=== PATIENT | male | born 1945 | race Caucasian/White ===

== ENCOUNTER 2019-06-14 14:08 | Inpatient (IN) | payer OTHER, MEDICARE, SELFPAY ==
[2019-06-14] VITALS (11 sets, daily range): BP systolic 135–161; BP diastolic 78–118; PULSE 106–122; RESP 16–24; TEMP 36.6–38.1; O2SAT 91–97; BMI 31.4
--- NOTE | 2019-06-14 14:14 | ED_ITS ---
Entered by Leonard Ferreira, acting as scribe for Nino Spring DO HPI - General Adult General: Chief complaint: Chest Pain Stated complaint: cp Time Seen by Provider: 06/14/19 14:14 History of Present Illness: HPI narrative: 74 yo male presents with chest pain. Pts family member states that pt has had chest pain since 12 last night. Pt states that his pain radiates down his left arm. Pt states that he can't sit back because of the pain. Pt states that he is mildly short of breath. Pt states that he has a cough. MD complaint: chest pain. Associated symptoms: Reports chest pain, dyspnea and malaise; Deny nausea, rash or vomiting Review of Systems Const: Reports: malaise; Denies: fever, chills, body aches, change in appetite or fatigue ENMT: Denies: throat pain, ear pain, nasal discharge or nasal congestion Card: Reports: chest pain, edema, shortness of breath on exertion and shortness of breath when lying down Resp: Reports: shortness of breath and non-productive cough; Denies: productive cough GI: Denies: abdominal pain, nausea, vomiting, vomiting blood, coffee grounds in vomit, diarrhea, constipation, bloating, blood in stool or black tarry stool : Denies: flank pain, painful urination, urinary frequency or urinary urgency Musc: Reports: back pain Skin/Breast: Denies: rash or itching PFSH ED PFSH: Medical History Abdominal aortic aneurysm BPH (benign prostatic hyperplasia) CAD (coronary artery disease) Chronic edema 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 Deep vein blood clot of right lower extremity HLD (hyperlipidemia) Hypertension Surgical History History of hernia repair S/P coronary artery stent placement Family History Mother Diabetes Social History Smoking and tobacco status: former smoker Quit status (tobacco): has quit using tobacco Year quit tobacco: 2009 Alcohol intake: current Alcohol type: hard liquor Alcohol use comment: 1 drink per week, sometimes more Substance/Drug Use: never Lives independently: Yes Household members: none Marital status: Current occupational status: retired Physical Exam Const: GENERAL APPEARANCE: cooperative ORIENTATION/CONSCIOUSNESS: Yes awake, Yes oriented to person, Yes oriented to place and Yes oriented to time HENMT: COMMON NORMALS: normocephalic, head/scalp atraumatic, hearing grossly normal bilaterally, external ears normal, EAC's normal, TM's normal bilaterally, nasal mucous membranes and turbinates normal, moist oral mucous membranes and oropharynx normal HEAD & SCALP: normocephalic and atraumatic NOSE: nasal mucous membranes and turbinates normal EXTERNAL EAR: Yes external ears normal EXTERNAL AUDITORY CANAL: EAC's normal TYMPANIC MEMBRANE: TM's normal bilaterally Eye: COMMON NORMALS: PERRL, EOMs intact bilaterally, conjunctivae normal and no scleral icterus CONJUNCTIVA: Yes conjunctivae normal PUPIL: Yes PERRL Neck/C-Spine: COMMON NORMALS: full ROM, no lymphadenopathy, supple and no JVD Lymph: LYMPHATIC: no lymphadenopathy noted and no lymphedema noted Resp: COMMON NORMALS: normal respiratory effort, no retractions, no use of accessory muscles and clear to auscultation bilaterally AUSCULTATION: clear to auscultation bilaterally Cardio: COMMON NORMALS: no JVD, regular rate, regular rhythm and no murmurs RATE: regular rate RHYTHM: regular rhythm GI: COMMON NORMALS: soft to palpation and no hepatosplenomegaly AUSCULTATION: Yes normoactive bowel sounds PALPATION: Yes soft, No tender, No guarding and Yes no hepatosplenomegaly Extremity: GENERAL: Yes edema (bilateral lower extremities +3) Neuro: SENSORIUM/ORIENTATION: Yes oriented to person, Yes oriented to place and Yes oriented to time Skin: COMMON NORMALS: no rashes or lesions noted GENERAL SKIN EXAM: no rashes or lesions noted Course ED course: Patient has low back pain which is chronic. He is little chest discomfort as well increasing shortness of breath and lower extremity edema which appears to be mostly chronic. He has had an abdominal aortic aneurysm in the past his chest discomfort is very vague does not sound clinically like a thoracic aneurysm. During the ER stay is mostly focused on his back pain. He has had some tachycardia could have little underlying a flutter on the EKGs is a little difficult to interpret because of motion artifact we did start him on a beta-amanda. His mild leukocytosis as well though there is no finding of definitive infection he is little redness of his left lower extremity which could be an early cellulitis but he does not seem to be complaining of much discomfort w the leg. Vital Signs: Vital signs: Vital Signs Temperature 99.1 F 06/15/19 11:55 Pulse Rate 115 H 06/15/19 11:55 Respiratory Rate 18 06/15/19 11:55 Blood Pressure 91/60 06/15/19 11:55 Pulse Oximetry 94 06/15/19 09:12 [facility] - General Adult Lab Data: Labs: Lab Results 06/14/19 06/14/19 06/14/19 Range/Units 14:30 14:30 14:30 WBC 11.6 H (4.0-10.0) 10^3/ uL RBC 5.81 H (4.1-5.3) 10^6/u L Hgb 16.5 (11.7-16.6) g/dL Hct 50.8 (42.0-52.0) % MCV 87.4 (80-94) fL MCH 28.4 (28.0-34.0) pg MCHC 32.5 (30.0-36.0) g/dL RDW 13.9 (12.1-15.1) % Plt Count 188 (130-400) 10^3/c mm MPV 10.7 H (7.4-10.4) fL Neut % (Auto) 82.6 % Lymph % (Auto) 10.3 % Ray % (Auto) 6.3 % Eos % (Auto) 0.3 % Baso % (Auto) 0.2 % Neut # (Auto) 9.5 H (1.8-7.7) 10^3/u L Lymph # (Auto) 1.2 (0.8-4.8) 10^3/u L Ray # (Auto) 0.7 (0.2-0.9) 10^3/u L Eos # (Auto) 0.0 (0.0-0.8) 10^3/u L Baso # (Auto) 0.0 (0.0-0.1) 10^3/u L Nucleated RBC % (a uto) 0 % Nucleated RBCs # 0.0 /100WBC Specimen Type Sample Site ABG pH (7.35-7.45) ABG pCO2 (35-45) mmHg ABG pO2 (80.0-100.0) mmH g ABG HCO3 (22-26) mmol/L ABG O2 Saturation ABG Base Excess (-2.0-2.0) mmol/ L Chevy Test A-a O2 Gradient (5-10) mmHg Hematocrit (42-52) % Hgb O2 Saturation (95-100) % Carboxyhemoglobin (0.4-20.1) %THgb Methemoglobin (0.4-1.5) % Total Hemoglobin (14-18) g/dL Ionized Calcium (1.1-1.4) mmol/L O2 Delivery Device O2 Liters/Min % FiO2 % Emergency Medical Tech ID Sodium 140 (136-145) mmol/L Potassium 4.3 (3.5-5.1) mmol/L Chloride 96 L (98-107) mmol/L Carbon Dioxide 27 (22-29) mmol/L Anion Gap 21.3 H (5-19) BUN 18 (8-23) mg/dL Creatinine 1.2 (0.7-1.2) mg/dL Glucose 130 H (65-115) mg/dL Calcium 10.3 (8.5-10.5) mg/dL Total Bilirubin 1.1 (0.15-1.2) mg/dL GGT (8-61) U/L AST 20 (0-40) U/L ALT 22 (0-41) U/L Alkaline Phosphata se 140 H (40-130) IU/L Creatine Kinase (39-308) U/L CK-MB (CK-2) (0-10.4) ng/mL CK-MB (CK-2) Rel I ndex (0.0-5.3) % Troponin T Baselin e 23 H (0-15) ng/mL Troponin T 120 Min napaimute (0-15) ng/mL Delta Troponin T (0-10) ABS# Total Protein 8.9 H (6.6-8.7) g/dL Albumin 4.9 (3.5-5.2) g/dL Globulin 4.0 (1.3-4.6) g/dL Urine Color (Yellow) Urine Appearance (CLEAR) Urine pH (5-7) Ur Specific Gravit y (1.005-1.030) Urine Protein (Negative) Urine Glucose (UA) (Normal) Urine Ketones (Negative) Urine Blood (Negative) Urine Nitrate (Negative) Urine Bilirubin (NEGATIVE) Urine Urobilinogen (Negative) mg/dL Ur Leukocyte Kelle ase (Negative) Urine RBC (0-2) /hpf Urine WBC (0-5) /hpf Ur Squamous Epith Cells (0-5) Urine Bacteria (NONE) Urine Mucus 06/14/19 06/14/19 06/14/19 Range/Units 14:30 14:30 16:11 WBC (4.0-10.0) 10^3/ uL RBC (4.1-5.3) 10^6/u L Hgb (11.7-16.6) g/dL Hct (42.0-52.0) % MCV (80-94) fL MCH (28.0-34.0) pg MCHC (30.0-36.0) g/dL RDW (12.1-15.1) % Plt Count (130-400) 10^3/c mm MPV (7.4-10.4) fL Neut % (Auto) % Lymph % (Auto) % Ray % (Auto) % Eos % (Auto) % Baso % (Auto) % Neut # (Auto) (1.8-7.7) 10^3/u L Lymph # (Auto) (0.8-4.8) 10^3/u L Ray # (Auto) (0.2-0.9) 10^3/u L Eos # (Auto) (0.0-0.8) 10^3/u L Baso # (Auto) (0.0-0.1) 10^3/u L Nucleated RBC % (a uto) % Nucleated RBCs # /100WBC Specimen Type Arterial Sample Site Radial, right ABG pH 7.45 (7.35-7.45) ABG pCO2 37.3 (35-45) mmHg ABG pO2 83.1 (80.0-100.0) mmH g ABG HCO3 25.9 (22-26) mmol/L ABG O2 Saturation 97.4 ABG Base Excess 2.0 (-2.0-2.0) mmol/ L Chevy Test Pos A-a O2 Gradient 98.4 H (5-10) mmHg Hematocrit 54.2 H (42-52) % Hgb O2 Saturation 96.2 (95-100) % Carboxyhemoglobin 0.5 (0.4-20.1) %THgb Methemoglobin 0.7 (0.4-1.5) % Total Hemoglobin 17.7 (14-18) g/dL Ionized Calcium 1.2 (1.1-1.4) mmol/L O2 Delivery Device Nc O2 Liters/Min 3.0 % FiO2 32.0 % Emergency Medical Tech ID ed Sodium 141.0 (136-145) mmol/L Potassium 4.0 (3.5-5.1) mmol/L Chloride (98-107) mmol/L Carbon Dioxide (22-29) mmol/L Anion Gap (5-19) BUN (8-23) mg/dL Creatinine (0.7-1.2) mg/dL Glucose 130.0 H (65-115) mg/dL Calcium (8.5-10.5) mg/dL Total Bilirubin (0.15-1.2) mg/dL GGT 33 (8-61) U/L AST (0-40) U/L ALT (0-41) U/L Alkaline Phosphata se (40-130) IU/L Creatine Kinase 81 (39-308) U/L CK-MB (CK-2) 2.4 (0-10.4) ng/mL CK-MB (CK-2) Rel I ndex (0.0-5.3) % Troponin T Baselin e (0-15) ng/mL Troponin T 120 Min [place] (0-15) ng/mL Delta Troponin T (0-10) ABS# Total Protein (6.6-8.7) g/dL Albumin (3.5-5.2) g/dL Globulin (1.3-4.6) g/dL Urine Color (Yellow) Urine Appearance (CLEAR) Urine pH (5-7) Ur Specific Gravit y (1.005-1.030) Urine Protein (Negative) Urine Glucose (UA) (Normal) Urine Ketones (Negative) Urine Blood (Negative) Urine Nitrate (Negative) Urine Bilirubin (NEGATIVE) Urine Urobilinogen (Negative) mg/dL Ur Leukocyte Kelle ase (Negative) Urine RBC (0-2) /hpf Urine WBC (0-5) /hpf Ur Squamous Epith Cells (0-5) Urine Bacteria (NONE) Urine Mucus 06/14/19 06/14/19 Range/Units 16:36 17:00 WBC (4.0-10.0) 10^3/ uL RBC (4.1-5.3) 10^6/u L Hgb (11.7-16.6) g/dL Hct (42.0-52.0) % MCV (80-94) fL MCH (28.0-34.0) pg MCHC (30.0-36.0) g/dL RDW (12.1-15.1) % Plt Count (130-400) 10^3/c mm MPV (7.4-10.4) fL Neut % (Auto) % Lymph % (Auto) % Ray % (Auto) % Eos % (Auto) % Baso % (Auto) % Neut # (Auto) (1.8-7.7) 10^3/u L Lymph # (Auto) (0.8-4.8) 10^3/u L Ray # (Auto) (0.2-0.9) 10^3/u L Eos # (Auto) (0.0-0.8) 10^3/u L Baso # (Auto) (0.0-0.1) 10^3/u L Nucleated RBC % (a uto) % Nucleated RBCs # /100WBC Specimen Type Sample Site ABG pH (7.35-7.45) ABG pCO2 (35-45) mmHg ABG pO2 (80.0-100.0) mmH g ABG HCO3 (22-26) mmol/L ABG O2 Saturation ABG Base Excess (-2.0-2.0) mmol/ L Chevy Test A-a O2 Gradient (5-10) mmHg Hematocrit (42-52) % Hgb O2 Saturation (95-100) % Carboxyhemoglobin (0.4-20.1) %THgb Methemoglobin (0.4-1.5) % Total Hemoglobin (14-18) g/dL Ionized Calcium (1.1-1.4) mmol/L O2 Delivery Device O2 Liters/Min % FiO2 % Emergency Medical Tech ID Sodium (136-145) mmol/L Potassium (3.5-5.1) mmol/L Chloride (98-107) mmol/L Carbon Dioxide (22-29) mmol/L Anion Gap (5-19) BUN (8-23) mg/dL Creatinine (0.7-1.2) mg/dL Glucose (65-115) mg/dL Calcium (8.5-10.5) mg/dL Total Bilirubin (0.15-1.2) mg/dL GGT (8-61) U/L AST (0-40) U/L ALT (0-41) U/L Alkaline Phosphata se (40-130) IU/L Creatine Kinase (39-308) U/L CK-MB (CK-2) (0-10.4) ng/mL CK-MB (CK-2) Rel I ndex (0.0-5.3) % Troponin T Baselin e (0-15) ng/mL Troponin T 120 Min [place] 20.94 H (0-15) ng/mL Delta Troponin T -2.06 L (0-10) ABS# Total Protein (6.6-8.7) g/dL Albumin (3.5-5.2) g/dL Globulin (1.3-4.6) g/dL Urine Color Yellow (Yellow) Urine Appearance Clear (CLEAR) Urine pH 5.0 (5-7) Ur Specific Gravit y 1.020 (1.005-1.030) Urine Protein Trace (Negative) Urine Glucose (UA) Norm (Normal) Urine Ketones Negative (Negative) Urine Blood Neg (Negative) Urine Nitrate Negative (Negative) Urine Bilirubin Neg (NEGATIVE) Urine Urobilinogen Norm (Negative) mg/dL Ur Leukocyte Kelle ase Negative (Negative) Urine RBC None (0-2) /hpf Urine WBC None (0-5) /hpf Ur Squamous Epith Cells 5-10 H (0-5) Urine Bacteria Trace (NONE) Urine Mucus 3+ Discharge Plan Discharge Patient Disposition: Placed in Observation Admit Provider: Jason Ponce Clinical Impression: Chest pain, Severe back pain, Tachycardia, Leukocytosis, Alkaline phosphatase elevation Interventions: ED Discharge Assessment Last Done: 06/14/19 18:08 Discharge Date/Time: 06/14/19 18:13 Coding Level of Care Code ED Behavioral Health Director for g Fwd Exam Comprehensive The documentation recorded by the Jhon hirsch Kialy, accurately reflects the service I personally performed and the decisions made by me, Nino Spring DO Jun 14, 2019 14:08
--- NOTE | 2019-06-14 14:17 | XR_ITS ---
WS: [id number] XR chest 1V portable [id number] REASON FOR EXAM: dyspnea/cough FINDINGS: Cardiomegaly is noted. Tortuosity of the descending thoracic aorta. Arteriosclerotic change s in the arch of the aorta. The lung slade are well aerated. No pneumonia, pleural effusion, pulmonary edema, mass effect, are p neumothorax. The hilum and apices are normal. No osseous abnormalities. XR/XR chest 1V portable [id number] IMPRESSION: Cardiomegaly with arteriosclerotic changes.
[2019-06-14 14:38] LABS: Basophils % 0.2 %; Eosinophils % 0.3 %; Hematocrit 50.8 % (42.0-52.0); Hemoglobin 16.5 g/dL (11.7-16.6); Lymphocytes # 1.2 10^3/uL (0.8-4.8); Lymphocytes % 10.3 %; Mean Corpuscular HGB Conc 32.5 g/dL (30.0-36.0); Mean Corpuscular Hemoglobin 28.4 pg (28.0-34.0); Mean Corpuscular Volume 87.4 fL (80-94); Mean Platelet Volume 10.7 fL (7.4-10.4); Monocytes # 0.7 10^3/uL (0.2-0.9); Monocytes % 6.3 %; Neutrophils # 9.5 10^3/uL (1.8-7.7); Neutrophils % 82.6 %; Nucleated Red Blood Cells % 0 %; Platelet Count 188 10^3/cmm (130-400); Red Blood Count 5.81 10^6/uL (4.1-5.3); Red Cell Distribution Width 13.9 % (12.1-15.1); White Blood Count 11.6 10^3/uL (4.0-10.0)
[2019-06-14] MEDS: metoprolol tartrate 1 mg/1 mL SDV 5 mL 5 MG IV (14:56)
[2019-06-14] MEDS: nitroglycerin 1 gm/inch oint Pkt 1 INCH TOPICAL (14:56)
[2019-06-14] MEDS: metoprolol succinate ER (24 HR) 50 mg Tablet PO (14:56)
[2019-06-14 15:02] LABS: Alanine Aminotransferase 22 U/L (0-41); Albumin Level 4.9 g/dL (3.5-5.2); Alkaline Phosphatase 140 IU/L (40-130); Anion Gap 21.3 (5-19); Aspartate Amino Transferase 20 U/L (0-40); Blood Urea Nitrogen 18 mg/dL (8-23); Calcium 10.3 mg/dL (8.5-10.5); Carbon Dioxide 27 mmol/L (22-29); Chloride 96 mmol/L (98-107); Glucose 130 mg/dL (65-115); Potassium 4.3 mmol/L (3.5-5.1); Sodium 140 mmol/L (136-145); Total Bilirubin 1.1 mg/dL (0.15-1.2); Total Protein 8.9 g/dL (6.6-8.7)
[2019-06-14 15:06] LABS: Troponin(5th) Baseline 23 ng/mL (0-15)
[2019-06-14] MEDS: morphine 4 mg/mL SDV 1 mL 2 MG IVP (15:15)
--- NOTE | 2019-06-14 16:02 | PC.NURSE ---
pt placed on oxygen 3 lpm, pt c/o chest pain, sao2 92% on RA
[2019-06-14 16:20] LABS: ABG PCO2 37.3 mmHg (35-45); ABG PH Result 7.45 (7.35-7.45); Alveolar-Arterial Oxygen Gradi 98.4 mmHg (5-10); Arterial Blood Gas Hematocrit 54.2 % (42-52); Blood Gas Allen Test Pos; Blood Gas Sample Site Radial, right; Blood Gas Sample Type Arterial; Carboxyhemoglobin 0.5 %THgb (0.4-20.1); HCO3 ABG 25.9 mmol/L (22-26); HGB O2 Sat 96.2 % (95-100); Ionized Calcium Level - ABG 1.2 mmol/L (1.1-1.4); Methemoglobin 0.7 % (0.4-1.5); Oxygen Device NC; Oxygen Saturation ABG 97.4; PO2 ABG 83.1 mmHg (80.0-100.0); Total Hemoglobin 17.7 g/dL (14-18)
[2019-06-14] MEDS: morphine 4 mg/mL SDV 1 mL IVP (16:30)
[2019-06-14 17:01] LABS: Troponin 5 2HR 20.94 ng/mL (0-15)
[2019-06-14 17:03] LABS: Troponin 5 2HR Delta -2.06 ABS# (0-10)
[2019-06-14 17:16] LABS: Add Urine Microscopic? YES; Bilirubin Urine Neg (NEGATIVE); Blood Urine Neg (Negative); Glucose Urine UA Norm (Normal); Ketones Urine Negative (Negative); Leukocyte Esterase Urine Negative (Negative); Nitrate Urine Negative (Negative); Protein Urine Trace (Negative); Urine Appearance Clear (CLEAR); Urine Color Yellow (Yellow); Urobilinogen Urine Norm (Negative)
[2019-06-14 17:34] LABS: Add Urine Culture? No; Bacteria Urine TRACE; Mucus Urine 3+
[2019-06-14 18:57] LABS: Gamma Glutamyl Transferase 33 U/L (8-61)
--- NOTE | 2019-06-14 19:09 | CTR_ITS ---
PROCEDURE INFORMATION: Exam: CT Angiography Chest Without And With Contrast Exam date and time: 06/14/2019 7:40 PM Age: 74 years old Clinical indication: Chest pain; Type not specified; Patient HX: C/O sudden onset severe chest/back pain; Additional info: Chest, back pain, tachycardia R/O dissection TECHNIQUE: Imaging protocol: Computed tomographic angiography of the chest without and with intravenous contrast. 3D rendering: MIP and/or 3D reconstructed images were created by the technologist. Total DLP: 1720.14 mGy-cm Radiation optimization: All CT scans at this facility use at least one of these dose optimization techniques: automated exposure control; mA and/or kV adjustment per patient size (includes targeted exams where dose is matched to clinical indication); or iterative reconstruction. Contrast material: OMNI 350; Contrast volume: 95 ml; Contrast route: 20G; COMPARISON: CR XR chest 1V portable [id number] 06/14/2019 2:33 PM FINDINGS: Pulmonary arteries: No visible pulmonary embolism. Aorta: The thoracic aorta appears nonaneurysmal. Bovine aortic arch trunk vessels. The Maximum AP diameter of the ascending thoracic aorta 42 mm which is within normal limits although upper limits of normal. No visible intimal flap or dissection. Mild arterial sclerotic disease. Lungs: No visible active interstitial or alveolar airspace disease. Pleural space: No visible active pleural based disease or pleural effusion. Heart: Advanced 3 vessel coronary artery disease. Upper abdomen: Visualized portions of the liver, pancreas, spleen, adrenal glands, and kidneys unremarkable for age. Small simple cortical cyst and parapelvic cyst equator left kidney. This is a benign finding. No follow-up recommended. Small hiatal hernia. Gallbladder and bile ducts: Incidental note of mild porcelain gallbladder. No visible cholelithiasis. No visible intra or extrahepatic biliary ectasia. Lymph nodes: Unremarkable. No enlarged lymph nodes. Bones/joints: Age-appropriate degenerative disease of the spine. Soft tissues: Unremarkable. CT/CT angio chest [id number] IMPRESSION: 1. No visible thoracic aortic aneurysm, intimal flap, or evidence of dissection. 2. No visible pulmonary embolism. 3. Advanced 3 vessel coronary artery disease. 4. Mild arterial sclerosis. 5. Porcelain gallbladder. 6. No current visible evidence of acute cardiopulmonary/cardiothoracic pathologic process. Radiation Dose CTDIVOL = (mGy): DLP = 1720.14 (mGy-cm)
--- NOTE | 2019-06-14 19:12 | CTR_ITS ---
PROCEDURE INFORMATION: Exam: CT Lumbar Spine Without Contrast Exam date and time: 06/14/2019 7:40 PM Age: 74 years old Clinical indication: Low back pain; Patient HX: C/O sudden onset severe back pain; Additional info: Sudden onset severe back pain, tachycardia, leukocytosis TECHNIQUE: Imaging protocol: Computed tomography images of the lumbar spine without contrast. Total DLP: 2155.56 mGy-cm Radiation optimization: All CT scans at this facility use at least one of these dose optimization techniques: automated exposure control; mA and/or kV adjustment per patient size (includes targeted exams where dose is matched to clinical indication); or iterative reconstruction. COMPARISON: No relevant prior studies available. FINDINGS: Tubes, catheters and devices: IVC filter. Vertebrae: No visible fracture, subluxation, or dislocation or other evidence of acute osseous pathologic process. Discs/Spinal canal/Neural foramina: Moderate degenerative disc disease with disc space height loss L4/L5 and to a less significant degree L1/L2 and L2/L3 posteriorly. Moderate central canal narrowing L4/L5 primarily due to of facet arthrosis and ligamentum flavum hypertrophy aggravated by very mild posterior disc bulge. Other bones/joints: Osteopenia. Vasculature: Incidental note of a infrarenal distal fusiform abdominal aortic aneurysm dimensions 5.6 cm in length by 4.1 cm in AP diameter by 4.2 cm in transverse diameter. Moderate arterial sclerotic disease. No aneurysmal dilatation of the common iliacs. Soft tissues: Unremarkable for age. CT/CT lumbar spine wo con* [id number] IMPRESSION: 1. Infrarenal fusiform abdominal aortic aneurysm measuring 5.6 cm in length by 4.1 cm x 4.2 cm with moderate arterial sclerotic disease. 2. No visible fracture, subluxation, or dislocation. 3. Moderate central canal narrowing L4/L5 secondary to facet arthrosis and ligamentum flavum hypertrophy. Radiation Dose CTDIVOL = (mGy): DLP = 2155.56 (mGy-cm)
--- NOTE | 2019-06-14 19:12 | CTR_ITS ---
PROCEDURE INFORMATION: Exam: CT Thoracic Spine Without Contrast Exam date and time: 06/14/2019 7:40 PM Age: 74 years old Clinical indication: Pain in thoracic spine; Without myelpathy or radiculopathy; Patient HX: C/O sudden onset severe back pain; Additional info: Sudden onset severe back pain, tachycardia, leukocytosis TECHNIQUE: Imaging protocol: Computed tomography images of the thoracic spine without contrast. Total DLP: 2385.29 mGy-cm Radiation optimization: All CT scans at this facility use at least one of these dose optimization techniques: automated exposure control; mA and/or kV adjustment per patient size (includes targeted exams where dose is matched to clinical indication); or iterative reconstruction. COMPARISON: No relevant prior studies available. FINDINGS: Vertebrae: No visible fracture, subluxation, or dislocation. Spondylosis deformans with anterior claw syndesmophyte formation T9 and T10. Discs/Spinal canal/Neural foramina: Degenerative disc disease with vacuum disc phenomenon T7/T8. No visible herniated nucleus pulposis or significant posterior annular disc bulge that would result in central canal stenosis. No visible neural foraminal stenosis. Other bones/joints: Osteopenia. Soft tissues: Unremarkable. Vasculature: The thoracic aorta appears nonaneurysmal within the field of view. Arterial sclerosis. Lungs: No active pulmonary disease within the field of view. Heart: Advanced coronary artery disease. Mediastinum: Small hiatal hernia. CT/CT thoracic spin wo con* [id number] IMPRESSION: 1. No visible acute osseous pathology. 2. Age-appropriate degenerative disease and degenerative disc disease. 3. No visible spinal stenosis or neural foraminal stenosis. Radiation Dose CTDIVOL = (mGy): DLP = 2385.29 (mGy-cm)
--- NOTE | 2019-06-14 19:17 | PM.HP ---
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 He reports that staying stable is the only thing that makes the pain better. He has been coughing as well, although denies that pain is worse with respiration. Cough does make his pain worse. Denies fever at home, although he is currently having chills. Denies any recent fall or trauma. Denies any loss of sensation has not been no report of weakness, incontinence or other symptoms that may suggest acute cord compression. He reports near syncope with episodes of cough. In ER he is noted with tachycardia of 111. He is saturating in the 90s on room air. He is afebrile. Chest x-ray with cardiomegaly and atherosclerosis. He denies any travel outside the country or contact with anybody who may have been ill. He lives alone. He reports he has been having chronic lower extremity edema. He does say he is compliant with his medications every day. His initial troponin in ER was mildly elevated at 23, without significant rise on subsequent test. EKG with ectopic atrial tachycardia with first-degree AV block, although possible flutter. He prefers to stay still and covers himself with converse during our interview. Eyes closed, laying on his side. Reports he cannot sleep on his back due to issues with back pain. Reports current pain is much more severe than usual. Review of Systems Const: Reports: chills; Denies: fever, body aches or malaise Eyes: Denies: change in vision or eye redness ENMT: Denies: throat pain, oral sores/lesions or ear pain Card: Reports: chest pain, edema and pre-syncope; Denies: shortness of breath on exertion Resp: Reports: shortness of breath and productive cough; Denies: change in phlegm color or coughing up blood GI: Denies: abdominal pain, nausea, vomiting, diarrhea, constipation, blood in stool or black tarry stool : Denies: flank pain, difficulty urinating, urinary frequency or blood in urine Musc: Reports: back pain; Denies: joint swelling or redness Skin/Breast: Denies: rash, sores or new lesion Neuro: Denies: headache, numbness in extremities, weakness in extremities, dizziness, confusion or seizure-like activity Endo: Denies: excessive urination or excessive thirst Sregio/Lymph: Denies: easy bleeding or purpura All/Imm: Denies: hives, throat swelling or tongue swelling Medications/Allergies Home Medications Medication Instructions Recorded Confirmed Last Taken Type Vitamin D3 25 mcg PO DAILY 06/14/19 06/14/19 06/13/19 History aspirin 81 mg PO DAILY 06/14/19 06/14/19 06/13/19 History atorvastatin See Rx Instructions .ROUTE .COMPLEX 06/14/19 06/14/19 06/13/19 History furosemide 40 mg PO DAILY 06/14/19 06/14/19 06/13/19 History losartan 50 mg PO DAILY 06/14/19 06/14/19 06/13/19 History metoprolol succinate See Rx Instructions .ROUTE .COMPLEX 06/14/19 06/14/19 06/13/19 History potassium chloride 20 meq PO DAILY 06/14/19 06/14/19 06/13/19 History rivaroxaban 20 mg PO DAILY 06/14/19 06/14/19 06/13/19 History tamsulosin 0.4 mg PO DAILY 06/14/19 06/14/19 06/13/19 History Allergies Allergy/AdvReac Type Severity Reaction Status Date / Time No Known Allergies Allergy Verified 06/14/19 14:18 PFSH Acute PFSH: Medical History BPH (benign prostatic hyperplasia) CAD (coronary artery disease) Chronic edema 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 Deep vein blood clot of right lower extremity HLD (hyperlipidemia) Hypertension Surgical History History of hernia repair S/P coronary artery stent placement Family History Mother Diabetes Social History Smoking and tobacco status: former smoker Quit status (tobacco): has quit using tobacco Year quit tobacco: 2009 Alcohol intake: current Alcohol type: hard liquor Alcohol use comment: 1 drink per week, sometimes more Substance/Drug Use: never Lives independently: Yes Household members: none Marital status: Current occupational status: retired Vitals/I&O/Wt Last Vital Signs Temp 98.1 F 06/14/19 18:36 Pulse 111 H 06/14/19 18:36 Resp 24 H 06/14/19 18:36 BP 139/78 06/14/19 18:36 Pulse Ox 91 06/14/19 18:36 Weight last 48 hrs Weight 102.058 kg Physical Exam Const: COMMON NORMALS: no apparent distress and oriented x3 NUTRITIONAL APPEARANCE: obese ORIENTATION/CONSCIOUSNESS: Yes other (Appears in discomfort, laying on his side, covering himself up to the neck) HENMT: COMMON NORMALS: oropharynx normal Neck/C-Spine: COMMON NORMALS: no JVD Resp: COMMON NORMALS: normal respiratory effort and clear to auscultation bilaterally AUSCULTATION: clear to auscultation bilaterally Cardio: COMMON NORMALS: no JVD, regular rhythm, S1 normal heart sound, S2 normal heart sound and no murmurs RATE: tachycardic RHYTHM: regular rhythm HEART SOUNDS: S1 normal and S2 normal GI: COMMON NORMALS: normal to inspection, nondistended, normoactive bowel sounds, soft to palpation and non-tender PALPATION: Yes soft Extremity: COMMON NORMALS: no joint enlargement GENERAL: Yes edema Neuro: COMMON NORMALS: oriented x3 and moves all extremities Skin: COMMON NORMALS: no rashes or lesions noted OTHER: Severe chronic venous stasis dermatitis bilateral lower extremities. Dry scaly skin. Data : 06/14/19 14:30 06/14/19 14:30 A&P Assessment and plan (1) Severe back pain: He does have chronic underlying back pain, however, he states that it is usually much milder. Currently new onset severe back pain upper and lower back which woke him up from sleep around midnight last night. Etiology is not clear. He denies any recent trauma. With underlying chronic back pain and suspected degenerative disease, there may have been progression, however, at this time with severity of pain, as well as with chest pain concern is to rule out aortic dissection. Due to this will assess with CTA thoracic aorta. At the same time with chills, leukocytosis, tachycardia, sudden onset severe pain will assess CT thoracic and lumbar spine to rule out other etiology including possible abscess. This will have to be done without contrast due to suboptimal renal function and requirement for contrast with CTA. With hyperproteinemia, back pain, mild kidney insufficiency, will request for serum light chains, SPEP, UPEP to assess for multiple myeloma. He reports that in case of cardiopulmonary arrest he does not want resuscitation, but does want to be kept comfortable. He denies having any family, but does have a friend (Alessandra Alan) who he states could make decisions on his behalf if he could not. He reserves the ability to change his mind regarding decision for intubation for a condition like severe pneumonia etc. until such need arises. Status: Acute Code(s): M54.9 - Dorsalgia, unspecified (2) Chest pain: Reports severe chest pain in middle chest, radiating upwards towards his neck. Started around the same time as his back pain waking him from sleep last night. As above with assessed by CTA. Rule out acute MO given history of coronary disease, stenting, with mild elevation of initial troponin, although with follow-up does not appear to have acute MO. Complete series. Assess TTE. Stress test in April 2018 without acute ischemia. Continue aspirin. Due to his severe aches for now we will hold statin. Check CK. Status: Acute Code(s): R07.9 - Chest pain, unspecified (3) Tachycardia: Rhythm not entirely clear, ectopic atrial tachycardia, possibly MAT, versus flutter with first-degree AV block. First EKG difficult to interpret. Obtain repeat. At this time resume his home metoprolol, although we will switch dose to 100 mg twice daily metoprolol tartrate. Status: Acute Code(s): R00.0 - Tachycardia, unspecified (4) Leukocytosis: With chills, tachycardia, leukocytosis 11.6. At this time I am not suspecting sepsis. Work-up towards infectious etiology not revealing with unremarkable chest x-ray, unremarkable urine. With chills, musculoskeletal pain, suspect he may be having a acute viral syndrome. Will request for rapid flu. He denies travel out of country or contact with sick persons. For now will not initiate antibiotic as I am not suspecting bacterial infection. We will check procalcitonin. Even though suspicion is lower will assess CT thoracic and lumbar spine as above. Status: Acute Code(s): D72.829 - Elevated white blood cell count, unspecified (5) Alkaline phosphatase elevation: Isolated mild alkaline phosphatase elevation. Prior values normal. No right upper quadrant pain. GGT is normal. With severe back pain, chest pain. Concern for possible bony lesion, assess for possible myeloma. Imaging with CT spine as above. Status: Acute Code(s): R74.8 - Abnormal levels of other serum enzymes (6) Hyperproteinemia: With back pain, mild kidney insufficiency, hyperproteinemia. Assess for possible MM. Alternatively may be secondary to some mild dehydration. Status: Acute Code(s): E88.09 - Other disorders of plasma-protein metabolism, not elsewhere classified (7) Acute bronchitis: With cough, reports that sometimes bouts of cough caused him to be almost presyncopal. Has history of DVT in the past, although says has been compliant with Xarelto. Suspicion for acute VTE at this time is low. No pneumonia noted on chest x-ray. We will add breathing treatments at this time. He denies being carrying the diagnosis of COPD. Supportive care as needed. Status: Acute Code(s): J20.9 - Acute bronchitis, unspecified Additional A&P Information CAD, status post stenting History of VTE Chronic anticoagulation Chronic lower extremity edema HTN HLD BPH Attestations Medical Necessity Statement*: Place in observation. 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
[2019-06-14 20:09] LABS: Creatine Phosphokinase 81 U/L (39-308)
--- NOTE | 2019-06-14 20:17 | ECG_ITS ---
Measurements Intervals [place] Rate: 112 P: 255 LA: 250 QRS: -23 QRSD: 100 T: 38 QT: 344 QTc: 470 ECTOPIC ATRIAL TACHYCARDIA WITH FIRST DEGREE AV BLOCK INFERIOR MYOCARDIAL INFARCTION , OF INDETERMINATE AGE [40+ ms Q WAVE AND/OR ST/T ABNORMALITY IN II/aVF] ANTEROSEPTAL MYOCARDIAL INFARCTION , OF INDETERMINATE AGE [40+ ms Q WAVE IN V1-V4] Compared to ECG 09/11/2016 12:30:31 First degree AV block now present Myocardial infarct finding now present Sinus rhythm no longer present Electronically Signed On 06-14-2019 19:08:14 SCIENCE ANALYST by Kylie Hayes M.D. [id number]
[2019-06-14] MEDS: iohexol 350 mg/mL 100 mL Btl IV (21:14)
[2019-06-14 21:33] LABS: INR 1.79 (0.8-1.2); Partial Thromboplastin Time 34.9 SECONDS (23.9-36.7)
[2019-06-14 21:34] LABS: Troponin 5 6HR 16.88 ng/mL (0-15)
[2019-06-14 21:39] LABS: Troponin 5 6HR Delta -6.12 ng/L (0-12)
[2019-06-14 21:54] LABS: Influenza A by IFA Negative (Negative); Influenza B by IFA Negative (Negative)
[2019-06-14] MEDS: tamsulosin 0.4 mg Capsule PO (21:55)
--- NOTE | 2019-06-14 22:13 | PC.NURSE ---
Patient arrived to floor from ER, alert and orientated but severely short of breath. Patient able to answer most questions but is short of breath in doing so and fell asleep before finished. patient says he has been getting like this more and more frequently, has to stop often in walking due to SOB. says does not use oxygen at home and refused it the first time offered saying he was ok when laying down. This nurse noticed that he continued to be SOB when laying, couldnt move much even others moving him makes him SOB so explained why I thought he could benefit from some and he agreed. paitient currently on 2 l nc. patient did say hes been having pain in his epigastric area of late. patients legs bilaterally are edematous 2+ and skin hard and flakey, dark in coloration.
[2019-06-14 22:44] LABS: CKMB 2.4 ng/mL (0-10.4)
[2019-06-14 22:51] LABS: Procalcitonin 0.12 ng/mL (0-0.5)
[2019-06-15] VITALS (11 sets, daily range): BP systolic 82–126; BP diastolic 44–74; PULSE 77–132; RESP 16–35; TEMP 36.3–37.7; O2SAT 92–97
--- NOTE | 2019-06-15 01:22 | PC.NURSE ---
Patient had an episode tonight when nurses noticed his heart rate run to 140. when we went to his room found patient had gotten up on his own to use the bathroom but had taken off his oxygen as well. patient found on the bathroom commode, had urinated on the floor, his sweat bottoms were wet. he was out of breath while sitting on the commode and Nurse Sosa had gotten him a longer oxygen hose to up his o2. patient had urinal at bedside and had used it earlier but didnt think to get it again. when we got him back to the bed we noticed that his pupils were pinpoint, a second nurse verified as well. patient when asked about what he had needed said 32, 32 but knew that what he was saying wasnt making any sense. we got him back to bed, patient is asleep now but his heart rate is currently 122 and respirations about 26, 28 when he was sitting up on the bed. his o2 sats after sitting on the bed for a bit were back up to 96 on 2 liters of oxygen.
--- NOTE | 2019-06-15 05:50 | PC.NURSE ---
went to check on the patient and he had peed on the floor said he missed the urinal. cleaned him up and gave him his call light with instructions to call us when he has to go next time.patient wa struggling to breathe all the while we were changing him and the bed and just laying there while we wee getting him settled. patient on 2l nc still and while resting he seems to keep sats up.
[2019-06-15 05:51] LABS: Basophils % 0.2 %; Hematocrit 47.9 % (42.0-52.0); Hemoglobin 15.6 g/dL (11.7-16.6); Lymphocytes % 8.3 %; Mean Corpuscular HGB Conc 32.6 g/dL (30.0-36.0); Mean Corpuscular Hemoglobin 28.6 pg (28.0-34.0); Mean Corpuscular Volume 87.9 fL (80-94); Mean Platelet Volume 11.5 fL (7.4-10.4); Monocytes # 1.3 10^3/uL (0.2-0.9); Monocytes % 9.9 %; Neutrophils # 10.2 10^3/uL (1.8-7.7); Neutrophils % 81.1 %; Nucleated Red Blood Cells % 0 %; Platelet Count 180 10^3/cmm (130-400); Red Blood Count 5.45 10^6/uL (4.1-5.3); Red Cell Distribution Width 14.4 % (12.1-15.1); White Blood Count 12.6 10^3/uL (4.0-10.0)
[2019-06-15 06:16] LABS: Alanine Aminotransferase 21 U/L (0-41); Albumin Level 4.1 g/dL (3.5-5.2); Alkaline Phosphatase 99 IU/L (40-130); Anion Gap 20.6 (5-19); Aspartate Amino Transferase 20 U/L (0-40); Blood Urea Nitrogen 20 mg/dL (8-23); Calcium 9.5 mg/dL (8.5-10.5); Carbon Dioxide 25 mmol/L (22-29); Chloride 97 mmol/L (98-107); Globulin 3.3 g/dL (1.3-4.6); Glucose 132 mg/dL (65-115); Potassium 3.6 mmol/L (3.5-5.1); Sodium 139 mmol/L (136-145); Total Bilirubin 1.9 mg/dL (0.15-1.2); Total Protein 7.4 g/dL (6.6-8.7)
--- NOTE | 2019-06-15 07:57 | ECG_ITS ---
Measurements Intervals [place] Rate: 120 P: 229 ND: 178 QRS: -13 QRSD: 105 T: 42 QT: 333 QTc: 471 SINUS TACHYCARDIA WITH OCCASIONAL VENTRICULAR PREMATURE COMPLEXES INFERIOR MYOCARDIAL INFARCTION [40+ ms Q WAVE AND/OR ST/T ABNORMALITY IN II/aVF], PROBABLY OLD Compared to ECG 06/14/2019 16:15:09 Ventricular premature complex(es) now present First degree AV block no longer present Myocardial infarct finding still present Electronically Signed On 06-15-2019 19:51:50 CDT by Kylie Hayes M.D. [id number]
[2019-06-15] MEDS: rivaroxaban 10 mg Tablet 20 MG PO (08:40)
[2019-06-15] MEDS: aspirin 81 mg EC Tablet PO (08:40)
[2019-06-15] MEDS: pantoprazole DR 40 mg Tablet PO (08:40)
[2019-06-15] MEDS: cholecalciferol (vitamin D3) 1,000 unit Tablet 1000 UNIT PO (08:40)
[2019-06-15] MEDS: lactated ringers 500 ML 999 ML IV ×3 (08:41→18:59)
[2019-06-15] MEDS: piperacillin-tazobactam 3.375 GM in sodium chloride 0.9% (plus) 50 ML IV ×2 (08:42→18:58)
[2019-06-15 09:32] LABS: Lactic Sepsis W/Reflex 2.7 mmol/L (0.5-2.2)
[2019-06-15 10:56] LABS: Reflex Lactate Order REFLEX LACTIC ORDERD
--- NOTE | 2019-06-15 11:17 | USR_ITS ---
PROCEDURE INFORMATION: Exam: US Abdomen Limited Exam date and time: 06/15/2019 4:34 PM Age: 74 years old Clinical indication: Abnormal findings; Abnormal radiologic finding of the abdomen; Radiologic exam and body structure: CT lumbar spine; Additional info: Abdominal aorta aneurysm TECHNIQUE: Imaging protocol: Real-time ultrasound of the abdomen with image documentation. Examination is focused on the region of clinical interest. COMPARISON: CT angio abd aorta runof [id number] 06/15/2019 2:48 PM FINDINGS: Aorta: Proximal abdominal aorta is obscured by overlying bowel gas. Mid abdominal aorta measures 1.4 x 1.7 cm in the AP/transverse dimensions. There is a distal aortic aneurysm measuring 5.4 x 3.9 x 3.7 cm in the longitudinal/AP/transverse dimensions. No ultrasound evidence for rupture. Common iliac arteries: Common iliac arteries are obscured by overlying bowel gas. Other findings: Technically difficult study secondary to overlying bowel gas. US/US abdomen limited [id number] IMPRESSION: There is a distal aortic aneurysm measuring 5.4 x 3.9 x 3.7 cm in the longitudinal/AP/transverse dimensions. No ultrasound evidence for rupture.
--- NOTE | 2019-06-15 11:21 | P.PN_ITS ---
Subjective Subjective: Interval history: Today his back pain is better. Still having chest pain, on the right side, upper chest radiating outward and down from the midline. Today also is having abdominal pain, upper and lower. Reports still having some cough. Vitals/I&O/Wt Last Vital Signs Temp 98.1 F 06/15/19 07:46 Pulse 119 H 06/15/19 09:19 Resp 16 06/15/19 09:12 BP 82/56 06/15/19 07:46 Pulse Ox 94 06/15/19 09:12 06/14/19 06/15/19 06/15/19 21:59 06:59 14:59 Output Total 50 / 50 Balance -50 / -50 Weight last 48 hrs Weight 102.058 kg Physical Exam Const: COMMON NORMALS: no apparent distress and oriented x3 NUTRITIONAL APPEARANCE: obese ORIENTATION/CONSCIOUSNESS: Yes other (Appears in less discomfort) HENMT: COMMON NORMALS: oropharynx normal Neck/C-Spine: COMMON NORMALS: no JVD Resp: COMMON NORMALS: normal respiratory effort and clear to auscultation bi laterally AUSCULTATION: clear to auscultation bilaterally Cardio: COMMON NORMALS: no JVD, regular rhythm, S1 normal heart sound, S2 normal heart sound and no murmurs RATE: tachycardic RHYTHM: regular rhythm HEART SOUNDS: S1 normal and S2 normal GI: COMMON NORMALS: normal to inspection, nondistended, normoactive bowel sounds, soft to palpation and non-tender PALPATION: Yes soft Extremity: COMMON NORMALS: no joint enlargement GENERAL: Yes edema Neuro: COMMON NORMALS: oriented x3 and moves all extremities Skin: COMMON NORMALS: no rashes or lesions noted GENERAL SKIN EXAM: no rashes or lesions noted OTHER: Severe chronic venous stasis dermatitis bila teral lower extremities. Dry scaly skin. Data : 06/15/19 05:18 06/15/19 05:18 Micro: Microbiology 06/15/19 09:05 Blood Culture - Preliminary Blood SPECIMEN COLLECTED 06/15/19 09:00 Blood Culture - Preliminary Blood SPECIMEN COLLECTED A&P Assessment and plan (1) Abdominal pain: Today complaining more of abdominal pain, although still some persistent pain in the chest. Back pain appears to be better. Abdominal pain with tenderness in right upper quadrant palpation, not so much on the left. Otherwise also reports pain across suprapubic area. 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 Requested blood cultures. Lactic acid is 2.7. Blood pressure soft today, although did have Nitropaste still on his chest, this was wiped off. Hold his metoprolol, Lasix. IV fluid bolus, monitor blood pressure. Started on Zosyn. Surgery is asked to evaluate. With some expansion of his abdominal aortic aneurysm noted, although unclear timeline, but with not clear ill-defined abdominal pain, with lactic acid 2.7 a fter discussion with surgery, per discussion with on-call cardiology, discussed with patient that ruling out dissecting aneurysm, as well as possible occlusion of mesenteric arteries would be important, and he is in agreement with proceeding with CTA in spite as explained to him not ideal situation with regards to his renal function. Status: Acute Code(s): R10.9 - Unspecified abdominal pain (2) Porcelain gallbladder: As above. Status: Acute Code(s): K82.8 - Other specified diseases of gallbladder (3) Severe back pain: This has improved today. Etiology is not clear. He does have age- appropriate degenerative changes in thoracic spine, lumbar spine with moderate central canal narrowing L4-L5. No thoracic aorta dissection He does have chronic underlying back pain, however, he states that it is usually much milder. Currently new onset severe back pain upper and lower back which woke him up from sleep around midnight last night. Etiology is not clear. He denies any recent trauma. No dissection noted in thoracic aorta. At the same time with chills, leukocytosis, tachycardia, treated for possible cholecystitis. With hyperproteinemia, back pain, mild kidney insufficiency, requested for serum light chains, SPEP, UPEP to assess for multiple myeloma. He reports that in case of cardiopulmonary arrest he does not want resuscit ation, but does want to be kept comfortable. He denies having any family, but does have a friend (Alessandra Alan) who he states could make decisions on his behalf if he could not. He reserves the ability to change his mind regarding decision for intubation for a condition like severe pneumonia etc. until such need arises. Status: Acute Code(s): M54.9 - Dorsalgia, unspecified (4) Chest pain: This is better, but still persistent right of midline, radiating down and out. Minimal troponin elevation, without significant delta. Pain is not typical, an acute RI is not suspected at this time. Assess TTE. Stress test in April 2018 without acute ischemia. Continue aspirin. Due to his severe aches for now we will hold statin. CK is normal, although with complaints of pain in multiple areas, today also with cramping in the right leg, holding his statin at this time to exclude contribution of statin induced myopathy. Status: Acute Code(s): R07.9 - Chest pain, unspecified (5) Abdominal aortic aneurysm: As above. February 2018 3.75 x 4.22 x [address] lumbar spine this admission 4.1 x 4.2 x 5.9 length. Status: Acute Code(s): I71.4 - Abdominal aortic aneurysm, without rupture (6) Tachycardia: Repeat EKG today with sinus tachycardia. Yesterday rhythm not entirely clear, ectopic atrial tachycardia, possibly MAT, versus flutter with first-degree AV block. First EKG difficult to interpret. Metoprolol held for now due to soft blood pressure. Status: Acute Code(s): R00.0 - Tachycardia, unspecified (7) Leukocytosis: As above. Status: Acute Code(s): D72.829 - Elevated white blood cell count, unspecified (8) Alkaline phosphatase elevation: This is resolved, although today T bili is elevated 1.9. Isolated mild alkaline phosphatase elevation. Prior values normal. No right upper quadrant pain. GGT is normal. With severe back pain, chest pain. Concern for possible bony lesion, assess for possible myeloma. Laboratory evaluation was ordered. Status: Acute Code(s): R74.8 - Abnormal levels of other serum enzymes (9) Hyperproteinemia: With back pain, mild kidney insufficiency, hyperproteinemia. Assess for possible MM. Alternatively may be secondary to some mild dehydration. Status: Acute Code(s): E88.09 - Other disorders of plasma-protein metabolism, not elsewhere classified (10) Acute bronchitis: With cough, reports that sometimes bouts of cough caused him to be almost presyncopal. Has history of DVT in the past, although says has been compliant with Xarelto. Suspicion for acute VTE at this time is low. No pneumonia noted on chest x-ray. We will add breathing treatments at this time. He denies being carrying the diagnosis of COPD. Supportive care as needed. Status: Acute Code(s): J20.9 - Acute bronchitis, unspecified Additional A&P Information CAD, status post stenting History of VTE Chronic anticoagulation Chronic lower extremity edema HTN HLD BPH Attestations Medical Necessity Statement*: Continue admission for assessment management of suspected cholecystitis, assessment of abdominal aortic aneurysm enlarged from last study. 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
--- NOTE | 2019-06-15 11:46 | CTR_ITS ---
PROCEDURE INFORMATION: Exam: CTA Angiogram of the Abdominal Aorta and Bilateral Lower Extremities (Run-off) With IV Contrast Exam date and time: 06/15/2019 2:11 PM Age: 74 years old Clinical indication: Abdominal pain; Acute; Prior surgery; Surgery date: 6+ months; Surgery type: Hernia, stent; Patient HX: C/O abd and ble pain; Additional info: Abdominal pain, aaa TECHNIQUE: Imaging protocol: CT angiogram of the abdominal aorta, pelvis and bilateral lower extremities with IV iodinated contrast. 3D rendering: MIP and/or 3D reconstructed images were created by the technologist. Total DLP: 2180.75 mGy-cm Radiation optimization: All CT scans at this facility use at least one of these dose optimization techniques: automated exposure control; mA and/or kV adjustment per patient size (includes targeted exams where dose is matched to clinical indication); or iterative reconstruction. Contrast material: VISI 320; Contrast volume: 95 ml; Contrast route: 20G; COMPARISON: CT angio chest [id number] 06/14/2019 9:20 PM FINDINGS: Aorta: There is atherosclerotic plaque in the abdominal aorta. Infrarenal abdominal aorta is aneurysmal measuring 4.1 x 4.3 cm in the AP/transverse dimensions. Eccentric plaque is present in these region. No evidence for rupture. Celiac trunk and mesenteric arteries: No occlusion or significant stenosis. Renal arteries: There is atherosclerotic plaque at the left renal artery origin with 14 % narrowing. There is a short segment of calcified plaque in the distal right renal artery measuring 7 mm in the transverse dimension with 10% narrowing. Right iliac arteries: Scattered atherosclerotic plaque. No occlusion or significant stenosis. Right femoral/popliteal arteries: There is an endovascular stent extending from the proximal femoral artery through the distal femoral artery. Graft appears patent. Popliteal artery is unremarkable. Right infrapopliteal arteries: There is thready flow in the proximal peroneal artery with no appreciable flow in the mid to distal peroneal artery. There is luminal irregularity of the anterior and posterior tibialis artery with scattered calcified plaque. No appreciable flow is seen within the distal anterior tibialis artery approximately 7 cm superior to the ankle joint. Left iliac arteries: Scattered atherosclerotic plaque with luminal irregularity. Left femoral/popliteal arteries: There is scattered atherosclerotic plaque in the common femoral, femoral, and popliteal arteries with luminal irregularity. No occlusion or significant focal stenosis. Left infrapopliteal arteries: There is atherosclerotic plaque and thready flow in the anterior tibialis artery with no appreciable flow in the mid to distal aspects of the anterior tibialis artery. No appreciable flow seen within the distal aspect of the peroneal artery 2.9 cm superior to the tibiotalar joint. Heart: There is calcified plaque in the visualized coronary arteries. Mediastinum: Small hiatal hernia. Liver: Liver is somewhat inhomogeneous without a discrete mass lesion seen. Gallbladder and bile ducts: Gallbladder wall is thickened and ill-defined. There is pericholecystic fluid and stranding. There are small stones and/or sludge in the gallbladder. Findings are consistent with acute cholecystitis. Pancreas: There is a cystic lesion in the uncinate process of the pancreas measuring 15 mm in the transverse dimension. Spleen: Normal. No splenomegaly. Adrenals: Normal. No mass. Kidneys and ureters: There are cysts with benign features in the left kidney the larger of which measures 3.7 cm. Follow-up is not necessary. Stomach and bowel: There is mucosal thickening of the descending duodenum with associated mesenteric inflammatory stranding which is likely reactive in nature. There is mucosal thickening of the hepatic flexure colon with adjacent inflammatory stranding. This is adjacent to the gallbladder fossa and is likely reactive in nature. There is a mildly dilated small bowel loops in the midline lower abdomen. There is small bowel mucosal thickening in this region. The small bowel proximal and distal to this short segment of dilatation is normal in caliber. There is diverticulosis of the colon without evidence of diverticulitis. Appendix: A normal appendix is identified. Bladder: The bladder wall is thickened and irregular in contour. There is a anterior bladder diverticulum. Reproductive: Prostate gland indents the base of the bladder consistent with median lobe enlargement. Intraperitoneal space: There is a small amount of free intraperitoneal fluid in the abdomen. Lymph nodes: Multiple subcentimeter mesenteric and retroperitoneal lymph nodes. Bones/joints: Status post ORIF proximal right femur. There are degenerative changes in the visualized spine. Soft tissues: There is edema in the subcutaneous soft tissues of the lower legs. Inferior vena cava: There is an IVC filter in place. CT/CT angio abd aorta runof [id number] IMPRESSION: 1. Findings as stated above are consistent with acute cholecystitis. 2. The bladder wall is thickened. This is nonspecific and may represent bladder outlet obstruction, inflammation or infection. Neoplastic process is included in the differential. 3. Prostate gland indents the base of the bladder consistent with median lobe enlargement. 4. Mucosal thickening of the large bowel hepatic flexure and descending duodenum with adjacent mesenteric inflammatory stranding is likely reactive in nature as these regions are adjacent to the gallbladder fossa. 5. There is a mildly dilated small bowel loops in the midline lower abdomen. There is small bowel mucosal thickening in this region. Mucosal thickening may represent nonspecific enteritis. Follow-up to exclude neoplasm as clinically warranted. 6. Multi-vessel atherosclerotic disease as described in detail above. 7. Infrarenal abdominal aorta is aneurysmal. No evidence for rupture. Radiation Dose CTDIVOL = (mGy): DLP = 2180.75 (mGy-cm)
[2019-06-15 11:56] LABS: Lipase 13 U/L (13-60)
--- NOTE | 2019-06-15 12:12 | PC.CHAP ---
Pastoral Care Encounter/Spiritual Assessment Type of Contact [] Declined photo mask processor visit [] Patient/Family/Request visit [] Outpatient visit [] Follow-up visit [] Physician referral [] Code/Alert [] Routine visit [] Staff referral [] Actively dying [x] Patient sleeping [] Family support [] [] Out of room [] Palliative care [] [] Receiving care in room [] Pre-surgical visit [] Trauma [] Long length of stay [] ICU visit [] Other: Relational/Emotional Strength [] Patient feels connected with others/family/visitors/staff [] Distress [] Loneliness/isolation [] Abandonment Spirituality of Patient [] Person of Jocelyn [] Attends Baptist of their Jocelyn [] Believes in Prayer [] Reads Bible or Voodoo materials [] There are Spiritual issues to be addressed Census Enumerator Interventions [] Prayer [] Active listening [] Non-anxious presence [] Spiritual/emotional support [] Crisis/trauma care [] Spiritual counseling [] Bereavement support [] Provided bereavement packet [] Provided Bible/devotional materials [] Provided toy/stuffed animal, coloring book to patient or family member [] Provided Communion [] Anointing/[place] [] Salvation [] Completed spiritual assessment [] Other: Impact on Illness or Injury [] Angry [] Fearful [] Anxious [] Often cries [] Exhaustion [] Unable to work [] Unable to attend denominational [] Unable to walk/stand [] Unable to read [] Unable to drive [] Unable to eat/drink [] Unable to sleep [] Unable to be with family [] Patient intubated [] Other: Summary Patient needs follow up visit with Census Enumerator. Time spent with patient
[2019-06-15 12:34] LABS: Lactic Acid level (Lactate) 2.1 mmol/L (0.5-2.2)
--- NOTE | 2019-06-15 12:50 | P.CONIM_ITS ---
Providers/Reason For Consult Consulting Physican/Specialty*: Jason Ponce Reason for Consult*: Abdominal pain Attending Physician: Jason Ponce Primary Care Provider: Elke Duran MD History of Present Illness History of Present Illness Hao Esteban is a 74 year old male who does not have a PCP who presented to the ER last night with 24-hour history of chest pain associated shortness of breath. Patient states that the pain radiated to the back. Patient also had some epigastric pain but denies any nausea or vomiting. He states that he is usually able to eat spicy and fatty foods without any difficulty. Denies any significant constipation or diarrhea. No prior colonoscopy. Today he mainly complains of right upper quadrant and left lower quadrant pain, no nausea or vomiting. 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 Had a lumbar spine CT scan which showed 4.1 x 4.2 cm AAA, 5.6 cm long.Patient has a history of bilateral DVT and is currently on Xarelto which he took this morning. Review of Systems General: Reports: 10 or more systems reviewed and unremarkable except in HPI and below Meds/Allergies Home Medications and Allergies Home Medications Medication Instructions Recorded Confirmed Type Vitamin D3 25 mcg PO DAILY 06/14/19 06/14/19 History aspirin 81 mg PO DAILY 06/14/19 06/14/19 History atorvastatin See Rx Instructions .ROUTE .COMPLEX 06/14/19 06/14/19 History furosemide 40 mg PO DAILY 06/14/19 06/14/19 History losartan 50 mg PO DAILY 06/14/19 06/14/19 History metoprolol succinate See Rx Instructions .ROUTE .COMPLEX 06/14/19 06/14/19 History potassium chloride 20 meq PO DAILY 06/14/19 06/14/19 History rivaroxaban 20 mg PO DAILY 06/14/19 06/14/19 History tamsulosin 0.4 mg PO DAILY 06/14/19 06/14/19 History Allergies Allergy/AdvReac Type Severity Reaction Status Date / Time No Known Allergies Allergy Verified 06/14/19 14:18 Current Medications Current Medications Generic Name Dose Route Start Last Admin Trade Name Freq PRN Reason Stop Dose Admin Albuterol/Ipratropium 3 ml 06/14/19 21:00 06/15/19 09:18 Duoneb INHALATION Not Given Q6H.RESPIRATORY SIMÓN Aspirin 81 mg 06/15/19 09:00 06/15/19 08:40 Aspirin Ec PO 81 mg DAILY SIMÓN Administration Piperacillin Sod/Tazobactam 50 mls @ 12.5 mls/hr 06/15/19 08:30 06/15/19 08:42 Sod 3.375 gm/ Sodium Chloride IV 12.5 mls/hr Q8H SIMÓN Administration Protocol Pantoprazole Sodium 40 mg 06/15/19 08:00 06/15/19 08:40 Protonix PO 40 mg DAILY SIMÓN Administration Tamsulosin HCl 0.4 mg 06/14/19 21:00 06/14/19 21:55 Flomax PO 0.4 mg BEDTIME SIMÓN Administration Vitamin D 1,000 unit 06/15/19 09:00 06/15/19 08:40 Vitamin D3 PO 1,000 unit DAILY SIMÓN Administration PFSH Acute PFSH: Medical History Abdominal aortic aneurysm BPH (benign prostatic hyperplasia) CAD (coronary artery disease) Chronic edema 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 Deep vein blood clot of right lower extremity HLD (hyperlipidemia) Hypertension Surgical History History of hernia repair S/P coronary artery stent placement Family History Mother Diabetes Social History Smoking and tobacco status: former smoker Quit status (tobacco): has quit using tobacco Year quit tobacco: 2009 Alcohol intake: current Alcohol type: hard liquor Alcohol use comment: 1 drink per week, sometimes more Substance/Drug Use: never Lives independently: Yes Household members: none Marital status: Current occupational status: retired Vitals/I&O/Wt Last Vital Signs Temp 99.1 F 06/15/19 11:55 Pulse 115 H 06/15/19 11:55 Resp 18 06/15/19 11:55 BP 91/60 06/15/19 11:55 Pulse Ox 94 06/15/19 09:12 03/07/20 03/08/20 03/08/20 21:59 06:59 14:59 Output Total 50 / 50 Balance -50 / -50 Weight last 48 hrs Weight 225 lb Physical Exam Narrative: EXAM NARRATIVE: HEENT: Normocephalic, on oxygen Eye: Sclera /conjunctiva normal Respiratory and chest: Bilateral clear breath sounds on auscultation Cardiovascular: Normal S1 and S2 heart sounds Abdomen: Soft to palpation, well-healed infraumbilical scar, tender right upper quadrant and left lower quadrant, positive Garber sign Neurological: Oriented to place person and time Skin: Intact, no lesions appreciated on gross exam Data Micro: Micro: Microbiology 06/15/19 09:05 Blood Culture - Pr eliminary Blood SPECIMEN [facility] 06/15/19 09:00 Blood Culture - Pr eliminary Blood SPECIMEN [facility] A&P Assessment and plan (1) Porcelain gallbladder: 74-year-old gentleman who presented to the ER yesterday with chest and epigastric pain radiating to the back associated with shortness of breath. His cardiac work-up was negative. He has a AAA noted on a lumbar CT. Today he complains of right upper quadrant and left lower quadrant pain. Will obtain a CTA to rule out any dissection, it will also rule out any ischemic bowel. His last lactate was 2.7. If all that is negative then he probably needs a HIDA scan to rule out acute cholecystitis and even if needs surgery will have to wait until Sunday to schedule surgery since he received Xarelto today. Patient can be started on therapeutic Lovenox. Status: Acute Code(s): K82.8 - Other specified diseases of gallbladder Coding Level of Care Code Acute Consumer Marketing Analyst for [facility] Diagnoses Porcelain gallbladder K82.8
[2019-06-15] MEDS: iodixanol 320 mg/mL 100mL Btl IV (14:36)
[2019-06-15] MEDS: ondansetron 2 mg/ML SDV 2 mL 4 MG IVP (20:25)
[2019-06-15] MEDS: morphine 4 mg/mL SDV 1 mL 2 MG IVP (20:26)
[2019-06-15] MEDS: tamsulosin 0.4 mg Capsule PO (20:29)
[2019-06-15] MEDS: ipratropium-albuterol 3 mL Neb INHALATION (21:29)
[2019-06-16] VITALS (22 sets, daily range): BP systolic 92–132; BP diastolic 59–85; PULSE 98–137; RESP 18–33; TEMP 37–38.5; O2SAT 90–96
--- NOTE | 2019-06-16 00:21 | ECG_ITS ---
Measurements Intervals [place] Rate: 131 P: 125 NE: 156 QRS: -26 QRSD: 108 T: 42 QT: 306 QTc: 452 SINUS TACHYCARDIA INFERIOR MYOCARDIAL INFARCTION [40+ ms Q WAVE AND/OR ST/T ABNORMALITY IN II/aVF], PROBABLY OLD Compared to ECG 06/15/2019 09:06:29 Ventricular premature complex(es) no longer present Myocardial infarct finding still present Electronically Signed On 06-16-2019 20:48:13 CDT by Kylie Hayes M.D. [email or web address]
[2019-06-16] MEDS: piperacillin-tazobactam 3.375 GM in sodium chloride 0.9% (plus) 50 ML IV ×3 (01:13→17:40)
[2019-06-16] MEDS: sodium chloride 0.9% 1,000 ML 999 ML IV (01:13)
[2019-06-16] MEDS: morphine 4 mg/mL SDV 1 mL 2 MG IVP ×4 (01:14→21:11)
[2019-06-16] MEDS: ipratropium-albuterol 3 mL Neb INHALATION ×4 (03:06→20:26)
--- NOTE | 2019-06-16 06:00 | USCV_ITS ---
Hao Esteban Age: 74 Gender: M : 1945 Exam Date: 06/16/2019 17:30 Ordering Phys: Jason Ponce MD Technologist: Megan Abarca Exam Location: [facility] [place] Indication: CP, CHF BP: 121 / 72 HR: 101 Rhythm: Sinus Technical Quality: Technically difficult study MEASUREMENTS (Male / Female) Normal Values 2D ECHO LV Diastolic Diameter PLAX 3.2 cm 4.2 - 5.9 / 3.9 - 5.3 cm LV Systolic Diameter PLAX 2.2 cm IVS Diastolic Thickness 0.9 cm 0.6 - 1.0 / 0.6 - 0.9 cm IVS Systolic Thickness 2.0 cm LVPW Diastolic Thickness 1.8 cm 0.6 - 1.0 / 0.6 - 0.9 cm LVPW Systolic Thickness 2.2 cm LVOT Diameter 2.1 cm LV Ejection Fraction 2D Teich 60.5 % LA Diameter 4.5 cm LA Width 2.6 cm LA Height 4.0 cm RA Width 2.9 cm RA Height 4.0 cm M-MODE LV Diastolic Diameter MM 5.8 cm 4.2 - 5.9 / 3.9 - 5.3 cm LV Systolic Diameter MM 3.6 cm LV Ejection Fraction MM Teich 67.1 % IVS Diastolic Thickness MM 1.0 cm 0.6 - 1.0 / 0.6 - 0.9 cm IVS Systolic Thickness MM 1.2 cm LVPW Diastolic Thickness MM 1.2 cm 0.6 - 1.0 / 0.6 - 0.9 cm LVPW Systolic Thickness MM 1.5 cm Aortic Annulus Diameter 4.3 cm LA Ao Ratio MM 1.0 MV E Point Septal Separation 1.6 cm DOPPLER AV Peak Velocity 184.0 cm/s LVOT Peak Velocity 108.0 cm/s AV Area Cont Eq vti 1.9 cm squared AV Area Cont Eq pk 2.0 cm squared MV Area PHT 10.0 cm squared Mitral E to A Ratio 0.5 MV E' Velocity 16.0 cm/s Mitral E to MV E' Ratio 2.4 Mitral E to LV E' Lateral Ratio 2.3 Mitral E to LV E' Septal Ratio 2.5 TR Peak Velocity 191.0 cm/s TR Peak Gradient 14.5 mmHg TV Peak E Velocity 33.0 cm/s Right Atrial Pressure 3.0 mmHg Pulmonary Artery Systolic Pressu 17.6 mmHg FINDINGS Left Ventricle Normal left ventricular size and systolic function, EF55%. No regional wall motion abnormalities. Right Ventricle Normal right ventricular size and systolic function. Multiple echodensities in the ventricle Right Atrium Right atrium not well visualized. Left Atrium Left atrium not well visualized. Mitral Valve Thickened mitral valve. Mild mitral annular calcification. Aortic Valve Thickened aortic valve. Tricuspid Valve Tricuspid valve not well visualized. Pulmonic Valve Pulmonic valve not well visualized. Pericardium No pericardial effusion. Aorta Aorta not well visualized. CONCLUSIONS Normal left ventricular size and systolic function, EF55%. No gross wall motion abnormalities. Possibly normal right ventricular size and systolic function. Multiple echodensities in the right ventricle, possibly represent degenerated endocardial structures Thickened mitral valve. Mild mitral annular calcification Thickened aortic valve. There is no pericardial effusion. There are no intracardiac masses. Comparison with the previous study is difficult because of the difference in the technical quality. Consider ANA MARIA, to better evaluate the intracardiac structures, if clinically indicated Dr Simon Flores MD FACC (Electronically Signed) Final Date: 17 June 2019 00:17 S
[2019-06-16 06:42] LABS: Basophils % 0.1 %; Eosinophils % 0.1 %; Hematocrit 42.5 % (42.0-52.0); Hemoglobin 13.7 g/dL (11.7-16.6); Lymphocytes # 1.2 10^3/uL (0.8-4.8); Lymphocytes % 9.2 %; Mean Corpuscular HGB Conc 32.2 g/dL (30.0-36.0); Mean Corpuscular Hemoglobin 29.8 pg (28.0-34.0); Mean Corpuscular Volume 92.6 fL (80-94); Mean Platelet Volume 11.3 fL (7.4-10.4); Monocytes % 7.7 %; Neutrophils % 82.2 %; Nucleated Red Blood Cells % 0 %; Platelet Count 120 10^3/cmm (130-400); Red Blood Count 4.59 10^6/uL (4.1-5.3); Red Cell Distribution Width 14.6 % (12.1-15.1); White Blood Count 13.4 10^3/uL (4.0-10.0)
[2019-06-16 06:56] LABS: Alanine Aminotransferase 13 U/L (0-41); Albumin Level 3.4 g/dL (3.5-5.2); Alkaline Phosphatase 73 IU/L (40-130); Aspartate Amino Transferase 15 U/L (0-40); Blood Urea Nitrogen 17 mg/dL (8-23); Calcium 9.1 mg/dL (8.5-10.5); Carbon Dioxide 29 mmol/L (22-29); Chloride 99 mmol/L (98-107); Globulin 3.1 g/dL (1.3-4.6); Glucose 111 mg/dL (65-115); Osmolality Calculated 283 mOsm/kg (285-295); Sodium 138 mmol/L (136-145); Total Bilirubin 2.6 mg/dL (0.15-1.2); Total Protein 6.5 g/dL (6.6-8.7)
--- NOTE | 2019-06-16 08:37 | P.PN_ITS ---
Subjective Subjective: Interval history: Patient states that the pain is better, no nausea or vomiting, tolerating a diet. He was hypotensive last night and therefore had to be transferred to the ICU, though his blood pressure is better this morning Medications: Reviewed: Yes Vitals/I&O/Wt Last Vital Signs Temp 98.6 F 06/16/19 02:00 Pulse 126 H 06/16/19 06:00 Resp 29 H 06/16/19 06:25 BP 123/82 06/16/19 06:00 Pulse Ox 94 06/16/19 06:25 06/15/19 06/16/19 06/16/19 22:59 06:59 14:59 Intake Total 210 / 260 Output Total 410 / 785 325 / 785 Balance -200 / -525 -325 / -525 Weight last 48 hrs Weight 225 lb Physical Exam Narrative: EXAM NARRATIVE: Abdomen: Soft, nondistended, tender right upper quadrant though it is better than yesterday, no guarding or rigidity Data : 06/16/19 06:20 06/16/19 06:20 Micro: Microbiology 06/15/19 09:05 Blood Culture - Preliminary Blood SPECIMEN COLLECTED 06/15/19 09:00 Blood Culture - Preliminary Blood SPECIMEN COLLECTED A&P Assessment and plan (1) Acute cholecystitis without calculus: Discussed the CTA findings with the patient yesterday. At this point he is not keen to undergo surgery and would like to have it managed medically especially since he did did not have any problems with food intake prior to this episode. His white count is up from 12 to 13 and his bilirubin has gone to 2.6 from 1.9. Patient received Xarelto yesterday and therefore he would not be ready for surgery until 06/18/2019. In the meantime continue therapeutic Lovenox given his history of DVT. If he does not improve clinically over the next 48 hours, then he will at least need a drain placement even if he does not want surgery right away. Status: Acute Code(s): K81.0 - Acute cholecystitis Attestations Medical Necessity Statement*: Acute calculus cholecystitis Coding Level of Care Code Acute Geospatial Extractor Analysis for [facility] Diagnoses Acute cholecystitis without calculus K81.0
--- NOTE | 2019-06-16 09:25 | PC.CHAP ---
Pastoral Care Encounter/Spiritual Assessment Type of Contact [] Declined reconditioning associate visit [] Patient/Family/Request visit [] Outpatient visit [] Follow-up visit [] Physician referral [] Code/Alert [x] Routine visit [] Staff referral [] Actively dying [] Patient sleeping [] Family support [] [] Out of room [] Palliative care [] [] Receiving care in room [] Pre-surgical visit [] Trauma [] Long length of stay [x] ICU visit [] Other: Relational/Emotional Strength [] Patient feels connected with others/family/visitors/staff [] Distress [] Loneliness/isolation [] Abandonment Spirituality of Patient [] Person of Jocelyn [] Attends Christian of their Jocelyn [] Believes in Prayer [] Reads Bible or Catholic materials [x] There are Spiritual issues to be addressed Research Asst Interventions [] Prayer [] Active listening [] Non-anxious presence [] Spiritual/emotional support [] Crisis/trauma care [] Spiritual counseling [] Bereavement support [] Provided bereavement packet [] Provided Bible/devotional materials [] Provided toy/stuffed animal, coloring book to patient or family member [] Provided Communion [] Anointing/[place] [] Salvation [x Completed spiritual assessment [] Other: Impact on Illness or Injury [] Angry [] Fearful [] Anxious [] Often cries [] Exhaustion [] Unable to work [] Unable to attend jehovah's witness [] Unable to walk/stand [] Unable to read [] Unable to drive [] Unable to eat/drink [] Unable to sleep [] Unable to be with family [] Patient intubated [] Other: Summary Patient declined prayer and stated that he didn?t need anything from the chaplains. Research Asst told him that if he needed anything from the chaplains while he was in the hospital to let the nurse know and they could contact us for him. Patient was visited by Research Asst Yonis Jordan. Time spent with patient 5 minutes
[2019-06-16] MEDS: aspirin 81 mg EC Tablet PO (10:40)
[2019-06-16] MEDS: pantoprazole DR 40 mg Tablet PO (10:40)
[2019-06-16] MEDS: cholecalciferol (vitamin D3) 1,000 unit Tablet 1000 UNIT PO (10:41)
[2019-06-16] MEDS: enoxaparin 100 mg/mL Syringe SUBCUT ×2 (10:41→21:10)
[2019-06-16] MEDS: metoprolol tartrate 1 mg/1 mL SDV 5 mL 5 MG IV (10:41)
--- NOTE | 2019-06-16 10:50 | PM.PN ---
Subjective Subjective: Interval history: Continues with pain in abdomen, otherwise no chest pain. Chronic back pain. Vitals/I&O/Wt Last Vital Signs Temp 98.6 F 06/16/19 02:00 Pulse 130 H 06/16/19 08:57 Resp 24 H 06/16/19 08:54 BP 123/82 06/16/19 06:00 Pulse Ox 95 06/16/19 08:54 06/15/19 06/16/19 06/16/19 22:59 06:59 14:59 Intake Total 210 / 260 50 / 310 Output Total 410 / 460 325 / 785 Balance -200 / -200 -275 / -475 Weight last 48 hrs Weight 102.058 kg Physical Exam Const: COMMON NORMALS: no apparent distress and oriented x3 NUTRITIONAL APPEARANCE: obese ORIENTATION/CONSCIOUSNESS: Yes other (Appears in less discomfort) HENMT: COMMON NORMALS: oropharynx normal Neck/C-Spine: COMMON NORMALS: no JVD Resp: COMMON NORMALS: normal respiratory effort and clear to auscultation bilaterally AUSCULTATION: clear to auscultation bilaterally Cardio: COMMON NORMALS: no JVD, regular rhythm, S1 normal heart sound, S2 normal heart sound and no murmurs RATE: tachycardic RHYTHM: regular rhythm HEART SOUNDS: S1 normal and S2 normal GI: COMMON NORMALS: normal to inspection, nondistended, normoactive bowel sounds and soft to palpation PALPATION: Yes soft and Yes tender Details: RUQ Extremity: COMMON NORMALS: no joint enlargement GENERAL: Yes edema Neuro: COMMON NORMALS: oriented x3 and moves all extremities Skin: COMMON NORMALS: no rashes or lesions noted GENERAL SKIN EXAM: no rashes or lesions noted OTHER: Severe chronic venous stasis dermatitis bilateral lower extremities. Dry scaly skin. Data : 06/16/19 06:20 06/16/19 06:20 Micro: Microbiology 06/15/19 09:05 Blood Culture - Preliminary Blood NEGATIVE TO DATE 06/15/19 09:00 Blood Culture - Preliminary Blood NEGATIVE TO DATE A&P Assessment and plan (1) Abdominal pain: Cholecystitis, porcelain GB. Overnight was hypotensive, with persistent tachycardia, moved to ICU. BP better. HR w persistent tachycardia. Unclear rhythm. Possibly sinus tachycardia due to sepsis, but otherwise difficult to see whether there may be in fact small extra P waves due to flutter. His rate did go up into 140s for a short time. Cont Zosyn. Appreciate surgery follow up regarding definitive treatment. Received Xarelto last dose yesterday, switch to Lovenox today. 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 Requested blood cultures. Lactic acid is 2.7. Blood pressure soft today, although did have Nitropaste still on his chest, this was wiped off. Hold his metoprolol, Lasix. IV fluid bolus, monitor blood pressure. Started on Zosyn. Surgery is asked to evaluate. No AAA rupture. No sign of bowel ischemia. Status: Acute Code(s): R10.9 - Unspecified abdominal pain (2) Porcelain gallbladder: As above. Status: Acute Code(s): K82.8 - Other specified diseases of gallbladder (3) Severe back pain: This has improved. Etiology is not clear. He does have age-appropriate degenerative changes in thoracic spine, lumbar spine with moderate central canal narrowing L4-L5. No thoracic aorta dissection Suspect 2/2 cholecystitis. He does have chronic underlying back pain, however, he states that it is usually much milder. Currently new onset severe back pain upper and lower back which woke him up from sleep. Etiology is not clear. He denies any recent trauma. No dissection noted in thoracic aorta. At the same time with chills, leukocytosis, tachycardia, treated for possible cholecystitis. With hyperproteinemia, back pain, mild kidney insufficiency, requested for serum light chains, SPEP, UPEP to assess for multiple myeloma. Status: Acute Code(s): M54.9 - Dorsalgia, unspecified (4) Chest pain: This is better, but still persistent right of midline, radiating down and out. Minimal troponin elevation, without significant delta. Pain is not typical, an acute CT is not suspected at this time. Assess TTE. Stress test in April 2018 without acute ischemia. Continue aspirin. Due to his severe aches for now we will hold statin. CK is normal, although with complaints of pain in multiple areas, today also with cramping in the right leg, holding his statin at this time to exclude contribution of statin induced myopathy. Status: Acute Code(s): R07.9 - Chest pain, unspecified (5) Abdominal aortic aneurysm: As above. February 2018 3.75 x 4.22 x [address] lumbar spine this admission 4.1 x 4.2 x 5.9 length. Status: Acute Code(s): I71.4 - Abdominal aortic aneurysm, without rupture (6) Tachycardia: Repeat EKG today with sinus tachycardia. Yesterday rhythm not entirely clear, ectopic atrial tachycardia, possibly MAT, versus flutter with first-degree AV block. First EKG difficult to interpret. Possibly sinus tachycardia due to sepsis, but otherwise difficult to see whether there may be in fact small extra P waves due to flutter. His rate did go up into 140s for a short time. BP soft after IV metoprolol dose. Requested Oncall cardiology look at EKGs. Hold off additional metoprolol. Status: Acute Code(s): R00.0 - Tachycardia, unspecified (7) Leukocytosis: As above. Status: Acute Code(s): D72.829 - Elevated white blood cell count, unspecified (8) Alkaline phosphatase elevation: This is resolved, although today T bili is elevated 1.9. Isolated mild alkaline phosphatase elevation. Prior values normal. No right upper quadrant pain. GGT is normal. With severe back pain, chest pain. Concern for possible bony lesion, assess for possible myeloma. Laboratory evaluation was ordered. Status: Acute Code(s): R74.8 - Abnormal levels of other serum enzymes (9) Hyperproteinemia: With back pain, mild kidney insufficiency, hyperproteinemia. Assess for possible MM. Alternatively may be secondary to some mild dehydration. Status: Acute Code(s): E88.09 - Other disorders of plasma-protein metabolism, not elsewhere classified (10) Acute bronchitis: With cough, reports that sometimes bouts of cough caused him to be almost presyncopal. Has history of DVT in the past, although says has been compliant with Xarelto. Suspicion for acute VTE at this time is low. No pneumonia noted on chest x-ray. We will add breathing treatments at this time. He denies being carrying the diagnosis of COPD. Supportive care as needed. Status: Acute Code(s): J20.9 - Acute bronchitis, unspecified Additional A&P Information CAD, status post stenting History of VTE Chronic anticoagulation Chronic lower extremity edema HTN HLD BPH Attestations Medical Necessity Statement*: Continue admission for assessment and management of acute cholecystitis in the setting of chronic anticoagulation. 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
[2019-06-16 10:53] LABS: Magnesium 1.9 mg/dL (1.7-2.3)
[2019-06-16] MEDS: acetaminophen 325 mg Tablet 650 MG PO (10:57)
[2019-06-16] MEDS: metoprolol tartrate 25 mg Tablet PO (18:11)
[2019-06-16] MEDS: tamsulosin 0.4 mg Capsule PO (21:10)
[2019-06-17] VITALS (31 sets, daily range): BP systolic 92–130; BP diastolic 58–80; PULSE 91–134; RESP 18–35; TEMP 36.8–38.2; O2SAT 85–95
[2019-06-17] MEDS: piperacillin-tazobactam 3.375 GM in sodium chloride 0.9% (plus) 50 ML IV ×3 (00:33→15:54)
[2019-06-17] MEDS: ipratropium-albuterol 3 mL Neb INHALATION ×4 (02:24→20:53)
[2019-06-17] MEDS: acetaminophen 325 mg Tablet 650 MG PO (04:10)
[2019-06-17 04:40] LABS: Basophils % 0.1 %; Eosinophils % 0.2 %; Hematocrit 39.7 % (42.0-52.0); Hemoglobin 12.7 g/dL (11.7-16.6); Lymphocytes # 0.8 10^3/uL (0.8-4.8); Lymphocytes % 7.5 %; Mean Corpuscular Hemoglobin 28.5 pg (28.0-34.0); Monocytes # 0.7 10^3/uL (0.2-0.9); Monocytes % 7.2 %; Neutrophils # 8.6 10^3/uL (1.8-7.7); Neutrophils % 84.5 %; Nucleated Red Blood Cells % 0 %; Platelet Count 115 10^3/cmm (130-400); Red Blood Count 4.46 10^6/uL (4.1-5.3); Red Cell Distribution Width 14.4 % (12.1-15.1); White Blood Count 10.2 10^3/uL (4.0-10.0)
[2019-06-17 04:41] LABS: Alanine Aminotransferase 20 U/L (0-41); Alkaline Phosphatase 111 IU/L (40-130); Anion Gap 14.2 (5-19); Aspartate Amino Transferase 27 U/L (0-40); Blood Urea Nitrogen 15 mg/dL (8-23); Calcium 8.6 mg/dL (8.5-10.5); Carbon Dioxide 25 mmol/L (22-29); Chloride 99 mmol/L (98-107); Globulin 3.9 g/dL (1.3-4.6); Glucose 137 mg/dL (65-115); Osmolality Calculated 278 mOsm/kg (285-295); Potassium 3.2 mmol/L (3.5-5.1); Sodium 135 mmol/L (136-145); Total Protein 6.9 g/dL (6.6-8.7)
[2019-06-17 08:16] LABS: PROTEIN, TOTAL 7.8 g/dL (6.1-8.1)
[2019-06-17] MEDS: metoprolol tartrate 25 mg Tablet PO ×2 (08:34→18:19)
[2019-06-17] MEDS: pantoprazole DR 40 mg Tablet PO (08:35)
[2019-06-17] MEDS: cholecalciferol (vitamin D3) 1,000 unit Tablet 1000 UNIT PO (08:35)
[2019-06-17] MEDS: aspirin 81 mg EC Tablet PO (08:35)
[2019-06-17] MEDS: enoxaparin 100 mg/mL Syringe SUBCUT ×2 (08:35→21:16)
[2019-06-17 12:47] LABS: Creatinine, Random Urine 158 mg/dL (20-320); Protein, Total, Random 93 mg/dL (5-25); Protein/Creatinine Ratio 0.589 (0.022-0.128); Protein/Creatinine Ratio 589 mg/g creat (22-128)
[2019-06-17 14:12] LABS: KAPPA LIGHT CHAIN, FREE, SERUM 21.2 mg/L (3.3-19.4); KAPPA/LAMBDA LIGHT CHAINS FREE 1.48 (0.26-1.65); LAMBDA LIGHT CHAIN, FREE, SERU 14.3 mg/L (5.7-26.3)
[2019-06-17 14:38] LABS: ALBUMIN 4.2 g/dL (3.8-4.8); ALPHA 1 GLOBULIN 0.4 g/dL (0.2-0.3); BETA 1 GLOBULIN 0.5 g/dL (0.4-0.6); BETA 2 GLOBULIN 0.5 g/dL (0.2-0.5); GAMMA GLOBULIN 1.3 g/dL (0.8-1.7)
--- NOTE | 2019-06-17 15:28 | PC.CHAP ---
Pastoral Care Encounter/Spiritual Assessment Type of Contact [] Declined film flat inspector visit [] Patient/Family/Request visit [] Outpatient visit [] Follow-up visit [] Physician referral [] Code/Alert [x] Routine visit [] Staff referral [] Actively dying [] Patient sleeping [] Family support [] [] Out of room [] Palliative care [] [] Receiving care in room [] Pre-surgical visit [] Trauma [] Long length of stay [x] ICU visit [] Other: Relational/Emotional Strength [x] Patient feels connected with others/family/visitors/staff [] Distress [] Loneliness/isolation [] Abandonment Spirituality of Patient [x] Person of Jocelyn [] Attends Faith of their Jocelyn [xx] Believes in Prayer [] Reads Bible or Synagogue materials [] There are Spiritual issues to be addressed Physician Practice Manager Interventions [x] Prayer [x] Active listening [x] Non-anxious presence [x] Spiritual/emotional support [] Crisis/trauma care x [] Spiritual counseling [] Bereavement support [] Provided bereavement packet [] Provided Bible/devotional materials [] Provided toy/stuffed animal, coloring book to patient or family member [] Provided Communion [x] Anointing/[place] [] Salvation [] Completed spiritual assessment [] Other: Impact on Illness or Injury [] Angry [] Fearful [x] Anxious [] Often cries [] Exhaustion [] Unable to work [] Unable to attend pentecostal [] Unable to walk/stand [] Unable to read [] Unable to drive [] Unable to eat/drink [] Unable to sleep [] Unable to be with family [] Patient intubated [] Other: Summary Patient having surgery tomorrow. Had prayer with he and his . Time spent with patient 6
[2019-06-17 15:56] LABS: Albumin,Urine Random 20 %; Alpha-1-Globulins Urine Random 5 %; Alpha-2-Globulins Urine Random 30 %; Beta-Globulin,Urine Random 12 %; Gamma Globulin,Urine Random 33 %
--- NOTE | 2019-06-17 16:59 | PM.PN ---
Subjective Subjective: Interval history: He is still bothered by abdominal pain. Otherwise is doing all right. Vitals/I&O/Wt Last Vital Signs Temp 100 F H 06/17/19 08:00 Pulse 96 06/17/19 13:39 Resp 18 06/17/19 13:39 BP 92/58 06/17/19 12:00 Pulse Ox 95 06/17/19 13:39 06/17/19 06/17/19 06/17/19 06:59 14:59 22:59 Intake Total 700 / 700 Output Total 200 / 400 Balance -200 / 910 700 / 700 Physical Exam Const: COMMON NORMALS: no apparent distress and oriented x3 NUTRITIONAL APPEARANCE: obese ORIENTATION/CONSCIOUSNESS: Yes other (Appears in less discomfort) HENMT: COMMON NORMALS: oropharynx normal Neck/C-Spine: COMMON NORMALS: no JVD Resp: COMMON NORMALS: normal respiratory effort and clear to auscultation bilaterally AUSCULTATION: clear to auscultation bilaterally Cardio: COMMON NORMALS: no JVD, regular rhythm, S1 normal heart sound, S2 normal heart sound and no murmurs RATE: tachycardic RHYTHM: regular rhythm HEART SOUNDS: S1 normal and S2 normal GI: COMMON NORMALS: normal to inspection, nondistended, normoactive bowel sounds and soft to palpation PALPATION: Yes soft and Yes tender Extremity: COMMON NORMALS: no joint enlargement GENERAL: Yes edema Neuro: COMMON NORMALS: oriented x3 and moves all extremities Skin: COMMON NORMALS: no rashes or lesions noted GENERAL SKIN EXAM: no rashes or lesions noted OTHER: Severe chronic venous stasis dermatitis bilateral lower extremities. Dry scaly skin. Data : 06/17/19 03:55 06/17/19 03:55 A&P Assessment and plan (1) Abdominal pain: He is more receptive to having surgery. Wants to hear about it more from the surgeon regarding details of the procedure. With suspected sepsis, possibly since presentation. Not appears to be improving with decreasing leukocytosis, improvement in heart rate. Cholecystitis, porcelain GB. Cont Zosyn. Can transfer out of ICU. Appreciate surgery follow up regarding definitive treatment. Switched to Lovenox today. 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 Requested blood cultures. Lactic acid is 2.7. Blood pressure soft today, although did have Nitropaste still on his chest, this was wiped off. Hold his metoprolol, Lasix. IV fluid bolus, monitor blood pressure. Started on Zosyn. Surgery is asked to evaluate. No AAA rupture. No sign of bowel ischemia. Status: Acute Code(s): R10.9 - Unspecified abdominal pain (2) Porcelain gallbladder: As above. Status: Acute Code(s): K82.8 - Other specified diseases of gallbladder (3) Severe back pain: This has improved. Etiology is not clear. He does have age-appropriate degenerative changes in thoracic spine, lumbar spine with moderate central canal narrowing L4-L5. No thoracic aorta dissection Suspect 2/2 cholecystitis. With hyperproteinemia, back pain, mild kidney insufficiency, requested for serum light chains, SPEP, UPEP to assess for multiple myeloma. Status: Acute Code(s): M54.9 - Dorsalgia, unspecified (4) Chest pain: This is better. Minimal troponin elevation, without significant delta. Pain is not typical, an acute [place] is not suspected at this time. TTE not optimal quality, but no gross wall motion abnormalities. Stress test in April 2018 without acute ischemia. Continue aspirin. Due to his severe aches for now we will hold statin. CK is normal, although with complaints of pain in multiple areas, also had cramping in the right leg, holding his statin at this time to exclude contribution of statin induced myopathy. Status: Acute Code(s): R07.9 - Chest pain, unspecified (5) Abdominal aortic aneurysm: As above. February 2018 3.75 x 4.22 x [address] lumbar spine this admission 4.1 x 4.2 x 5.9 length. Follow-up screening at 12-month intervals. Status: Acute Code(s): I71.4 - Abdominal aortic aneurysm, without rupture (6) Tachycardia: Improving. Suspected sinus tachycardia secondary to sepsis. Status: Acute Code(s): R00.0 - Tachycardia, unspecified (7) Leukocytosis: As above. Status: Acute Code(s): D72.829 - Elevated white blood cell count, unspecified (8) Alkaline phosphatase elevation: Improved. T bili elevated at 2. No visualized bony lesion, pending lab work to assess for possible myeloma, although suspicion at this time low. Status: Acute Code(s): R74.8 - Abnormal levels of other serum enzymes (9) Hyperproteinemia: Has resolved. Possibly secondary to dehydration presentation. Or acute phase change. With back pain, mild kidney insufficiency, hyperproteinemia. Assess for possible MM. Status: Acute Code(s): E88.09 - Other disorders of plasma-protein metabolism, not elsewhere classified (10) Acute bronchitis: With cough, reports that sometimes bouts of cough caused him to be almost presyncopal. Has history of DVT in the past, although says has been compliant with Xarelto. Suspicion for acute VTE low. No pneumonia noted on chest x-ray. Breathing treatments. He denies carrying the diagnosis of COPD. Supportive care as needed. Status: Acute Code(s): J20.9 - Acute bronchitis, unspecified Additional A&P Information CAD, status post stenting History of VTE Chronic anticoagulation Chronic lower extremity edema HTN HLD BPH Attestations Medical Necessity Statement*: Continue admission for assessment management of acute cholecystitis, sepsis which is improving. Coding Level of Care Code Acute Mail Officer for Chg Fwd Diagnoses Abdominal pain R10.9 Porcelain gallbladder K82.8 Severe back pain M54.9 Chest pain R07.9 Abdominal aortic aneurysm I71.4 Tachycardia R00.0 Leukocytosis D72.829 Alkaline phosphatase elevation R74.8 Hyperproteinemia E88.09 Acute bronchitis J20.9
[2019-06-17] MEDS: morphine 4 mg/mL SDV 1 mL 2 MG IVP (18:26)
--- NOTE | 2019-06-17 18:29 | P.PN_ITS ---
Subjective Subjective: Interval history: Patient is tolerating full liquid diet but continues to have right upper quadrant pain, no nausea or vomiting Vitals/I&O/Wt Last Vital Signs Temp 100 F H 06/17/19 08:00 Pulse 115 H 06/17/19 18:00 Resp 18 06/17/19 18:26 BP 120/73 06/17/19 18:00 Pulse Ox 93 06/17/19 18:26 06/17/19 06/17/19 06/17/19 06:59 14:59 22:59 Intake Total 700 / 700 Output Total 200 / 400 150 / 150 Balance -200 / 910 700 / 550 -150 / 550 Physical Exam Narrative: EXAM NARRATIVE: Abdomen: Soft, nondistended, tender right upper quadrant, Garber sign positive Data : 06/17/19 03:55 06/17/19 03:55 A&P Assessment and plan (1) Acute cholecystitis without calculus: Patient is now agreed for surgery Plan for laparoscopic possible open cholecystectomy tomorrow N.p.o. after midnight Hold tonight's Lovenox dose Discussed with the patient the possibility of converting to open surgery, placing a drain for a delayed cholecystectomy and other higher risk of complications since it is been 4 days from the onset of symptoms which could make the surgery difficult. 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
--- NOTE | 2019-06-17 20:22 | PC.NURSE ---
1953 Patient taken to 111-1 via wheelchair
--- NOTE | 2019-06-17 20:26 | PC.NURSE ---
Admitted to room 111-1 via wheelchair from ICU. Denies pain at this time. Oriented to room. Voices understanding. Will monitor.
[2019-06-17] MEDS: tamsulosin 0.4 mg Capsule PO (21:16)
--- NOTE | 2019-06-17 22:07 | PC.NURSE ---
Patient's HR sustaining at 130's. Dr. Marinelli notified. Awaiting orders.
[2019-06-17] MEDS: sodium chloride 0.9% 1,000 ML 75 ML IV (22:52)
--- NOTE | 2019-06-17 23:01 | PC.NURSE ---
Order received for NS at 75ml/hr. IVF started to PIID to right AC after flushing without difficulty. Will monitor.
[2019-06-18] VITALS (36 sets, daily range): BP systolic 101–129; BP diastolic 66–81; PULSE 78–141; RESP 16–34; TEMP 36.7–38.7; O2SAT 87–97
--- NOTE | 2019-06-18 00:27 | PC.NURSE ---
Dr. Marinelli notified of HR maintaining at 130's. No new orders at this time. Patient refused Tylenol. Yelling out at intervals. Will monitor.
[2019-06-18] MEDS: morphine 4 mg/mL SDV 1 mL 2 MG IVP ×3 (00:39→23:27)
--- NOTE | 2019-06-18 00:41 | PC.NURSE ---
Morphine 2mg given SIVP secondary to patient yelling out at times with abdominal pain. Will monitor.
[2019-06-18] MEDS: piperacillin-tazobactam 3.375 GM in sodium chloride 0.9% (plus) 50 ML IV ×4 (01:08→23:33)
--- NOTE | 2019-06-18 01:20 | PC.NURSE ---
Patient resting with eyes closed. Respirations even and unlabored with no s/s of distress noted at this time. Will monitor.
--- NOTE | 2019-06-18 01:45 | PC.NURSE ---
Sitting on side of bed. Denies complaints at this time. Loose, non productive cough noted. Visiting with room mate. Will monitor.
--- NOTE | 2019-06-18 02:16 | PC.NURSE ---
Lying back in bed after sitting on side of bed for approximately 30-45 minutes. HR still continues in the 130's with monitor showing ST. Has only rested approximately 45 minutes thus far this shift. Will monitor.
--- NOTE | 2019-06-18 03:12 | PC.NURSE ---
Lying supine in bed with eyes closed. Respirations even and unlabored with no s/s of distress noted at this time. Will monitor.
[2019-06-18 04:06] LABS: Basophils % 0.1 %; Eosinophils % 0.3 %; Hematocrit 35.4 % (42.0-52.0); Hemoglobin 11.8 g/dL (11.7-16.6); Lymphocytes # 0.8 10^3/uL (0.8-4.8); Lymphocytes % 8.4 %; Mean Corpuscular HGB Conc 33.3 g/dL (30.0-36.0); Mean Corpuscular Hemoglobin 29.1 pg (28.0-34.0); Mean Corpuscular Volume 87.4 fL (80-94); Mean Platelet Volume 12.1 fL (7.4-10.4); Monocytes # 0.8 10^3/uL (0.2-0.9); Monocytes % 8.1 %; Neutrophils # 8.1 10^3/uL (1.8-7.7); Nucleated Red Blood Cells % 0 %; Platelet Count 122 10^3/cmm (130-400); Red Blood Count 4.05 10^6/uL (4.1-5.3); Red Cell Distribution Width 14.2 % (12.1-15.1); White Blood Count 9.9 10^3/uL (4.0-10.0)
[2019-06-18 04:23] LABS: Alanine Aminotransferase 20 U/L (0-41); Alkaline Phosphatase 95 IU/L (40-130); Anion Gap 13.2 (5-19); Aspartate Amino Transferase 24 U/L (0-40); Blood Urea Nitrogen 13 mg/dL (8-23); Calcium 8.5 mg/dL (8.5-10.5); Carbon Dioxide 27 mmol/L (22-29); Chloride 99 mmol/L (98-107); Globulin 3.3 g/dL (1.3-4.6); Glucose 107 mg/dL (65-115); Osmolality Calculated 279 mOsm/kg (285-295); Potassium 3.2 mmol/L (3.5-5.1); Sodium 136 mmol/L (136-145); Total Bilirubin 1.4 mg/dL (0.15-1.2); Total Protein 6.3 g/dL (6.6-8.7)
--- NOTE | 2019-06-18 05:17 | PC.NURSE ---
Heart rate upper 130's while up on side of bed. Dr. Marinelli notified.
--- NOTE | 2019-06-18 06:47 | PC.NURSE ---
Patient's HR now climbing in mid 140's. Dr. Marinelli notified. Patient denies complaints at this time. Will monitor.
--- NOTE | 2019-06-18 06:49 | PC.NURSE ---
No new orders received on previous notifications at this time. Will monitor.
[2019-06-18] MEDS: acetaminophen 325 mg Tablet 650 MG PO (07:52)
--- NOTE | 2019-06-18 08:38 | PM.PN ---
Subjective Subjective: Interval history: Patient has been tachycardic but no other issues overnight Medications: Reviewed: Yes Vitals/I&O/Wt Last Vital Signs Temp 101.6 F H 06/18/19 07:30 Pulse 108 H 06/18/19 07:30 Resp 33 H 06/18/19 07:30 BP 114/66 06/18/19 07:30 Pulse Ox 91 06/18/19 07:30 06/17/19 06/18/19 06/18/19 22:59 06:59 14:59 Intake Total 290 / 1110 120 / 1110 Output Total 150 / 300 150 / 300 275 / 275 Balance 140 / 810 -30 / 810 -275 / -275 Physical Exam Narrative: EXAM NARRATIVE: Abdomen: Soft, tender right upper quadrant Data : 06/18/19 03:25 06/18/19 03:25 A&P Assessment and plan (1) Acute cholecystitis without calculus: Laparoscopic possible open cholecystectomy today Patient is on IV Zosyn Procedure, risks, benefits and alternatives have been discussed with the patient who wishes to proceed with surgery. 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
--- NOTE | 2019-06-18 08:41 | P.ANESASSM_ITS ---
Pre-Anesthetic Assessment Pre-Anesthetic Assessment: Height/Weight: Height 1.8 m Weight 102.058 kg Temp Pulse Resp BP Pulse Ox 98.8 F 115 H 20 H 102/66 94 06/18/19 08:39 06/18/19 08:39 06/18/19 08:39 06/18/19 08:39 06/18/19 08:39 Preop Diagnosis: Acute calculus cholecystitis Proposed Procedure: Operation Date: 06/18/19 08:55 Proposed Procedures p Laparoscopic Cholecystectomy(Not Applicable) - Nando Mahajan MD Was Beta Haleigh taken within 24 hours: Yes Last intake: Intake Last Liquid Date 06/18/19 Last Liquid Time 07:30 Last Solid Date 06/17/19 Last Solid Time 18:00 Social: Social History: No alcohol (H/o etoh use) and No tobacco (h/o smoking) Exam: Pre-Anes Outpt Exam: alert, oriented x 3, clear to auscultation bilaterally and regular rate & rhythm Airway: Submandibular: WNL MP: 2 Dentition: False Additional comments: upper edentulous, poor dentition on lower arch Pulmonary: Pulmonary: COPD CV/HEM: CV/HEM: HTN Comments: PVDz, AAA : : Chronic renal failure Hepatic: Hepatic: None reported GI: Comments: acute tatum Metabolic: Metabolic: Morbid obesity Musc/skel: Musc/skel: Weakness Neuropsych: Neuropsych: None reported Anesthetic Plan: ASA status: 3 Anesthesia: General Risk of > 500 ml blood loss (7ml/kg in children): No Meds/Allergies Current Medications: Current Medications Generic Name Dose Route Start Last Admin Trade Name Freq PRN Reason Stop Dose Admin Acetaminophen 650 mg 06/14/19 18:34 06/18/19 07:52 Tylenol PO 650 mg Q6H PRN Administration Mild/Mod Pain Or Temp >/= 101 Albuterol/Ipratrop ium 3 ml 06/14/19 21:00 06/18/19 02:50 Duoneb INHALATION Not Given Q6H.RESPIRATORY S CH Aspirin 81 mg 06/15/19 09:00 06/17/19 08:35 Aspirin Ec PO 81 mg DAILY SIMÓN Administration Piperacillin Sod/T azobactam 50 mls @ 12.5 mls /hr 06/15/19 08:30 06/18/19 01:08 Sod 3.375 gm/ So dium Chloride IV 12.5 mls/hr Q8H SIMÓN Administration Protocol Sodium Chloride 1,000 mls @ 75 ml s/hr 06/17/19 22:45 06/17/19 22:52 Sodium Chloride 0.9% IV 75 mls/hr .[id number] SIMÓN Administration Metoprolol Tartrat e 25 mg 06/16/19 18:00 06/17/19 18:19 Lopressor PO 25 mg BID SIMÓN Administration Morphine Sulfate 2 mg 06/15/19 07:52 06/18/19 00:39 Morphine IVP 2 mg Q4H PRN Administration SEVERE PAIN Ondansetron HCl 4 mg 06/14/19 18:34 06/15/19 20:25 Zofran IVP 4 mg Q6H PRN Administration NAUSEA AND VOMITI NG Pantoprazole Sodiu m 40 mg 06/15/19 08:00 06/17/19 08:35 Protonix PO 40 mg DAILY SIMÓN Administration Tamsulosin HCl 0.4 mg 06/14/19 21:00 06/17/19 21:16 Flomax PO 0.4 mg BEDTIME SIMÓN Administration Vitamin D 1,000 unit 06/15/19 09:00 06/17/19 08:35 Vitamin D3 PO 1,000 unit DAILY SIMÓN Administration PFSH Anesthesia PFSH: Medical History (Updated 06/16/19 @ 08:38 by Nando Mahajan MD) Abdominal aortic aneurysm Acute cholecystitis without calculus BPH (benign prostatic hyperplasia) CAD (coronary artery disease) Chronic edema DVT of lower extremity, bilateral HLD (hyperlipidemia) Hypertension Undescended testes Surgical History History of hernia repair S/P coronary artery stent placement Family History Mother Diabetes Social History Smoking and tobacco status: former smoker Quit status (tobacco): has quit using tobacco Year quit tobacco: 2009 Alcohol intake: current Alcohol type: hard liquor Lives independently: Yes Household members: none Marital status: Current occupational status: retired Data Anesthesia CBC & Chem 7: 06/18/19 03:25 03/11/20 03:25 Other Labs: Laboratory Results - last 48 hr 06/14/19 06/14/19 06/16/19 20:43 20:43 00:15 WBC RBC Hgb Hct MCV MCH MCHC RDW Plt Count MPV Neut % (Auto) Lymph % (Auto) [place] % (Auto) Eos % (Auto) Baso % (Auto) Neut # (Auto) Lymph # (Auto) [place] # (Auto) Eos # (Auto) Baso # (Auto) Nucleated RBC % (auto) Nucleated RBCs # Sodium Potassium Chloride Carbon Dioxide Anion Gap BUN Creatinine Glucose Calculated Osmolality Calcium Magnesium Total Bilirubin AST ALT Alkaline Phosphatase Total Protein 7.8 Albumin 4.2 Globulin Xmngd-7-Pymalumhj 0.4 H Aoinr-0-Tvfjcvjcp 1.0 H Mifc-1-Qumhscqw 0.5 Agke-4-Oyilnwqj 0.5 Gamma Globulins 1.3 Ur Random Creatinine 158 Ur Random Albumin 20 U Random Total Protein 93 H Protein/Creatinin Ratio 589 H Protein/Creat Ratio 24h 0.589 H U Random q-2-Ienorghq % 5 U Random p-2-Mininjjm % 30 U Random Beta Globulin 12 U Random Gamma Glob 33 Urine PEP Interpret See note Pro Electrophoresis Int See note Free Rafael Gonzalez Light Chains 21.2 H Free Lambda Light Chain 14.3 Free Rafael Gonzalez/Lambda Ratio 1.48 06/16/19 06/17/19 06/17/19 06:20 03:55 03:55 WBC 10.2 H RBC 4.46 Hgb 12.7 Hct 39.7 L MCV 89.0 MCH 28.5 MCHC 32.0 RDW 14.4 Plt Count 115 L MPV 12.0 H Neut % (Auto) 84.5 Lymph % (Auto) 7.5 [place] % (Auto) 7.2 Eos % (Auto) 0.2 Baso % (Auto) 0.1 Neut # (Auto) 8.6 H Lymph # (Auto) 0.8 [place] # (Auto) 0.7 Eos # (Auto) 0.0 Baso # (Auto) 0.0 Nucleated RBC % (auto) 0 Nucleated RBCs # 0.0 Sodium 135 L Potassium 3.2 L Chloride 99 Carbon Dioxide 25 Anion Gap 14.2 BUN 15 Creatinine 1.2 Glucose 137 H Calculated Osmolality 278 L Calcium 8.6 Magnesium 1.9 Total Bilirubin 2.0 H AST 27 ALT 20 Alkaline Phosphatase 111 Total Protein 6.9 Albumin 3.0 L Globulin 3.9 Qnhih-0-Awinbnbdm Fmtjo-2-Syjookyhp Hjpo-8-Uqxkviva Wpso-0-Uifsbupl Gamma Globulins Ur Random Creatinine Ur Random Albumin U Random Total Protein Protein/Creatinin Ratio Protein/Creat Ratio 24h U Random j-1-Hyilwgso % U Random y-9-Qtomnbmb % U Random Beta Globulin U Random Gamma Glob Urine PEP Interpret Pro Electrophoresis Int Free Rafael Gonzalez Light Chains Free Lambda Light Chain Free Rafael Gonzalez/Lambda Ratio 06/18/19 06/18/19 03:25 03:25 WBC 9.9 RBC 4.05 L Hgb 11.8 Hct 35.4 L MCV 87.4 MCH 29.1 MCHC 33.3 RDW 14.2 Plt Count 122 L MPV 12.1 H Neut % (Auto) 82.0 Lymph % (Auto) 8.4 [place] % (Auto) 8.1 Eos % (Auto) 0.3 Baso % (Auto) 0.1 Neut # (Auto) 8.1 H Lymph # (Auto) 0.8 [place] # (Auto) 0.8 Eos # (Auto) 0.0 Baso # (Auto) 0.0 Nucleated RBC % (auto) 0 Nucleated RBCs # 0.0 Sodium 136 Potassium 3.2 L Chloride 99 Carbon Dioxide 27 Anion Gap 13.2 BUN 13 Creatinine 1.1 Glucose 107 Calculated Osmolality 279 L Calcium 8.5 Magnesium Total Bilirubin 1.4 H AST 24 ALT 20 Alkaline Phosphatase 95 Total Protein 6.3 L Albumin 3.0 L Globulin 3.3 Tbtsr-5-Yfrqeyftx Gjmtq-4-Rxvcmeqqd Knql-8-Skrkvjpn Ltxx-2-Gdvizggi Gamma Globulins Ur Random Creatinine Ur Random Albumin U Random Total Protein Protein/Creatinin Ratio Protein/Creat Ratio 24h U Random e-1-Xgykpale % U Random x-9-Vfxdylzr % U Random Beta Globulin U Random Gamma Glob Urine PEP Interpret Pro Electrophoresis Int Free Rafael Gonzalez Light Chains Free Lambda Light Chain Free Rafael Gonzalez/Lambda Ratio Cardiac Studies: No Data to Display
--- NOTE | 2019-06-18 10:58 | P.OP_ITS ---
Operative Report Date of procedure: June 18, 2019 Pre-op Diagnosis: Acute calculus cholecystitis Post-op diagnosis: same Procedure Done: Laparoscopic cholecystectomy. Specimens removed/disposition: Gallbladder Surgeon: Nando Mahajan Anesthesia: General Estimated blood loss (mL): 25 Condition: stable Disposition: PACU Procedure: The patient was taken to the operating room and was intubated under general anesthesia. After the antibiotic had been administered, the abdomen was prepped and draped in a sterile manner. Using a #15 blade, a 1 centimeter infraumbilical curvilinear incision was made and using an open Josué technique the peritoneal cavity was entered. A 10 millimeter port was placed and 15 millimeters of pneumoperitoneum was created. A 10 millimeter, 30 degrees scope was then introduced. Three 5 millimeter ports were placed in the epigastric, midclavicular and the anterior axillary line two fingerbreadths below the costal margin on the right side under the direct visualization. The omentum was adh erent to the fundus and the body of the gallbladder which was peeled away using suction textiles and clothing teacher. The gallbladder was acutely inflamed. Ratcheted forceps were introduced into the lateral most port and was used to retract the fundus of the gallbladder cephalad, resulting in tear in the fundus of the gallbladder with spillage of bile which was irrigated and suctioned out and using forceps the infundibulum of the gallbladder was retracted laterally. Using L-hook cautery the peritoneum overlying the Calot's triangle was opened medially and laterally until the cystic duct and the cystic artery were skeletonized. Dissection was carried along the body of the gallbladder and after ensuring critical view of safety, 3 clips were applied on the cystic duct and cut leaving 2 clips on the cystic duct remnant. The anterior and posterior branch of the cystic artery was cut using electrocautery. The rest of the gallbladder was dissected off the liver using L-hook cautery. There was no bleeding or bile leaking noted from the gallbladder fossa and the clips appeared to be in place. The gallbladder was acutely inflamed making dissection difficult due to difficulty not defined the plane between the gallbladder and the liver. There are couple of openings made in the body of the gallbladder with spillage of a few stones which were retrieved. An EndoCatch bag was introduced to remove the gallbladder. All the ports were removed under direct visualization and there was no bleeding noted from the port sites. The fascia of the umbilicus was closed using [id number] 0 Vicryl sutures and the subcutaneous tissue was approximated using 3-0 Vicryl sutures. The skin at all four ports were closed using 4-0 Monocryl and Dermabond. A total of 10 millimeters of 0.5% Marcaine was infiltrated around the port sites. The patient was stable throughout the procedure.
--- NOTE | 2019-06-18 13:12 | PM.PACU ---
PACU note Post-Anesthesia Exam: awake and vital signs stable Disposition: back to floor
[2019-06-18] MEDS: ipratropium-albuterol 3 mL Neb INHALATION ×2 (14:50→21:38)
[2019-06-18] MEDS: HYDROcodone-acetaminophen 5-325 mg Tablet 1 TAB PO ×2 (15:25→21:20)
[2019-06-18] MEDS: sodium chloride 0.9% 1,000 ML 75 ML IV (15:26)
--- NOTE | 2019-06-18 16:27 | PC.NURSE ---
OUTPUT PT VOIDED DIRECTLY INTO TOILET PRIOR TO EDUCATION ABOUT STRICT OUTPUTS COULD BE PERFORMED. PATIENT HAS NOW BEEN EDUCATED ABOUT VOIDING PER URINAL.
--- NOTE | 2019-06-18 17:07 | PC.NURSE ---
SCD APPLIED TO RIGHT ARM PER DR. HOPKINS
[2019-06-18] MEDS: metoprolol tartrate 25 mg Tablet PO (17:08)
--- NOTE | 2019-06-18 19:32 | PC.NURSE ---
Encouraged patient to use incentive spirometer, patient used five times in a row, Will continue to monitor patient, patient's respirations even and non-labored. Call light within reach. Care continued.
--- NOTE | 2019-06-18 20:14 | PC.NURSE ---
Patient used Incentive Spirometer X7 times in a row, Tidal volume at 600
--- NOTE | 2019-06-18 20:52 | P.PN_ITS ---
Subjective Subjective: Interval history: He is feeling better after his surgery. Walked with nursing staff afterward. States that he has not been able to walk 50 feet for a while. At home gets around in a wheelchair. States that he gets his food delivered, does not cook but receives meals at home. 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 Discussed with him that he may benefit given his overall limited functional capacity, currently with acute illness and surgery, and he states that he will think about it. Vitals/I&O/Wt Last Vital Signs Temp 98.1 F 06/18/19 19:00 Pulse 97 06/18/19 19:00 Resp 27 H 06/18/19 19:00 BP 120/73 06/18/19 19:00 Pulse Ox 94 06/18/19 16:18 06/18/19 06/18/19 06/18/19 06:59 14:59 22:59 Intake Total 170 / 1160 1050 / 1050 560 / 1610 Output Total 150 / 300 295 / 295 Balance 20 / 860 755 / 755 560 / 1315 Physical Exam Const: COMMON NORMALS: no apparent distress and oriented x3 NUTRITIONAL APPEARANCE: obese ORIENTATION/CONSCIOUSNESS: Yes other (Appears in less discomfort) HENMT: COMMON NORMALS: oropharynx normal Neck/C-Spine: COMMON NORMALS: no JVD Resp: COMMON NORMALS: normal respiratory effort and clear to auscultation bilaterally AUSCULTATION: clear to auscultation bilaterally Cardio: COMMON NORMALS: no JVD, regular rhythm, S1 normal heart sound, S2 normal heart sound and no murmurs RATE: tachycardic RHYTHM: regular rhythm HEART SOUNDS: S1 normal and S2 normal GI: COMMON NORMALS: normal to inspection, nondistended, normoactive bowel sounds and soft to palpation PALPATION: Yes soft and Yes tender Extremity: COMMON NORMALS: no joint enlargement GENERAL: Yes edema Neuro: COMMON NORMALS: oriented x3 and moves all extremities Skin: COMMON NORMALS: no rashes or lesions noted GENERAL SKIN EXAM: no rashes or lesions noted OTHER: Severe chronic venous stasis dermatitis bilateral lower extremities. Dry scaly skin. Data : 06/18/19 03:25 06/18/19 03:25 A&P Assessment and plan (1) Abdominal pain: Status post cholecystectomy. States that he is feeling better. Tachycardia resolved. Cholecystitis, porcelain GB. Cont Zosyn. Request of surgery start Lovenox tomorrow. He agreed to wear SCD on the right arm. Status: Acute Code(s): R10.9 - Unspecified abdominal pain (2) Porcelain gallbladder: As above. Status: Acute Code(s): K82.8 - Other specified diseases of gallbladder (3) Severe back pain: This has improved. Etiology is not clear. He does have age-appropriate degenerative changes in thoracic spine, lumbar spine with moderate central canal narrowing L4-L5. No thoracic aorta dissection Suspect 2/2 cholecystitis. With hyperproteinemia, back pain, mild kidney insufficiency, requested for serum light chains, SPEP, UPEP to assess for multiple myeloma. Status: Acute Code(s): M54.9 - Dorsalgia, unspecified (4) Chest pain: This is better. Minimal troponin elevation, without significant delta. Pain is not typical, an acute CO is not suspected at this time. TTE not optimal quality, but no gross wall motion abnormalities. Stress test in April 2018 without acute ischemia. Continue aspirin. Due to his severe aches for now we will hold statin. CK is normal, although with complaints of pain in multiple areas, also had cramping in the right leg, holding his statin at this time to exclude contribution of statin induced myopathy. Status: Acute Code(s): R07.9 - Chest pain, unspecified (5) Abdominal aortic aneurysm: As above. February 2018 3.75 x 4.22 x [address] lumbar spine this admission 4.1 x 4.2 x 5.9 length. Follow-up screening at 12-month intervals. Status: Acute Code(s): I71.4 - Abdominal aortic aneurysm, without rupture (6) Tachycardia: Improving. Suspected sinus tachycardia secondary to sepsis. Status: Acute Code(s): R00.0 - Tachycardia, unspecified (7) Leukocytosis: As above. Status: Acute Code(s): D72.829 - Elevated white blood cell count, unspecified (8) Alkaline phosphatase elevation: Secondary to acute cholecystitis. No visualized bony lesion, pending lab work to assess for possible myeloma, although suspicion at this time low. Status: Acute Code(s): R74.8 - Abnormal levels of other serum enzymes (9) Hyperproteinemia: Has resolved. Possibly secondary to dehydration presentation. Or acute phase change. With back pain, mild kidney insufficiency, hyperproteinemia. Assess for possible MM. Status: Acute Code(s): E88.09 - Other disorders of plasma-protein metabolism, not elsewhere classified (10) Acute bronchitis: With cough, reports that sometimes bouts of cough caused him to be almost presyncopal. Has history of DVT in the past, although says has been compliant with Xarelto. Suspicion for acute VTE low. No pneumonia noted on chest x-ray. Breathing treatments. He denies carrying the diagnosis of COPD. Supportive care as needed. Status: Acute Code(s): J20.9 - Acute bronchitis, unspecified Additional A&P Information Deconditioning: States that he has not been able to walk 50 feet for a while. At home gets around in a wheelchair. States that he gets his food delivered, does not cook but receives meals at home. 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 Discussed with him that he may benefit given his overall limited functional capacity, currently with acute illness and surgery, and he states that he will think about it. Will get PT/OT assessment. CAD, status post stenting History of VTE Chronic anticoagulation Chronic lower extremity edema HTN HLD BPH Attestations Medical Necessity Statement*: Continue admission for assessment management of acute cholecystitis. Coding Level of Care Code Acute Heel Coverer for [facility] Fwd Diagnoses Abdominal pain R10.9 Porcelain gallbladder K82.8 Severe back pain M54.9 Chest pain R07.9 Abdominal aortic aneurysm I71.4 Tachycardia R00.0 Leukocytosis D72.829 Alkaline phosphatase elevation R74.8 Hyperproteinemia E88.09 Acute bronchitis J20.9
[2019-06-18] MEDS: tamsulosin 0.4 mg Capsule PO (21:20)
--- NOTE | 2019-06-18 21:32 | PC.NURSE ---
Assisted patient from supine position to sitting position. Patient voided 100cc in urinal. Assisted patient to standing position with use of assistive device, patient was able to walk 20 ft in total to and from room. Encouraged patient to rest. Pain medication administered post ambulation. Patient is alert and oriented to person, place, time, situation. Call light within reach. Care continued.
--- NOTE | 2019-06-18 23:13 | PC.NURSE ---
Patient up to the side of the bed using urinal to void at this time. Care Continued.
[2019-06-19] VITALS (15 sets, daily range): BP systolic 102–123; BP diastolic 67–82; PULSE 90–127; RESP 18–27; TEMP 36.7–36.8; O2SAT 92–98
[2019-06-19] MEDS: sodium chloride 0.9% 1,000 ML 75 ML IV ×2 (02:15→16:51)
[2019-06-19] MEDS: ipratropium-albuterol 3 mL Neb INHALATION ×4 (03:14→21:57)
[2019-06-19 04:07] LABS: Basophils % 0.1 %; Eosinophils # 0.1 10^3/uL (0.0-0.8); Eosinophils % 1.4 %; Hematocrit 35.1 % (42.0-52.0); Lymphocytes # 0.7 10^3/uL (0.8-4.8); Lymphocytes % 9.5 %; Mean Corpuscular HGB Conc 31.3 g/dL (30.0-36.0); Mean Corpuscular Hemoglobin 28.6 pg (28.0-34.0); Mean Corpuscular Volume 91.2 fL (80-94); Mean Platelet Volume 12.2 fL (7.4-10.4); Monocytes # 0.6 10^3/uL (0.2-0.9); Monocytes % 8.5 %; Neutrophils # 5.8 10^3/uL (1.8-7.7); Neutrophils % 79.9 %; Nucleated Red Blood Cells % 0 %; Platelet Count 124 10^3/cmm (130-400); Red Blood Count 3.85 10^6/uL (4.1-5.3); Red Cell Distribution Width 14.8 % (12.1-15.1); White Blood Count 7.2 10^3/uL (4.0-10.0)
[2019-06-19 04:25] LABS: Alanine Aminotransferase 24 U/L (0-41); Albumin Level 2.5 g/dL (3.5-5.2); Alkaline Phosphatase 72 IU/L (40-130); Anion Gap 12.4 (5-19); Aspartate Amino Transferase 32 U/L (0-40); Blood Urea Nitrogen 11 mg/dL (8-23); Carbon Dioxide 27 mmol/L (22-29); Chloride 100 mmol/L (98-107); Creatinine Clr Calc Pharmacy 80.0308; Globulin 3.5 g/dL (1.3-4.6); Glucose 143 mg/dL (65-115); Osmolality Calculated 281 mOsm/kg (285-295); Potassium 3.4 mmol/L (3.5-5.1); Sodium 136 mmol/L (136-145); Total Bilirubin 0.8 mg/dL (0.15-1.2)
--- NOTE | 2019-06-19 04:36 | PC.NURSE ---
Patient sitting on the side of the bed post voiding in urinal. Encouraged patient to use incentive spirometer. Patient denied stating i just want to sit here and not have anything shoved in my face Teaching provided regarding the importance of incentive spirometer. Understanding verbalized. Care Continued.
[2019-06-19] MEDS: HYDROcodone-acetaminophen 5-325 mg Tablet 1 TAB PO ×2 (05:56→13:50)
--- NOTE | 2019-06-19 05:59 | PC.NURSE ---
patient sitting up on the side of the bed. Asked patient if he wanted to lay down after using urinal sitting up to void and patient states, no, I want to sit up longer on side of bed Call light within reach. Care Continued.
--- NOTE | 2019-06-19 08:36 | PC.OT ---
OT NOTE: OT EVALUATION ORDERS RECEIVED. EVALUATION ATTEMPTED. UPON MY EXPLANATION OF WHAT SERVICES SKILLED OT COULD PROVIDE AND IN QUESTIONING PATIENT ABOUT HIS PLOF AND DISCHARGE PLANS (SNF-VS- HOME WITH OR WITHOUT HH) HE BECAME VERY ANGRY AND YELLED, GE THE F--- OUT OF MY ROOM! NOW! I DID LEAVE THE ROOM AT HIS REQUEST. NURSING IMMEDIATELY ENTERED THE ROOM TO QUESTION HIM ABOUT THE OUTBURST. HE STATED, THAT GIRL MADE ME MAD WITH THOSE QUESTIONS. I DID NEED TO ENTER HIS ROOM AGAIN TO TREAT HIS ROOM -MATE. I ASKED PERMISSION BEFORE ENTERING AGAIN, INFORMING HIM OF MY PURPOSE. I APOLOGIZED FOR UPSETTING HIM AND STATED THAT THE PURPOSE OF MY QUESTIONS WAS TO DETERMINE HIS PLOF. HE VOICED UNDERSTANDING. PER PATIENT REQUEST, HE WILL NOT BE PARTICIPATING IN SKILLED OT EVALUATION OR TREATMENT.
[2019-06-19] MEDS: metoprolol tartrate 25 mg Tablet PO ×2 (08:49→16:53)
[2019-06-19] MEDS: pantoprazole DR 40 mg Tablet PO (08:49)
[2019-06-19] MEDS: aspirin 81 mg EC Tablet PO (08:50)
[2019-06-19] MEDS: cholecalciferol (vitamin D3) 1,000 unit Tablet 1000 UNIT PO (08:50)
[2019-06-19] MEDS: piperacillin-tazobactam 3.375 GM in sodium chloride 0.9% (plus) 50 ML IV (09:16)
--- NOTE | 2019-06-19 09:18 | PC.NURSE ---
WHILE DISCUSSING PARTICIPATION IN PHYSICAL THERAPY WITH THIS PATIENT, THE PATIENT STATED THAT IF ANYONE MADE HIM MAD ENOUGH HE'D HAVE NO PROBLEM HITTING SOMEONE. THE NURSE DISCUSSED THIS WITH THE PATIENT AND THAT EVERYONE HERE IS TRYING TO HELP HIM. WE ALSO DISCUSSED MUTUAL RESPECT. THE PATIENT STATED HE DID RESPECT NURSING, BUT NOT OT. NURSE REASSURED HIM PHYSICAL THERAPY WOULD WORK WELL WITH HIM.
[2019-06-19] MEDS: enoxaparin 120 mg/0.8 mL Syringe SUBCUT (12:54)
--- NOTE | 2019-06-19 14:45 | PM.PN ---
Subjective Subjective: Interval history: Patient has abdominal pain but denies any nausea or vomiting, feels distended. No BM Vitals/I&O/Wt Last Vital Signs Temp 98.0 F 06/19/19 04:00 Pulse 95 06/19/19 14:29 Resp 18 06/19/19 14:24 BP 118/76 06/19/19 11:31 Pulse Ox 95 06/19/19 14:24 06/18/19 06/19/19 06/19/19 22:59 06:59 14:59 Intake Total 610 / 2521.25 861.25 / 2521.25 360 / 360 Output Total 600 / 895 Balance 610 / 1626.25 261.25 / 1626.25 360 / 360 Weight last 48 hrs Weight 258 lb 4.8 oz Physical Exam Narrative: EXAM NARRATIVE: Abdomen: Soft, distended, tender, incision clean dry and intact Data : 06/19/19 03:15 06/19/19 03:15 A&P Assessment and plan (1) Status post laparoscopic cholecystectomy: Postop day 1 with postop ileus Continue clear liquid diet Continue IV Zosyn restart therapeutic Lovenox Ambulate with physical therapy question Patient wants to go home and does not want to go to care home Status: Acute Code(s): Z90.49 - Acquired absence of other specified parts of digestive tract Attestations Medical Necessity Statement*: Acute calculus cholecystitis requiring continued inpatient stay due to postop ileus Coding Level of Care Code Acute Disc Ruler Operator for Chg Fwd Diagnoses Status post laparoscopic cholecystectomy Z90.49
--- NOTE | 2019-06-19 14:52 | ANE.PACU2 ---
 Inpatient post-anesthesia follow up: Airway intact: Yes Vital signs: Temperature 98.0 F Pulse Rate 95 Respiratory Rate 18 Blood Pressure 118/76 Pulse Oximetry 95 Oxygen Delivery Me thod Nasal Cannula Oxygen Flow Rate 2 Fraction of Inspir ed Oxygen Hydration adequate: Yes Nausea and vomiting: No Pain level: 1 Mental status: Baseline
[2019-06-19] MEDS: piperacillin-tazobactam 3.375 GM in sodium chloride 0.9% (plus) 100 ML IV (16:52)
--- NOTE | 2019-06-19 19:17 | PM.PN ---
Subjective Subjective: Interval history: He states that overall he is feeling better, however, belly is tender. He has not passed much gas today, and has been having some eructation. Vitals/I&O/Wt Last Vital Signs Temp 98.0 F 06/19/19 04:00 Pulse 102 H 06/19/19 15:47 Resp 26 H 06/19/19 15:47 BP 123/79 06/19/19 15:47 Pulse Ox 94 06/19/19 15:47 06/19/19 06/19/19 06/19/19 06:59 14:59 22:59 Intake Total 861.25 / 2521.25 360 / 360 1000 / 1360 Output Total 600 / 895 700 / 700 Balance 261.25 / 1626.25 360 / 360 300 / 660 Weight last 48 hrs Weight 117.163 kg Physical Exam Const: COMMON NORMALS: no apparent distress and oriented x3 NUTRITIONAL APPEARANCE: obese ORIENTATION/CONSCIOUSNESS: Yes other (Appears in less discomfort) HENMT: COMMON NORMALS: oropharynx normal Neck/C-Spine: COMMON NORMALS: no JVD Resp: COMMON NORMALS: normal respiratory effort and clear to auscultation bilaterally AUSCULTATION: clear to auscultation bilaterally Cardio: COMMON NORMALS: no JVD, regular rhythm, S1 normal heart sound, S2 normal heart sound and no murmurs RATE: tachycardic RHYTHM: regular rhythm HEART SOUNDS: S1 normal and S2 normal GI: COMMON NORMALS: soft to palpation INSPECTION: Yes abdominal distension PALPATION: Yes soft Extremity: COMMON NORMALS: no joint enlargement GENERAL: Yes edema Neuro: COMMON NORMALS: oriented x3 and moves all extremities Skin: COMMON NORMALS: no rashes or lesions noted GENERAL SKIN EXAM: no rashes or lesions noted OTHER: Severe chronic venous stasis dermatitis bilateral lower extremities. Dry scaly skin. Data : 06/19/19 03:15 06/19/19 03:15 A&P Assessment and plan (1) Abdominal pain: Sepsis resolved. Appears to have a mild degree of postoperative ileus, with some abdominal distention, eructation. Continue to monitor for now. Cholecystitis, status post cholecystectomy. Porcelain GB. Cont Zosyn. Restarted Lovenox today. Status: Acute Code(s): R10.9 - Unspecified abdominal pain (2) Porcelain gallbladder: As above. Status: Acute Code(s): K82.8 - Other specified diseases of gallbladder (3) Severe back pain: This has improved. Etiology is not clear. He does have age-appropriate degenerative changes in thoracic spine, lumbar spine with moderate central canal narrowing L4-L5. No thoracic aorta dissection Suspect 2/2 cholecystitis. With hyperproteinemia, back pain, mild kidney insufficiency, requested for serum light chains, SPEP, UPEP to assess for multiple myeloma. Status: Acute Code(s): M54.9 - Dorsalgia, unspecified (4) Chest pain: This is better. Minimal troponin elevation, without significant delta. Pain is not typical, an acute IN is not suspected at this time. TTE not optimal quality, but no gross wall motion abnormalities. Stress test in April 2018 without acute ischemia. Continue aspirin. Due to his severe aches for now we will hold statin. CK is normal, although with complaints of pain in multiple areas, also had cramping in the right leg, holding his statin at this time to exclude contribution of statin induced myopathy. Status: Acute Code(s): R07.9 - Chest pain, unspecified (5) Abdominal aortic aneurysm: As above. February 2018 3.75 x 4.22 x [address] lumbar spine this admission 4.1 x 4.2 x 5.9 length. Follow-up screening at 12-month intervals. Status: Acute Code(s): I71.4 - Abdominal aortic aneurysm, without rupture (6) Tachycardia: Improving. Suspected sinus tachycardia secondary to sepsis. Status: Acute Code(s): R00.0 - Tachycardia, unspecified (7) Leukocytosis: As above. Status: Acute Code(s): D72.829 - Elevated white blood cell count, unspecified (8) Alkaline phosphatase elevation: Secondary to acute cholecystitis. No visualized bony lesion, pending lab work to assess for possible myeloma, although suspicion at this time low. Status: Acute Code(s): R74.8 - Abnormal levels of other serum enzymes (9) Hyperproteinemia: Has resolved. Possibly secondary to dehydration presentation. Or acute phase change. With back pain, mild kidney insufficiency, hyperproteinemia. Assess for possible MM. Status: Acute Code(s): E88.09 - Other disorders of plasma-protein metabolism, not elsewhere classified (10) Acute bronchitis: With cough, reports that sometimes bouts of cough caused him to be almost presyncopal. Has history of DVT in the past, although says has been compliant with Xarelto. Suspicion for acute VTE low. No pneumonia noted on chest x-ray. Breathing treatments. He denies carrying the diagnosis of COPD. Supportive care as needed. Status: Acute Code(s): J20.9 - Acute bronchitis, unspecified Additional A&P Information Deconditioning: States that he has not been able to walk 50 feet for a while. At home gets around in a wheelchair. With acute cholecystitis, sepsis, ICU admission, and postoperatively would benefit from rehabilitation prior to return home. Admission to SNF was again offered to him today by discharge planning, however, he declined. CAD, status post stenting History of VTE Chronic anticoagulation Chronic lower extremity edema HTN HLD BPH Attestations Medical Necessity Statement*: Continue admission for assessment and management after cholecystectomy, ileus, discharge arrangements. Coding Level of Care Code Acute Jointer Submarine Cable for Chg Fwd Diagnoses Abdominal pain R10.9 Porcelain gallbladder K82.8 Severe back pain M54.9 Chest pain R07.9 Abdominal aortic aneurysm I71.4 Tachycardia R00.0 Leukocytosis D72.829 Alkaline phosphatase elevation R74.8 Hyperproteinemia E88.09 Acute bronchitis J20.9
[2019-06-19] MEDS: tamsulosin 0.4 mg Capsule PO (20:42)
[2019-06-19] MEDS: morphine 4 mg/mL SDV 1 mL 2 MG IVP (20:45)
--- NOTE | 2019-06-19 22:34 | PC.NURSE ---
Patient leaving against medical advice at this time. Patient getting dressed to leave stated, I already called my ride and they should be here anytime. Reinforced need for further antibiotic therapy s/p lap tatum. Patient continued to insist on leaving. Dr Marinelli was notified and came to discuss need to stay with patient. Patient angrily stated, I am going home and nobody is going to stop me. I am tired of this place. Educated patient on AMA and also need for follow up with PCP. Patient stated, my PCP is the [place] so good luck with that. He did say he would contact them to attempt an appointment. Stressed again the need for further therapy. Patient stated, I don't care. I am going home if I have to call a cab. Patient provided with cj bermeo. Patient taken by jud to ED waiting area to meet his ride.
== END 2019-06-19 22:33 | disposition left against medical advice (07) | DRG 419 ==
LOC: ER 16:09 → MEDSURG 18:03 → ICU 06-16 01:04 → CSU 06-17 20:13
PROVIDERS: Surgery; Admitting Provider Internal Medicine; Emergency Provider Family Medicine; Family Provider Family Medicine; PCP Family Medicine; Visit Provider Internal Medicine
PROC: 0FT44ZZ Resection of Gallbladder, Percutaneous Endoscopic Approach (ICD-10-PCS; CPT 47562; principal; 2019-06-18 08:55)
DX: K80.42 Calculus of bile duct with acute cholecystitis without obstruction (principal); K82.8 Other specified diseases of gallbladder; M54.9 Dorsalgia, unspecified; I71.4 Abdominal aortic aneurysm, without rupture; I12.9 Hypertensive chronic kidney disease with stage 1 through stage 4 chronic kidney disease, or unspecified chronic kidney disease; D72.829 Elevated white blood cell count, unspecified; R74.8 Abnormal levels of other serum enzymes; J20.9 Acute bronchitis, unspecified; E78.5 Hyperlipidemia, unspecified; N40.0 Benign prostatic hyperplasia without lower urinary tract symptoms; G89.29 Other chronic pain; F45.42 Pain disorder with related psychological factors; J44.9 Chronic obstructive pulmonary disease, unspecified; N18.9 Chronic kidney disease, unspecified; E66.01 Morbid (severe) obesity due to excess calories; Z87.891 Personal history of nicotine dependence; Z68.36 Body mass index [BMI] 36.0-36.9, adult
CPT/HCPCS: 12345; 36415; 36600; 71045; 71275; 72128; 72131; 75635; 76705; 80051; 80053; 81001; 82550; 82553; 82810; 82977; 83605; 83690; 83735; 83883; 83986; 84145; 84155; 84156; 84165; 84484; 85025; 85610; 85730; 86335; 87040; 87804; 88304; 90471; 90686; 93005; 93306; 94640; 96365; 96372; 96374; 96375; 97116; 97161; 99283; A9270; G0378; J1650; J2001; J2270; J2405; J2543; J2704; J2710; J3010; J3490; J7030; J7050; Q9967

== ENCOUNTER 2019-06-30 14:19 | Emergency (ER) | payer MEDICARE, SELFPAY | END 2019-06-30 14:32 | disposition home or self-care (01) | PROVIDERS: Family Provider Family Medicine; PCP Family Medicine | DX: Z53.21 Procedure and treatment not carried out due to patient leaving prior to being seen by health care provider (principal) | CPT/HCPCS: 99281 ==

== ENCOUNTER 2019-06-30 16:39 | Emergency (ER) | payer MEDICARE, SELFPAY ==
[2019-06-30 16:47] VITALS: BMI 31.4
--- NOTE | 2019-06-30 17:04 | ED_ITS ---
Entered by Lena Waters, acting as scribe for Kathy Coronel MD Jun 30, 2019 16:39 HPI - Wound/Laceration General: Chief Complaint: Wound/Laceration Stated Complaint: sent by doc Time Seen by Provider: 06/30/19 16:46 Source: patient Mode of arrival: wheelchair Limitations: no limitations History of Present Illness: HPI narrative: 74 yo Male presents to ED with co mplaint of ulcer to the top of his foot. Pt was sent to the ER by Dr. Leon who stated that she thought it might be infected and may need IV antibiotics. Pt states that the wound on his foot burst yesterday and he has had yellow drainage. Pt is not diabetic and has a history of bilateral leg swelling, right greater than left. Pt's caregiver states that the patient's left leg swelling is more recent. Patient quit smoking 12 years ago. Onset (ago): day(s) Extremity Location: Left: foot Place: home Associated symptoms: Denies chills, fever(s), nausea or vomiting Review of Systems General: Reports: 10 or more systems reviewed and unremarkable except in HPI and below Const: Denies: fever or chills Eyes: Denies: change in vision ENMT: Denies: throat pain Card: Denies: chest pain Resp: Denies: shortness of breath GI: Denies: abdominal pain, nausea, vomiting or change in bowel habits Musc: Reports: extremity pain and extremity swelling; Denies: muscle weakness Skin/Breast: Reports: sores (to top of left foot) Neuro: Denies: headache Psych: Denies: hopelessness or suicidal ideation Endo: Denies: excessive urination Sergio/Lymph: Denies: easy bruising or easy bleeding All/Imm: Denies: hives [facility] ED PFSH: Medical History Abdominal aortic aneurysm Acute cholecystitis without calculus BPH (benign prostatic hyperplasia) CAD (coronary artery disease) Chronic edema DVT of lower extremity, bilateral HLD (hyperlipidemia) Hypertension Undescended testes Surgical History History of hernia repair S/P coronary artery stent placement Status post laparoscopic cholecystectomy Family History Mother Diabetes Social History Smoking and tobacco status: former smoker Quit status (tobacco): has quit using tobacco Year quit tobacco: 2009 Alcohol intake: current Alcohol type: hard liquor Lives independently: Yes Household members: none Marital status: Current occupational status: retired Physical Exam Const: COMMON NORMALS: no apparent distress, oriented x3, alert and well nourished HENMT: COMMON NORMALS: normocephalic and external nose normal HEAD & SCALP: normocephalic NOSE: external nose normal MOUTH: no trismus Eye: COMMON NORMALS: EOMs intact bilaterally and conjunctivae normal CONJUNCTIVA: Yes conjunctivae normal Neck/C-Spine: COMMON NORMALS: full ROM, no lymphadenopathy and supple CERVICAL SPINE: Yes cervical ROM normal Lymph: LYMPHATIC: no lymphadenopathy noted Resp: COMMON NORMALS: normal respiratory effort, no retractions and no use of accessory muscles EFFORT & INSPECTION: Yes able to speak in complete sentences AUSCULTATION: clear to auscultation bilaterally OTHER: Good air movement but wheezes in bases bilaterally. When I mention this to the patient he says he is wheezed for as long as he can remember but has never been on in halers or nebulizer except for when he was in the hospital. No crackles Cardio: COMMON NORMALS: regular rate and regular rhythm RATE: regular rate RHYTHM: regular rhythm GI: COMMON NORMALS: normal to inspection, nondistended, normoactive bowel sounds, soft to palpation, non-tender and no masses INSPECTION: Yes normal to inspection AUSCULTATION: Yes normoactive bowel sounds PALPATION: Yes soft, No guarding and No rigid Back/Pelvis: OTHER: Normal range of motion Extremity: GENERAL: Yes normal exam except as noted and Yes edema LEFT LOWER EXTREMITY: Yes foot & digits (wound to top of left foot with yellow drainage) Left foot and digits: Yes inspection Neuro: COMMON NORMALS: oriented x3 and CN's II-XII intact bilaterally SENSORIUM/ORIENTATION: Yes alert SPEECH: speech normal Psych: COMMON NORMALS: mental status grossly normal Skin: COMMON NORMALS: no rashes or lesions noted NARRATIVE SKIN EXAM: Bilateral lower extremity edema with erythema and skin changes consistent with chronic venous insufficiency. There is a very shallow wound on the top of his left foot approximately 4 x 3 cm that is open with some crusting and yellow drainage. No increased warmth on the left foot compared to the right. Palpable pulses posterior tib and dorsalis pedis bilaterally. GENERAL SKIN EXAM: no rashes or lesions noted Course Vital Signs: Vital signs: Vital Signs Temperature 98 F 06/30/19 17:37 Pulse Rate 79 06/30/19 17:37 Respiratory Rate 16 06/30/19 17:37 Blood Pressure 159/95 06/30/19 17:37 Pulse Oximetry 92 06/30/19 17:37 MDM - Wound/Laceration MDM Narrative: Medical decision making narrative: Discussed with Dr. Orozco, she agrees patient can go home on antibiotics with close follow-up. Went over plan with the patient. Will give dose of IV Clinda here and prescription for oral clindamycin. He is aware he needs to call his doctor tomorrow for follow- up the end of this week or early next week at the latest and to return to the ER if worse in any way including systemic symptoms which we discussed. He is afebrile with a normal white count x-ray does not show osteomyelitis. There was a wound culture obtained. Will treat to cover staph. His ESR is extremely high while his CRP is only mildly elevated. Lab Data: Attestation: I reviewed the patient's lab results. Labs: Lab Results 06/30/19 06/30/19 06/30/19 Range/Units 17:25 17:25 17:25 WBC 5.5 (4.0-10.0) 10^3/ uL RBC 4.58 (4.1-5.3) 10^6/u L Hgb 13.5 (11.7-16.6) g/dL Hct 42.3 (42.0-52.0) % MCV 92.4 (80-94) fL MCH 29.5 (28.0-34.0) pg MCHC 31.9 (30.0-36.0) g/dL RDW 15.5 H (12.1-15.1) % Plt Count 330 (130-400) 10^3/c mm MPV 10.6 H (7.4-10.4) fL Neut % (Auto) 60.7 % Lymph % (Auto) 25.7 % [place] % (Auto) 9.2 % Eos % (Auto) 3.1 % Baso % (Auto) 0.9 % Neut # (Auto) 3.3 (1.8-7.7) 10^3/u L Lymph # (Auto) 1.4 (0.8-4.8) 10^3/u L [place] # (Auto) 0.5 (0.2-0.9) 10^3/u L Eos # (Auto) 0.2 (0.0-0.8) 10^3/u L Baso # (Auto) 0.1 (0.0-0.1) 10^3/u L Nucleated RBC % (a uto) 0 % Nucleated RBCs # 0.0 /100WBC ESR 100 H (0-10) mm/hr Sodium 138 (136-145) mmol/L Potassium 3.7 (3.5-5.1) mmol/L Chloride 98 (98-107) mmol/L Carbon Dioxide 28 (22-29) mmol/L Anion Gap 15.7 (5-19) BUN 10 (8-23) mg/dL Creatinine 0.9 (0.7-1.2) mg/dL Glucose 102 (65-115) mg/dL Calculated Osmolal ity 282 L (285-295) mOsm/k g Lactic Acid (Sepsi s) (0.5-2.2) mmol/L Calcium 9.3 (8.5-10.5) mg/dL Total Bilirubin 0.7 (0.15-1.2) mg/dL AST 31 (0-40) U/L ALT 25 (0-41) U/L Alkaline Phosphata se 111 (40-130) IU/L C-Reactive Protein 8.5 H (0.0-4.9) mg/L NT-Pro-B Natriuret Pep 291 H (0-125) pg/mL Total Protein 8.6 (6.6-8.7) g/dL Albumin 3.9 (3.5-5.2) g/dL Globulin 4.7 H (1.3-4.6) g/dL 06/29/ Range/Units 17:25 WBC (4.0-10.0) 10^3/ uL RBC (4.1-5.3) 10^6/u L Hgb (11.7-16.6) g/dL Hct (42.0-52.0) % MCV (80-94) fL MCH (28.0-34.0) pg MCHC (30.0-36.0) g/dL RDW (12.1-15.1) % Plt Count (130-400) 10^3/c mm MPV (7.4-10.4) fL Neut % (Auto) % Lymph % (Auto) % [place] % (Auto) % Eos % (Auto) % Baso % (Auto) % Neut # (Auto) (1.8-7.7) 10^3/u L Lymph # (Auto) (0.8-4.8) 10^3/u L [place] # (Auto) (0.2-0.9) 10^3/u L Eos # (Auto) (0.0-0.8) 10^3/u L Baso # (Auto) (0.0-0.1) 10^3/u L Nucleated RBC % (a uto) % Nucleated RBCs # /100WBC ESR (0-10) mm/hr Sodium (136-145) mmol/L Potassium (3.5-5.1) mmol/L Chloride (98-107) mmol/L Carbon Dioxide (22-29) mmol/L Anion Gap (5-19) BUN (8-23) mg/dL Creatinine (0.7-1.2) mg/dL Glucose (65-115) mg/dL Calculated Osmolal ity (285-295) mOsm/k g Lactic Acid (Sepsi s) 1.5 (0.5-2.2) mmol/L Calcium (8.5-10.5) mg/dL Total Bilirubin (0.15-1.2) mg/dL AST (0-40) U/L ALT (0-41) U/L Alkaline Phosphata se (40-130) IU/L C-Reactive Protein (0.0-4.9) mg/L NT-Pro-B Natriuret Pep (0-125) pg/mL Total Protein (6.6-8.7) g/dL Albumin (3.5-5.2) g/dL Globulin (1.3-4.6) g/dL Imaging Data^: XR Foot: Radiologist's impression: [address] [address] XRay Report Signed Patient: Hao Estebanit #: [id number] : 1945cct#:[id number] Age/Sex: 74 / MADM Date: 06/30/19 Loc: ERRoom/Bed: Attending Dr: Ordering Provider/Ordering MD: Kathy Coronel MD Date of Service: 06/30/19 Procedure(s): XR foot LT min 3V* [id number] Accession Number(s): [id number] Report Number: [id number] PROCEDURE INFORMATION: Exam: XR Left Foot Complete Exam date and time: 06/30/2019 6:25 PM Age: 74 years old Clinical indication: Swelling, leg or foot; Patient HX: Cellulitis left foot, open wound x3-4 days; Additional info: Left foot infection TECHNIQUE: Imaging protocol: XR Left foot. Views: 3 or more views. COMPARISON: CT angio abd aorta runof [id number] 06/15/2019 2:48 PM FINDINGS: Bones/joints: There is no evidence for acute fracture or malalignment. No radiographic evidence for osteomyelitis. There is osteopenia. Soft tissues: There is soft tissue swelling along the dorsum of the left foot. No associated soft tissue gas or radiopaque foreign body. XR/XR foot LT min 3V* [id number] IMPRESSION: There is soft tissue cellulitis especially along the dorsum of the left foot. No radiographic evidence for osteomyelitis. Dictated By:Vincent Hodgson MD Signed By:Vincent Hodgson MDSigned Date/Time:06/30/191856 DD/ 54 CXR: Radiologist's impression: [address] [address] XRay Report Signed Patient: Hao Estebanit #: [id number] : 1945cct#:[id number] Age/Sex: 74 / MADM Date: 06/30/19 Loc: ERRoom/Bed: Attending Dr: Ordering Provider/Ordering MD: Kathy Coronel MD Date of Service: 06/30/19 Procedure(s): XR chest 1V portable [id number] Accession Number(s): [id number] Report Number: [id number] PROCEDURE INFORMATION: Exam: XR Chest, 1 View Exam date and time: 06/30/2019 5:32 PM Age: 74 years old Clinical indication: Patient HX: PT states cellulitis left foot x3-4 days, wheezing xseveral yrs. TECHNIQUE: Imaging protocol: XR of the chest Views: 1 view. COMPARISON: CR XR chest 1V portable [id number] 06/14/2019 2:33 PM FINDINGS: Lungs: The lung volumes are low. No acute pneumonia or edema. Pleural space: Unremarkable. No pleural effusion. No pneumothorax. Heart/Mediastinum: Unremarkable. No cardiomegaly. Bones/joints: Unremarkable. XR/XR chest 1V portable [id number] IMPRESSION: There are no acute concerning abnormalities. Dictated By:Vincent Hodgson MD Signed By:Vincent Hodgsonigned Date/Time:06/30/191853 DD/ 52 Discharge Plan Discharge Patient Disposition: Home, Self-Care Clinical Impression: Cellulitis Qualifiers: Site of cellulitis: extremity Site of cellulitis of extremity: lower extremity Laterality: left Qualified Code(s): L03.116 - Cellulitis of left lower limb Condition: Stable Prescriptions: New clindamycin HCl 300 mg capsule 300 mg PO Q6H 10 Days Qty: 40 RF: 0 No Action losartan 50 mg Tablet 50 mg PO DAILY RF: 0 furosemide 40 mg Tablet 40 mg PO DAILY RF: 0 atorvastatin 40 mg Tablet See Rx Instructions .ROUTE .COMPLEX RF: 0 metoprolol succinate 100 mg Tablet Extended Release 24 Hr See Rx Instructions .ROUTE .COMPLEX RF: 0 aspirin 81 mg Tablet,Delayed Release (Dr/Ec) 81 mg PO DAILY RF: 0 potassium chloride 20 mEq tablet,ER particles/crystals 20 meq PO DAILY RF: 0 tamsulosin 0.4 mg Capsule 0.4 mg PO DAILY RF: 0 cholecalciferol (vitamin D3) [Vitamin D3] 25 mcg (1,000 unit) Tablet 25 mcg PO DAILY RF: 0 rivaroxaban 20 mg Tablet 20 mg PO DAILY RF: 0 Referrals: Elke Duran MD [Family Provider] - Activity Restrictions/Additional Instructions: Call your primary care provider's office tomorrow to schedule a follow up appointment by the end of the week. Return to the ER if you have a fever, vomiting or worsening of your symptoms. Take all antibiotics as prescribed Coding Level of Care Code ED Access Registrar for Chg Fwd Exam Comprehensive The documentation recorded by the Evelin hirsch Carmen, accurately reflects the service I personally performed and the decisions made by me, Kathy Coronel MD Jun 30, 2019 16:39
--- NOTE | 2019-06-30 17:19 | XRR_ITS ---
PROCEDURE INFORMATION: Exam: XR Chest, 1 View Exam date and time: 06/30/2019 5:32 PM Age: 74 years old Clinical indication: Patient HX: PT states cellulitis left foot x3-4 days, wheezing xseveral yrs. TECHNIQUE: Imaging protocol: XR of the chest Views: 1 view. COMPARISON: CR XR chest 1V portable [id number] 06/14/2019 2:33 PM FINDINGS: Lungs: The lung volumes are low. No acute pneumonia or edema. Pleural space: Unremarkable. No pleural effusion. No pneumothorax. Heart/Mediastinum: Unremarkable. No cardiomegaly. Bones/joints: Unremarkable. XR/XR chest 1V portable [id number] IMPRESSION: There are no acute concerning abnormalities.
[2019-06-30 17:37] VITALS: BP 159/95; PULSE 79; RESP 16; TEMP 36.6; O2SAT 92
[2019-06-30 17:37] LABS: Basophils # 0.1 10^3/uL (0.0-0.1); Basophils % 0.9 %; Eosinophils # 0.2 10^3/uL (0.0-0.8); Eosinophils % 3.1 %; Hematocrit 42.3 % (42.0-52.0); Hemoglobin 13.5 g/dL (11.7-16.6); Lymphocytes # 1.4 10^3/uL (0.8-4.8); Lymphocytes % 25.7 %; Mean Corpuscular HGB Conc 31.9 g/dL (30.0-36.0); Mean Corpuscular Hemoglobin 29.5 pg (28.0-34.0); Mean Corpuscular Volume 92.4 fL (80-94); Mean Platelet Volume 10.6 fL (7.4-10.4); Monocytes # 0.5 10^3/uL (0.2-0.9); Monocytes % 9.2 %; Neutrophils # 3.3 10^3/uL (1.8-7.7); Neutrophils % 60.7 %; Nucleated Red Blood Cells % 0 %; Platelet Count 330 10^3/cmm (130-400); Red Blood Count 4.58 10^6/uL (4.1-5.3); Red Cell Distribution Width 15.5 % (12.1-15.1); White Blood Count 5.5 10^3/uL (4.0-10.0)
[2019-06-30 17:53] LABS: Lactic Acid level (Lactate) 1.5 mmol/L (0.5-2.2)
[2019-06-30 18:06] LABS: Alanine Aminotransferase 25 U/L (0-41); Albumin Level 3.9 g/dL (3.5-5.2); Alkaline Phosphatase 111 IU/L (40-130); Anion Gap 15.7 (5-19); Aspartate Amino Transferase 31 U/L (0-40); Blood Urea Nitrogen 10 mg/dL (8-23); C Reactive Protein 8.5 mg/L (0.0-4.9); Calcium 9.3 mg/dL (8.5-10.5); Carbon Dioxide 28 mmol/L (22-29); Chloride 98 mmol/L (98-107); Creatinine Clr Calc Pharmacy 88.9231; Globulin 4.7 g/dL (1.3-4.6); Glucose 102 mg/dL (65-115); NT Pro B Type Natriuretic Pept 291 pg/mL (0-125); Osmolality Calculated 282 mOsm/kg (285-295); Potassium 3.7 mmol/L (3.5-5.1); Sodium 138 mmol/L (136-145); Total Bilirubin 0.7 mg/dL (0.15-1.2); Total Protein 8.6 g/dL (6.6-8.7)
[2019-06-30 18:22] LABS: Erythrocyte Sedimentation Rate 100 mm/hr (0-10)
--- NOTE | 2019-06-30 18:24 | XRR_ITS ---
PROCEDURE INFORMATION: Exam: XR Left Foot Complete Exam date and time: 06/30/2019 6:25 PM Age: 74 years old Clinical indication: Swelling, leg or foot; Patient HX: Cellulitis left foot, open wound x3-4 days; Additional info: Left foot infection TECHNIQUE: Imaging protocol: XR Left foot. Views: 3 or more views. COMPARISON: CT angio abd aorta runof [id number] 06/15/2019 2:48 PM FINDINGS: Bones/joints: There is no evidence for acute fracture or malalignment. No radiographic evidence for osteomyelitis. There is osteopenia. Soft tissues: There is soft tissue swelling along the dorsum of the left foot. No associated soft tissue gas or radiopaque foreign body. XR/XR foot LT min 3V* [id number] IMPRESSION: There is soft tissue cellulitis especially along the dorsum of the left foot. No radiographic evidence for osteomyelitis.
[2019-06-30] MEDS: clindamycin 600 MG/50 ML PREMIX 100 MG IV (20:04)
[2019-06-30 20:58] VITALS: BP 148/78; PULSE 75; RESP 16; TEMP 36.5; O2SAT 98
== END 2019-06-30 20:43 | disposition home or self-care (01) ==
PROVIDERS: Emergency Provider Emergency Medicine; Family Provider Family Medicine
DX: L03.116 Cellulitis of left lower limb (principal); I25.10 Atherosclerotic heart disease of native coronary artery without angina pectoris; E78.5 Hyperlipidemia, unspecified; I10 Essential (primary) hypertension; Z87.891 Personal history of nicotine dependence
CPT/HCPCS: 12345; 36415; 71045; 73630; 80053; 83605; 83880; 85025; 85651; 86140; 87040; 87070; 87077; 87184; 87186; 87205; 96365; 99282; 99283; J3490

== ENCOUNTER 2019-10-19 18:55 | Observation (INO) | payer MEDICARE, SELFPAY ==
[2019-10-19] VITALS (7 sets, daily range): BP systolic 114–134; BP diastolic 77–95; PULSE 117–124; RESP 20–24; TEMP 36.7; O2SAT 84–96; BMI 32.3
--- NOTE | 2019-10-19 18:56 | XRR_ITS ---
PROCEDURE INFORMATION: Exam: XR Right Hip with Pelvis when Performed Exam date and time: 10/19/2019 7:42 PM Age: 74 years old Clinical indication: Injury or trauma; Fall; Initial encounter; Blunt trauma (contusions or hematomas); Right; Prior surgery; Surgery type: RT hip TECHNIQUE: Imaging protocol: XR Right hip with pelvis when performed. Views: 1 view. COMPARISON: No relevant prior studies available. FINDINGS: Bones/joints: Metallic fixation of healed right hip fracture with intramedullary brittney. Soft tissues: Unremarkable. Vasculature: Endovascular stents over the right thigh down to the level of the distal femoral shaft. XR/XR hip RT 2-3V wo/w pel* [id number] IMPRESSION: No acute findings.
--- NOTE | 2019-10-19 19:00 | ED_ITS ---
HPI - Fall General: Chief Complaint: Fall Stated Complaint: RIGHT HIP PAIN POST FALL Time Seen by Provider: 10/19/19 18:56 Source: patient and EMS Mode of arrival: EMS Limitations: no limitations History of Present Illness: HPI Narrative: 74-year-old male who states he had a fall roughly 30 minutes ago. Patient landed on his right hip and has had hip pain since then. Patient states he has right hip pain he rates a 9 out of 10 and is unable to stand. He denies any other injuries. He denies hitting his head. Onset (ago): minute(s) Fall from: standing Place fall occurred: home Associated symptoms-after fall: Denies abdominal pain, chest pain or headache(s) Review of Systems Const: Denies: fever(s), chills, body aches or change in appetite Eyes: Denies: blurry vision or eye discomfort ENMT: Denies: throat pain or dental pain Card: Denies: chest pain Resp: Denies: dyspnea GI: Denies: abdominal pain, nausea, vomiting or diarrhea : Denies: dysuria Musc: Reports: joint pain Skin/Breast: Denies: rash Neuro: Denies: headache(s) Psych: Denies: depression Sergio/Lymph: Denies: easy bruising All/Imm: Denies: urticaria PFSH ED PFSH: Medical History Abdominal aortic aneurysm Acute cholecystitis without calculus BPH (benign prostatic hyperplasia) CAD (coronary artery disease) Chronic edema DVT of lower extremity, bilateral HLD (hyperlipidemia) Hypertension Undescended testes Surgical History History of hernia repair S/P coronary artery stent placement Status post laparoscopic cholecystectomy Family History Mother Diabetes Social History Smoking and tobacco status: former smoker Quit status (tobacco): has quit using tobacco Year quit tobacco: 2009 Alcohol intake: current Alcohol type: hard liquor Lives independently: Yes Household members: none Marital status: Current occupational status: retired Physical Exam Const: COMMON NORMALS: no acute distress, patient oriented x3 and healthy appearing HENMT: COMMON NORMALS: normocephalic and atraumatic HEAD & SCALP: normocephalic and atraumatic Eye: COMMON NORMALS: Equal, round and reactive pupils present and EOMs intact bilaterally PUPIL: Yes Equal, round and reactive pupils present Neck/C-Spine: COMMON NORMALS: full ROM and supple Chest: COMMONS NORMALS: normal inspection of the chest and normal palpation of entire chest wall Resp: COMMON NORMALS: normal respiratory effort, No retractions, No use of accessory muscles and clear to auscultation bilaterally AUSCULTATION: clear to auscultation bilaterally Cardio: COMMON NORMALS: regular rate, regular rhythm and No murmurs present (Cardio) RATE: regular rate RHYTHM: regular rhythm GI: COMMON NORMALS: Normal to inspection, nondistended, normoactive bowel sounds present, Soft to palpation, non-tender and no masses PALPATION: Yes Soft to palpation Extremity: NARRATIVE EXTREMITY EXAM: Tenderness to right hip along with pain with range of motion. Neuro: COMMON NORMALS: patient oriented x3, moves all extremities and no focal motor deficits Psych: COMMON NORMALS: mental status grossly normal, Normal thought process present and cooperative THOUGHT PROCESS: Normal thought process present Skin: COMMON NORMALS: no rashes or lesions noted and no wounds GENERAL SKIN EXAM: no rashes or lesions noted Course Vital Signs: Vital signs: Vital Signs Temperature 98.0 F 10/19/19 18:57 Pulse Rate 120 H 10/19/19 18:57 Respiratory Rate 20 H 10/19/19 21:54 Blood Pressure 127/85 10/19/19 18:57 Pulse Oximetry 84 L 10/19/19 19:20 MDM - Fall MDM Narrative: Medical decision making narrative: Patient presents here with acetabular fracture and hip pain from a fall. I spoke to Dr. Carballo who reviewed films and will admit here. Patient is also had some shortness of breath and is requiring oxygen here. CT shows no signs of pulmonary embolism. Patient's admitted to medical floor and Dr. Singer is admitting. Lab Data: Labs: Lab Results 10/19/19 10/19/19 10/19/19 Range/Units 19:45 19:45 19:45 WBC 9.2 (4.0-10.0) 10^3/ uL RBC 4.94 (4.1-5.3) 10^6/u L Hgb 14.2 (11.7-16.6) g/dL Hct 44.6 (42.0-52.0) % MCV 90.3 (80-94) fL MCH 28.7 (28.0-34.0) pg MCHC 31.8 (30.0-36.0) g/dL RDW 14.9 (12.1-15.1) % Plt Count 153 (130-400) 10^3/c mm MPV 10.7 H (7.4-10.4) fL Neut % (Auto) 76.8 % Lymph % (Auto) 14.6 % [place] % (Auto) 7.3 % Eos % (Auto) 0.9 % Baso % (Auto) 0.1 % Neut # (Auto) 7.05 (1.8-7.7) 10^3/u L Lymph # (Auto) 1.3 (0.8-4.8) 10^3/u L [place] # (Auto) 0.7 (0.2-0.9) 10^3/u L Eos # (Auto) 0.1 (0.0-0.8) 10^3/u L Baso # (Auto) 0.0 (0.0-0.1) 10^3/u L Nucleated RBC % (a uto) 0 % Nucleated RBCs # 0.0 /100WBC PT 22.10 H (10.5-13.3) SECO NDS INR 1.86 H (0.8-1.2) Sodium 142 (136-145) mmol/L Potassium 4.4 (3.5-5.1) mmol/L Chloride 104 (98-107) mmol/L Carbon Dioxide 29 (22-29) mmol/L Anion Gap 13.4 (5-19) BUN 16 (8-23) mg/dL Creatinine 0.9 (0.7-1.2) mg/dL Glucose 109 (65-115) mg/dL Calculated Osmolal ity 291 (285-295) mOsm/k g Calcium 9.2 (8.5-10.5) mg/dL Total Bilirubin 0.5 (0.15-1.2) mg/dL AST 20 (0-40) U/L ALT 22 (0-41) U/L Alkaline Phosphata se 103 (40-130) IU/L Troponin T Baselin e (0-15) ng/L Troponin T 120 Min [place] (0-15) ng/L Delta Troponin T (0-10) ABS# NT-Pro-B Natriuret Pep (0-125) pg/mL Total Protein 7.7 (6.6-8.7) g/dL Albumin 4.3 (3.5-5.2) g/dL Globulin 3.4 (1.3-4.6) g/dL 10/19/19 10/19/19 10/19/19 Range/Units 19:45 19:45 21:58 WBC (4.0-10.0) 10^3/ uL RBC (4.1-5.3) 10^6/u L Hgb (11.7-16.6) g/dL Hct (42.0-52.0) % MCV (80-94) fL MCH (28.0-34.0) pg MCHC (30.0-36.0) g/dL RDW (12.1-15.1) % Plt Count (130-400) 10^3/c mm MPV (7.4-10.4) fL Neut % (Auto) % Lymph % (Auto) % [place] % (Auto) % Eos % (Auto) % Baso % (Auto) % Neut # (Auto) (1.8-7.7) 10^3/u L Lymph # (Auto) (0.8-4.8) 10^3/u L [place] # (Auto) (0.2-0.9) 10^3/u L Eos # (Auto) (0.0-0.8) 10^3/u L Baso # (Auto) (0.0-0.1) 10^3/u L Nucleated RBC % (a uto) % Nucleated RBCs # /100WBC PT (10.5-13.3) SECO NDS INR (0.8-1.2) Sodium (136-145) mmol/L Potassium (3.5-5.1) mmol/L Chloride (98-107) mmol/L Carbon Dioxide (22-29) mmol/L Anion Gap (5-19) BUN (8-23) mg/dL Creatinine (0.7-1.2) mg/dL Glucose (65-115) mg/dL Calculated Osmolal ity (285-295) mOsm/k g Calcium (8.5-10.5) mg/dL Total Bilirubin (0.15-1.2) mg/dL AST (0-40) U/L ALT (0-41) U/L Alkaline Phosphata se (40-130) IU/L Troponin T Baselin e 10 (0-15) ng/L Troponin T 120 Min [place] 10.63 (0-15) ng/L Delta Troponin T 0.63 (0-10) ABS# NT-Pro-B Natriuret Pep 253 H (0-125) pg/mL Total Protein (6.6-8.7) g/dL Albumin (3.5-5.2) g/dL Globulin (1.3-4.6) g/dL Imaging Data^: CT Chest: Radiologist's impression: [place] [address] CT Scan Report Signed Patient: Hao Esteban Unit #: [id number] : 1945 Age/Sex: 74 / M ADM Date: 10/19/19 Loc: ER Room/Bed: Attending Dr: Ordering Provider/Ordering MD: Micah Kirk MD Date of Service: 10/19/19 Procedure(s): CT angio chest PE protcl [id number] Accession Number(s): [id number] Report Number: [id number] PROCEDURE INFORMATION: Exam: CT Angiography Chest With Contrast Exam date and time: 10/19/2019 8:27 PM Age: 74 years old Clinical indication: Dyspnea; Additional info: SOB TECHNIQUE: Imaging protocol: Computed tomographic angiography of the chest with intravenous contrast. 3D rendering: MIP and/or 3D reconstructed images were created by the technologist. Radiation optimization: All CT scans at this facility use at least one of these dose optimization techniques: automated exposure control; mA and/or kV adjustment per patient size (includes targeted exams where dose is matched to clinical indication); or iterative reconstruction. Contrast material: OMNI 300; Contrast volume: 95 ml; Contrast route: INTRAVENOUS (IV); COMPARISON: CT angio chest [id number] 06/14/2019 9:20 PM RADIATION DOSE METRICS: Total DLP (mGy-cm): 605.21 FINDINGS: Pulmonary arteries: No pulmonary embolus or aortic dissection. Aorta: Unremarkable. No aortic aneurysm. No aortic dissection. Lungs: Unremarkable. No consolidation. No masses. Pleural space: 7 mm pleural based scar or nodule in the posterior segment right upper lobe. Followup as discussed below. Heart: Severe calcified coronary artery disease. Lymph nodes: Unremarkable. No enlarged lymph nodes. Gallbladder and bile ducts: Interval cholecystectomy since the previous exam. Bones/joints: Unremarkable. No acute fracture. Soft tissues: Unremarkable. CT/CT angio chest PE protcl [id number] IMPRESSION: 1. 7 mm pleural based scar or nodule in the posterior segment right upper lobe. Followup as discussed below. 2. No pulmonary embolus or aortic dissection. ct pelvis: Radiologist's impression: [address] [address] [address] Scan Report Signed Patient: Hao Esteban Unit #: [id number] : 1945 Age/Sex: 74 / M ADM Date: 10/19/19 Loc: ER Room/Bed: Attending Dr: Ordering Provider/Ordering MD: Micah Kirk MD Date of Service: 10/19/19 Procedure(s): CT pelvis con [id number] Accession Number(s): [id number] Report Number: [id number] PROCEDURE INFORMATION: Exam: CT Pelvis Without Contrast; Skeletal Exam date and time: 10/19/2019 8:27 PM Age: 74 years old Clinical indication: Injury or trauma; Fall; Initial encounter; Blunt trauma (contusions or hematomas); Right; Prior surgery; Surgery date: 6+ months; Surgery type: RT hip; Additional info: Hip pain TECHNIQUE: Imaging protocol: Computed tomography images of the pelvis without contrast. Exam focused on the skeletal structures. Radiation optimization: All CT scans at this facility use at least one of these dose optimization techniques: automated exposure control; mA and/or kV adjustment per patient size (includes targeted exams where dose is matched to clinical indication); or iterative reconstruction. COMPARISON: CR (PELVIS, ) 10/19/2019 7:24 PM RADIATION DOSE METRICS: Total DLP (mGy-cm): 1161.35 FINDINGS: Stomach and bowel: Severe colonic diverticulosis. Vasculature: 4.2 cm infrarenal abdominal aortic aneurysm. Right superficial femoral endovascular stent. Bones/joints: Metallic fixation of right hip fracture. Comminuted fracture through the right acetabular roof and acetabular medial wall, anterior column of the right hip and extension into the medial cortex of the right iliac wing. Soft tissues: Unremarkable. CT/CT pelvis wo con [id number] IMPRESSION: 1. Metallic fixation of right hip fracture. 2. Comminuted fracture through the right acetabular roof and acetabular medial wall, anterior column of the right hip and extension into the medial cortex of the right iliac wing. Impression. EKG Data^: EKG 1: Attestation: I personally reviewed and interpreted this EKG as follows: EKG interpretation date: 10/19/19 EKG interpretation time: 19:48 Interpretation: sinus tach hr [address] or t wave abnormalities qrs 93 qtc 418 Discharge Plan Discharge Patient Disposition: Admitted As Inpatient Clinical Impression: Acetabulum fracture, right Qualifiers: Encounter type: initial encounter Sublocation of acetabulum: unspecified portion of acetabulum Fracture type: closed Fracture alignment: nondisplaced Qualified Code(s): S32.401A - Unspecified fracture of right acetabulum, initial encounter for closed fracture Fall Qualifiers: Encounter type: initial encounter Qualified Code(s): W19.XXXA - Unspecified fall, initial encounter Acute exacerbation of CHF (congestive heart failure) Qualifiers: Heart failure type: unspecified Qualified Code(s): I50.9 - Heart failure, unspecified Condition: Stable Coding Level of Care Code ED [employer] for [facility] Fwd Exam Comprehensive
[2019-10-19] MEDS: morphine 4 mg/mL SDV 1 mL IVP (19:20)
--- NOTE | 2019-10-19 19:20 | ECG_ITS ---
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 Measurements Intervals [place] Rate: 117 P: -58 NH: 185 QRS: 4 QRSD: 93 T: 57 QT: 349 QTc: 488 Interpretive Statements SINUS TACHYCARDIA ANTEROSEPTAL MYOCARDIAL INFARCTION , OF INDETERMINATE AGE [40+ ms Q WAVE IN V1-V4] Compared to ECG 06/16/2019 00:37:01 No significant changes Electronically Signed On 10-20-2019 16:37:21 CDT by Herminio Fabian M.D. [id number]
--- NOTE | 2019-10-19 19:20 | XR_ITS ---
WS: [id number] CHEST XRAY TECHNIQUE: Portable chest. CLINICAL INFORMATION: sob COMPARISON: June 30, 2019 FINDINGS: Heart: Cardiomegaly. Aortic calcification. Lungs: Lungs are clear. No consolidation or pleural effusion. Bones: Normal visualized bony structures. XR/XR chest 1V portable [id number] IMPRESSION: No acute chest findings. No interval changes.
--- NOTE | 2019-10-19 19:34 | PC.NURSE ---
Dr notified of pt low pulse ox prior to morphine adm. vo increae o2 to 6lpm via nasal cannula and to adm morphine for pain prior to xray
[2019-10-19 19:55] LABS: Basophils % 0.1 %; Eosinophils # 0.1 10^3/uL (0.0-0.8); Eosinophils % 0.9 %; Hematocrit 44.6 % (42.0-52.0); Hemoglobin 14.2 g/dL (11.7-16.6); Lymphocytes # 1.3 10^3/uL (0.8-4.8); Lymphocytes % 14.6 %; Mean Corpuscular HGB Conc 31.8 g/dL (30.0-36.0); Mean Corpuscular Hemoglobin 28.7 pg (28.0-34.0); Mean Corpuscular Volume 90.3 fL (80-94); Mean Platelet Volume 10.7 fL (7.4-10.4); Monocytes # 0.7 10^3/uL (0.2-0.9); Monocytes % 7.3 %; Neutrophils # 7.05 10^3/uL (1.8-7.7); Neutrophils % 76.8 %; Nucleated Red Blood Cells % 0 %; Platelet Count 153 10^3/cmm (130-400); Red Blood Count 4.94 10^6/uL (4.1-5.3); Red Cell Distribution Width 14.9 % (12.1-15.1); White Blood Count 9.2 10^3/uL (4.0-10.0)
[2019-10-19 20:06] LABS: INR 1.86 (0.8-1.2)
[2019-10-19 20:14] LABS: Alanine Aminotransferase 22 U/L (0-41); Albumin Level 4.3 g/dL (3.5-5.2); Alkaline Phosphatase 103 IU/L (40-130); Anion Gap 13.4 (5-19); Aspartate Amino Transferase 20 U/L (0-40); Blood Urea Nitrogen 16 mg/dL (8-23); Calcium 9.2 mg/dL (8.5-10.5); Carbon Dioxide 29 mmol/L (22-29); Chloride 104 mmol/L (98-107); Globulin 3.4 g/dL (1.3-4.6); Glucose 109 mg/dL (65-115); Osmolality Calculated 291 mOsm/kg (285-295); Potassium 4.4 mmol/L (3.5-5.1); Sodium 142 mmol/L (136-145); Total Bilirubin 0.5 mg/dL (0.15-1.2); Total Protein 7.7 g/dL (6.6-8.7)
[2019-10-19 20:15] LABS: Troponin(5th) Baseline 10 ng/L (0-15)
--- NOTE | 2019-10-19 20:16 | CTR_ITS ---
PROCEDURE INFORMATION: Exam: CT Pelvis Without Contrast; Skeletal Exam date and time: 10/19/2019 8:27 PM Age: 74 years old Clinical indication: Injury or trauma; Fall; Initial encounter; Blunt trauma (contusions or hematomas); Right; Prior surgery; Surgery date: 6+ months; Surgery type: RT hip; Additional info: Hip pain TECHNIQUE: Imaging protocol: Computed tomography images of the pelvis without contrast. Exam focused on the skeletal structures. Radiation optimization: All CT scans at this facility use at least one of these dose optimization techniques: automated exposure control; mA and/or kV adjustment per patient size (includes targeted exams where dose is matched to clinical indication); or iterative reconstruction. COMPARISON: CR (PELVIS, ) 10/19/2019 7:24 PM RADIATION DOSE METRICS: Total DLP (mGy-cm): 1161.35 FINDINGS: Stomach and bowel: Severe colonic diverticulosis. Vasculature: 4.2 cm infrarenal abdominal aortic aneurysm. Right superficial femoral endovascular stent. Bones/joints: Metallic fixation of right hip fracture. Comminuted fracture through the right acetabular roof and acetabular medial wall, anterior column of the right hip and extension into the medial cortex of the right iliac wing. Soft tissues: Unremarkable. CT/CT pelvis wo con [id number] IMPRESSION: 1. Metallic fixation of right hip fracture. 2. Comminuted fracture through the right acetabular roof and acetabular medial wall, anterior column of the right hip and extension into the medial cortex of the right iliac wing. Impression. Radiation Dose CTDIVOL = (mGy): DLP = 1161.35 (mGy-cm)
--- NOTE | 2019-10-19 20:16 | CTR_ITS ---
PROCEDURE INFORMATION: Exam: CT Angiography Chest With Contrast Exam date and time: 10/19/2019 8:27 PM Age: 74 years old Clinical indication: Dyspnea; Additional info: SOB TECHNIQUE: Imaging protocol: Computed tomographic angiography of the chest with intravenous contrast. 3D rendering: MIP and/or 3D reconstructed images were created by the technologist. Radiation optimization: All CT scans at this facility use at least one of these dose optimization techniques: automated exposure control; mA and/or kV adjustment per patient size (includes targeted exams where dose is matched to clinical indication); or iterative reconstruction. Contrast material: OMNI 300; Contrast volume: 95 ml; Contrast route: INTRAVENOUS (IV); COMPARISON: CT angio chest [id number] 06/14/2019 9:20 PM RADIATION DOSE METRICS: Total DLP (mGy-cm): 605.21 FINDINGS: Pulmonary arteries: No pulmonary embolus or aortic dissection. Aorta: Unremarkable. No aortic aneurysm. No aortic dissection. Lungs: Unremarkable. No consolidation. No masses. Pleural space: 7 mm pleural based scar or nodule in the posterior segment right upper lobe. Followup as discussed below. Heart: Severe calcified coronary artery disease. Lymph nodes: Unremarkable. No enlarged lymph nodes. Gallbladder and bile ducts: Interval cholecystectomy since the previous exam. Bones/joints: Unremarkable. No acute fracture. Soft tissues: Unremarkable. CT/CT angio chest PE protcl [id number] IMPRESSION: 1. 7 mm pleural based scar or nodule in the posterior segment right upper lobe. Followup as discussed below. 2. No pulmonary embolus or aortic dissection. For patients at low risk (minimal or absent history of smoking and of other known risk factors), recommend CT at 6-12 months, then consider CT at 18-24 months. For patients at high risk (history of smoking or of other known risk factors), recommend CT at 6-12 months, then CT at 18-24 months. (Andres et al., Fleischner Society, 2017) Radiation Dose CTDIVOL = (mGy): DLP = 605.21 (mGy-cm)
[2019-10-19 20:21] LABS: NT Pro B Type Natriuretic Pept 253 pg/mL (0-125)
[2019-10-19] MEDS: iohexol 350 mg/mL 100 mL Btl IV (20:54)
[2019-10-19] MEDS: HYDROmorphone 1 mg/mL INJ 1 mL IVP ×2 (21:28→21:54)
--- NOTE | 2019-10-19 21:50 | ECG_ITS ---
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 Measurements Intervals [place] Rate: 113 P: NC: -1 QRS: 1 QRSD: 100 T: 51 QT: 305 QTc: 420 Interpretive Statements SUPRAVENTRICULAR TACHYCARDIA SEPTAL MYOCARDIAL INFARCTION , PROBABLY OLD [40+ ms Q WAVE IN V1/V2] Compared to ECG 10/19/2019 19:48:38 Sinus tachycardia no longer present Myocardial infarct finding still present Electronically Signed On 10-20-2019 16:42:14 CDT by Herminio Fabian M.D. [id number]
--- NOTE | 2019-10-19 22:05 | PC.NURSE ---
during pt rounds, pt stating he is still having pain. orders obtained for dilaudid
[2019-10-19] MEDS: FUROsemide 10 mg/mL SDV 10mL 60 MG IVP (22:14)
[2019-10-19 22:24] LABS: Troponin 5 2HR 10.63 ng/L (0-15); Troponin 5 2HR Delta 0.63 ABS# (0-10)
[2019-10-20] VITALS (10 sets, daily range): BP systolic 99–123; BP diastolic 68–87; PULSE 102–120; RESP 13–21; TEMP 36.6–37.6; O2SAT 90–97
--- NOTE | 2019-10-20 01:07 | PC.NURSE ---
i agree with this assessment
--- NOTE | 2019-10-20 01:21 | PC.NURSE ---
i agree with this assessment
--- NOTE | 2019-10-20 01:50 | ECG_ITS ---
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 Measurements Intervals [place] Rate: 115 P: 124 RI: 194 QRS: -6 QRSD: 102 T: 53 QT: 328 QTc: 454 Interpretive Statements SINUS TACHYCARDIA ANTEROSEPTAL MYOCARDIAL INFARCTION [40+ ms Q WAVE IN V1-V4], OF INDETERMINATE AGE INTERPRETATION BASED ON A DEFAULT AGE OF 40 YEARS Compared to ECG 10/19/2019 21:39:26 Supraventricular tachycardia no longer present Myocardial infarct finding still present Electronically Signed On 10-20-2019 16:43:06 CDT by Herminio Fabian M.D. [id number]
--- NOTE | 2019-10-20 01:51 | P.HP_ITS ---
Providers/Chief Complaint Admitting Physician: Iman Orozco MD Primary Care Provider: Elke Duran MD Chief Complaint: RIGHT HIP PAIN POST FALL History of Present Illness Hao Esteban is a 74 year old male who presented to the emergency room after a fall. He said he was just trying to get around and went down. No particular preceding symptoms. He landed on his right hip and has had severe pain since then. He lives alone but was able to get in touch with EMS. He presented only about 30 minutes after the fall. He was found to have an acetabular fracture. Case was discussed with Dr. Carballo with orthopedics according to ED physician. Dr. Pereyra said that patient would not be a surgical candidate and it was acceptable to admit him here. Dr. Carballo will be seeing the patient in consultation. Patient denies any chest pain. He did complain of some shortness of breath. He had not taken his Lasix for couple of days. He was requiring some oxygen. He received some IV Lasix in the emergency room. Review of Systems Const: Denies: fever(s), chills or change in appetite Eyes: Denies: change in vision ENMT: Reports: nasal congestion; Denies: throat pain or dry mouth Card: Reports: edema and dyspnea on exertion; Denies: chest pain, palpitations or orthopnea Resp: Reports: dyspnea, productive cough and wheezing; Denies: non-productive cough, pain on inspiration or hemoptysis GI: Denies: abdominal pain, nausea, vomiting, diarrhea or constipation : Reports: urinary frequency; Denies: difficulty urinating Musc: Reports: back pain, extremity pain and joint pain Skin/Breast: Reports: lesions (Both lower extremities) and dry skin (With lots of flaking); Denies: pruritus or new lesions Neuro: Denies: headache(s), numbness in extremities, weakness in extremities or dizziness Psych: Denies: anxiety or depression Sergio/Lymph: Denies: easy bruising or easy bleeding Medications/Allergies Home Medications Medication Instructions Recorded Confirmed Last Taken Type aspirin 81 mg PO DAILY 06/14/19 10/19/19 06/30/19 History atorvastatin See Rx Instructions .ROUTE .COMPLEX 06/14/19 10/19/19 06/30/19 History cholecalciferol (vitamin D3) 25 mcg PO DAILY 06/14/19 10/19/19 06/30/19 History [Vitamin D3] furosemide 40 mg PO DAILY 06/14/19 10/19/19 06/30/19 History losartan 50 mg PO DAILY 06/14/19 10/19/19 06/30/19 History metoprolol succinate See Rx Instructions .ROUTE .COMPLEX 06/14/19 10/19/19 06/30/19 History potassium chloride 20 meq PO DAILY 06/14/19 10/19/19 06/30/19 History rivaroxaban 20 mg PO DAILY 06/14/19 10/19/19 06/30/19 History tamsulosin 0.4 mg PO DAILY 06/14/19 10/19/19 06/30/19 History Allergies Allergy/AdvReac Type Severity Reaction Status Date / Time No Known Allergies Allergy Verified 06/14/19 14:18 PFSH Acute PFSH: Medical History (Updated 10/20/19 @ 09:41 by Iman Orozco MD) Abdominal aortic aneurysm Infrarenal, 4.1 x 4.3 cm in 06/2019 BPH (benign prostatic hyperplasia) CAD (coronary artery disease) history of [place] but details unknown Chronic edema DVT of lower extremity, bilateral With history of IVC filter and on Xarelto History of frostbite BLE HLD (hyperlipidemia) Hypertension Peripheral vascular disease With RLE stent and several angioplasty Undescended testes Surgical History (Updated 10/20/19 @ 09:34 by Iman Orozco MD) History of exploratory laparotomy History of hernia repair History of orthopedic surgery Right leg after femur fracture S/P insertion of IVC (inferior vena caval) filter S/P peripheral artery angioplasty with stent placement Right superficial femoral artery Status post laparoscopic cholecystectomy For porcelain gallbladder and acute cholecystitis Family History (Updated 10/20/19 @ 09:35 by Iman Orozco MD) Mother Diabetes Father Cancer prostate Social History Smoking and tobacco status: current every day smoker smokeless tobacco Smokeless tobacco user: snus Smokeless tobacco details: box per day Alcohol intake: current Alcohol type: hard liquor Lives independently: Yes Household members: none Marital status: Current occupational status: retired Vitals/I&O/Wt Last Vital Signs Temp 99 F 10/20/19 01:29 Pulse 113 H 10/20/19 01:29 Resp 21 H 10/20/19 01:29 BP 121/78 10/20/19 01:29 Pulse Ox 93 10/20/19 01:29 Weight last 48 hrs Weight 102.058 kg Physical Exam Const: OTHER: Alert, oriented x3, cooperative but in significant pain with any amount of movement HENMT: OTHER: Normocephalic atraumatic, moist mucus membranes, nasal cannula is noted Eye: OTHER: Pupils equally round and reactive to light, extraocular movements intact Neck/C-Spine: OTHER: Supple but large Resp: OTHER: Clear to auscultation bilaterally without any rales or wheezes, no accessory muscle use, does intermittently have some pursed lip breathing Cardio: OTHER: Regular rhythm, no murmurs, no significant jugular venous distention GI: OTHER: Abdomen soft, rotund, nontender, positive bowel sounds : OTHER: Normal external genitalia, Treviño noted Extremity: NARRATIVE EXTREMITY EXAM: Right lower extremity externally rotated, pain with any movement. Neuro: OTHER: Face symmetric, speech clear, moves all extremities Psych: OTHER: Normal affect Skin: NARRATIVE SKIN EXAM: Eschar (versus adherent dirt) between 4th and 5th toes right foot. Has healing ulcer from cutting nails on great toe right foot. Both legs with extensive scaling dry skin on top of thick brawny areas. No warmth. Some purplish reddish discoloration. The extensive dryness extends to both feet. Data : 10/20/19 04:50 10/19/19 19:[address]: Radiologist's impression: pelvis IMPRESSION: 1. Metallic fixation of right hip fracture. 2. Comminuted fracture through the right acetabular roof and acetabular medial wall, anterior column of the right hip and extension into the medial cortex of the right iliac wing. CTA Chest: Radiologist's impression: IMPRESSION: 1. 7 mm pleural based scar or nodule in the posterior segment right upper lobe. Followup as discussed below. 2. No pulmonary embolus or aortic dissection. A&P Assessment and plan (1) Fall: Status: Acute Qualifiers: Encounter type: initial encounter Qualified Code(s): W19.XXXA - Unspecified fall, initial encounter (2) Acetabulum fracture, right: Status: Acute Qualifiers: Encounter type: initial encounter Fracture alignment: nondisplaced Fracture type: closed Sublocation of acetabulum: unspecified portion of acetabulum Qualified Code(s): S32.401A - Unspecified fracture of right acetabulum, initial encounter for closed fracture (3) Chronic anticoagulation: Xarelto Status: Chronic (4) Hypoxemia: Not on chronic oxygen, CTA of the chest showed no evidence of PE or other acute pulmonary process Status: Acute (5) COPD (chronic obstructive pulmonary disease): Suspected undiagnosed condition based on history of smoking, cough, shortness of breath and oxygen requirement. I read through some notes earlier this year and he is had shortness of breath and dyspnea on exertion previously. These are not new findings. What I was not able to discern as if his oxygen levels were low when he was in the hospital before. He denies ever requiring oxygen. He left AMA so I do not have full discharge records to review. Status: Acute Qualifiers: COPD type: chronic bronchitis Chronic bronchitis type: mucopurulent Qualified Code(s): J41.1 - Mucopurulent chronic bronchitis (6) Peripheral vascular disease: With chronic stasis changes Status: Acute (7) Wound of right foot: Between fourth and fifth toes, appears to be eschar. Areas dry as are both distal extremities. Status: Acute (8) CAD (coronary artery disease): Chronically on aspirin and beta-blockade Status: Inactive Qualifiers: Coronary Disease-Associated Artery/Lesion type: unspecified vessel or lesion type [place] vs. transplanted heart: [place] heart Associated angina: without angina Qualified Code(s): I25.10 - Atherosclerotic heart disease of [place] coronary artery without angina pectoris (9) DVT of lower extremity, bilateral: Chronically on Xarelto Status: Chronic Qualifiers: Affected thrombotic vein of extremity: unspecified vein of extremity Chronicity: unspecified Qualified Code(s): I82.403 - Acute embolism and thrombosis of unspecified deep veins of lower extremity, bilateral (10) HLD (hyperlipidemia): Chronically on a statin Status: Chronic Qualifiers: Hyperlipidemia type: unspecified Qualified Code(s): E78.5 - Hyperlipidemia, unspecified Additional A&P Information Inpatient admission Pain control including muscle relaxers Dr. Carballo will see the patient in consultation Discussed with the patient that he very well may need skilled placement given that initial review shows he is not a candidate for surgical repair. He is not thrilled with this but I do not know how he could care for himself the way he is presently Breathing treatments including inhaled steroids Resume usual oral Lasix tomorrow, hold further IV diuresis Oxygen therapy currently, weaning as able COVID testing is being sent in anticipation of need for skilled placement along with oxygen requirement, respiratory symptoms Given not a surgical candidate and his history of significant thromboembolic events of the past, will continue Xarelto Monitor for signs of bleeding Lotrimin cream to feet and Lotrisone to the legs, would benefit from outpatient follow-up to wound care clinic but I am not sure that he would keep appointments Have continued home aspirin, statin, Flomax, vitamin D We will hold losartan, resume if blood pressures are doing okay with pain medication regimen Continue home metoprolol Supportive care otherwise Plans discussed with patient and he was given an opportunity to ask questions Patient has preferred limited resuscitation in the past but today indicated full code Attestations Medical Necessity Statement*: Anticipated stay greater than 2 midnights in a gentleman who had a fall and sustained an acetabular fracture. It appears he is not a surgical candidate from orthopedic report to ED provider but he has severe pain necessitating frequent pain medication. He lives alone and will not be able to adequately care for himself and does not describe anybody being available who could help him. Plans are as indicated. Coding Level of Care Code Acute Accounting Reconciliation Clerk for Chg Fwd Diagnoses Fall W19.XXXA Encounter type: initial encounter Acetabulum fracture, right S32.401A Encounter type: initial encounter Fracture alignment: nondisplaced Fracture type: closed Sublocation of acetabulum: unspecified portion of acetabulum Chronic anticoagulation Z79.01 Hypoxemia R09.02 COPD (chronic obstructive pulmonary disease) J41.1 COPD type: chronic bronchitis Chronic bronchitis type: mucopurulent Peripheral vascular disease I73.9 Wound of right foot S91.301A CAD (coronary artery disease) I25.10 Coronary Disease-Associated Artery/Lesion type: unspecified vessel or lesion type [place] vs. transplanted heart: [place] heart Associated angina: without angina DVT of lower extremity, bilateral I82.403 Affected thrombotic vein of extremity: unspecified vein of extremity Chronicity: unspecified HLD (hyperlipidemia) E78.5 Hyperlipidemia type: unspecified
--- NOTE | 2019-10-20 02:03 | PC.NURSE ---
pt with no complaints unless moved in bed.
--- NOTE | 2019-10-20 02:16 | PC.NURSE ---
Treviño placed pt tolerated well.
[2019-10-20] MEDS: HYDROcodone-acetaminophen 5-325 mg Tablet 1 TAB PO ×2 (02:18→09:12)
[2019-10-20 02:20] LABS: Troponin 5 6HR 14.21 ng/L (0-15); Troponin 5 6HR Delta 4.21 ng/L (0-12)
--- NOTE | 2019-10-20 02:32 | PC.NURSE ---
Pt with skin tear to left elbow and right knee. right foot between 4-5 toe eschar noted no drainage.
[2019-10-20 05:17] LABS: Basophils % 0.3 %; Eosinophils # 0.3 10^3/uL (0.0-0.8); Eosinophils % 5.2 %; Hematocrit 42.6 % (42.0-52.0); Hemoglobin 13.2 g/dL (11.7-16.6); Lymphocytes # 1.3 10^3/uL (0.8-4.8); Lymphocytes % 20.2 %; Mean Corpuscular Hemoglobin 28.8 pg (28.0-34.0); Mean Corpuscular Volume 92.8 fL (80-94); Mean Platelet Volume 10.7 fL (7.4-10.4); Monocytes # 0.6 10^3/uL (0.2-0.9); Neutrophils # 4.23 10^3/uL (1.8-7.7); Nucleated Red Blood Cells % 0 %; Platelet Count 131 10^3/cmm (130-400); Red Blood Count 4.59 10^6/uL (4.1-5.3); Red Cell Distribution Width 15.1 % (12.1-15.1); White Blood Count 6.5 10^3/uL (4.0-10.0)
--- NOTE | 2019-10-20 05:43 | PC.NURSE ---
Dr Orozco here to see pt. Ok to hold scd due to dry and flakiness of legs. Made aware of toe.
--- NOTE | 2019-10-20 07:51 | PC.NURSE ---
Nasopharyngeal covid swab obtained and transferred to the lab.
[2019-10-20] MEDS: docusate sodium 100 mg Capsule PO ×2 (09:12→18:11)
[2019-10-20] MEDS: metoprolol succinate ER (24 HR) 100 mg Tablet 50 MG PO (10:20)
[2019-10-20] MEDS: potassium chloride ER 10 mEq Tablet 20 MEQ PO (10:20)
[2019-10-20] MEDS: rivaroxaban 10 mg Tablet 20 MG PO (10:20)
[2019-10-20] MEDS: tamsulosin 0.4 mg Capsule PO (10:20)
[2019-10-20] MEDS: HYDROmorphone 1 mg/mL INJ 1 mL IVP (11:06)
--- NOTE | 2019-10-20 11:38 | PC.RESP ---
Smoking Cessation information and a schedule of classes sent to patient.
--- NOTE | 2019-10-20 13:26 | PC.NURSE ---
notified Dr Willis that L[place] was discontinued.
[2019-10-20] MEDS: FUROsemide 10 mg/mL SDV 4mL 40 MG IVP (13:37)
[2019-10-20 14:37] LABS: Thyroid Stimulating Hormone 4.29 uIU/mL (0.27-4.20)
[2019-10-20] MEDS: clotrimazole-betamethasone cream 15gm 1 APPLIC TOPICAL ×2 (14:47→20:37)
[2019-10-20 15:08] LABS: Iron 36 ug/dL (59-158); Percent Saturation 12.7 % (20-50); Total Iron Binding Capacity 283 mcg/dl; Unsaturated Iron Binding 247 ug/dL (112-347)
[2019-10-20] MEDS: cyclobenzaprine 10 mg Tablet 5 MG PO (16:15)
--- NOTE | 2019-10-20 16:20 | PC.NURSE ---
offered patient Tramadol for pain. Patient refused and stated that is like a sugar pill, you can throw it in the trash.
--- NOTE | 2019-10-20 17:32 | P.PN_ITS ---
Subjective Subjective: Interval history: Admitted overnight. H&P and labs noted. Vitals/I&O/Wt Last Vital Signs Temp 99.6 F 10/20/19 16:00 Pulse 102 H 10/20/19 16:00 Resp 16 10/20/19 16:00 BP 116/70 10/20/19 16:00 Pulse Ox 95 10/20/19 16:00 10/20/19 10/20/19 10/20/19 06:59 14:59 22:59 Intake Total 90 / 90 Output Total 850 / 850 2150 / 2150 Balance -760 / -760 -2150 / -2150 Weight last 48 hrs Weight 109.769 kg Weight 102.058 kg Physical Exam Const: OTHER: Alert, oriented x3, not cooperative but in significant pain with any amount of movement HENMT: OTHER: Normocephalic atraumatic, moist mucus membranes, nasal cannula is noted Eye: OTHER: Pupils equally round and reactive to light, extraocular movements intact Neck/C-Spine: OTHER: Supple but large Resp: OTHER: Clear to auscultation bilaterally without any rales or wheezes, no accessory muscle use, does intermittently have some pursed lip breathing Cardio: OTHER: Regular rhythm, no murmurs, no significant jugular venous distention GI: OTHER: Abdomen soft, rotund, nontender, positive bowel sounds : OTHER: Normal external genitalia, Treviño noted Extremity: NARRATIVE EXTREMITY EXAM: Right lower extremity externally rotated, pain with any movement. Neuro: OTHER: Face symmetric, speech clear, moves all extremities Psych: OTHER: Normal affect Skin: NARRATIVE SKIN EXAM: Eschar (versus adherent dirt) between 4th and 5th toes right foot. Has healing ulcer from cutting nails on great toe right foot. Both legs with extensive scaling dry skin on top of thick brawny areas. No warmth. Some purplish reddish discoloration. The extensive dryness extends to both feet. Urinary Catheter Management^: Treviño: Cath Placed During This Visit: yes Reason for Continuing Indwelling Catheter: Required Immobilization for Trauma or Surgery or Anesthesia Urinary Catheter Date of Insertion: 10/20/19 Urinary Catheter Time of Insertion: 02:12 Data : 10/20/19 04:50 10/19/19 19:45 A&P Assessment and plan (1) Acetabulum fracture, right: Status: Acute Qualifiers: Encounter type: initial encounter Fracture alignment: nondisplaced Fracture type: closed Sublocation of acetabulum: unspecified portion of acetabulum Qualified Code(s): S32.401A - Unspecified fracture of right acetabulum, initial encounter for closed fracture (2) Fall: Status: Acute Qualifiers: Encounter type: initial encounter Qualified Code(s): W19.XXXA - Unspecified fall, initial encounter (3) Hypoxemia: Status: Acute (4) COPD (chronic obstructive pulmonary disease): Status: Acute Qualifiers: COPD type: chronic bronchitis Chronic bronchitis type: mucopurulent Qualified Code(s): J41.1 - Mucopurulent chronic bronchitis (5) DVT of lower extremity, bilateral: Status: Chronic Qualifiers: Affected thrombotic vein of extremity: unspecified vein of extremity Chronicity: unspecified Qualified Code(s): I82.403 - Acute embolism and thrombosis of unspecified deep veins of lower extremity, bilateral (6) Chronic anticoagulation: Status: Chronic (7) Peripheral vascular disease: Status: Acute Additional A&P Information Acetabulum fracture on the right post fall: Dr. hernandez has been consulted. It seems patient does not surgical candidate. Will require conservative treatment. Continue pain management with Dilaudid and tramadol as needed along with IV Dilaudid for breakthrough pain. Physical therapy evaluation and treat. Continue with vitamin D and calcium supplementation. Patient would most likely require SNF placement for further rehabilitation. Had a long discussion with patient regarding the same. He states there is no way he will go to a intermediate and is open to home health if required. Did speak with the patient that given his multiple comorbidities it is best that patient goes for rehabitation at SNF but he continues to deny and actually becomes a little angry and aggressive on further discussion. Hypoxia/COPD: Most likely undiagnosed COPD. CTAP done on admission negative for any pulmonary embolism. COVID-19 was sent yesterday from the ER because of possible placement to SNF. Continue isolation precaution. Tessalon Perles because cough is causing him to have more pain. Spiriva and Advair. Oxygen supplementation keeping saturation over 90%. Most likely patient requires home oxygen but he is not on any. We will try to arrange for oxygen supplementation at home. CAD/history of peripheral vascular disease: Stress test done in 2018 without any sign of acute ischemia. Continue with aspirin, statin. Echocardiogram from June 2019 shows a normal EF of 55%, poor echo window. Patient takes Lasix 40 mg at home. Because of borderline hypoxia we will give him an extra dose of IV Lasix today. Oral Lasix at home dose from tomorrow. History of DVT on chronic anticoagulation: Continue home dose of Xarelto. Hypertension: Continue home dose of metoprolol, losartan. Goal blood pressure less than 140/90 mmHg. Check iron panel, HbA1c, lipid panel, TSH. Full code. Cardiac diet. Xarelto will help with DVT prophylaxis as well Attestations Medical Necessity Statement*: Acetabular fracture, pain control, hypoxia Time Spent in Patient Care: Greater than 35 minutes (>than 50% of time spent in counselling and/or direct pt care on unit) . Coding Level of Care Code Acute In Home Baby Sitter for Enzo Shi Diagnoses Acetabulum fracture, right S32.401A Encounter type: initial encounter Fracture alignment: nondisplaced Fracture type: closed Sublocation of acetabulum: unspecified portion of acetabulum Fall W19.XXXA Encounter type: initial encounter Hypoxemia R09.02 COPD (chronic obstructive pulmonary disease) J41.1 COPD type: chronic bronchitis Chronic bronchitis type: mucopurulent DVT of lower extremity, bilateral I82.403 Affected thrombotic vein of extremity: unspecified vein of extremity Chronicity: unspecified Chronic anticoagulation Z79.01 Peripheral vascular disease I73.9
[2019-10-20] MEDS: ferrous gluconate 324 mg Tablet PO (18:11)
--- NOTE | 2019-10-20 18:39 | P.CONIM_ITS ---
Providers/Reason For Consult Consulting Physican/Specialty*: Ronnie Carballo MD/orthopedic surgery Reason for Consult*: Right acetabular fracture Attending Physician: Wes Willis MD Primary Care Provider: Elke Duran MD History of Present Illness History of Present Illness Hao Esteban is a 74 year old male who fell while trying to get into his scooter. The patient states he previously was nonambulatory with transfer only from bed to scooter. He attributes this to problems in his knees. He describes severe pain in his right hip. He ultimately was transferred by EMS here where radiographs revealed a nondisplaced acetabular fracture. The patient has a history of congestive heart failure and progressive shortness of breath and is admitted to the medical service for medical management and likely penitentiary transfer Meds/Allergies Home Medications and Allergies Home Medications Medication Instructions Recorded Confirmed Last Taken Type aspirin 81 mg PO DAILY 06/14/19 10/19/19 06/30/19 History atorvastatin See Rx Instructions .ROUTE .COMPLEX 06/14/19 10/19/19 06/30/19 History cholecalciferol (vitamin D3) 25 mcg PO DAILY 06/14/19 10/19/19 06/30/19 History [Vitamin D3] furosemide 40 mg PO DAILY 06/14/19 10/19/19 06/30/19 History losartan 50 mg PO DAILY 06/14/19 10/19/19 06/30/19 History metoprolol succinate See Rx Instructions .ROUTE .COMPLEX 06/14/19 10/19/19 06/30/19 History potassium chloride 20 meq PO DAILY 06/14/19 10/19/19 06/30/19 History rivaroxaban 20 mg PO DAILY 06/14/19 10/19/19 06/30/19 History tamsulosin 0.4 mg PO DAILY 06/14/19 10/19/19 06/30/19 History Allergies Allergy/AdvReac Type Severity Reaction Status Date / Time No Known Allergies Allergy Verified 06/14/19 14:18 Current Medications Current Medications Generic Name Dose Route Start Last Admin Trade Name Freq PRN Reason Stop Dose Admin Betamethasone/Clotrimazole 1 applic 10/20/19 15:00 10/20/19 14:47 Lotrisone TOPICAL 1 applic TID SIMÓN Administration Cyclobenzaprine HCl 5 mg 10/20/19 09:49 10/20/19 16:15 Flexeril PO 5 mg TID PRN Administration MUSCLE SPASMS Docusate Sodium 100 mg 10/20/19 09:00 10/20/19 18:11 Colace PO 100 mg BID SIMÓN Administration Ferrous Gluconate 324 mg 10/20/19 18:00 10/20/19 18:11 Ferrous Gluconate PO 324 mg BIDWM SIMÓN Administration Hydromorphone HCl 1 mg 10/20/19 01:44 10/20/19 11:06 Dilaudid Inj IVP 1 mg Q6H PRN Administration SEVERE PAIN Metoprolol Succinate 50 mg 10/20/19 09:45 10/20/19 10:20 Toprol Xl PO 50 mg DAILY SIMÓN Administration Potassium Chloride 20 meq 10/20/19 09:45 10/20/19 10:20 Klor-Con 10 PO 20 meq DAILY SIMÓN Administration Rivaroxaban 20 mg 10/20/19 09:45 10/20/19 10:20 Xarelto PO 20 mg DAILY SIMÓN Administration Fluticasone/Salmeterol 1 puff 10/20/19 13:05 10/20/19 17:26 Advair Diskus 500-50 INHALATION Not Given BID.RESPIRATORY SIMÓN Tamsulosin HCl 0.4 mg 10/20/19 09:45 10/20/19 10:20 Flomax PO 0.4 mg DAILY SIMÓN Administration Tiotropium [place] 18 mcg 10/20/19 13:05 10/20/19 17:26 Spiriva INHALATION Not Given DAILY.RESPIRATORY SIMÓN Tramadol HCl 50 mg 10/20/19 17:45 10/20/19 18:12 Ultram PO Not Given Q8H SIMÓN PFSH Acute PFSH: Medical History (Updated 10/20/19 @ 09:41 by Iman Orozco MD) Abdominal aortic aneurysm Infrarenal, 4.1 x 4.3 cm in 06/2019 BPH (benign prostatic hyperplasia) CAD (coronary artery disease) history of OH but details unknown Chronic edema DVT of lower extremity, bilateral With history of IVC filter and on Xarelto History of frostbite BLE HLD (hyperlipidemia) Hypertension Peripheral vascular disease With RLE stent and several angioplasty Undescended testes Surgical History (Updated 10/20/19 @ 09:34 by Iman Orozco MD) History of exploratory laparotomy History of hernia repair History of orthopedic surgery Right leg after femur fracture S/P insertion of IVC (inferior vena caval) filter S/P peripheral artery angioplasty with stent placement Right superficial femoral artery Status post laparoscopic cholecystectomy For porcelain gallbladder and acute cholecystitis Family History (Updated 10/20/19 @ 09:35 by Iman Orozco MD) Mother Diabetes Father Cancer prostate Social History Smoking and tobacco status: current every day smoker smokeless tobacco Smokeless tobacco user: snus Smokeless tobacco details: box per day Alcohol intake: current Alcohol type: hard liquor Lives independently: Yes Household members: none Marital status: Current occupational status: retired Vitals/I&O/Wt Last Vital Signs Temp 99.6 F 10/20/19 16:00 Pulse 102 H 10/20/19 16:00 Resp 16 10/20/19 16:00 BP 116/70 10/20/19 16:00 Pulse Ox 95 10/20/19 16:00 10/20/19 10/20/19 10/20/19 06:59 14:59 22:59 Intake Total 90 / 90 Output Total 850 / 850 2150 / 2150 Balance -760 / -760 -2150 / -2150 Weight last 48 hrs Weight 242 lb Weight 225 lb Physical Exam Narrative: EXAM NARRATIVE: The patient is a elderly male supine in bed. He answers questions appropriately. He is in no obvious distress. He has exquisite pain with any efforts at motion of the right hip. He has veinous stasis changes and edema in both lower extremities. He will flex extend both toes and ankles without any motor deficits. His sensation is intact to light touch. I cannot palpate strong dorsalis pedis pulses. Urinary Catheter Management^: Treviño: Cath Placed During This Visit: yes Reason for Continuing Indwelling Catheter: Required Immobilization for Trauma or Surgery or Anesthesia Urinary Catheter Date of Insertion: 10/20/19 Urinary Catheter Time of Insertion: 02:12 Data Imaging^: Other CT: My impression: I reviewed his CT scan of the pelvis. The patient appears to have a nondisplaced anterior column acetabular fracture A&P Assessment and plan (1) Acetabulum fracture, right: The patient's fracture is nondisplaced. He has multiple medical comorbidities and certainly treatment for this would be nonoperatively. He can be mobilized with therapy as pain tolerates. Will be touchdown weightbearing on the right lower extremity. Anticipate he will need penitentiary placement. He will need follow-up radiographs in 2weeks at the [facility] care. Status: Acute Qualifiers: Encounter type: initial encounter Fracture alignment: nondisplaced Fracture type: closed Sublocation of acetabulum: unspecified portion of acetabulum Qualified Code(s): S32.401A - Unspecified fracture of right acetabulum, initial encounter for closed fracture Coding Level of Care Code Acute Guide Visitor for [facility] Diagnoses Acetabulum fracture, right S32.401A Encounter type: initial encounter Fracture alignment: nondisplaced Fracture type: closed Sublocation of acetabulum: unspecified portion of acetabulum
[2019-10-20 18:55] LABS: Free T4 Free Thyroxine 1.07 ng/dL (0.82-1.77); T3 Free 2.9 PG/ML (2.0-4.4); Thyroid Stimulating Hormone 1.47 uIU/mL (0.27-4.20)
[2019-10-20] MEDS: atorvastatin 40 mg Tablet 20 MG PO (20:35)
[2019-10-20] MEDS: benzonatate 100 mg Capsule PO (20:35)
[2019-10-20] MEDS: sennosides 8.6 mg Tablet 17.2 MG PO (20:35)
[2019-10-21] VITALS (7 sets, daily range): BP systolic 108–140; BP diastolic 71–98; PULSE 110–118; RESP 18–21; TEMP 36.8–37.2; O2SAT 90–94
[2019-10-21] MEDS: TRAMadol 50 mg Tablet PO ×3 (02:41→17:30)
[2019-10-21 03:57] LABS: Basophils % 0.4 %; Eosinophils # 0.6 10^3/uL (0.0-0.8); Eosinophils % 6.8 %; Hematocrit 43.5 % (42.0-52.0); Hemoglobin 13.7 g/dL (11.7-16.6); Lymphocytes # 1.6 10^3/uL (0.8-4.8); Lymphocytes % 18.8 %; Mean Corpuscular HGB Conc 31.5 g/dL (30.0-36.0); Mean Corpuscular Hemoglobin 28.7 pg (28.0-34.0); Mean Corpuscular Volume 91.2 fL (80-94); Mean Platelet Volume 10.5 fL (7.4-10.4); Monocytes # 0.8 10^3/uL (0.2-0.9); Monocytes % 9.7 %; Neutrophils # 5.29 10^3/uL (1.8-7.7); Neutrophils % 63.9 %; Nucleated Red Blood Cells % 0 %; Platelet Count 140 10^3/cmm (130-400); Red Blood Count 4.77 10^6/uL (4.1-5.3); White Blood Count 8.3 10^3/uL (4.0-10.0)
[2019-10-21 04:10] LABS: Chol HDL Ratio 3.14 mg/dL (1.0-5.00); Cholesterol 138 mg/dL (0-200); HDL Cholesterol 44 mg/dL (60-100); LDL Cholesterol Calculated 78 mg/dL (50-129); Triglycerides 81 mg/dL (0-150); VLDL Cholestrol Calculation 16 mg/dL (0-30)
[2019-10-21 04:17] LABS: Alanine Aminotransferase 40 U/L (0-41); Albumin Level 4.4 g/dL (3.5-5.2); Alkaline Phosphatase 109 IU/L (40-130); Anion Gap 15.9 (5-19); Aspartate Amino Transferase 34 U/L (0-40); Blood Urea Nitrogen 22 mg/dL (8-23); Calcium 8.9 mg/dL (8.5-10.5); Carbon Dioxide 29 mmol/L (22-29); Chloride 100 mmol/L (98-107); Globulin 2.8 g/dL (1.3-4.6); Glucose 93 mg/dL (65-115); Osmolality Calculated 288 mOsm/kg (285-295); Potassium 3.9 mmol/L (3.5-5.1); Sodium 141 mmol/L (136-145); Total Bilirubin 1.5 mg/dL (0.15-1.2); Total Protein 7.2 g/dL (6.6-8.7)
[2019-10-21 04:21] LABS: Estmated Average Glucose 120; Hemoglobin A1C 5.8 % (4.0-6.0)
[2019-10-21 07:27] LABS: Coronavirus Lab Test PTC NOT DETECTED
[2019-10-21] MEDS: cholecalciferol (vitamin D3) 1,000 unit Tablet 1000 UNIT PO (08:37)
[2019-10-21] MEDS: benzonatate 100 mg Capsule PO ×3 (08:38→20:36)
[2019-10-21] MEDS: ferrous gluconate 324 mg Tablet PO ×2 (08:38→17:30)
[2019-10-21] MEDS: docusate sodium 100 mg Capsule PO ×2 (08:38→17:30)
[2019-10-21] MEDS: losartan 50 mg Tablet PO (08:38)
[2019-10-21] MEDS: aspirin 81 mg EC Tablet PO (08:38)
[2019-10-21] MEDS: HYDROcodone-acetaminophen 5-325 mg Tablet 1 TAB PO (08:39)
[2019-10-21] MEDS: metoprolol succinate ER (24 HR) 100 mg Tablet 50 MG PO (08:40)
[2019-10-21] MEDS: FUROsemide 40 mg Tablet PO (08:41)
[2019-10-21] MEDS: clotrimazole-betamethasone cream 15gm 1 APPLIC TOPICAL ×3 (08:41→20:38)
[2019-10-21] MEDS: potassium chloride ER 10 mEq Tablet 20 MEQ PO (08:41)
[2019-10-21] MEDS: rivaroxaban 10 mg Tablet 20 MG PO (08:41)
[2019-10-21] MEDS: tamsulosin 0.4 mg Capsule PO (08:41)
--- NOTE | 2019-10-21 12:18 | PM.PN ---
Subjective Subjective: Interval history: Admitted overnight. H&P and labs noted. Vitals/I&O/Wt Last Vital Signs Temp 98.6 F 10/21/19 11:43 Pulse 118 H 10/21/19 11:43 Resp 18 10/21/19 11:43 BP 111/78 10/21/19 11:43 Pulse Ox 94 10/21/19 11:43 10/20/19 10/21/19 10/21/19 22:59 06:59 14:59 Intake Total 600 / 600 Output Total 2150 / 2150 450 / 2600 150 / 150 Balance -2150 / -2150 -450 / -2600 450 / 450 Weight last 48 hrs Weight 111.385 kg Weight 109.769 kg Weight 102.058 kg Physical Exam Const: OTHER: Alert, oriented x3, not cooperative but in significant pain with any amount of movement HENMT: OTHER: Normocephalic atraumatic, moist mucus membranes, nasal cannula is noted Eye: OTHER: Pupils equally round and reactive to light, extraocular movements intact Neck/C-Spine: OTHER: Supple but large Resp: OTHER: Clear to auscultation bilaterally without any rales or wheezes, no accessory muscle use, does intermittently have some pursed lip breathing Cardio: OTHER: Regular rhythm, no murmurs, no significant jugular venous distention GI: OTHER: Abdomen soft, rotund, nontender, positive bowel sounds : OTHER: Normal external genitalia, Treviño noted Extremity: NARRATIVE EXTREMITY EXAM: Right lower extremity externally rotated, pain with any movement. Neuro: OTHER: Face symmetric, speech clear, moves all extremities Psych: OTHER: Normal affect Skin: NARRATIVE SKIN EXAM: Eschar (versus adherent dirt) between 4th and 5th toes right foot. Has healing ulcer from cutting nails on great toe right foot. Both legs with extensive scaling dry skin on top of thick brawny areas. No warmth. Some purplish reddish discoloration. The extensive dryness extends to both feet. Urinary Catheter Management^: Treviño: Cath Placed During This Visit: yes Reason for Continuing Indwelling Catheter: Required Immobilization for Trauma or Surgery or Anesthesia Urinary Catheter Date of Insertion: 10/20/19 Urinary Catheter Time of Insertion: 02:12 Data : 10/21/19 03:20 10/21/19 03:20 A&P Assessment and plan (1) Acetabulum fracture, right: Status: Acute Qualifiers: Encounter type: initial encounter Fracture alignment: nondisplaced Fracture type: closed Sublocation of acetabulum: unspecified portion of acetabulum Qualified Code(s): S32.401A - Unspecified fracture of right acetabulum, initial encounter for closed fracture (2) Fall: Mechanical fall Status: Acute Qualifiers: Encounter type: initial encounter Qualified Code(s): W19.XXXA - Unspecified fall, initial encounter (3) Hypoxemia: Status: Acute (4) COPD (chronic obstructive pulmonary disease): Status: Acute Qualifiers: COPD type: chronic bronchitis Chronic bronchitis type: mucopurulent Qualified Code(s): J41.1 - Mucopurulent chronic bronchitis (5) DVT of lower extremity, bilateral: Status: Chronic Qualifiers: Affected thrombotic vein of extremity: unspecified vein of extremity Chronicity: unspecified Qualified Code(s): I82.403 - Acute embolism and thrombosis of unspecified deep veins of lower extremity, bilateral (6) Chronic anticoagulation: Status: Chronic (7) Peripheral vascular disease: Status: Acute Additional A&P Information Acetabulum fracture on the right post fall: Dr. Carballo has been consulted. It seems patient does not surgical candidate. Will require conservative treatment. Continue pain management with Dilaudid and tramadol as needed along with IV Dilaudid for breakthrough pain. Physical therapy evaluation and treat. Patient not working well with physical therapy. Continue with vitamin D and calcium supplementation. Patient would most likely require SNF placement for further rehabilitation. Had a long discussion with patient regarding the same. He states there is no way he will go to a fdc and is open to home health if required. Did speak with the patient that given his multiple comorbidities it is best that patient goes for rehabitation at SNF but he continues to deny and actually becomes a little angry and aggressive on further discussion. Hypoxia/COPD: Most likely undiagnosed COPD. CTAP done on admission negative for any pulmonary embolism. COVID-19 ruled out. Remove isolation precautions. Tessalon Perles because cough is causing him to have more pain. Spiriva and Advair. Oxygen supplementation keeping saturation over 90%. Most likely patient requires home oxygen but he is not on any. We will try to arrange for oxygen supplementation at home. CAD/history of peripheral vascular disease: Stress test done in 2019 without any sign of acute ischemia. Continue with aspirin, statin. Echocardiogram from June 2019 shows a normal EF of 55%, poor echo window. Patient is overall net -3 L. Given decreased mobility at present we will decrease the dose of Lasix to 20 mg oral daily. History of DVT on chronic anticoagulation: Continue home dose of Xarelto. Hypertension: Continue home dose of metoprolol, losartan. Goal blood pressure less than 140/90 mmHg. Safe discharge planning was discussed again with both the patient and also his daughter Ms. Ni. Patient continues to deny going to SNF but is okay with home health. Patient's daughter states she would like to come in and speak with the patient before making any confirmatory decisions. Care coordination is following as well. Full code. Cardiac diet. Xarelto will help with DVT prophylaxis as well Attestations Medical Necessity Statement*: Acetabulum fracture, hypoxia/COPD Time Spent in Patient Care: Greater than 35 minutes (>than 50% of time spent in counselling and/or direct pt care on unit). Coding Level of Care Code Acute Framing And Hanging for [facility] Diagnoses Acetabulum fracture, right S32.401A Encounter type: initial encounter Fracture alignment: nondisplaced Fracture type: closed Sublocation of acetabulum: unspecified portion of acetabulum Fall W19.XXXA Encounter type: initial encounter Hypoxemia R09.02 COPD (chronic obstructive pulmonary disease) J41.1 COPD type: chronic bronchitis Chronic bronchitis type: mucopurulent DVT of lower extremity, bilateral I82.403 Affected thrombotic vein of extremity: unspecified vein of extremity Chronicity: unspecified Chronic anticoagulation Z79.01 Peripheral vascular disease I73.9
--- NOTE | 2019-10-21 15:35 | PC.NURSE ---
Alessandra marguerite is patient's designated visitor
--- NOTE | 2019-10-21 19:48 | PC.NURSE ---
REPORTED BP TO NURSE!
[2019-10-21] MEDS: sennosides 8.6 mg Tablet 17.2 MG PO (20:37)
[2019-10-21] MEDS: atorvastatin 40 mg Tablet 20 MG PO (20:41)
[2019-10-22] VITALS (11 sets, daily range): BP systolic 109–138; BP diastolic 70–87; PULSE 99–115; RESP 14–20; TEMP 36.4–37.9; O2SAT 92–95
[2019-10-22] MEDS: TRAMadol 50 mg Tablet PO ×3 (01:44→17:44)
[2019-10-22] MEDS: cyclobenzaprine 10 mg Tablet 5 MG PO (01:46)
[2019-10-22 05:15] LABS: Alanine Aminotransferase 31 U/L (0-41); Albumin Level 3.7 g/dL (3.5-5.2); Alkaline Phosphatase 99 IU/L (40-130); Anion Gap 12.8 (5-19); Aspartate Amino Transferase 21 U/L (0-40); Blood Urea Nitrogen 26 mg/dL (8-23); Calcium 8.4 mg/dL (8.5-10.5); Carbon Dioxide 30 mmol/L (22-29); Chloride 97 mmol/L (98-107); Globulin 3.7 g/dL (1.3-4.6); Glucose 102 mg/dL (65-115); Osmolality Calculated 279 mOsm/kg (285-295); Potassium 3.8 mmol/L (3.5-5.1); Sodium 136 mmol/L (136-145); Total Bilirubin 1.2 mg/dL (0.15-1.2); Total Protein 7.4 g/dL (6.6-8.7)
[2019-10-22] MEDS: bisacodyl 5 mg Tablet 10 MG PO (08:41)
[2019-10-22] MEDS: ferrous gluconate 324 mg Tablet PO ×2 (08:42→17:44)
[2019-10-22] MEDS: aspirin 81 mg EC Tablet PO (08:42)
[2019-10-22] MEDS: benzonatate 100 mg Capsule PO ×3 (08:42→21:20)
[2019-10-22] MEDS: rivaroxaban 10 mg Tablet 20 MG PO (08:42)
[2019-10-22] MEDS: tamsulosin 0.4 mg Capsule PO (08:42)
[2019-10-22] MEDS: FUROsemide 20 mg Tablet PO (08:42)
[2019-10-22] MEDS: docusate sodium 100 mg Capsule PO ×2 (08:43→17:44)
[2019-10-22] MEDS: HYDROcodone-acetaminophen 5-325 mg Tablet 1 TAB PO (08:43)
[2019-10-22] MEDS: metoprolol succinate ER (24 HR) 100 mg Tablet 50 MG PO (08:43)
[2019-10-22] MEDS: losartan 50 mg Tablet PO (08:43)
[2019-10-22] MEDS: potassium chloride ER 10 mEq Tablet 20 MEQ PO (08:43)
[2019-10-22] MEDS: cholecalciferol (vitamin D3) 1,000 unit Tablet 1000 UNIT PO (08:43)
[2019-10-22] MEDS: clotrimazole-betamethasone cream 15gm 1 APPLIC TOPICAL ×3 (08:51→21:19)
--- NOTE | 2019-10-22 09:32 | PM.PN ---
Subjective Subjective: Interval history: No. Patient has remained comfortable. Today morning he states he would like to go to penitentiary after talking to his daughter. Vitals/I&O/Wt Last Vital Signs Temp 98.0 F 10/23/19 11:10 Pulse 110 H 10/23/19 11:10 Resp 18 10/23/19 11:10 BP 101/68 10/23/19 11:10 Pulse Ox 94 10/23/19 11:10 10/22/19 10/23/19 10/23/19 22:59 06:59 14:59 Intake Total 60 / 60 Output Total 350 / 550 550 / 1100 Balance -350 / -310 -550 / -860 60 / 60 Weight last 48 hrs Weight 104.508 kg Weight 105.052 kg Physical Exam Const: OTHER: Alert, oriented x3, not cooperative but in significant pain with any amount of movement HENMT: OTHER: Normocephalic atraumatic, moist mucus membranes, nasal cannula is noted Eye: OTHER: Pupils equally round and reactive to light, extraocular movements intact Neck/C-Spine: OTHER: Supple but large Resp: OTHER: Clear to auscultation bilaterally without any rales or wheezes, no accessory muscle use, does intermittently have some pursed lip breathing Cardio: OTHER: Regular rhythm, no murmurs, no significant jugular venous distention GI: OTHER: Abdomen soft, rotund, nontender, positive bowel sounds : OTHER: Normal external genitalia, Treviño noted Extremity: NARRATIVE EXTREMITY EXAM: Right lower extremity externally rotated, pain with any movement. Neuro: OTHER: Face symmetric, speech clear, moves all extremities Psych: OTHER: Normal affect Skin: NARRATIVE SKIN EXAM: Eschar (versus adherent dirt) between 4th and 5th toes right foot. Has healing ulcer from cutting nails on great toe right foot. Both legs with extensive scaling dry skin on top of thick brawny areas. No warmth. Some purplish reddish discoloration. The extensive dryness extends to both feet. Urinary Catheter Management^: Treviño: Cath Placed During This Visit: yes Reason for Continuing Indwelling Catheter: Acute Urinary Retention or Obstruction Urinary Catheter Date of Insertion: 10/20/19 Urinary Catheter Time of Insertion: 02:12 Data : 10/23/19 04:41 10/23/19 04:41 A&P Assessment and plan (1) Acetabulum fracture, right: Status: Acute Qualifiers: Encounter type: initial encounter Fracture alignment: nondisplaced Fracture type: closed Sublocation of acetabulum: unspecified portion of acetabulum Qualified Code(s): S32.401A - Unspecified fracture of right acetabulum, initial encounter for closed fracture (2) Fall: Mechanical fall Status: Acute Qualifiers: Encounter type: initial encounter Qualified Code(s): W19.XXXA - Unspecified fall, initial encounter (3) Hypoxemia: Status: Acute (4) COPD (chronic obstructive pulmonary disease): Status: Acute Qualifiers: COPD type: chronic bronchitis Chronic bronchitis type: mucopurulent Qualified Code(s): J41.1 - Mucopurulent chronic bronchitis (5) DVT of lower extremity, bilateral: Status: Chronic Qualifiers: Affected thrombotic vein of extremity: unspecified vein of extremity Chronicity: unspecified Qualified Code(s): I82.403 - Acute embolism and thrombosis of unspecified deep veins of lower extremity, bilateral (6) Chronic anticoagulation: Status: Chronic (7) Peripheral vascular disease: Status: Acute Additional A&P Information Acetabulum fracture on the right post fall: Not a surgical candidate as per orthopedics. Have to continue conservative treatment with pain control and physical therapy. Continue pain management with Dilaudid and tramadol as needed along with IV Dilaudid for breakthrough pain. Physical therapy evaluation and treat. Patient not working well with physical therapy. Continue with vitamin D and calcium supplementation. Hypoxia/COPD: Most likely undiagnosed COPD. CTAP done on admission negative for any pulmonary embolism. COVID-19 ruled out. Tessalon Perles because cough is causing him to have more pain. Spiriva and Advair. Oxygen supplementation keeping saturation over 90%. Most likely patient requires home oxygen but he is not on any. We will try to arrange for oxygen supplementation at home. CAD/history of peripheral vascular disease: Stress test done in 2018 without any sign of acute ischemia. Continue with aspirin, statin. Echocardiogram from June 2019 shows a normal EF of 55%, poor echo window. Patient is overall net -3 L. Given decreased mobility at present we will decrease the dose of Lasix to 20 mg oral daily. History of DVT on chronic anticoagulation: Continue home dose of Xarelto. Hypertension: Continue home dose of metoprolol, losartan. Goal blood pressure less than 140/90 mmHg. Safe discharge planning was discussed again with both the patient and also his daughter Ms. Ni. Patient is agreed to go to SNF today. Paperwork has been sent to [facility]. Awaiting authorization. Full code. Cardiac diet. Turner will help with DVT prophylaxis as well Attestations Medical Necessity Statement*: Acetabulum fracture, hypoxia, awaiting safe dc plan Time Spent in Patient Care: Greater than 35 minutes Coding Level of Care Code Acute Tobacco [place]cre[place] Measurer for [facility] Fwd Diagnoses Acetabulum fracture, right S32.401A Encounter type: initial encounter Fracture alignment: nondisplaced Fracture type: closed Sublocation of acetabulum: unspecified portion of acetabulum Fall W19.XXXA Encounter type: initial encounter Hypoxemia R09.02 COPD (chronic obstructive pulmonary disease) J41.1 COPD type: chronic bronchitis Chronic bronchitis type: mucopurulent DVT of lower extremity, bilateral I82.403 Affected thrombotic vein of extremity: unspecified vein of extremity Chronicity: unspecified Chronic anticoagulation Z79.01 Peripheral vascular disease I73.9
--- NOTE | 2019-10-22 10:16 | PC.SOCIAL ---
Pg 2 IMM Explained to pt Pg 2 IMM. Pt verbally understands. No questions voiced. Provided pt a copy & left on pt's bedside table. Signed, dated, & timed a copy & placed in pt's chart.
[2019-10-22] MEDS: atorvastatin 40 mg Tablet 20 MG PO (21:20)
[2019-10-22] MEDS: sennosides 8.6 mg Tablet 17.2 MG PO (21:23)
[2019-10-23] VITALS (9 sets, daily range): BP systolic 101–119; BP diastolic 68–79; PULSE 110–114; RESP 17–20; TEMP 36.7–37.3; O2SAT 93–96
[2019-10-23] MEDS: TRAMadol 50 mg Tablet PO ×3 (02:36→17:11)
[2019-10-23 05:00] LABS: Basophils % 0.3 %; Eosinophils # 0.4 10^3/uL (0.0-0.8); Eosinophils % 5.1 %; Hemoglobin 12.8 g/dL (11.7-16.6); Lymphocytes # 0.9 10^3/uL (0.8-4.8); Lymphocytes % 11.9 %; Mean Corpuscular HGB Conc 31.2 g/dL (30.0-36.0); Mean Corpuscular Hemoglobin 28.3 pg (28.0-34.0); Mean Corpuscular Volume 90.7 fL (80-94); Monocytes # 0.7 10^3/uL (0.2-0.9); Monocytes % 8.8 %; Neutrophils # 5.78 10^3/uL (1.8-7.7); Neutrophils % 73.6 %; Nucleated Red Blood Cells % 0 %; Platelet Count 147 10^3/cmm (130-400); Red Blood Count 4.52 10^6/uL (4.1-5.3); Red Cell Distribution Width 14.8 % (12.1-15.1); White Blood Count 7.8 10^3/uL (4.0-10.0)
[2019-10-23 05:23] LABS: Alanine Aminotransferase 24 U/L (0-41); Albumin Level 3.8 g/dL (3.5-5.2); Alkaline Phosphatase 92 IU/L (40-130); Anion Gap 13.8 (5-19); Aspartate Amino Transferase 20 U/L (0-40); Blood Urea Nitrogen 30 mg/dL (8-23); Calcium 8.7 mg/dL (8.5-10.5); Carbon Dioxide 26 mmol/L (22-29); Chloride 99 mmol/L (98-107); Globulin 3.2 g/dL (1.3-4.6); Glucose 106 mg/dL (65-115); Osmolality Calculated 278 mOsm/kg (285-295); Potassium 3.8 mmol/L (3.5-5.1); Sodium 135 mmol/L (136-145); Total Bilirubin 0.9 mg/dL (0.15-1.2)
[2019-10-23] MEDS: benzonatate 100 mg Capsule PO ×3 (08:04→20:57)
[2019-10-23] MEDS: cholecalciferol (vitamin D3) 1,000 unit Tablet 1000 UNIT PO (08:04)
[2019-10-23] MEDS: losartan 50 mg Tablet PO (08:04)
[2019-10-23] MEDS: aspirin 81 mg EC Tablet PO (08:04)
[2019-10-23] MEDS: docusate sodium 100 mg Capsule PO ×2 (08:04→17:12)
[2019-10-23] MEDS: FUROsemide 20 mg Tablet PO (08:04)
[2019-10-23] MEDS: ferrous gluconate 324 mg Tablet PO ×2 (08:05→17:12)
[2019-10-23] MEDS: potassium chloride ER 10 mEq Tablet 20 MEQ PO (08:05)
[2019-10-23] MEDS: rivaroxaban 10 mg Tablet 20 MG PO (08:05)
[2019-10-23] MEDS: tamsulosin 0.4 mg Capsule PO (08:05)
[2019-10-23] MEDS: metoprolol succinate ER (24 HR) 100 mg Tablet 50 MG PO (08:05)
[2019-10-23] MEDS: clotrimazole-betamethasone cream 15gm 1 APPLIC TOPICAL ×3 (08:08→21:41)
--- NOTE | 2019-10-23 11:32 | PC.CHAP ---
Pastoral Care Encounter/Spiritual Assessment Type of Contact [] Declined disc pad grinding machine feeder visit [] Patient/Family/Request visit [] Outpatient visit [] Follow-up visit [] Physician referral [] Code/Alert [x] Routine visit [] Staff referral [] Actively dying [] Patient sleeping [] Family support [] [] Out of room [] Palliative care [] [] Receiving care in room [] Pre-surgical visit [] Trauma [] Long length of stay [] ICU visit [] Other: Relational/Emotional Strength [x] Patient feels connected with others/family/visitors/staff [] Distress [] Loneliness/isolation [] Abandonment Spirituality of Patient [] Person of Jocelyn [] Attends Mandaen of their Jocelyn [] Believes in Prayer [] Reads Bible or Taoist materials [x] There are Spiritual issues to be addressed Search Engine Optimizer Interventions [x] Prayer [x] Active listening [x] Non-anxious presence [x] Spiritual/emotional support [] Crisis/trauma care [] Spiritual counseling [] Bereavement support [] Provided bereavement packet [] Provided Bible/devotional materials [] Provided toy/stuffed animal, coloring book to patient or family member [] Provided Communion [] Anointing/[place] [] Salvation [x] Completed spiritual assessment [] Other: Impact on Illness or Injury [] Angry [] Fearful [] Anxious [] Often cries [] Exhaustion [] Unable to work [] Unable to attend methodist [] Unable to walk/stand [] Unable to read [] Unable to drive [] Unable to eat/drink [] Unable to sleep [] Unable to be with family [] Patient intubated [x] Other: Summary Patient stated he fell away from jocelyn in [place] at 13 years of age, because of false teachers. The gospel of [place] was provided in part to patient. Time spent with patient 15 minutes
--- NOTE | 2019-10-23 11:36 | P.PN_ITS ---
Subjective Subjective: Interval history: No acute events overnight. Patient continues to have pain during cough. Denies of any nausea, vomiting, headache. Saturations are maintained on 3 L nasal cannula. Patient is hemodynamically stable. Patient is working appropriately with physical therapy but limited. Vitals/I&O/Wt Last Vital Signs Temp 98.0 F 10/23/19 11:10 Pulse 110 H 10/23/19 11:10 Resp 18 10/23/19 11:10 BP 101/68 10/23/19 11:10 Pulse Ox 94 10/23/19 11:10 10/22/19 10/23/19 10/23/19 22:59 06:59 14:59 Intake Total 60 / 60 Output Total 350 / 550 550 / 1100 Balance -350 / -310 -550 / -860 60 / 60 Weight last 48 hrs Weight 104.508 kg Weight 105.052 kg Physical Exam Const: OTHER: Alert, oriented x3, not cooperative but in significant pain with any amount of movement HENMT: OTHER: Normocephalic atraumatic, moist mucus membranes, nasal cannula is noted Eye: OTHER: Pupils equally round and reactive to light, extraocular movements intact Neck/C-Spine: OTHER: Supple but large Resp: OTHER: Clear to auscultation bilaterally without any rales or wheezes, no accessory muscle use, does intermittently have some pursed lip breathing Cardio: OTHER: Regular rhythm, no murmurs, no significant jugular venous dist ention GI: OTHER: Abdomen soft, rotund, nontender, positive bowel sounds : OTHER: Normal external genitalia, Treviño noted Extremity: NARRATIVE EXTREMITY EXAM: Right lower extremity externally rotated, pain with any movement. Neuro: OTHER: Face symmetric, speech clear, moves all extremities Psych: OTHER: Normal affect Skin: NARRATIVE SKIN EXAM: Eschar (versus adherent dirt) between 4th and 5th toes right foot. Has healing ulcer from cutting nails on great toe right foot. Both legs with extensive scaling dry skin on top of thick brawny areas. No warmth. Some purplish reddish discoloration. The extensive dryness extends to both feet. Urinary Catheter Management^: Treviño: Cath Placed During This Visit: yes Reason for Continuing Indwelling Catheter: Acute Urinary Retention or Obstruction Urinary Catheter Date of Insertion: 10/20/19 Urinary Catheter Time of Insertion: 02:12 Data : 10/23/19 04:41 10/23/19 04:41 A&P Assessment and plan (1) Acetabulum fracture, right: Status: Acute Qualifiers: Encounter type: initial encounter Fracture alignment: nondisplaced Fracture type: closed Sublocation of acetabulum: unspecified portion of acetabulum Qualified Code(s): S32.401A - Unspecified fracture of right acetabulum, initial encounter for closed fracture (2) Fall: Mechanical fall Status: Acute Qualifiers: Encounter type: initial encounter Qualified Code(s): W19.XXXA - Unspecified fall, initial encounter (3) Hypoxemia: Status: Acute (4) COPD (chronic obstructive pulmonary disease): Status: Acute Qualifiers: COPD type: chronic bronchitis Chronic bronchitis type: mucopurulent Qualified Code(s): J41.1 - Mucopurulent chronic bronchitis (5) DVT of lower extremity, bilateral: Status: Chronic Qualifiers: Affected thrombotic vein of extremity: unspecified vein of extremity Chronicity: unspecified Qualified Code(s): I82.403 - Acute embolism and thrombosis of unspecified deep veins of lower extremity, bilateral (6) Chronic anticoagulation: Status: Chronic (7) Peripheral vascular disease: Status: Acute Additional A&P Information Acetabulum fracture on the right post fall: Not a surgical candidate as per orthopedics. Have to continue conservative treatment with pain control and physical therapy. Continue pain management with Dilaudid and tramadol as needed along with IV Dilaudid for breakthrough pain. Physical therapy evaluation and treat. Patient working better with physical therapy now. Continue with vitamin D and calcium supplementation. Hypoxia/COPD: Most likely undiagnosed COPD. CTAP done on admission negative for any pulmonary embolism. COVID-19 ruled out. Tessalon Perles because cough is causing him to have more pain. Spiriva and Advair. Oxygen supplementation keeping saturation over 90%. Most likely patient requires home oxygen but he is not on any. Home O2 evaluation prior to discharge. CAD/history of peripheral vascular disease: Stress test done in 2018 without any sign of acute ischemia. Continue with aspirin, statin. Echocardiogram from June 2019 shows a normal EF of 55%, poor echo window. Patient is overall net -3.7 L. Continue Lasix 20 mg daily. Patient is euvolemic. History of DVT on chronic anticoagulation: Continue home dose of Xarelto. Hypertension: Continue home dose of metoprolol, losartan. Goal blood pressure less than 140/90 mmHg. Safe discharge planning was discussed again with both the patient and also his daughter Ms. Ni. Patient is agreed to go to SNF today. Paperwork has been sent to [place]. Awaiting authorization. Full code. Cardiac diet. Turner will help with DVT prophylaxis as well Attestations Medical Necessity Statement*: Awaiting safe discharge planning. Acetabulum fracture. 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
[2019-10-23] MEDS: polyethylene glycol 3350 Pkt 17 gm PO (18:25)
[2019-10-23] MEDS: sennosides 8.6 mg Tablet 17.2 MG PO (20:57)
[2019-10-23] MEDS: atorvastatin 40 mg Tablet 20 MG PO (20:57)
[2019-10-24] VITALS (11 sets, daily range): BP systolic 99–116; BP diastolic 65–77; PULSE 84–113; RESP 18–20; TEMP 36.4–36.9; O2SAT 18–98
--- NOTE | 2019-10-24 00:30 | PC.NURSE ---
AT MIDNIGHT ROUNDING THE PATIENT WAS FOUND TO HAVE PULLED HIS RHODES CATHETER OUT. UPON FURTHER INSPECTION, IT WAS SEEN THAT HE SOMEHOW TORE THE BALLOON TUBING AND IT CAUSED THE BALLOON TO DEFLATE AND THE RHODES TO COME OUT OF THE MEATUS. THE PATIENT HAD ALSO PULLED HIS TELEMETRY OFF AND STATED HE DID NOT WANT THE RHODES REPLACED. THE O/C PHYSICIAN WAS CALLED AND NOTIFIED. HE STATED TO LET THE PATIENT TRY TO VOID ON HIS OWN AND IF HE HAS NOT BY 0600, PERFORM A BLADDER SCAN AND NOTIFY THE PHYSICIAN. THE PATIENT WAS COOPERATIVE IN PLACING THE TELEMETRY BACK ON.
[2019-10-24] MEDS: TRAMadol 50 mg Tablet PO ×2 (02:07→10:07)
[2019-10-24 04:11] LABS: Basophils % 0.3 %; Eosinophils # 0.3 10^3/uL (0.0-0.8); Eosinophils % 5.1 %; Hematocrit 38.9 % (42.0-52.0); Hemoglobin 12.3 g/dL (11.7-16.6); Lymphocytes # 0.9 10^3/uL (0.8-4.8); Lymphocytes % 16.1 %; Mean Corpuscular HGB Conc 31.6 g/dL (30.0-36.0); Mean Corpuscular Volume 91.7 fL (80-94); Mean Platelet Volume 11.4 fL (7.4-10.4); Monocytes # 0.6 10^3/uL (0.2-0.9); Monocytes % 10.7 %; Neutrophils # 3.87 10^3/uL (1.8-7.7); Neutrophils % 67.6 %; Nucleated Red Blood Cells % 0 %; Platelet Count 133 10^3/cmm (130-400); Red Blood Count 4.24 10^6/uL (4.1-5.3); Red Cell Distribution Width 14.9 % (12.1-15.1); White Blood Count 5.7 10^3/uL (4.0-10.0)
[2019-10-24 04:33] LABS: Alanine Aminotransferase 25 U/L (0-41); Albumin Level 3.8 g/dL (3.5-5.2); Alkaline Phosphatase 83 IU/L (40-130); Aspartate Amino Transferase 22 U/L (0-40); Blood Urea Nitrogen 28 mg/dL (8-23); Calcium 8.4 mg/dL (8.5-10.5); Carbon Dioxide 28 mmol/L (22-29); Chloride 97 mmol/L (98-107); Globulin 3.6 g/dL (1.3-4.6); Glucose 126 mg/dL (65-115); Osmolality Calculated 279 mOsm/kg (285-295); Sodium 135 mmol/L (136-145); Total Bilirubin 0.8 mg/dL (0.15-1.2); Total Protein 7.4 g/dL (6.6-8.7)
[2019-10-24 04:46] LABS: Anion Gap 14.1 (5-19); Potassium 4.1 mmol/L (3.5-5.1)
[2019-10-24] MEDS: cholecalciferol (vitamin D3) 1,000 unit Tablet 1000 UNIT PO (08:10)
[2019-10-24] MEDS: losartan 50 mg Tablet PO (08:10)
[2019-10-24] MEDS: FUROsemide 20 mg Tablet PO (08:10)
[2019-10-24] MEDS: potassium chloride ER 10 mEq Tablet 20 MEQ PO (08:11)
[2019-10-24] MEDS: tamsulosin 0.4 mg Capsule PO (08:11)
[2019-10-24] MEDS: rivaroxaban 10 mg Tablet 20 MG PO (08:11)
[2019-10-24] MEDS: metoprolol succinate ER (24 HR) 100 mg Tablet 50 MG PO (08:11)
[2019-10-24] MEDS: aspirin 81 mg EC Tablet PO (08:11)
[2019-10-24] MEDS: ferrous gluconate 324 mg Tablet PO (08:11)
[2019-10-24] MEDS: HYDROcodone-acetaminophen 5-325 mg Tablet 1 TAB PO ×2 (08:11→14:03)
[2019-10-24] MEDS: docusate sodium 100 mg Capsule PO (08:11)
[2019-10-24] MEDS: benzonatate 100 mg Capsule PO ×2 (08:11→14:03)
[2019-10-24] MEDS: clotrimazole-betamethasone cream 15gm 1 APPLIC TOPICAL ×2 (08:19→14:49)
--- NOTE | 2019-10-24 08:30 | PC.SOCIAL ---
IMM Updated Page 2 of IMM updated and given to patient. Initialed, dated, and timed and placed back in chart.
--- NOTE | 2019-10-24 13:31 | PM.DCS ---
Discharge Providers Date of Admission: 10/19/19 22:52 Date of Discharge: October 24, 2019 Attending Provider at Admission: Iman Orozco MD Attending Provider at Discharge: Wes Willis MD Primary Care Provider: Elke Duran MD Diagnoses at Discharge Discharge Diagnosis (1) Acetabulum fracture, right: Status: Acute Qualifiers: Encounter type: initial encounter Fracture alignment: nondisplaced Fracture type: closed Sublocation of acetabulum: unspecified portion of acetabulum Qualified Code(s): S32.401A - Unspecified fracture of right acetabulum, initial encounter for closed fracture (2) Fall: Status: Acute Qualifiers: Encounter type: initial encounter Qualified Code(s): W19.XXXA - Unspecified fall, initial encounter (3) Hypoxemia: Status: Acute (4) COPD (chronic obstructive pulmonary disease): Status: Acute Qualifiers: COPD type: chronic bronchitis Chronic bronchitis type: mucopurulent Qualified Code(s): J41.1 - Mucopurulent chronic bronchitis (5) DVT of lower extremity, bilateral: Status: Chronic Problem details: With history of IVC filter and on Xarelto Qualifiers: Affected thrombotic vein of extremity: unspecified vein of extremity Chronicity: unspecified Qualified Code(s): I82.403 - Acute embolism and thrombosis of unspecified deep veins of lower extremity, bilateral (6) Chronic anticoagulation: Status: Chronic Problem details: Xarelto (7) Peripheral vascular disease: Status: Acute Problem details: With RLE stent and several angioplasty Reason for Visit Reason for Visit: RIGHT HIP PAIN POST FALL Hospital Course Discharge Summary: Hao Esteban is a 74 year old male who presented to the emergency room after a fall. He said he was just trying to get around and went down. No particular preceding symptoms. He landed on his right hip and has had severe pain since then. He lives alone but was able to get in touch with EMS. He presented only about 30 minutes after the fall. He was found to have an acetabular fracture. Case was discussed with Dr. Carballo with orthopedics according to ED physician. Dr. Carballo said that patient would not be a surgical candidate and it was acceptable to admit him here. Dr. Carballo will be seeing the patient in consultation. Patient denies any chest pain. He did complain of some shortness of breath. He had not taken his Lasix for couple of days. He was requiring some oxygen. He received some IV Lasix in the emergency room. Patient was admitted to the hospital and orthopedics was consulted. Unfortunately patient is not a surgical candidate and was treated conservatively with pain management. Because of severe pain and fracture it was advised patient to have physical therapy and was advised for SNF placement. Patient was recommended first but later agreed. Patient continues to work well with physical therapy. Home O2 evaluation has been done. Patient is been discharged in medically stable condition for further rehabilitation. He supposed to follow-up with Dr. guillen as an outpatient 7 to 10 days. Physical Exam Const: OTHER: Alert, oriented x3, not cooperative but in significant pain with any amount of movement HENMT: OTHER: Normocephalic atraumatic, moist mucus membranes, nasal cannula is noted Eye: OTHER: Pupils equally round and reactive to light, extraocular movements intact Neck/C-Spine: OTHER: Supple but large Resp: OTHER: Clear to auscultation bilaterally without any rales or wheezes, no accessory muscle use, does intermittently have some pursed lip breathing Cardio: OTHER: Regular rhythm, no murmurs, no significant jugular venous distention GI: OTHER: Abdomen soft, rotund, nontender, positive bowel sounds : OTHER: Normal external genitalia, Treviño noted Extremity: NARRATIVE EXTREMITY EXAM: Right lower extremity externally rotated, pain with any movement. Neuro: OTHER: Face symmetric, speech clear, moves all extremities Psych: OTHER: Normal affect Skin: NARRATIVE SKIN EXAM: Eschar (versus adherent dirt) between 4th and 5th toes right foot. Has healing ulcer from cutting nails on great toe right foot. Both legs with extensive scaling dry skin on top of thick brawny areas. No warmth. Some purplish reddish discoloration. The extensive dryness extends to both feet. Urinary Catheter Management^: Treviño: Cath Placed During This Visit: yes, but has since been removed by the nurse Reason for Continuing Indwelling Catheter: Decision to DC Catheter Urinary Catheter Date of Insertion: 10/20/19 Urinary Catheter Time of Insertion: 02:12 Date Urinary Catheter Removed: 10/24/19 Time Urinary Catheter Discontinued: 12:30 Discharge Data Data Completed and Pending: Completed Studies During Hospitalization Category Date Time Status CT angio chest PE protcl [id number] Urge nt Cat Scan 10/19/19 20:[address] pelvis wo con [id number] Urgent Cat Scan 10/19/19 20:16 Completed XR chest 1V shahana ble [id number] Urgent Exams 10/19/19 19:20 Completed XR hip RT 2-3V wo /w pel* [id number] Stat Exams 10/19/19 18:56 Completed Labs from last 24 hours 10/24/19 10/24/19 03:25 03:25 WBC 5.7 RBC 4.24 Hgb 12.3 Hct 38.9 L MCV 91.7 MCH 29.0 MCHC 31.6 RDW 14.9 Plt Count 133 MPV 11.4 H Neut % (Auto) 67.6 Lymph % (Auto) 16.1 [place] % (Auto) 10.7 Eos % (Auto) 5.1 Baso % (Auto) 0.3 Neut # (Auto) 3.87 Lymph # (Auto) 0.9 [place] # (Auto) 0.6 Eos # (Auto) 0.3 Baso # (Auto) 0.0 Nucleated RBC % (a uto) 0 Nucleated RBCs # 0.0 Sodium 135 L Potassium 4.1 Chloride 97 L Carbon Dioxide 28 Anion Gap 14.1 BUN 28 H Creatinine 1.0 Glucose 126 H Calculated Osmolal ity 279 L Calcium 8.4 L Total Bilirubin 0.8 AST 22 ALT 25 Alkaline Phosphata se 83 Total Protein 7.4 Albumin 3.8 Globulin 3.6 Vitals: Last Vital Signs Temp 97.6 F 10/24/19 11:25 Pulse 86 10/24/19 11:25 Resp 18 10/24/19 11:25 BP 99/65 10/24/19 11:25 Pulse Ox 95 10/24/19 11:25 Discharge Plan Discharge Patient Disposition: Xfer SNF Condition: Stable Prescriptions: New hydrocodone-acetaminophen 5-325 mg Tablet 1 tab PO Q4H PRN (Reason: Moderate Pain) Qty: 10 RF: 0 tramadol 50 mg Tablet 50 mg PO Q8H Qty: 10 RF: 0 benzonatate 100 mg Capsule 100 mg PO TID Qty: 90 RF: 0 ferrous gluconate 324 mg (37.5 mg iron) Tablet 324 mg PO BIDWM Qty: 60 RF: 0 Spiriva with HandiHaler 18 mcg capsule, w/inhalation device 1 cap INHALATION DAILY Qty: 30 RF: 0 fluticasone propion-salmeterol [Advair Diskus] 500-50 mcg/dose blister with device 1 inh INHALATION BID Qty: 60 RF: 0 Continued losartan 50 mg Tablet 50 mg PO DAILY RF: 0 atorvastatin 40 mg Tablet See Rx Instructions .ROUTE .COMPLEX RF: 0 metoprolol succinate 100 mg Tablet Extended Release 24 Hr See Rx Instructions .ROUTE .COMPLEX RF: 0 aspirin 81 mg Tablet,Delayed Release (Dr/Ec) 81 mg PO DAILY RF: 0 potassium chloride 20 mEq tablet,ER particles/crystals 20 meq PO DAILY RF: 0 tamsulosin 0.4 mg Capsule 0.4 mg PO DAILY RF: 0 cholecalciferol (vitamin D3) [Vitamin D3] 25 mcg (1,000 unit) Tablet 25 mcg PO DAILY RF: 0 rivaroxaban 20 mg Tablet 20 mg PO DAILY RF: 0 Changed furosemide 40 mg Tablet 20 mg PO DAILY Qty: 30 RF: 0 Discharge Orders: Discharge Order (Routine); Ordered 10/24/19 Ordered By: Wes Willis Referrals: Elke Duran MD [Primary Care Provider] - 7-10 days Ronnie Carballo MD [Physician] - 7-10 days (Telehealth visit in 1 week with AP, internal oblique, and external oblique right hip) Discharge Diet: Cardiac Discharge Activity: Resume usual activity Activity Restrictions/Additional Instructions: Mobilize bed to chair. Touchdown weightbearing right lower extremity. Discharge Attestations Time Spent in Discharge Care*: greater than 30 min Specific Discharge Activities: Specific discharge activities: educating patient, educating and/or supporting family/caregiver, discussing with pcp/other providers, discussing with bilingual patient support caseworker/social workers/dc planners, documenting/other paperwork and evaluating patient/reviewing data Status at Discharge: Cognitive status at discharge: cognitively intact, Behavioral status at discharge: cooperative and can be uncooperative, Functional status at discharge: other assisted ambulation Overall status at discharge: patient is not back to baseline Quality Metrics Clinical Quality Measures During this hospital stay, did patient experience: None Coding Level of Care Code 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
--- NOTE | 2019-10-29 09:33 | PC.SOCIAL ---
PA denied for Spiriva. Clarified with Insurance and the preferred drug is Incruse Ellipta 62.5mcg one inhalation daily. Notified Dr Willis and he was agreeable to switch to formulary preferred. Called [facility] spoke with Phill to provide the new script. Called patient number listed but unable to reach phone greeting did indicate patients name so left message for him that the medication has been changed with my number to call with any questions.
== END 2019-10-24 17:28 | disposition skilled nursing facility (03) ==
LOC: ER 22:53 → MEDSURG 10-20 07:41
PROVIDERS: Emergency Medicine; Admitting Provider Hospitalist; PCP Family Medicine; Visit Provider Student in an Organized Health Care Education/Training Program
DX: S32.401A Unspecified fracture of right acetabulum, initial encounter for closed fracture (principal); W19.XXXA Unspecified fall, initial encounter; Z79.01 Long term (current) use of anticoagulants; R09.02 Hypoxemia; J41.1 Mucopurulent chronic bronchitis; I73.9 Peripheral vascular disease, unspecified; S91.301A Unspecified open wound, right foot, initial encounter; I25.10 Atherosclerotic heart disease of native coronary artery without angina pectoris; Z86.718 Personal history of other venous thrombosis and embolism; E78.5 Hyperlipidemia, unspecified; Z79.82 Long term (current) use of aspirin; N40.0 Benign prostatic hyperplasia without lower urinary tract symptoms; Z83.3 Family history of diabetes mellitus; Z80.42 Family history of malignant neoplasm of prostate; F17.290 Nicotine dependence, other tobacco product, uncomplicated
CPT/HCPCS: 12345; 36415; 51702; 71045; 71275; 72192; 73502; 80053; 80061; 83036; 83540; 83550; 83880; 84145; 84439; 84443; 84481; 84484; 85025; 85610; 87635; 93005; 94640; 94664; 96375; 97110; 97161; 97530; 99283; G0378; J1170; J1940; J2270; J3490; Q9967

== ENCOUNTER → 2019-12-01 11:19 | Outpatient (BNVA) | payer MEDICARE, SELFPAY | PROVIDERS: PCP Family Medicine; Visit Provider Orthopaedic Surgery | DX: S32.401A Unspecified fracture of right acetabulum, initial encounter for closed fracture (principal); W19.XXXA Unspecified fall, initial encounter; M17.11 Unilateral primary osteoarthritis, right knee | CPT/HCPCS: 73502 ==

== ENCOUNTER → 2020-01-07 15:02 | Outpatient (BNVA) | payer MEDICARE, SELFPAY | PROVIDERS: PCP Family Medicine; Visit Provider Orthopaedic Surgery | DX: Z47.89 Encounter for other orthopedic aftercare (principal); S32.401D Unspecified fracture of right acetabulum, subsequent encounter for fracture with routine healing; W19.XXXD Unspecified fall, subsequent encounter; M17.11 Unilateral primary osteoarthritis, right knee | CPT/HCPCS: 73502 ==

== ENCOUNTER 2020-03-31 18:51 | Inpatient (IN) | payer MEDICARE, SELFPAY ==
[2020-03-31 18:57] VITALS: BP 109/66; PULSE 116; RESP 16; TEMP 36.7; O2SAT 95; BMI 33.0
--- NOTE | 2020-03-31 19:01 | XRR_ITS ---
PROCEDURE INFORMATION: Exam: XR Left Hip with Pelvis when Performed Exam date and time: 03/31/2020 7:07 PM Age: 75 years old Clinical indication: Injury or trauma; Fall; Blunt trauma (contusions or hematomas); Left; Injury date: 03/30/20; Prior surgery; Surgery type: RT hip TECHNIQUE: Imaging protocol: XR Left hip with pelvis when performed. Views: 2 or 3 views. COMPARISON: CT pelvis wo con [id number] 10/19/2019 8:41 PM FINDINGS: Bones/joints: There is an acute impacted left femoral neck fracture. The bony pelvis and acetabulum are otherwise intact. Orthopedic hardware bridges an old right femur fracture. A vascular stent projects on the right femoral artery. Soft tissues: Unremarkable. XR/XR hip LT 2-3V wo/w pel* [id number] IMPRESSION: There is an acute impacted left femoral neck fracture.
--- NOTE | 2020-03-31 19:01 | XRR_ITS ---
PROCEDURE INFORMATION: Exam: XR Left Knee Exam date and time: 03/31/2020 7:07 PM Age: 75 years old Clinical indication: Injury or trauma; Fall; Blunt trauma; Knee; Right; Injury date: 03/30/20 TECHNIQUE: Imaging protocol: XR Left knee. Views: 3 views. COMPARISON: No relevant prior studies available. FINDINGS: Bones/joints: No fracture or other acute abnormalities are seen. There is mild degenerative narrowing of the joint space. Soft tissues: Atherosclerotic calcifications are present.. XR/XR knee LT 3V* [id number] IMPRESSION: No acute abnormality.
--- NOTE | 2020-03-31 19:01 | ECG_ITS ---
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 Measurements Intervals [place] Rate: 114 P: [place]: QRS: 17 QRSD: 106 T: 60 QT: 327 QTc: 452 Interpretive Statements SUPRAVENTRICULAR TACHYCARDIA LOW QRS VOLTAGE IN EXTREMITY LEADS [QRS DEFLECTION < 0.5 mV IN LIMB LEADS] ABNORMAL RHYTHM ECG Compared to ECG 10/20/2019 02:58:38 Low QRS voltage now present Sinus tachycardia no longer present Myocardial infarct finding no longer present Electronically Signed On 03-31-2020 21:30:36 NETWORK FIELD ENGINEER by Simon Flores M.D. [id number]
--- NOTE | 2020-03-31 19:46 | ED_ITS ---
HPI - Fall General: Chief Complaint: Fall Stated Complaint: L KNEE PAIN Time Seen by Provider: 03/31/20 19:25 Source: patient and EMS Mode of arrival: EMS Limitations: no limitations History of Present Illness: HPI Narrative: 75-year-old male states that he was transferring out of his wheelchair and fell earlier today. Patient states that he landed on his left hip has had left hip pain since then. Patient denies any other injuries of his upper extremities but does have some slight knee pain. He denies hitting his head. He states he felt slightly lightheaded before the e vent. He has history of CHF. Denies any chest pain or headache MD complaint: fall Associated symptoms-after fall: Denies abdominal pain, chest pain, headache(s) or neck pain Review of Systems Const: Denies: fever(s), chills, body aches or change in appetite Eyes: Denies: blurry vision or eye discomfort ENMT: Denies: throat pain or dental pain Card: Denies: chest pain Resp: Denies: dyspnea GI: Denies: abdominal pain, nausea, vomiting or diarrhea : Denies: dysuria Musc: Reports: joint pain; Denies: neck pain or back pain Skin/Breast: Denies: rash Neuro: Denies: headache(s) Psych: Denies: depression Sergio/Lymph: Denies: easy bruising All/Imm: Denies: urticaria PFSH ED PFSH: Medical History (Updated 01/07/20 @ 15:31 by Ronnie Carballo MD) Abdominal aortic aneurysm Infrarenal, 4.1 x 4.3 cm in 06/2019 BPH (benign prostatic hyperplasia) CAD (coronary artery disease) history of CT but details unknown Chronic edema DVT of lower extremity, bilateral With history of IVC filter and on Xarelto History of frostbite BLE HLD (hyperlipidemia) Hypertension Peripheral vascular disease With RLE stent and several angioplasty Undescended testes Surgical History History of exploratory laparotomy History of hernia repair History of orthopedic surgery Right leg after femur fracture S/P insertion of IVC (inferior vena caval) filter S/P peripheral artery angioplasty with stent placement Right superficial femoral artery Status post laparoscopic cholecystectomy For porcelain gallbladder and acute cholecystitis Family History Mother Diabetes Father Cancer prostate Social History Smoking and tobacco status: current every day smoker smokeless tobacco Smokeless tobacco user: snus Smokeless tobacco details: box per day Alcohol intake: current Alcohol type: hard liquor Lives independently: Yes Household members: none Marital status: Current occupational status: retired Physical Exam Const: COMMON NORMALS: no acute distress, patient oriented x3 and healthy appearing HENMT: COMMON NORMALS: normocephalic and atraumatic HEAD & SCALP: normocephalic and atraumatic Eye: COMMON NORMALS: Equal, round and reactive pupils present and EOMs intact bilaterally PUPIL: Yes Equal, round and reactive pupils present Neck/C-Spine: COMMON NORMALS: full ROM and supple Chest: COMMONS NORMALS: normal inspection of the chest and normal palpation of entire chest wall Resp: COMMON NORMALS: normal respiratory effort, No retractions, No use of accessory muscles and clear to auscultation bilaterally AUSCULTATION: clear to auscultation bilaterally Cardio: COMMON NORMALS: regular rate, regular rhythm and No murmurs present (Cardio) RATE: regular rate RHYTHM: regular rhythm GI: COMMON NORMALS: Normal to inspection, nondistended, normoactive bowel sounds present, Soft to palpation, non-tender and no masses PALPATION: Yes Soft to palpation Extremity: NARRATIVE EXTREMITY EXAM: Tenderness over left hip distal pulses intact. Neuro: COMMON NORMALS: patient oriented x3, moves all extremities and no focal motor deficits Psych: COMMON NORMALS: mental status grossly normal, Normal thought process present and cooperative THOUGHT PROCESS: Normal thought process present Skin: COMMON NORMALS: no rashes or lesions noted and no wounds GENERAL SKIN EXAM: no rashes or lesions noted Course Vital Signs: Vital signs: Vital Signs Temperature 98.1 F 03/31/20 18:57 Pulse Rate 116 H 03/31/20 18:57 Respiratory Rate 16 03/31/20 18:57 Blood Pressure 109/66 03/31/20 18:57 Pulse Oximetry 95 03/31/20 18:57 MDM - Fall MDM Narrative: Medical decision making narrative: Patient presents here with hip fracture from a fall. Patient has no signs of head injury or any other injuries. Patient is well-appearing here and I spoke to orthopedist along with hospitalist and will admit at this time. Lab Data: Labs: Lab Results 03/31/20 03/31/20 Range/Units 19:42 19:42 WBC 8.5 (4.0-10.0) 10^3/ uL RBC 5.00 (4.1-5.3) 10^6/u L Hgb 14.0 (11.7-16.6) g/dL Hct 43.8 (42.0-52.0) % MCV 87.6 (80-94) fL MCH 28.0 (28.0-34.0) pg MCHC 32.0 (30.0-36.0) g/dL RDW 15.0 (12.1-15.1) % Plt Count 160 (130-400) 10^3/c mm MPV 11.2 H (7.4-10.4) fL Neut % (Auto) 75.2 % Lymph % (Auto) 16.3 % Brule % (Auto) 6.6 % Eos % (Auto) 1.4 % Baso % (Auto) 0.1 % Neut # (Auto) 6.40 (1.8-7.7) 10^3/u L Lymph # (Auto) 1.4 (0.8-4.8) 10^3/u L Brule # (Auto) 0.6 (0.2-0.9) 10^3/u L Eos # (Auto) 0.1 (0.0-0.8) 10^3/u L Baso # (Auto) 0.0 (0.0-0.1) 10^3/u L Nucleated RBC % (a uto) 0 % Nucleated RBCs # 0.0 /100WBC Sodium 139 (136-145) mmol/L Potassium 3.7 (3.5-5.1) mmol/L Chloride 100 (98-107) mmol/L Carbon Dioxide 29 (22-29) mmol/L Anion Gap 13.7 (5-19) BUN 14 (8-23) mg/dL Creatinine 1.0 (0.7-1.2) mg/dL GFR Calculation Not Reportable Glucose 102 (65-115) mg/dL Calculated Osmolal ity 289 (285-295) mOsm/k g Calcium 8.8 (8.5-10.5) mg/dL Imaging Data^: CXR: Attestation: I personally reviewed and interpreted this imaging study as follows: My impression: no acute abnormaliy xr L hip: Attestation: I personally reviewed and interpreted this imaging study as follows: My impression: subcapital fx to left hip xr l knee: Attestation: I personally reviewed and interpreted this imaging study as follows: My impression: no acute abnormality EKG Data^: EKG 1: Attestation: I personally reviewed and interpreted this EKG as follows: EKG interpretation date: 03/31/20 EKG interpretation time: 19:49 Interpretation: sinus tach hr [address] or t wave abnormalities qrs 106 qtc 395 Discharge Plan Discharge Prescriptions: No Action (DME) Front wheel walker See Rx Instructions .Route .MEDSUPPLY Qty: 1 RF: 0 losartan 50 mg Tablet 25 mg PO DAILY@1700 RF: 0 atorvastatin 40 mg Tablet 20 mg PO DAILY@1700 RF: 0 metoprolol succinate 100 mg Tablet Extended Release 24 Hr See Rx Instructions .ROUTE .COMPLEX RF: 0 aspirin 81 mg Tablet,Delayed Release (Dr/Ec) 81 mg PO DAILY@1700 RF: 0 potassium chloride 20 mEq tablet,ER particles/crystals 20 meq PO DAILY@1700 RF: 0 tamsulosin 0.4 mg Capsule 0.4 mg PO DAILY@1700 RF: 0 cholecalciferol (vitamin D3) [Vitamin D3] 25 mcg (1,000 unit) Tablet 25 mcg PO DAILY@1700 RF: 0 rivaroxaban 20 mg Tablet 20 mg PO DAILY@1700 RF: 0 furosemide 40 mg tablet 20 mg PO DAILY@1700 RF: 0 tramadol 50 mg tablet 50 mg PO Q8H PRN (Reason: Pain) RF: 0 ferrous gluconate 324 mg (37.5 mg iron) tablet 324 mg PO BID@1700 RF: 0 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
[2020-03-31 20:01] LABS: Basophils % 0.1 %; Eosinophils # 0.1 10^3/uL (0.0-0.8); Eosinophils % 1.4 %; Hematocrit 43.8 % (42.0-52.0); Lymphocytes # 1.4 10^3/uL (0.8-4.8); Lymphocytes % 16.3 %; Mean Corpuscular Volume 87.6 fL (80-94); Mean Platelet Volume 11.2 fL (7.4-10.4); Monocytes # 0.6 10^3/uL (0.2-0.9); Monocytes % 6.6 %; Neutrophils % 75.2 %; Nucleated Red Blood Cells % 0 %; Platelet Count 160 10^3/cmm (130-400); White Blood Count 8.5 10^3/uL (4.0-10.0)
[2020-03-31 20:16] LABS: Anion Gap 13.7 (5-19); Blood Urea Nitrogen 14 mg/dL (8-23); Calcium 8.8 mg/dL (8.5-10.5); Carbon Dioxide 29 mmol/L (22-29); Chloride 100 mmol/L (98-107); Glucose 102 mg/dL (65-115); Osmolality Calculated 289 mOsm/kg (285-295); Potassium 3.7 mmol/L (3.5-5.1); Sodium 139 mmol/L (136-145)
[2020-03-31 20:30] VITALS: BP 147/87; PULSE 113; RESP 18; O2SAT 95
--- NOTE | 2020-03-31 20:55 | P.HP_ITS ---
Providers/Chief Complaint Primary Care Provider: Elke Duran MD Chief Complaint: L KNEE PAIN History of Present Illness Hao Esteban is a 75 year old male who has history of bilateral lower extremity DVT, peripheral vascular disease, AAA, atrial fibrillation currently on chronic anticoagulation with Xarelto, lives alone presented today after sustaining a fall. Patient is stating that around 5:55 PM he was trying to get out of his wheelchair and sit in a recliner when he felt lightheaded/dizzy and fell on the ground on left hip. He was in excruciating pain, called EMS, diagnosis in the ER revealed left hip fracture. His last Xarelto dose was 24 hours ago, he did not take his Xarelto dose today. He is denying syncope, seizure-like activities, chest pain, shortness of breath, fever, recent diarrhea but endorsing bilateral lower extremity edema, pain redness without any discharge. Of note he sustained a fall in the past as well status post orthopedic surgery, he still taking anticoagulant and this is his second fall with hip fracture. Anticoagulant indication needs to be reevaluated. Review of Systems Const: Denies: fever(s) or chills Eyes: Denies: change in vision ENMT: Denies: throat pain Card: Denies: chest pain Resp: Denies: dyspnea GI: Denies: abdominal pain : Denies: flank pain Musc: Reports: joint stiffness, limited range of motion and muscle cramps Skin/Breast: Reports: new lesions and lesions Neuro: Denies: headache(s) Psych: Reports: anxiety Endo: Denies: polyuria Sergio/Lymph: Denies: easy bruising All/Imm: Denies: urticaria Medications/Allergies Home Medications Medication Instructions Recorded Confirmed Last Taken Type aspirin 81 mg PO DAILY@169906/14/19 03/31/20 03/30/20 History see pharmacy note atorvastatin 20 mg PO DAILY@169906/14/19 03/31/20 03/30/20 History cholecalciferol (vitamin D3) 25 mcg PO DAILY@169906/14/19 03/31/20 03/30/20 History [Vitamin D3] losartan 25 mg PO DAILY@169906/14/19 03/31/20 03/30/20 History metoprolol succinate See Rx Instructions .ROUTE .COMPLEX 06/14/19 03/31/20 03/30/20 History potassium chloride 20 meq PO DAILY@1700 06/14/19 03/31/20 03/30/20 History rivaroxaban 20 mg PO DAILY@1700 06/14/19 03/31/20 03/30/20 History tamsulosin 0.4 mg PO DAILY@1700 06/14/19 03/31/20 03/30/20 History Front wheel walker #1 ea 01/07/20 03/31/20 Unknown Rx ferrous gluconate 324 mg PO BID@1700 03/31/20 03/31/20 03/30/20 History see pharmacy notes furosemide 20 mg PO DAILY@1700 03/31/20 03/31/20 03/30/20 History see pharmacy note tramadol 50 mg PO Q8H PRN 03/31/20 03/31/20 Unknown History Allergies Allergy/AdvReac Type Severity Reaction Status Date / Time No Known Allergies Allergy Verified 01/07/20 14:40 PFSH Acute PFSH: Medical History (Updated 03/31/20 @ 23:45 by Kylie Marinelli MD) Abdominal aortic aneurysm Infrarenal, 4.1 x 4.3 cm in 06/2019 BPH (benign prostatic hyperplasia) CAD (coronary artery disease) history of [place] but details unknown Chronic edema DVT of lower extremity, bilateral With history of IVC filter and on Xarelto History of frostbite BLE HLD (hyperlipidemia) Hypertension Peripheral vascular disease With RLE stent and several angioplasty Undescended testes Surgical History History of exploratory laparotomy History of hernia repair History of orthopedic surgery Right leg after femur fracture S/P insertion of IVC (inferior vena caval) filter S/P peripheral artery angioplasty with stent placement Right superficial femoral artery Status post laparoscopic cholecystectomy For porcelain gallbladder and acute cholecystitis Family History Mother Diabetes Father Cancer prostate Social History Smoking and tobacco status: current every day smoker smokeless tobacco Smokeless tobacco user: snus Smokeless tobacco details: box per day Alcohol intake: current Alcohol type: hard liquor Lives independently: Yes Household members: none Marital status: Current occupational status: retired Vitals/I&O/Wt Last Vital Signs Temp 98.1 F 03/31/20 18:57 Pulse 116 H 03/31/20 18:57 Resp 16 03/31/20 18:57 BP 109/66 03/31/20 18:57 Pulse Ox 95 03/31/20 18:57 Weight last 48 hrs Weight 104.326 kg Physical Exam Narrative: EXAM NARRATIVE: Morbidly obese male Unkept appearance Looks more than stated age No active chest pain or respiratory distress Lower extremity limited range of motion Lower extremity venous stasis dermatitis nonpurulent cellulitis No active drainage of lower extremities S1, S2 variable with signs of heart failure Abdomen distended bowel sound present nontender No active respiratory distress bilateral breath sounds without adventitial rhonchi or crackles EOMI, PERRLA no neurological deficit Data : 03/31/20 19:42 03/31/20 19:42 A&P Assessment and plan (1) Closed left hip fracture: Patient sustained a fall while he was trying to get in a recliner from his wheelchair No syncope, chest pain, seizure-like activities This is his second fall with hip fracture His last anticoagulant dose was yesterday he missed today's dose We will keep him n.p.o. Start him on maintenance fluid Orthopedic consult Dilaudid for analgesia along bowel regimen I will hold his losartan to prevent vasoplegic shock Continue Lasix tomorrow as he is getting fluids overnight Status: Acute Additional A&P Information Atrial fibrillation without RVR: Continue metoprolol succinate dose Hypertension: Currently hypotensive due to pain, losartan discontinued, will do as needed IV antihypertensives if systolic greater than 180mmhg AAA: No acute exacerbation, no abdominal pain, no signs of gangrene or ulcer of lower extremity Nonpurulent cellulitis of lower extremities: I would add doxycycline for MRSA coverage Full code N.p.o. DVT prophylaxis SCDs Attestations Medical Necessity Statement*: Anticipating stay in the hospital course more th an 2 midnights for left hip fracture Time Spent in Patient Care: (>than 50% of time spent in counselling and/or direct pt care on unit) . 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
[2020-03-31 22:41] VITALS: BP 158/92; PULSE 114; RESP 20; TEMP 36.9; O2SAT 90
[2020-03-31 23:25] VITALS: BP 158/92; PULSE 116; RESP 20; O2SAT 95
[2020-04-01] VITALS (28 sets, daily range): BP systolic 118–165; BP diastolic 73–109; PULSE 100–122; RESP 12–222; TEMP 36.7–37.3; O2SAT 90–100
[2020-04-01] MEDS: HYDROmorphone 1 mg/mL INJ 1 mL IVP ×6 (00:33→22:45)
[2020-04-01] MEDS: D5-NS 0.45% + KCL 20 mEq 20 MEQ/1,000 ML BAG 30 MEQ IV (00:34)
[2020-04-01 03:04] LABS: SARS Covid-2 Antigen Negative (Negative)
--- NOTE | 2020-04-01 07:51 | P.CONIM_ITS ---
Providers/Reason For Consult Consulting Physican/Specialty*: hoapitalist Reason for Consult*: left hip fx Attending Physician: Kylie Marinelli MD Primary Care Provider: Elke Duran MD History of Present Illness History of Present Illness Hao Esteban is a 75 year old male HPI Narrative: 75-year-old male states that he was transferring out of his wheelchair and fell earlier today. Patient states that he landed on his left hip has had left hip pain since then. Patient denies any other injuries of his upper extremities but does have some slight knee pain. He denies hitting his head. He states he felt slightly lightheaded before the event. He has history of CHF. Denies any chest pain or headache MD complaint: fall Associated symptoms-after fall: Denies abdominal pain, chest pain, headache(s) or neck pain Review of Systems Narrative: General ROS: negative for weight changes, fever ENT ROS: negative for nasal congestion, drainage or bleeding, sore throat, dysphagia or ear pain Eyes: PERRL Hematological and Lymphatic ROS: negative for swollen glands or abnormal bleeding Endocrine ROS: negative for polyuria/polydpsia or new changes in weight Respiratory ROS: negative for cough, shortness of breath, or wheezing Cardiovascular ROS: negative for chest pain or dyspnea on exertion Gastrointestinal ROS: negative for reflux, abdominal pain, change in bowel habits, or black or bloody stools Musculoskeletal ROS: negative for back pain, neck pain, or joint pain or swelling except for current problem Neurological ROS: negative for TIA or stoke symptoms Skin: no rashes Meds/Allergies Home Medications and Allergies Home Medications Medication Instructions Recorded Confirmed Last Taken Type aspirin 81 mg PO DAILY@169906/14/19 03/31/20 03/30/20 History see pharmacy note atorvastatin 20 mg PO DAILY@169906/14/19 03/31/20 03/30/20 History cholecalciferol (vitamin D3) 25 mcg PO DAILY@169906/14/19 03/31/20 03/30/20 History [Vitamin D3] losartan 25 mg PO DAILY@169906/14/19 03/31/20 03/30/20 History metoprolol succinate See Rx Instructions .ROUTE .COMPLEX 06/14/19 03/31/20 03/30/20 History potassium chloride 20 meq PO DAILY@169906/14/19 03/31/20 03/30/20 History rivaroxaban 20 mg PO DAILY@1700 06/14/19 03/31/20 03/30/20 History tamsulosin 0.4 mg PO DAILY@1700 06/14/19 03/31/20 03/30/20 History Front wheel walker #1 ea 01/07/20 03/31/20 Unknown Rx ferrous gluconate 324 mg PO BID@1700 03/31/20 03/31/20 03/30/20 History see pharmacy notes furosemide 20 mg PO DAILY@1700 03/31/20 03/31/20 03/30/20 History see pharmacy note tramadol 50 mg PO Q8H PRN 03/31/20 03/31/20 Unknown History Allergies Allergy/AdvReac Type Severity Reaction Status Date / Time No Known Allergies Allergy Verified 01/07/20 14:40 Current Medications Current Medications Generic Name Dose Route Start Last Admin Trade Name Freq PRN Reason Stop Dose Admin Potassium Chloride/Dextrose/Sod Cl 20 meq in 1,000 mls @ 30 mls/hr 03/31/20 23:45 04/01/20 00:34 D5-Ns 0.45% + Kcl 20 Meq IV 30 mls/hr .Q24H SIMÓN Administration PFSH Acute PFSH: Medical History (Updated 03/31/20 @ 23:45 by Kylie Marinelli MD) Abdominal aortic aneurysm Infrarenal, 4.1 x 4.3 cm in 06/2019 BPH (benign prostatic hyperplasia) CAD (coronary artery disease) history of [place] but details unknown Chronic edema DVT of lower extremity, bilateral With history of IVC filter and on Xarelto History of frostbite BLE HLD (hyperlipidemia) Hypertension Peripheral vascular disease With RLE stent and several angioplasty Undescended testes Surgical History History of exploratory laparotomy History of hernia repair History of orthopedic surgery Right leg after femur fracture S/P insertion of IVC (inferior vena caval) filter S/P peripheral artery angioplasty with stent placement Right superficial femoral artery Status post laparoscopic cholecystectomy For porcelain gallbladder and acute cholecystitis Family History Mother Diabetes Father Cancer prostate Social History Smoking and tobacco status: current every day smoker smokeless tobacco Smokel ess tobacco user: snus Smokeless tobacco details: box per day Alcohol intake: current Alcohol type: hard liquor Lives independently: Yes Household members: none Marital status: Current occupational status: retired Vitals/I&O/Wt Last Vital Signs Temp 99.1 F 04/01/20 07:21 Pulse 115 H 04/01/20 07:21 Resp 22 H 04/01/20 07:21 BP 163/97 04/01/20 07:21 Pulse Ox 92 04/01/20 07:21 03/31/20 04/01/20 04/01/20 22:59 06:59 14:59 Output Total 100 / 100 Balance -100 / -100 Weight last 48 hrs Weight 230 lb Physical Exam Narrative: EXAM NARRATIVE: NEURO?PSYCH: The patient is alert and oriented to person, place and time. Sensorv /SILT Motor StrengthShoulder abduction C5 5/5Wrist extension C6 5/5Elbow extension C7 5/5Hand Sports Equipment Supervisor C8 5/5Finger abduction T15/5 Radial/ Ulnar/ Median n intact LowerSensory (SILT)Motor StrengthHin flexion L2/3Ant/inner thigh 5/5Hip adduction L2/3 5/5Knee extension L4 Lat thigh, 5/5Toe dorsiflexion L5 5/5Ankle dorsiflexion L5/ X23Waozvxa flexion S1 5/5 DTRBleeps 2+Triceps 2+Brachioradialis 2+Patellar 2+Achilles 2+ MUSCULOSKELETAL: [] UPPEREXTREMITIES: The patient had full active ROM in fingers, wrist, elbow, and shoulder. The patient demonstrated ability to fully flex/extend/abduct/adduct fingers, make ok sign, cross 2nd/3rd digits, extend 1st digit fully.. Radial pulse 2+, CR<2 seconds. LOWER EXTREMITIES: Pt has full, active ROM of toes, ankle, knee, and hip. Dorsalis pedis/posterior tibialis pulses 2+, CR<2 seconds. SPINE: Skin warm, dry, intact. Left hip fracture left leg shortened and externally rotated Urinary Catheter Management^: Treviño: Cath Placed During This Visit: yes Reason for Continuing Indwelling Catheter: Perioperative Use in Selected Surgeries Urinary Catheter Date of Insertion: 04/01/20 Urinary Catheter Time of Insertion: 02:17 A&P Assessment and plan (1) Closed left hip fracture: Left displaced femoral neck fracture will plan on left hip hemiarthroplasty today I am aware of being on eliquis. 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
[2020-04-01] MEDS: metoprolol succinate ER (24 HR) 100 mg Tablet 50 MG PO (08:31)
--- NOTE | 2020-04-01 10:55 | PC.CHAP ---
Pastoral Care Encounter/Spiritual Assessment Type of Contact [x] Declined manager transfusion visit [] Patient/Family/Request visit [] Outpatient visit [] Follow-up visit [] Physician referral [] Code/Alert [] Routine visit [] Staff referral [] Actively dying [] Patient sleeping [] Family support [] [] Out of room [] Palliative care [] [] Receiving care in room [] Pre-surgical visit [] Trauma [] Long length of stay [] ICU visit [] Other: Relational/Emotional Strength [] Patient feels connected with others/family/visitors/staff [] Distress [] Loneliness/isolation [] Abandonment Spirituality of Patient [] Person of Jocelyn [] Attends [facility] of their Jocelyn [] Believes in Prayer [] Reads Bible or Mandaen materials [] There are Spiritual issues to be addressed Vp Sales Interventions [] Prayer [] Active listening [] Non-anxious presence [] Spiritual/emotional support [] Crisis/trauma care [] Spiritual counseling [] Bereavement support [] Provided bereavement packet [] Provided Bible/devotional materials [] Provided toy/stuffed animal, coloring book to patient or family member [] Provided Communion [] Anointing/[place] [] Salvation [] Completed spiritual assessment [] Other: Impact on Illness or Injury [] Angry [] Fearful [] Anxious [] Often cries [] Exhaustion [] Unable to work [] Unable to attend nondenominational [] Unable to walk/stand [] Unable to read [] Unable to drive [] Unable to eat/drink [] Unable to sleep [] Unable to be with family [] Patient intubated [] Other: Summary Declined manager transfusion visit Time spent with patient 5 mins
--- NOTE | 2020-04-01 11:29 | CT_ITS ---
WS: [id number] CT LUMBAR SPINE, noncontrast. HISTORY: pain after a fall TECHNIQUE: Contiguous 2.5 mm axial imaging are performed. Sagittal and coronal reformats are submitte d and reviewed. All CT scans at [facility] use at least one of these dose optimization te chniques: automated exposure control; mA and/or kV adjustment per patient size (includes targeted exa ms where dose is matched to clinical indication); or iterative reconstruction. IV contrast: None DLP: 2568.38 mGy.cm COMPARISON: 06/14/2019 Mild increase in the lumbar lordosis. Diffuse osteopenia. No lumbar spine fracture. Mild disc space n arrowing throughout. L1-2: No central stenosis. Mild bilateral foraminal narrowing. L2-3: Mild osteophytic ridging and annular disc bulging. Mild central stenosis with moderate bilatera l foraminal stenosis. L3-4: Diffuse annular disc bulging and osteophytic ridging. Moderate central and bilateral foraminal stenosis. L4-5: Moderate central and bilateral foraminal stenosis. Moderate facet joint arthritis. L5-S1: Central disc protrusion. Moderate facet joint arthritis. Mild central and bilateral foraminal stenosis. Abdominal aortic aneurysm with a maximum diameter 4.5 cm is stable. IVC filter. Incompletely healed fracture involving the RIGHT ilium just above the acetabulum. This fracture was a lso present on the study of 10/19/2019 without progression. Slightly impacted LEFT femoral neck fractu re as noted on the tree planter localizer. CT/CT lumbar spine wo con* [id number] IMPRESSION: 1. No acute lumbar spine fracture. 2. Multi level areas of central and foraminal stenosis as above. Most signific ant stenosis at L3-4 and L4-5. 3. Stable infrarenal abdominal aortic aneurysm at 4.5 cm.
--- NOTE | 2020-04-01 11:29 | XRR_ITS ---
PROCEDURE INFORMATION: Exam: XR Right Knee Exam date and time: 04/01/2020 11:30 AM Age: 75 years old Clinical indication: Pain; Knee; Right; Prior surgery; Additional info: Pain after fall TECHNIQUE: Imaging protocol: XR Right knee. Views: 3 views. COMPARISON: MRI Knee w/o RIGHT* [id number] 02/22/2017 3:36 PM FINDINGS: Bones/joints: The distal end of an intramedullary brittney is seen in the distal femur. A vascular stent projects on the distal superficial femoral artery. No fracture, dislocation or other acute abnormalities are seen. There is a small joint effusion. Minimal DJD is present with some joint space narrowing. Soft tissues: Normal. XR/XR knee RT 3V* [id number] IMPRESSION: 1. Small joint effusion. 2. Minimal DJD. No acute abnormality.
--- NOTE | 2020-04-01 11:34 | P.PN_ITS ---
Subjective Subjective: Interval history: He reports pain, although I had to question him as to where the pain is. He says his abdomen hurts, both knees, and all over . Later on also reporting some pain in his lower back. He says he has a chronic cough. He denies any nausea or vomiting. Denies any diarrhea, hematochezia, melena. Had a little bit of abdominal pain yesterday. Denies significant eructation. Had a BM yesterday. He reports pain in his knees is chronic, although appears is worse today. He reports that he had previously seen orthopedic doctor because of his knee problems which make him unable to walk, and says that doctor said he could replace his knees , but would not give guarantees that his symptoms would improve, so he did not return deciding did not want surgery if there was no guarantee . Vitals/I&O/Wt Last Vital Signs Temp 99.1 F 04/01/20 07:21 Pulse 115 H 04/01/20 07:21 Resp 18 04/01/20 08:30 BP 163/97 04/01/20 07:21 Pulse Ox 92 04/01/20 08:30 03/31/20 04/01/20 04/01/20 22:59 06:59 14:59 Output Total 100 / 100 Balance -100 / -100 Weight last 48 hrs Weight 104.326 kg Physical Exam Const: COMMON NORMALS: no acute distress, patient oriented x3 and alert ORIENTATION/CONSCIOUSNESS: Yes awake OTHER: In discomfort due to pain. Mildly hard of hearing. HENMT: COMMON NORMALS: oropharynx normal TEETH & GINGIVA: Yes poor de ntition Neck/C-Spine: COMMON NORMALS: no JVD Resp: COMMON NORMALS: normal respiratory effort and clear to auscultation bilaterally AUSCULTATION: clear to auscultation bilaterally OTHER: Minimal wheeze. Cardio: COMMON NORMALS: no JVD, S1 normal heart sound present, S2 normal heart sound present and No murmurs present (Cardio) HEART SOUNDS: S1 normal heart sound present and S2 normal heart sound present GI: COMMON NORMALS: Soft to palpation AUSCULTATION: Yes Hypoactive bowel sounds present PALPATION: Yes Soft to palpation and Yes Tenderness to palpati on present (GI) (mild diffuse tenderness) Extremity: COMMON NORMALS: no joint enlargement and no pedal edema OTHER: Chronic stasis abnormalities of his lower legs and feet. Mild erythema mid leg and below. Neuro: COMMON NORMALS: patient oriented x3 and moves all extremities SENSORIUM/ORIENTATION: Yes alert Skin: COMMON NORMALS: no rashes or lesions noted GENERAL SKIN EXAM: no rashes or lesions noted Urinary Catheter Management^: Treviño: Cath Placed During This Visit: yes Reason for Continuing Indwelling Catheter: Perioperative Use in Selected Surgeries Urinary Catheter Date of Insertion: 04/01/20 Urinary Catheter Time of Insertion: 02:17 Data : 03/31/20 19:42 03/31/20 19:42 A&P Assessment and plan (1) Closed left hip fracture: Patient sustained a fall while he was trying to get in a recliner from his wheelchair No syncope, chest pain, seizure-like activities This is his second fall with hip fracture His last anticoagulant dose was yesterday he missed today's dose We will keep him n.p.o. Start him on maintenance fluid Orthopedic consult Dilaudid for analgesia along bowel regimen I will hold his losartan to prevent vasoplegic shock Continue Lasix tomorrow as he is getting fluids overnight Status: Acute (2) Abdominal pain: Not sure why he is having abdominal pain. He is somewhat tender on palpation. Reports some abdominal pain yesterday. Denies nausea or vomiting. Denies diarrhea, hematochezia or melena. Was assessed by CTA. NPO. Status: Acute (3) Knee pain: Assess right knee x-ray. Left knee without acute fracture. Reports chronic severe osteoarthritis for which consideration was given to bilateral TKA. She reported declined surgery because there were no guarantees that his symptoms would improve. He is nonambulatory at baseline due to his severe arthritis. Status: Acute Additional A&P Information Atrial fibrillation without RVR: Continue metoprolol succinate dose Hypertension: losartan was discontinued, on as needed IV antihypertensives if systolic greater than 180mmhg AAA:CTA. No signs of gangrene or ulcer of lower extremity Nonpurulent cellulitis of lower extremities: Currently on doxycycline Current smoker Attestations Medical Necessity Statement*: Continue admission for assessment and management of L hip fracture, abdominal pain. 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
--- NOTE | 2020-04-01 11:45 | CT_ITS ---
WS: [id number] CT ANGIOGRAPHY abdomen and pelvis AORTA HISTORY: abdominal pain, AAA TECHNIQUE: CT angiogram is performed during IV injection. Reformation images reviewed. All CT scans a [facility] use at least one of these dose optimization techniques: automated exposure co ntrol; mA and/or kV adjustment per patient size (includes targeted exams where dose is matched to cli nical indication); or iterative reconstruction. CONTRAST: Omnipaque 350; 95 mL IV. DLP: 1241.01 mGy.cm COMPARISON: 06/15/2019 Chronic emphysematous changes at the lung bases. Partial atelectasis at the LEFT lung base. Normal si ze heart. Small hiatal hernia. Mild hepatic steatosis. No bile duct dilatation. Prior cholecystectomy. Pancreas, spleen and adrenal glands are negative for any acute process. Mild bilateral cortical thinning of each kidney. No hydron ephrosis. LEFT renal cyst is stable. There is an IVC filter below the level of the renal vein. Abdominal aortic aneurysm extends over a length of 4.7 cm with a maximum diameter of 4.5 cm. Large am ount of intimal thickening and thrombus is asymmetric. The lumen is still patent. Heavy calcification continues into the iliac arteries. No increase in size of the aneurysm since 10/19/2019. No free fluid or adenopathy. Numerous sigmoid diverticula without acute diverticulitis. Treviño cathete r present in a nondistended urinary bladder. Bladder wall is slightly irregular. May indicate a cysti tis. Status post ORIF RIGHT femoral neck fracture. There is an impacted LEFT femoral neck fracture which i s new since 10/19/2019. LEFT hip fracture was described on the radiographs of 03/31/2020. Healed fract ure RIGHT inferior pubic rami. There is an additional healed fracture through the RIGHT superior acet abulum. This fracture was present on 10/19/2019 and involving the anterior column and the medial porti on of the RIGHT acetabulum. CT/CT angio abdomen pelvis [id number] IMPRESSION: 1. Stable abdominal aortic aneurysm with a maximum diameter 4.5 cm. 2. Acute impacted LEFT femoral neck fracture described on 03/31/2020 radiograp hs. 3. Remote healing fractures involving the RIGHT acetabulum and prior ORIF RIGH T hip fracture. 4. Prior cholecystectomy. 5. Treviño catheter present in the urinary bladder. Mild thickening of the urina ry bladder wall. Correlate for possible cystitis.
[2020-04-01] MEDS: iohexol 350 mg/mL 100 mL Btl IV (12:30)
[2020-04-01] MEDS: fentaNYL 50 mcg/mL INJ 2mL IVP ×4 (13:37→16:20)
--- NOTE | 2020-04-01 13:37 | ANES.PREANE2 ---
Pre-Anesthetic Assessment Pre-Anesthetic Assessment: Height/Weight: Height 1.78 m Weight 104.326 kg Temp Pulse Resp BP Pulse Ox 98.1 F 119 H 20 H 163/109 93 04/01/20 13:25 04/01/20 13:25 04/01/20 13:25 04/01/20 13:25 04/01/20 13:25 Preop Diagnosis: Acute calculus cholecystitis Proposed Procedure: Operation Date: 04/01/20 14:30 Proposed Procedures p Hemiarthroplasty Hip(Left) - Viet Baron DO Social: Social History: Tobacco (quit smoking 2004. still chews) and No alcohol Exam: Pre-Anes Outpt Exam: alert, oriented x 3 and regular rate & rhythm Additional Exam Findings (including area of procedure): bilat wheezes Airway: Submandibular: WNL Cervical ROM: WNL MP: 3 Additional comments: very poor dentation History/ROS: No significant history except as noted Pulmonary: Pulmonary: COPD and [place] CV/HEM: CV/HEM: CAD (stable after stents placed), CHF, DVT ([place] filter ), HTN, IA and PVD : : None reported Hepatic: Hepatic: None reported Metabolic: Metabolic: Hyperlipidemia Musc/skel: Musc/skel: OA/DJD Neuropsych: Neuropsych: None reported Anesthetic Plan: ASA status: 3 Anesthesia: General Risk of > 500 ml blood loss (7ml/kg in children): Yes, adequate IV access and fluids planned Meds/Allergies Current Medications: Current Medications Generic Name Dose Route Start Last Admin Trade Name Freq PRN Reason Stop Dose Admin Doxycycline Monohy drate 100 mg 04/01/20 09:00 04/01/20 10:32 Doxycycline 100 Mg Tablet PO Not Given BID [facility] Protocol Hydromorphone HCl 1 mg 04/01/20 07:35 04/01/20 11:06 Hydromorphone 1 Mg/Ml Inj 1 Ml IVP 1 mg Q2H PRN Administration pain Potassium Chloride /Dextrose/Sod Cl 20 meq in 1,000 m ls @ 30 mls/hr 03/31/20 23:45 04/01/20 00:34 D5-Ns 0.45% + Gregory l 20 Meq IV 30 mls/hr .Q24H SIMÓN Administration Metoprolol Succina te 50 mg 04/01/20 09:00 04/01/20 08:31 Metoprolol Succi hollie Er (24 Hr) 10 0 Mg Tablet PO 50 mg DAILY SIMÓN Administration Senna/Docusate Sod ium 1 tab 04/01/20 09:00 04/01/20 08:29 Sennosides-Docus ate Tablet PO Not Given DAILY SIMÓN PFSH Anesthesia PFSH: Medical History Abdominal aortic aneurysm Infrarenal, 4.1 x 4.3 cm in 06/2019 BPH (benign prostatic hyperplasia) CAD (coronary artery disease) history of IA but details unknown Chronic edema DVT of lower extremity, bilateral With history of IVC filter and on Xarelto History of frostbite BLE HLD (hyperlipidemia) Hypertension Peripheral vascular disease With RLE stent and several angioplasty Undescended testes Surgical History History of exploratory laparotomy History of hernia repair History of orthopedic surgery Right leg after femur fracture S/P insertion of IVC (inferior vena caval) filter S/P peripheral artery angioplasty with stent placement Right superficial femoral artery Status post laparoscopic cholecystectomy For porcelain gallbladder and acute cholecystitis Family History Mother Diabetes Father Cancer prostate Social History Smoking and tobacco status: current every day smoker smokeless tobacco Smokeless tobacco user: snus Smokeless tobacco details: box per day Alcohol intake: current Alcohol type: hard liquor Lives independently: Yes Household members: none Marital status: Current occupational status: retired Data Anesthesia CBC & Chem 7: 03/31/20 19:42 03/31/20 19:42 Other Labs: Laboratory Results - last 48 hr 03/31/20 03/31/20 04/01/20 19:42 19:42 02:26 WBC 8.5 RBC 5.00 Hgb 14.0 Hct 43.8 MCV 87.6 MCH 28.0 MCHC 32.0 RDW 15.0 Plt Count 160 MPV 11.2 H Neut % (Auto) 75.2 Lymph % (Auto) 16.3 [place] % (Auto) 6.6 Eos % (Auto) 1.4 Baso % (Auto) 0.1 Neut # (Auto) 6.40 Lymph # (Auto) 1.4 [place] # (Auto) 0.6 Eos # (Auto) 0.1 Baso # (Auto) 0.0 Nucleated RBC % (auto) 0 Nucleated RBCs # 0.0 Sodium 139 Potassium 3.7 Chloride 100 Carbon Dioxide 29 Anion Gap 13.7 BUN 14 Creatinine 1.0 GFR Calculation Not Reportable Glucose 102 Calculated Osmolality 289 Calcium 8.8 SARS-CoV-2 Ag (Rapid) Negative Cardiac Studies: No Data to Display
--- NOTE | 2020-04-01 14:05 | W.PM.OPSUD ---
Surgery/Procedure H&P Update DATE OF PROCEDURE: April 01, 2020 DATE H&P PERFORMED: 04/01/20 H&P UPDATE INFORMATION: I have reviewed H&P completed within last 30 days PREOP DIAGNOSIS: Acute calculus cholecystitis PLANNED PROCEDURE: Operation Date: 04/01/20 14:30 Proposed Procedures p Hemiarthroplasty Hip(Left) - Viet Baron DO
--- NOTE | 2020-04-01 16:04 | PM.OP ---
Operative Report Date of procedure: April 01, 2020 Pre-op Diagnosis: left femoral neck fracture Post-op diagnosis: same Procedure Done: Left hip kirit arthroplasty Anesthesia: General Estimated blood loss (mL): 25 Condition: stable Disposition: PACU Procedure: Patient is brought to the operative suite after undergoing anesthesia was placed in lateral decubitus position with the left side up. All areas impingement well-padded. Leg was then prepped and draped normal sterile fashion. Skin was made. Modified Whelan approach was used. The IT band was split. Abductors and capsule were taken down anteriorly. Femoral neck cut was made. This was done approximately a fingerbreadth above the lesser trochanter. The femoral head was then removed. He was measured to be 51. The attention was then brought to the femur. hand fabric cutter was used followed by canal finder canal was broached to 5. And then a Accolade 2 stem was inserted. And then a -4 neck length and a size 51 head were inserted. Patient was stable in all ranges of motion. FiberWire was used to close the capsule back to the bone. IT band was closed with 0 Vicryl skin closed with 2-0 Vicryl and nicky Sterile dressings applied patient transferred to the PACU in stable condition.
[2020-04-01] MEDS: atorvastatin 40 mg Tablet 20 MG PO (17:49)
[2020-04-01] MEDS: aspirin 81 mg EC Tablet PO (17:49)
[2020-04-01] MEDS: rivaroxaban 10 mg Tablet 20 MG PO (17:50)
[2020-04-01] MEDS: losartan 50 mg Tablet 25 MG PO (17:50)
[2020-04-01] MEDS: FUROsemide 40 mg Tablet 20 MG PO (17:50)
[2020-04-01] MEDS: cholecalciferol (vitamin D3) 1,000 unit Tablet 1000 UNIT PO (17:50)
[2020-04-01] MEDS: potassium chloride ER 20 mEq Tablet PO (17:50)
[2020-04-01] MEDS: tamsulosin 0.4 mg Capsule PO (17:50)
[2020-04-01] MEDS: ferrous gluconate 324 mg Tablet PO (17:50)
[2020-04-01] MEDS: doxycycline 100 mg Tablet PO (17:51)
[2020-04-01] MEDS: TRAMadol 50 mg Tablet PO (17:51)
[2020-04-01 18:05] LABS: Urine Appearance Clear (CLEAR); Urine Color Yellow (Yellow); pH Urine 5 (5-7)
[2020-04-01 18:06] LABS: Add Urine Microscopic? YES; Bilirubin Urine Neg (Negative); Blood Urine 2+ (Negative); Glucose Urine UA Norm (Normal); Ketones Urine Negative (Negative); Leukocyte Esterase Urine Negative (Negative); Nitrate Urine Negative (Negative); Protein Urine Trace (Negative); Specific Gravity, Urine 1.015 (1.005-1.030); Urobilinogen Urine Norm (Negative)
[2020-04-01 18:10] LABS: Add Urine Culture? Yes; Bacteria Urine TRACE /hpf; RBC Urine 40-50 /hpf (0-2); Squamous Epithelial Cell Urine 0-4 /hpf (0-5)
[2020-04-02] VITALS (13 sets, daily range): BP systolic 89–125; BP diastolic 58–84; PULSE 70–123; RESP 16–20; TEMP 36.7–38.2; O2SAT 90–97
[2020-04-02] MEDS: HYDROmorphone 1 mg/mL INJ 1 mL IVP ×6 (01:57→23:42)
[2020-04-02 05:00] LABS: Basophils % 0.3 %; Eosinophils # 0.3 10^3/uL (0.0-0.8); Eosinophils % 4.9 %; Hematocrit 41.3 % (42.0-52.0); Hemoglobin 13.1 g/dL (11.7-16.6); Mean Corpuscular HGB Conc 31.7 g/dL (30.0-36.0); Mean Corpuscular Hemoglobin 28.4 pg (28.0-34.0); Mean Corpuscular Volume 89.6 fL (80-94); Mean Platelet Volume 10.7 fL (7.4-10.4); Monocytes # 0.5 10^3/uL (0.2-0.9); Monocytes % 7.2 %; Neutrophils # 5.13 10^3/uL (1.8-7.7); Neutrophils % 73.3 %; Nucleated Red Blood Cells % 0 %; Platelet Count 141 10^3/cmm (130-400); Red Blood Count 4.61 10^6/uL (4.1-5.3); Red Cell Distribution Width 15.2 % (12.1-15.1)
[2020-04-02 05:37] LABS: Alanine Aminotransferase 12 U/L (0-41); Albumin Level 3.4 g/dL (3.5-5.2); Alkaline Phosphatase 103 IU/L (40-130); Anion Gap 12.5 (5-19); Aspartate Amino Transferase 27 U/L (0-40); Blood Urea Nitrogen 12 mg/dL (8-23); Calcium 8.2 mg/dL (8.5-10.5); Carbon Dioxide 29 mmol/L (22-29); Chloride 102 mmol/L (98-107); Globulin 3.1 g/dL (1.3-4.6); Glucose 95 mg/dL (65-115); Osmolality Calculated 288 mOsm/kg (285-295); Potassium 4.5 mmol/L (3.5-5.1); Sodium 139 mmol/L (136-145); Total Protein 6.5 g/dL (6.6-8.7)
--- NOTE | 2020-04-02 07:01 | NUR.SHIFT ---
Patient has had good blood flow in LLE. Patient has been afibrile. Patient's pain is not controlled, patient has had Hydromorphine Q 2H, otherwise the patient will moan in pain otherwise. Patient does have bowel sounds in all 4 quadrants. Patient did not eat dinner last night.
--- NOTE | 2020-04-02 08:24 | PC.NURSE ---
pt refused to be boosted up in the bed to be able to eat his breakfast he stated thats not want i want im in too much pain do not move me.
--- NOTE | 2020-04-02 09:04 | P.PN_ITS ---
Subjective Subjective: Interval history: pt in moderate pain relatively controlled better than yesterdayI Vitals/I&O/Wt Last Vital Signs Temp 98.0 F 04/02/20 07:14 Pulse 120 H 04/02/20 07:14 Resp 18 04/02/20 07:14 BP 103/70 04/02/20 07:14 Pulse Ox 90 04/02/20 07:14 04/01/20 04/02/20 04/02/20 22:59 06:59 14:59 Intake Total 550 / 550 60 / 610 Output Total 525 / 525 575 / 1100 Balance -515 / -490 Weight last 48 hrs Weight 230 lb Physical Exam Narrative: EXAM NARRATIVE: Skin: Intact and healthy Swelling: minimal Tenderness location: left hip Tenderness severity: moderate No tenderness remaining ipsilateral extremity bones/joints Sensation: Intact to light touch Motor exam: Flexes and extends toes and ankle, flexes and extends wound CDI Urinary Catheter Management^: Treviño: Cath Placed During This Visit: yes Reason for Continuing Indwelling Catheter: Acute Urinary Retention or Obstruction Urinary Catheter Date of Insertion: 04/01/20 Urinary Catheter Time of Insertion: 02:17 Data : 04/02/20 04:37 04/02/20 04:37 A&P Assessment and plan (1) Closed left hip fracture: POD#1 left hip hemiarthroplasty WBAT Up with PT Status: Acute Attestations Medical Necessity Statement*: needs to work with PT Coding Level of Care 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
--- NOTE | 2020-04-02 10:11 | PC.OT ---
Evaluation attempted. Occupational therapy purpose was explained. Patient refusing evaluation at this time secondary to pain. Nursing was informed.
[2020-04-02] MEDS: ferrous gluconate 324 mg Tablet PO ×2 (10:53→17:48)
[2020-04-02] MEDS: sennosides-docusate Tablet 1 TAB PO (10:53)
[2020-04-02] MEDS: doxycycline 100 mg Tablet PO ×2 (10:53→17:48)
[2020-04-02] MEDS: metoprolol tartrate 50 mg Tablet PO ×2 (10:54→20:45)
[2020-04-02] MEDS: potassium chloride ER 20 mEq Tablet PO (17:48)
[2020-04-02] MEDS: cholecalciferol (vitamin D3) 1,000 unit Tablet 1000 UNIT PO (17:48)
[2020-04-02] MEDS: rivaroxaban 10 mg Tablet 20 MG PO (17:48)
[2020-04-02] MEDS: FUROsemide 40 mg Tablet 20 MG PO (17:51)
[2020-04-02] MEDS: D5-NS 0.45% + KCL 20 mEq 20 MEQ/1,000 ML BAG 30 MEQ IV (17:57)
[2020-04-02] MEDS: losartan 50 mg Tablet 25 MG PO (17:58)
--- NOTE | 2020-04-02 18:35 | PM.PN ---
Subjective Subjective: Interval history: He states he is doing not too great, he is bothered by pain, although abdominal pain has improved, pain in his hip is a little bit better, but is there. He also reports his feet are quite sensitive, which is a chronic issue. 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 Discussing with him his leg fracture, multiple sites of pain, as well as baseline poor mobility requiring wheelchair expressed concern with him returning home without first undergoing rehabilitation at halfway facility. To this he replies not a chance . States he has gone to rehabilitation before and says people there looked at me like there's something wrong with me . Vitals/I&O/Wt Last Vital Signs Temp 98.4 F 04/02/20 15:09 Pulse 117 H 04/02/20 15:09 Resp 16 04/02/20 17:48 BP 112/68 04/02/20 17:58 Pulse Ox 97 04/02/20 17:48 04/02/20 04/02/20 04/02/20 06:59 14:59 22:59 Intake Total 120 / 670 1000 / 1000 Output Total 575 / 1100 Balance -455 / -430 1000 / 1000 Weight last 48 hrs Weight 104.326 kg Physical Exam Const: COMMON NORMALS: no acute distress, patient oriented x3 and alert ORIENTATION/CONSCIOUSNESS: Yes awake OTHER: Mildly hard of hearing. HENMT: COMMON NORMALS: oropharynx normal TEETH & GINGIVA: Yes poor dentition Neck/C-Spine: COMMON NORMALS: no JVD Resp: COMMON NORMALS: normal respiratory effort and clear to auscultation bilaterally AUSCULTATION: clear to auscultation bilaterally Cardio: COMMON NORMALS: no JVD, S1 normal heart sound present, S2 normal heart sound present and No murmurs present (Cardio) HEART SOUNDS: S1 normal heart sound present and S2 normal heart sound present GI: COMMON NORMALS: Soft to palpation AUSCULTATION: Yes Hypoactive bowel sounds present PALPATION: Yes Soft to palpation and Yes Tenderness to palpation present (GI) (mild diffuse tenderness) Extremity: COMMON NORMALS: no joint enlargement and no pedal edema OTHER: Chronic stasis abnormalities of his lower legs and feet. Mild erythema mid leg and below. Neuro: COMMON NORMALS: patient oriented x3 and moves all extremities SENSORIUM/ORIENTATION: Yes alert Skin: COMMON NORMALS: no rashes or lesions noted GENERAL SKIN EXAM: no rashes or lesions noted Urinary Catheter Management^: Treviño: Cath Placed During This Visit: yes Reason for Continuing Indwelling Catheter: Acute Urinary Retention or Obstruction Urinary Catheter Date of Insertion: 04/01/20 Urinary Catheter Time of Insertion: 02:17 Data : 04/02/20 04:37 04/02/20 04:37 A&P Assessment and plan (1) Closed left hip fracture: He had not yet worked with physical therapy at the time of my seeing him. He is complaining of aches and pains in different locations including his chronic pain in his knees. Also his feet are very sensitive. He still having pain in his hip. He is encouraged to work with physical therapy. Expressed concern regarding safe return home, however, he is adamant that he will return there and not go to SNF. States that he has in-home services. States that he can also arrange for family to visit him and check up on him. Still he has been requiring Dilaudid quite regularly, as often as every 2 hours, otherwise he moans in pain. Continue to encourage working with PT and OT. Attempt to mobilize. Revisit consideration of rehabilitation. DC IV fluids. Remove Treviño catheter. He is restarted on Xarelto. Status: Acute (2) Tachycardia: Appears like atrial flutter with 3 1 conduction. Metoprolol changed to 50 mg twice daily dosing. He was resumed on Xarelto. Potassium and magnesium checked, normal. Continue cardiac monitoring. If not improving and blood pressure allows may need to increase metoprolol dose. Status: Acute (3) Knee pain: Discussed results of x-rays with him. Reports chronic severe osteoarthritis for which consideration was given to bilateral TKA. She reported declined surgery because there were no guarantees that his symptoms would improve. He is nonambulatory at baseline due to his severe arthritis. Status: Acute (4) Abdominal pain: Abdominal pain appears better today. CTA abdomen pelvis noted stable abdominal aortic aneurysm. Known impacted left femoral neck fracture. Remote healing fractures involving right acetabulum and prior ORIF right hip fracture. Prior cholecystectomy. Treviño catheter in the bladder. Mild bladder wall thickening. Status: Acute Additional A&P Information Incidentally noted mild urinary bladder wall thickening: UA obtained, with mild microscopic hematuria, 40-50 RBC. Otherwise no suggestion of UTI. This may need urological follow-up and possible cystoscopy to exclude malignancy in view of active cigarette smoking. Atrial fibrillation Hypertension: losartan was discontinued, hold for now as BP is soft. AAA: No sign of progression on CTA. Nonpurulent cellulitis of lower extremities: Currently on doxycycline. Appears to have chronic venous stasis dermatitis. Current smoker Attestations Medical Necessity Statement*: Continue admission for cyst management following left hip fracture and repair, complicated by significant pain, atrial flutter with RVR. 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
[2020-04-03] VITALS (12 sets, daily range): BP systolic 90–120; BP diastolic 58–75; PULSE 99–118; RESP 16–20; TEMP 36.5–38.6; O2SAT 90–93
[2020-04-03] MEDS: HYDROmorphone 1 mg/mL INJ 1 mL IVP ×4 (04:52→20:40)
[2020-04-03 05:38] LABS: Basophils % 0.1 %; Eosinophils # 0.1 10^3/uL (0.0-0.8); Eosinophils % 0.6 %; Hematocrit 39.6 % (42.0-52.0); Hemoglobin 12.3 g/dL (11.7-16.6); Lymphocytes # 1.4 10^3/uL (0.8-4.8); Lymphocytes % 13.8 %; Mean Corpuscular HGB Conc 31.1 g/dL (30.0-36.0); Mean Platelet Volume 11.8 fL (7.4-10.4); Monocytes # 0.9 10^3/uL (0.2-0.9); Monocytes % 9.1 %; Neutrophils # 7.79 10^3/uL (1.8-7.7); Neutrophils % 76.1 %; Nucleated Red Blood Cells % 0 %; Platelet Count 138 10^3/cmm (130-400); White Blood Count 10.2 10^3/uL (4.0-10.0)
--- NOTE | 2020-04-03 06:15 | PC.SOCIAL ---
Shift Summary Patient frequently moaning out in pain throughout the night, pain medicine administered and patient resting comfortably after. Patient's springer removed without problem. Frequently encouraged patient to reposition in bed, as he would be leaning over sideways and uncomfortable. Patient had one episode of coughing up thick, green sputum and required to be sat up in order to spit it out, seemed to be choking on it. Suction/yankuer hooked up at bedside.
[2020-04-03 06:17] LABS: Alanine Aminotransferase 8 U/L (0-41); Albumin Level 3.4 g/dL (3.5-5.2); Alkaline Phosphatase 90 IU/L (40-130); Aspartate Amino Transferase 28 U/L (0-40); Blood Urea Nitrogen 23 mg/dL (8-23); Calcium 8.8 mg/dL (8.5-10.5); Carbon Dioxide 27 mmol/L (22-29); Chloride 101 mmol/L (98-107); Globulin 3.4 g/dL (1.3-4.6); Glucose 127 mg/dL (65-115); Osmolality Calculated 291 mOsm/kg (285-295); Sodium 138 mmol/L (136-145); Total Bilirubin 1.1 mg/dL (0.15-1.2); Total Protein 6.8 g/dL (6.6-8.7)
[2020-04-03 06:22] LABS: Anion Gap 14.2 (5-19); Potassium 4.2 mmol/L (3.5-5.1)
[2020-04-03] MEDS: ferrous gluconate 324 mg Tablet PO ×2 (08:14→18:28)
[2020-04-03] MEDS: doxycycline 100 mg Tablet PO ×2 (08:14→18:28)
[2020-04-03] MEDS: sennosides-docusate Tablet 1 TAB PO (08:14)
--- NOTE | 2020-04-03 08:21 | PM.PN ---
Subjective Subjective: Interval history: pain improved from previous day Vitals/I&O/Wt Last Vital Signs Temp 99.6 F 04/03/20 07:26 Pulse 112 H 04/03/20 07:26 Resp 16 04/03/20 08:18 BP 90/58 04/03/20 07:26 Pulse Ox 92 04/03/20 08:18 04/02/20 04/03/20 04/03/20 22:59 06:59 14:59 Intake Total 120 / 1120 Output Total 600 / 600 Balance 120 / 1120 -600 / 520 Physical Exam Narrative: EXAM NARRATIVE: Skin: Intact and healthy Swelling: minimal Tenderness location: left hip Tenderness severity: moderate No tenderness remaining ipsilateral extremity bones/joints Sensation: Intact to light touch Motor exam: Flexes and extends toes and ankle, flexes and extends Urinary Catheter Management^: Treviño: Cath Placed During This Visit: yes, but has since been removed by the nurse Reason for Continuing Indwelling Catheter: Decision to DC Catheter Urinary Catheter Date of Insertion: 04/01/20 Urinary Catheter Time of Insertion: 02:17 Date Urinary Catheter Removed: 04/02/20 Time Urinary Catheter Discontinued: 21:00 Data : 04/03/20 04:48 04/03/20 04:48 A&P Additional A&P Information POD# 2 Left hip Hemiarthroplasty WBAT Up With PT D/c planniing Attestations Medical Necessity Statement*: PT Coding Level of Care Code Acute Skip Locator for Enzo Shi
[2020-04-03 08:37] LABS: Magnesium 2.2 mg/dL (1.7-2.3)
--- NOTE | 2020-04-03 10:45 | DCPLANNER ---
IMM completed with pt on 04/03/2020 @ 8687. Copy of rights given to pt.
--- NOTE | 2020-04-03 11:47 | ECG_ITS ---
[facility] Test Date: 2020-04-03 Pat Name: Hao Esteban Department: Room: 261 Gender: Male Insert Cutter: : 1945 Requested By: Jason Ponce Order Number: [id number] Kaleigh MD: Sergey Chaves M.D. Measurements Intervals [place] Rate: 98 P: 17 NV: 224 QRS: 30 QRSD: 122 T: 24 QT: 338 QTc: 433 Interpretive Statements SINUS RHYTHM WITH FIRST DEGREE AV BLOCK ANTEROSEPTAL MYOCARDIAL INFARCTION [40+ ms Q WAVE IN V1-V4], OF INDETERMINATE AGE Compared to ECG 03/31/2020 19:49:37 First degree AV block now present Myocardial infarct finding now present Supraventricular tachycardia no longer present Electronically Signed On 04-03-2020 16:50:34 NEUROSCIENCE DIRECTOR NA by Sergey Chaves M.D. [id number]
[2020-04-03] MEDS: magnesium citrate Btl 296 mL 150 ML PO (16:10)
[2020-04-03] MEDS: bismuth subsalicylate 240 mL Btl 15 ML PO (18:27)
[2020-04-03] MEDS: aspirin 81 mg EC Tablet PO (18:28)
[2020-04-03] MEDS: polyethylene glycol 3350 Pkt 17 gm PO (18:28)
[2020-04-03] MEDS: cholecalciferol (vitamin D3) 1,000 unit Tablet 1000 UNIT PO (18:28)
[2020-04-03] MEDS: rivaroxaban 10 mg Tablet 20 MG PO (18:28)
[2020-04-03] MEDS: potassium chloride ER 20 mEq Tablet PO (18:28)
[2020-04-03] MEDS: tamsulosin 0.4 mg Capsule PO (18:29)
[2020-04-03] MEDS: FUROsemide 40 mg Tablet 20 MG PO (18:29)
[2020-04-03] MEDS: losartan 50 mg Tablet 25 MG PO (18:29)
[2020-04-03] MEDS: atorvastatin 40 mg Tablet 20 MG PO (18:29)
[2020-04-03] MEDS: metoprolol tartrate 50 mg Tablet PO (20:40)
--- NOTE | 2020-04-03 21:45 | P.PN_ITS ---
Subjective Subjective: Interval history: He is somewhat irritable today. Not very cooperative with review of systems, when asked if he is doing little bit better, says maybe, then again may be not . He is still having pain in his hip. Says also has been having pain in his right lower quadrant in his belly. When asked if he has had a bowel movement, states has not had one in about 4 days. On review of his performance with physical therapy, concern is that he is required maximum assistance even to sit up in bed, get to edge of bed. This was discussed with him, and I've been concerned that despite his insistence that he is returning home, this may not be the safest choice given his decreased functional capacity, persistent pain, as well as diminished functional capacity at baseline. He lives alone. He does state that he has in-home services coming in, and that his friend Alessandra Alan can be there every day if I asked her to , although he concedes she would not be staying there through the day with him and definitely not 24 hours. Discussed with him that as he is requiring quite significant assistance he may find himself unassisted in case of any emergency while he is home alone, or simply risking further injury from another fall again. Discussed that we would like to see him getting around better before he is able to return home. He states I have just had surgery 2 days ago, and you already want me to jump around everywhere like a monkey . Discussed with him that this is not the intended goal. Discussed that early mobilization is not unexpected after hip surgery. As well that we would like to see that he is able to safely mobilize even just to leave the house in case of any danger like a fire. He replies well that is because you assume that I give a shit . He then goes on to say that he has made his peace, and if he is to pass away at any point from anything, so be it . He denies any depression or suicidal ideation. He was surprised at my concern, but did concede that an average person would probably want to try to get out from a burning house. He then states I give physical therapy 2 days to get me better . I did politely note that his participation is important as he has previously declined therapy on several occasions. This caused him to become rather irate, and he stated he is then going to leave the hospital immediately. I discussed that discharge home with continued physical therapy may be a safe option if he were to have a caregiver available. Discussed that we could try to contact his friend to see if this can be arranged, and also discussed home O2 evaluation. At that point he states please do not prescribe me any oxygen . Discussed with him we would only do so if it were necessary. He is currently only on 1 L, states I most likely don't needed, and they prescribed for me during last visit about 8.5 thousand dollars worth of oxygen equipment, to which I told them to just shove it up their asses since I wasn't planning on using it. He then conceded that he would benefit from additional physical therapy, and states he will try to work with them over the next 2 days, although there is still no way that he would consider rehab at SNF. Vitals/I&O/Wt Last Vital Signs Temp 99.2 F 04/03/20 19:16 Pulse 118 H 04/03/20 19:16 Resp 18 04/03/20 20:40 BP 120/73 04/03/20 19:16 Pulse Ox 93 04/03/20 19:16 04/03/20 04/03/20 04/03/20 06:59 14:59 22:59 Intake Total 120 / 120 60 / 180 Output Total 600 / 600 300 / 300 Balance -600 / 520 120 / 120 -240 / -120 Physical Exam Const: COMMON NORMALS: no acute distress, patient oriented x3 and alert ORIENTATION/CONSCIOUSNESS: Yes awake OTHER: Mildly hard of hearing. Irritable. HENMT: COMMON NORMALS: oropharynx normal TEETH & GINGIVA: Yes poor dentition Neck/C-Spine: COMMON NORMALS: no JVD Resp: COMMON NORMALS: normal respiratory effort and clear to auscultation bilaterally AUSCULTATION: clear to auscultation bilaterally Cardio: COMMON NORMALS: no JVD, S1 normal heart sound present, S2 normal heart sound present and No murmurs present (Cardio) HEART SOUNDS: S1 normal heart sound present and S2 normal heart sound present GI: COMMON NORMALS: Soft to palpation AUSCULTATION: Yes Hypoactive bowel sounds present PALPATION: Yes Soft to palpation and Yes Tenderness to palpation present (GI) (mild diffuse tenderness) Extremity: COMMON NORMALS: no joint enlargement and no pedal edema OTHER: Chronic stasis abnormalities of his lower legs and feet. Mild erythema mid leg and below. Neuro: COMMON NORMALS: patient oriented x3 and moves all extremities SENSORIUM/ORIENTATION: Yes alert Skin: COMMON NORMALS: no rashes or lesions noted GENERAL SKIN EXAM: no rashes or lesions noted Urinary Catheter Management^: Treviño: Cath Placed During This Visit: yes, but has since been removed by the nurse Reason for Continuing Indwelling Catheter: Decision to DC Catheter Urinary Catheter Date of Insertion: 04/01/20 Urinary Catheter Time of Insertion: 02:17 Date Urinary Catheter Removed: 04/02/20 Time Urinary Catheter Discontinued: 21:00 Data : 04/03/20 04:48 04/03/20 04:48 Micro: Microbiology 04/01/20 17:30 Urine Culture - Preliminary Urine,Clean Catch A&P Assessment and plan (1) Closed left hip fracture: Encouraged him to work with PT and OT. He declines SNF. Still requires maximum assist. Continue pain control. Add bowel regimen for constipation. Continue attempts to mobilize. Case coordination to continue discharge planning. Xarelto. Status: Acute (2) Tachycardia: Appeared as atrial flutter with RVR. Better this afternoon, but in the evening again HR above 110. Will increase metoprolol to 75 mg. Requested cardiac monitoring. Metoprolol changed to 50 mg twice daily dosing. Xarelto. Potassium and magnesium checked, normal. Status: Acute (3) Knee pain: Discussed results of x-rays with him. Reports chronic severe osteoarthritis for which consideration was given to bilateral TKA. She reported declined surgery because there were no guarantees that his symptoms would improve. He is nonambulatory at baseline due to his severe arthritis. Status: Acute (4) Abdominal pain: Abdominal pain appears better today. CTA abdomen pelvis noted stable abdominal aortic aneurysm. Known impacted left femoral neck fracture. Remote healing fractures involving right acetabulum and prior ORIF right hip fracture. Prior cholecystectomy. Treviño catheter in the bladder. Mild bladder wall thickening. Status: Acute Additional A&P Information Incidentally noted mild urinary bladder wall thickening: UA obtained, with mild microscopic hematuria, 40-50 RBC. Otherwise no suggestion of UTI. This may need urological follow-up and possible cystoscopy to exclude malignancy in view of active cigarette smoking. Atrial fibrillation Hypertension: losartan was discontinued, hold for now as BP is soft. AAA: No sign of progression on CTA. Nonpurulent cellulitis of lower extremities: Currently on doxycycline. Appears to have chronic venous stasis dermatitis. Moisturize dry skin. Constipation: Bowel regimen. Current smoker: Nicotine replacement as needed. Attestations Medical Necessity Statement*: Continue admission for postoperative care after left hip fracture and repair, attempts at mobilization, optimization of medical management of atrial flutter with RVR, treatment of lower extremity cellulitis, planning and arrangements for safe discharge. Coding Level of Care Code Acute Body Designer for [facility] Diagnoses Closed left hip fracture S72.002A Tachycardia R00.0 Knee pain M25.569 Abdominal pain R10.9
[2020-04-04] VITALS (9 sets, daily range): BP systolic 106–130; BP diastolic 62–78; PULSE 78–85; RESP 15–18; TEMP 36.7–37.7; O2SAT 94–97
[2020-04-04] MEDS: HYDROmorphone 1 mg/mL INJ 1 mL IVP ×2 (05:31→18:12)
--- NOTE | 2020-04-04 05:52 | PC.NURSE ---
Shift Summary Patient rested most of the night, much better compared to previous night. Did not moan out in pain or request pain medication as often. When awaken this morning, he does c/o pain. Offered tramadol to which he replied, that's nothing but a sugar pill. Refused to take, requesting IV dilaudid. Patient did not have a bowel movement overnight, encouraged him to finish the bottle of mag citrate ordered yesterday day shift. He took one drink and began screaming that it burned all the way down, and refused to drink any more. Encouraged patient it would help him have a bowel movement and would likely help with his lower abdomen pain. Decreased urine output; 125mL for shift. Bladder scanned patient, highest volume was 120mL. Attempted to call Dr. Marinelli to update him of this, unable to reach him. Will pass on in report.
[2020-04-04 06:30] LABS: Basophils % 0.1 %; Eosinophils # 0.3 10^3/uL (0.0-0.8); Eosinophils % 3.1 %; Hematocrit 37.5 % (42.0-52.0); Hemoglobin 11.9 g/dL (11.7-16.6); Lymphocytes # 0.8 10^3/uL (0.8-4.8); Lymphocytes % 9.4 %; Mean Corpuscular HGB Conc 31.7 g/dL (30.0-36.0); Mean Corpuscular Hemoglobin 28.4 pg (28.0-34.0); Mean Corpuscular Volume 89.5 fL (80-94); Mean Platelet Volume 11.6 fL (7.4-10.4); Monocytes # 0.8 10^3/uL (0.2-0.9); Monocytes % 9.8 %; Neutrophils # 6.19 10^3/uL (1.8-7.7); Neutrophils % 77.3 %; Nucleated Red Blood Cells % 0 %; Platelet Count 146 10^3/cmm (130-400); Red Blood Count 4.19 10^6/uL (4.1-5.3); Red Cell Distribution Width 15.1 % (12.1-15.1)
[2020-04-04 06:52] LABS: Alanine Aminotransferase 10 U/L (0-41); Albumin Level 3.3 g/dL (3.5-5.2); Alkaline Phosphatase 80 IU/L (40-130); Anion Gap 11.8 (5-19); Aspartate Amino Transferase 33 U/L (0-40); Blood Urea Nitrogen 30 mg/dL (8-23); Calcium 8.6 mg/dL (8.5-10.5); Carbon Dioxide 27 mmol/L (22-29); Chloride 100 mmol/L (98-107); Globulin 3.2 g/dL (1.3-4.6); Glucose 118 mg/dL (65-115); Osmolality Calculated 287 mOsm/kg (285-295); Potassium 3.8 mmol/L (3.5-5.1); Sodium 135 mmol/L (136-145); Total Bilirubin 0.8 mg/dL (0.15-1.2); Total Protein 6.5 g/dL (6.6-8.7)
[2020-04-04] MEDS: ferrous gluconate 324 mg Tablet PO ×2 (08:53→18:10)
[2020-04-04] MEDS: polyethylene glycol 3350 Pkt 17 gm PO ×2 (08:53→18:10)
[2020-04-04] MEDS: doxycycline 100 mg Tablet PO ×2 (08:53→18:10)
[2020-04-04] MEDS: metoprolol tartrate 50 mg Tablet 75 MG PO ×2 (08:53→21:02)
[2020-04-04] MEDS: sennosides-docusate Tablet 1 TAB PO (08:53)
[2020-04-04] MEDS: bismuth subsalicylate 240 mL Btl 15 ML PO ×2 (09:06→18:12)
--- NOTE | 2020-04-04 10:05 | PM.PN ---
Subjective Subjective: Interval history: Patient is postop day #3 for his left hip hemiarthroplasty. Patient claims he has not been out of bed yet at all and has not worked with physical therapy. Vitals/I&O/Wt Last Vital Signs Temp 99.0 F 04/04/20 08:00 Pulse 83 04/04/20 08:00 Resp 18 04/04/20 08:00 BP 109/72 04/04/20 08:00 Pulse Ox 94 04/04/20 08:00 04/03/20 04/04/20 04/04/20 22:59 06:59 14:59 Intake Total 110 / 230 Output Total 300 / 300 300 / 600 Balance -190 / -70 -300 / -370 Physical Exam Narrative: EXAM NARRATIVE: Patient is moving his toes. Wound is clean dry and intact. Leg lengths are equal. Urinary Catheter Management^: Treviño: Cath Placed During This Visit: yes, but has since been removed by the nurse Reason for Continuing Indwelling Catheter: Decision to DC Catheter Urinary Catheter Date of Insertion: 04/01/20 Urinary Catheter Time of Insertion: 02:17 Date Urinary Catheter Removed: 04/02/20 Time Urinary Catheter Discontinued: 21:00 Data : 04/04/20 05:49 04/04/20 05:49 Micro: Microbiology 04/01/20 17:30 Urine Culture - Final Urine,Clean Catch A&P Additional A&P Information Postop day #3 left hip hemiarthroplasty. Patient should be working with physical therapy. From my standpoint he can be discharged to a senior care. He should be discharged and have his nicky removed in 2 weeks. In the senior care. Can see him back in the clinic in 4 to 6 weeks. He should remain on his Xarelto for DVT prophylaxis. Attestations Medical Necessity Statement*: ok to d/c from orthopedic standpoint Coding Level of Care Code Acute Director Of Early Childhood for [facility]
--- NOTE | 2020-04-04 17:12 | P.PN_ITS ---
Subjective Subjective: Interval history: Complain of pain at the site of surgery, also complains of bilateral knee osteoarthritis which makes it difficult for him to ambulate even at a baseline. States that he was ambulating in the wheelchair for several years prior to coming in now with hip fracture. Adamantly refuses nursing home facility still stating he has had bad experiences in the past. 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 He declines SNF. Still requires maximum assist. Continue pain control. Add bowel regimen for constipation. Continue attempts to mobilize. Case coordination to continue discharge planning. Turner. Status: Acute (2) Tachycardia: Appeared as atrial flutter with RVR. Heart rate is much better controlled today after increasing metoprolol Status: Acute (3) Knee pain: Discussed results of x-rays with him. Reports chronic severe osteoarthritis for which consideration was given to bilateral TKA. She reported declined surgery because there were no guarantees that his symptoms would improve. He is nonambulatory at baseline due to his severe arthritis. Status: Acute (4) Abdominal pain: Abdominal pain appears better today. CTA abdomen pelvis noted stable abdo bruno aortic aneurysm. Known impacted left femoral neck fracture. Remote healing fractures involving right acetabulum and prior ORIF right hip fracture. Prior cholecystectomy. Treviño catheter in the bladder. Mild bladder wall thickening. Status: Acute Additional A&P Information Incidentally noted mild urinary bladder wall thickening: UA obtained, with mild microscopic hematuria, 40-50 RBC. Otherwise no suggestion of UTI. This may need urological follow-up and possible cystoscopy to exclude malignancy in view of active cigarette smoking. Atrial fibrillation Hypertension: losartan was discontinued, hold for now as BP is soft. AAA: No sign of progression on CTA. Nonpurulent cellulitis of lower extremities: Currently on doxycycline. Appears to have chronic venous stasis dermatitis. Moisturize dry skin. Constipation: Bowel regimen. Current smoker: Nicotine replacement as needed. Attestations Medical Necessity Statement*: Ongoing disposition planning, needs to be able to ambulate prior to safe discharge can be considered to home upon which she is adamantly insisting Coding Level of Care Code Acute International Student Counselor for [facility] Diagnoses Closed left hip fracture S72.002A Tachycardia R00.0 Knee pain M25.569 Abdominal pain R10.9
[2020-04-04] MEDS: tamsulosin 0.4 mg Capsule PO (18:10)
[2020-04-04] MEDS: rivaroxaban 10 mg Tablet 20 MG PO (18:10)
[2020-04-04] MEDS: potassium chloride ER 20 mEq Tablet PO (18:10)
[2020-04-04] MEDS: aspirin 81 mg EC Tablet PO (18:10)
[2020-04-04] MEDS: cholecalciferol (vitamin D3) 1,000 unit Tablet 1000 UNIT PO (18:10)
[2020-04-04] MEDS: losartan 50 mg Tablet 25 MG PO (18:11)
[2020-04-04] MEDS: FUROsemide 40 mg Tablet 20 MG PO (18:11)
[2020-04-04] MEDS: atorvastatin 40 mg Tablet 20 MG PO (18:11)
[2020-04-04] MEDS: TRAMadol 50 mg Tablet PO (23:29)
[2020-04-05] VITALS (9 sets, daily range): BP systolic 83–136; BP diastolic 60–78; PULSE 73–91; RESP 16–18; TEMP 36.2–36.9; O2SAT 90–96
[2020-04-05] MEDS: HYDROmorphone 1 mg/mL INJ 1 mL IVP (06:47)
--- NOTE | 2020-04-05 07:18 | P.PN_ITS ---
Subjective Subjective: Interval history: resting comfortably Vitals/I&O/Wt Last Vital Signs Temp 97.5 F L 04/05/20 04:00 Pulse 74 04/05/20 04:00 Resp 18 04/05/20 06:47 BP 113/72 04/05/20 04:00 Pulse Ox 92 04/05/20 04:00 04/04/20 04/05/20 04/05/20 22:59 06:59 14:59 Intake Total 360 / 600 120 / 720 Output Total 350 / 350 450 / 800 Balance 10 / 250 -330 / -80 Physical Exam Narrative: EXAM NARRATIVE: resting comfortably leg lengths equal Urinary Catheter Management^: Treviño: Cath Placed During This Visit: yes, but has since been removed by the nurse Reason for Continuing Indwelling Catheter: Decision to DC Catheter Urinary Catheter Date of Insertion: 04/01/20 Urinary Catheter Time of Insertion: 02:17 Date Urinary Catheter Removed: 04/02/20 Time Urinary Catheter Discontinued: 21:00 Data : 04/04/20 05:49 04/04/20 05:49 Micro: Microbiology 04/01/20 17:30 Urine Culture - Final Urine,Clean Catch A&P Additional A&P Information POD#4 Left hip kirit d/c planning OK to d/c from ortho standpoint Attestations Medical Necessity Statement*: ok to d/c from ortho standpoint Coding Level of Care Code Acute Space Studies Faculty Member for [facility]
[2020-04-05] MEDS: metoprolol tartrate 50 mg Tablet 75 MG PO ×2 (07:59→20:55)
[2020-04-05] MEDS: ferrous gluconate 324 mg Tablet PO ×2 (07:59→16:39)
[2020-04-05] MEDS: doxycycline 100 mg Tablet PO ×2 (07:59→16:36)
--- NOTE | 2020-04-05 10:53 | PC.SOCIAL ---
IMM Update Pg. 2 of IMM updated and reviewed with patient who verbalized understanding. Copy provided.
[2020-04-05] MEDS: rivaroxaban 10 mg Tablet 20 MG PO (16:36)
[2020-04-05] MEDS: cholecalciferol (vitamin D3) 1,000 unit Tablet 1000 UNIT PO (16:36)
[2020-04-05] MEDS: FUROsemide 40 mg Tablet 20 MG PO (16:36)
[2020-04-05] MEDS: atorvastatin 40 mg Tablet 20 MG PO (16:37)
[2020-04-05] MEDS: aspirin 81 mg EC Tablet PO (16:37)
[2020-04-05] MEDS: potassium chloride ER 20 mEq Tablet PO (16:37)
[2020-04-05] MEDS: tamsulosin 0.4 mg Capsule PO (16:37)
--- NOTE | 2020-04-05 16:56 | PC.RESP ---
Smoking Cessation and Pulmonary Rehab packet sent to patient.
--- NOTE | 2020-04-05 18:00 | P.PN_ITS ---
Subjective Subjective: Interval history: Participated with PT today, stable standing with WW, ambulated 7fet with WW, adamant about returning to home, declined SNF, states his friend will come stay with him. 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 He declines SNF in spite of counselling Worked with PT today, appears may be safe for home discharge with home PT and supervision, states his friend Silvina can come liver iwh him for a few days Status: Acute (2) Tachycardia: Appeared as atrial flutter with RVR. Heart rate is much better controlled today after increasing metoprolol Status: Acute (3) Knee pain: Discussed results of x-rays with him. Reports chronic severe osteoarthritis for which consideration was given to bilateral TKA. She reported declined surgery because there were no guarantees that his symptoms would improve. He is nonambulatory at baseline due to his severe arthritis. Status: Acute (4) Abdominal pain: Abdominal pain appears better today. CTA abdomen pelvis noted stable abdominal aortic aneurysm. Known impacted left femoral neck fracture. Remote healing fractures involving right acetabulum and prior ORIF right hip fracture. Prior cholecystectomy. Treviño catheter in the bladder. Mild bladder wall thickening. Status: Acute Additional A&P Information Incidentally noted mild urinary bladder wall thickening: UA obtained, with mild microscopic hematuria, 40-50 RBC. Otherwise no suggestion of UTI. This may need urological follow-up and possible cystoscopy to exclude malignancy in view of active cigarette smoking. Atrial fibrillation Hypertension: losartan was discontinued, hold for now as BP is soft. AAA: No sign of progression on CTA. Nonpurulent cellulitis of lower extremities: Currently on doxycycline. Appears to have chronic venous stasis dermatitis. Moisturize dry skin. Constipation: Bowel regimen. Current smoker: Nicotine replacement as needed. 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
[2020-04-06] VITALS (8 sets, daily range): BP systolic 120–157; BP diastolic 68–88; PULSE 73–79; RESP 16–20; TEMP 36.7–37.3; O2SAT 91–94
--- NOTE | 2020-04-06 07:41 | PC.NURSE ---
Stool/urine Patient has had approximately 3 stools and urine mixtures this shift. He slept well tonight. He did not require any pain medication.
--- NOTE | 2020-04-06 08:04 | P.PN_ITS ---
Subjective Subjective: Interval history: resting comfortably Vitals/I&O/Wt Last Vital Signs Temp 98.6 F 04/06/20 04:00 Pulse 73 04/06/20 04:00 Resp 17 04/06/20 04:00 BP 150/88 04/06/20 04:00 Pulse Ox 94 04/06/20 04:00 04/05/20 04/06/20 04/06/20 22:59 06:59 14:59 Intake Total 270 / 510 Output Total 350 / 350 Balance 270 / 510 -350 / -350 Physical Exam Narrative: EXAM NARRATIVE: resting comfortably Urinary Catheter Management^: Treviño: Cath Placed During This Visit: yes, but has since been removed by the nurse Reason for Continuing Indwelling Catheter: Decision to DC Catheter Urinary Catheter Date of Insertion: 04/01/20 Urinary Catheter Time of Insertion: 02:17 Date Urinary Catheter Removed: 04/02/20 Time Urinary Catheter Discontinued: 21:00 Data : 04/04/20 05:49 04/04/20 05:49 A&P Additional A&P Information POD#5 left hip kirit D/C nicky out 2 weeks WBAT DVT proph Attestations Medical Necessity Statement*: ok to d/c Coding Level of Care Code Acute Summer Internship for [facility]
[2020-04-06] MEDS: sennosides-docusate Tablet 1 TAB PO (10:11)
[2020-04-06] MEDS: ferrous gluconate 324 mg Tablet PO ×2 (10:11→16:50)
[2020-04-06] MEDS: doxycycline 100 mg Tablet PO ×2 (10:11→18:19)
[2020-04-06] MEDS: metoprolol tartrate 50 mg Tablet 75 MG PO ×2 (10:12→21:37)
--- NOTE | 2020-04-06 11:30 | PM.DCS ---
Discharge Providers Date of Admission: 03/31/20 22:18 Date of Discharge: April 06, 2020 Attending Provider at Admission: Kylie Marinelli MD Attending Provider at Discharge: Lisseth Lund MD Primary Care Provider: Elke Duran MD Diagnoses at Discharge Discharge Diagnosis (1) Closed left hip fracture: Status: Acute (2) Tachycardia: Status: Acute (3) Knee pain: Status: Acute (4) Abdominal pain: Status: Acute Reason for Visit Reason for Visit: L KNEE PAIN Hospital Course Hospital Course Hao Esteban is a 75 year old male who has history of bilateral lower extremity DVT, peripheral vascular disease, AAA, atrial fibrillation currently on chronic anticoagulation with Xarelto, lives alone presented on March 31 after sustaining a mechanical fall at home while trying to transition from his wheelchair into his recliner. At a baseline patient states that he is wheelchair-bound for past several years due to severe osteoarthritis of bilateral knees. While trying to transfer at home he sustained a fall and presented to the ER complaining of pain and restriction of motion around his left hip. Diagnostics in the ER showed left hip fracture. He is status post left hip hemiarthroplasty on April 01, 2020. Overall tolerated the surgery well, however continues to be bothered by pain intermittently. Highly recommended patient to consider SNF placement given that he lives alone and has impaired mobility at a baseline, however patient has adamantly refused this option stating that he has had poor experiences in rehab facilities in the past. Patient has participated with PT in the hospital after much motivation and encouragement, and at this time is considered safe for discharge to home with continued therapy at home. He has additionally arranged for his friend to come stay with him over the next 2 to 3 weeks so that he can be monitored more closely and is assisted with his daily activities. He already has in-home services. Other pertinent findings during hospital stay included UA with microscopic hematuria with 40-50 RBCs without overt suggestion of a UTI. Recommend urology outpatient follow-up with possible cystoscopy to exclude malignancy in view of active cigarette smoking. He had rapid A. fib with RVR during his hospital stay for which metoprolol dose has been increased to 75 mg p.o. twice daily at the time of discharge. 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: no focal neuro deficits Urinary Catheter Management^: Treviño: Cath Placed During This Visit: yes, but has since been removed by the nurse Reason for Continuing Indwelling Catheter: Decision to DC Catheter Urinary Catheter Date of Insertion: 04/01/20 Urinary Catheter Time of Insertion: 02:17 Date Urinary Catheter Removed: 04/02/20 Time Urinary Catheter Discontinued: 21:00 Discharge Data Data Completed and Pending: Completed Studies During Hospitalization Category Date Time Status CT angio abdomen pelvis 92288 Urgen t Cat Scan 04/01/20 11:[address] lumbar spine w o con* 15331 Routi ne Cat Scan 04/01/20 11:29 Completed XR hip LT 2-3V wo /w pel* [id number] Stat Exams 03/31/20 19:01 Completed XR knee LT 3V* 73 562 Stat Exams 03/31/20 19:01 Completed XR knee RT 3V* 73 562 Routine Exams 04/01/20 11:29 Completed Pending at discharge Category Date Time Status Troponin(5th) 2 H our. Timed Lab 04/06/20 15:02 Ordered Troponin(5th) 6 h our. Timed Lab 04/06/20 19:02 Ordered Labs from last 24 hours 04/06/20 13:02 Troponin T Baselin e 51 H Vitals: Last Vital Signs Temp 98.9 F 04/06/20 10:34 Pulse 78 04/06/20 10:34 Resp 18 04/06/20 10:34 BP 157/86 04/06/20 10:34 Pulse Ox 91 04/06/20 10:34 Discharge Plan Discharge Patient Disposition: Home Health Service Condition: Stable Prescriptions: New sennosides-docusate sodium 8.6-50 mg Tablet 1 tab PO DAILY 30 Days RF: 0 metoprolol tartrate 50 mg Tablet 75 mg PO BID@0900,2100 30 Days Qty: 60 RF: 0 Continued (DME) Front wheel walker See Rx Instructions .Route .MEDSUPPLY Qty: 1 RF: 0 losartan 50 mg Tablet 25 mg PO DAILY@1700 RF: 0 atorvastatin 40 mg Tablet 20 mg PO DAILY@1700 RF: 0 aspirin 81 mg Tablet,Delayed Release (Dr/Ec) 81 mg PO DAILY@1700 RF: 0 potassium chloride 20 mEq tablet,ER particles/crystals 20 meq PO DAILY@1700 RF: 0 tamsulosin 0.4 mg Capsule 0.4 mg PO DAILY@1700 RF: 0 cholecalciferol (vitamin D3) [Vitamin D3] 25 mcg (1,000 unit) Tablet 25 mcg PO DAILY@1700 RF: 0 rivaroxaban 20 mg Tablet 20 mg PO DAILY@1700 RF: 0 furosemide 40 mg tablet 20 mg PO DAILY@1700 RF: 0 tramadol 50 mg tablet 50 mg PO Q8H PRN (Reason: Pain) RF: 0 ferrous gluconate 324 mg (37.5 mg iron) tablet 324 mg PO BID@1700 RF: 0 Discontinued metoprolol succinate 100 mg Tablet Extended Release 24 Hr See Rx Instructions .ROUTE .COMPLEX RF: 0 Discharge Orders: Discharge Order (Routine); Ordered 04/06/20 Ordered By: Lisseth Lund Referrals: Viet Baron DO [Physician] - 04/20/20 1:45 pm Discharge Diet: Usual diet Discharge Activity: Resume usual activity Discharge Attestations Time Spent in Discharge Care*: greater than 30 min Specific Discharge Activities: educating patient, documenting/other paperwork and evaluating patient/reviewing data Status at Discharge: Cognitive status at discharge: cognitively intact, Behavioral status at discharge: cooperative and can be uncooperative, Quality Metrics Clinical Quality Measures During this hospital stay, did patient experience: None Coding Level of Care Code Acute Corrugated Sheet Material Sheeter for Enzo Fwd Diagnoses Closed left hip fracture S72.002A Tachycardia R00.0 Knee pain M25.569 Abdominal pain R10.9
--- NOTE | 2020-04-06 12:37 | ECG_ITS ---
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 Measurements Intervals [place] Rate: 84 P: -23 KS: 231 QRS: 12 QRSD: 110 T: 1 QT: 400 QTc: 475 Interpretive Statements SINUS RHYTHM WITH FIRST DEGREE AV BLOCK LOW QRS VOLTAGE [QRS DEFLECTION < 0.5/1.0 mV IN LIMB/CHEST LEADS] ANTEROSEPTAL MYOCARDIAL INFARCTION [40+ ms Q WAVE IN V1-V4], OF INDETERMINATE AGE Compared to ECG 04/03/2020 13:28:44 Low QRS voltage now present Myocardial infarct finding still present Electronically Signed On 04-06-2020 23:49:45 BUFFING AND SUEDING MACHINE OPERATOR by Simon Flores M.D. [id number]
[2020-04-06] MEDS: HYDROcodone-acetaminophen 5-325 mg Tablet 1 TAB PO ×2 (12:43→16:50)
[2020-04-06 14:08] LABS: Troponin(5th) Baseline 51 ng/L (0-15)
--- NOTE | 2020-04-06 14:37 | ECG_ITS ---
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 Measurements Intervals [place] Rate: 74 P: 82 VT: 239 QRS: -1 QRSD: 113 T: -7 QT: 412 QTc: 458 Interpretive Statements SINUS RHYTHM WITH FIRST DEGREE AV BLOCK LOW QRS VOLTAGE [QRS DEFLECTION < 0.5/1.0 mV IN LIMB/CHEST LEADS] SEPTAL MYOCARDIAL INFARCTION [40+ ms Q WAVE IN V1/V2], OF INDETERMINATE AGE MODERATE T-WAVE ABNORMALITY, CONSIDER ANTERIOR ISCHEMIA [-0.1+ mV T WAVE IN V3/V4] Compared to ECG 04/06/2020 12:42:50 T-wave abnormality now present Possible ischemia now present Myocardial infarct finding still present Electronically Signed On 04-07-2020 0:04:18 CHANGE MANAGEMENT CONSULTANT by Simon Flores M.D. [id number]
[2020-04-06] MEDS: cholecalciferol (vitamin D3) 1,000 unit Tablet 1000 UNIT PO (16:43)
[2020-04-06] MEDS: losartan 50 mg Tablet 25 MG PO (16:44)
[2020-04-06] MEDS: aspirin 81 mg EC Tablet PO (16:44)
[2020-04-06] MEDS: FUROsemide 40 mg Tablet 20 MG PO (16:44)
[2020-04-06] MEDS: tamsulosin 0.4 mg Capsule PO (16:45)
[2020-04-06] MEDS: potassium chloride ER 20 mEq Tablet PO (16:45)
[2020-04-06] MEDS: rivaroxaban 10 mg Tablet 20 MG PO (16:45)
[2020-04-06] MEDS: atorvastatin 40 mg Tablet 20 MG PO (16:51)
[2020-04-06 19:49] LABS: Troponin 5 6HR 49.13 ng/L (0-15)
[2020-04-06 19:56] LABS: Troponin 5 6HR Delta -1.87 ng/L (0-12)
[2020-04-06] MEDS: tizanidine 4 mg Tablet PO (23:18)
[2020-04-07] VITALS: BP 92/62; PULSE 66; RESP 20; TEMP 36.6; O2SAT 94
[2020-04-07 04:52] VITALS: BP 103/66; PULSE 66; RESP 18; TEMP 36.5; O2SAT 95
[2020-04-07 07:25] VITALS: BP 110/69; PULSE 70; RESP 18; TEMP 36.7; O2SAT 93
[2020-04-07] MEDS: HYDROcodone-acetaminophen 5-325 mg Tablet 1 TAB PO (08:28)
[2020-04-07] MEDS: doxycycline 100 mg Tablet PO (08:28)
[2020-04-07] MEDS: ferrous gluconate 324 mg Tablet PO (08:29)
[2020-04-07] MEDS: sennosides-docusate Tablet 1 TAB PO (08:29)
[2020-04-07 11:30] VITALS: BP 156/62; PULSE 88; RESP 18; TEMP 37.3; O2SAT 97
[2020-04-07] MEDS: lidocaine 2% viscous 15 ML, aluminum-mag hydrox-simethicon 30 ML, sucralfate oral liq 1 GM PO (11:38)
[2020-04-07] MEDS: ondansetron 2 mg/ML SDV 2 mL 4 MG IVP (11:39)
[2020-04-07] MEDS: pantoprazole DR 40 mg Tablet PO (11:40)
--- NOTE | 2020-04-07 11:53 | PC.SOCIAL ---
IMM Update Pg. 2 of [facility] updated and reviewed with patient who verbalized understanding, copy provided.
--- NOTE | 2020-04-07 12:17 | P.DS_ITS ---
Discharge Providers Date of Admission: 03/31/20 22:18 Date of Discharge: April 07, 2020 Attending Provider at Admission: Kylie Marinelli MD Attending Provider at Discharge: Lisseth Lund MD Primary Care Provider: Elke Duran MD Diagnoses at Discharge Discharge Diagnosis (1) Closed left hip fracture: Status: Acute (2) Tachycardia: Status: Acute (3) Knee pain: Status: Acute (4) Abdominal pain: Status: Acute Reason for Visit Reason for Visit: L KNEE PAIN Hospital Course Hospital Course Hao Esteban is a 75 year old male who has history of bilateral lower extremity DVT, peripheral vascular disease, AAA, atrial fibrillation currently on chronic anticoagulation with Xarelto, lives alone presented on March 31 after sustaining a mechanical fall at home while trying to transition from his wheelchair into his recliner. At a baseline patient states that he is wheelchair-bound for past several years due to severe osteoarthritis of bilateral knees. While trying to transfer at home he sustained a fall and presented to the ER complaining of pain and restriction of motion around his left hip. Diagnostics in the ER showed left hip fracture. He is status post left hip hemiarthroplasty on April 01, 2020. Overall tolerated the surgery well, however continues to be bothered by pain intermittently. Highly damian mmended patient to consider SNF placement given that he lives alone and has impaired mobility at a baseline, however patient has adamantly refused this option stating that he has had poor experiences in rehab facilities in the past. Patient has participated with PT in the hospital after much motivation and encouragement, and at this time is considered safe for discharge to home with continued therapy at home. He has additionally arranged for his friend to come stay with him over the next 2 to 3 weeks so that he can be monitored more closely and is assisted with his daily activities. He already has in-home services. Other pertinent findings during hospital stay included UA with microscopic hematuria with 40-50 RBCs without overt suggestion of a UTI. Recommend urology outpatient follow-up with possible cystoscopy to exclude malignancy in view of active cigarette smoking. He had rapid A. fib with RVR during his hospital stay for which metoprolol dose has been increased to 75 mg p.o. twice daily at the time of discharge. He was initially planned for discharge on 04/06/2020, however just prior to discharge he started to complain of substernal chest pain for which troponins were drawn. Troponin was noted to be mildly elevated in the range of 5 0, however his subsequent delta's were not significant less concerning for AMI. There were no acute ST-T wave changes on EKG. He also has her reported history of severe GERD, review of medications showed he had not been on pantoprazole and this was added today. He also got a GI cocktail which improved his symptoms and he is being discharged today in stable condition. No other acute events overnight. He reports having a PPI at home, however does not recall the name, states he will resume his GERD medication which gives him maximal relief once he returns home. 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 DIRECTOR: no focal neuro deficits Urinary Catheter Management^: Treviño: Cath Placed During This Visit: yes, but has since been removed by the nurse Reason for Continuing Indwelling Catheter: Decision to DC Catheter Urinary Catheter Date of Insertion: 04/01/20 Urinary Catheter Time of Insertion: 02:17 Date Urinary Catheter Removed: 04/02/20 Time Urinary Catheter Discontinued: 21:00 Discharge Data Data Completed and Pending: Completed Studies During Hospitalization Category Date Time Status CT angio abdomen pelvis 50271 Urgen t Cat Scan 04/01/20 11:[address] lumbar spine w o con* [id number] Routi ne Cat Scan 04/01/20 11:29 Completed XR hip LT 2-3V wo /w pel* [id number] Stat Exams 03/31/20 19:01 Completed XR knee LT 3V* 73 562 Stat Exams 03/31/20 19:01 Completed XR knee RT 3V* 73 562 Routine Exams 04/01/20 11:29 Completed Labs from last 24 hours 04/06/20 04/06/20 04/06/20 19:17 15:30 13:02 Troponin T Baselin e 51 H Troponin T 120 Min silvestre 48.70 H Delta Troponin T -2.30 L Troponin T Hi Sens 6Hr 49.13 H Troponin T Hi Sens 6Hr Delta -1.87 L Vitals: Last Vital Signs Temp 99.1 F 04/07/20 11:30 Pulse 88 04/07/20 11:30 Resp 18 04/07/20 11:30 BP 156/62 04/07/20 11:30 Pulse Ox 97 04/07/20 11:30 Discharge Plan Discharge Patient Disposition: Home Health Service Condition: Stable Prescriptions: New sennosides-docusate sodium 8.6-50 mg Tablet 1 tab PO DAILY 30 Days RF: 0 metoprolol tartrate 50 mg Tablet 75 mg PO BID@0900,2100 30 Days Qty: 60 RF: 0 Continued (DME) Front wheel walker See Rx Instructions .Route .MEDSUPPLY Qty: 1 RF: 0 losartan 50 mg Tablet 25 mg PO DAILY@1700 RF: 0 atorvastatin 40 mg Tablet 20 mg PO DAILY@1700 RF: 0 aspirin 81 mg Tablet,Delayed Release (Dr/Ec) 81 mg PO DAILY@1700 RF: 0 potassium chloride 20 mEq tablet,ER particles/crystals 20 meq PO DAILY@1700 RF: 0 tamsulosin 0.4 mg Capsule 0.4 mg PO DAILY@1700 RF: 0 cholecalciferol (vitamin D3) [Vitamin D3] 25 mcg (1,000 unit) Tablet 25 mcg PO DAILY@1700 RF: 0 rivaroxaban 20 mg Tablet 20 mg PO DAILY@1700 RF: 0 furosemide 40 mg tablet 20 mg PO DAILY@1700 RF: 0 tramadol 50 mg tablet 50 mg PO Q8H PRN (Reason: Pain) RF: 0 ferrous gluconate 324 mg (37.5 mg iron) tablet 324 mg PO BID@1700 RF: 0 Discontinued metoprolol succinate 100 mg Tablet Extended Release 24 Hr See Rx Instructions .ROUTE .COMPLEX RF: 0 Discharge Orders: Discharge Order (Routine); Ordered 04/06/20 Ordered By: Lisseth Lund Other Ambulatory Orders: DME: Miscellaneous (Order) Location: None Selected Ordered By: Lisseth Lund Referrals: [facility] [Outside] Viet Baron DO [Physician] - 04/20/20 1:45 pm Discharge Diet: Usual diet Discharge Activity: Resume usual activity Patient Instructions: Metoprolol (By mouth), Laxative, Stimulant (By mouth), Total Hip Replacement (DC) Discharge Attestations Time Spent in Discharge Care*: greater than 30 min Specific Discharge Activities: educating patient, discussing with community case manager/social workers/dc planners and evaluating patient/reviewing data Status at Discharge: Cognitive status at discharge: cognitively intact , Behavioral status at discharge: cooperative and can be uncooperative , Quality Metrics Clinical Quality Measures During this hospital stay, did patient experience: None Coding Level of Care Code Acute Machine Sewer for Chg Fwd Diagnoses Closed left hip fracture S72.002A Tachycardia R00.0 Knee pain M25.569 Abdominal pain R10.9
== END 2020-04-07 14:50 | disposition home health service (06) | DRG 522 ==
LOC: ER 19:25 → MEDSURG 22:23
PROVIDERS: Internal Medicine; Orthopaedic Surgery; Admitting Provider Internal Medicine; Emergency Provider Emergency Medicine; PCP Family Medicine; Visit Provider Student in an Organized Health Care Education/Training Program
PROC: 0SRS0JZ Replacement of Left Hip Joint, Femoral Surface with Synthetic Substitute, Open Approach (ICD-10-PCS; CPT 27125; principal; 2020-04-01 14:30)
DX: S72.002A Fracture of unspecified part of neck of left femur, initial encounter for closed fracture (principal); L03.116 Cellulitis of left lower limb; L03.115 Cellulitis of right lower limb; W18.30XA Fall on same level, unspecified, initial encounter; Z86.718 Personal history of other venous thrombosis and embolism; I73.9 Peripheral vascular disease, unspecified; I71.4 Abdominal aortic aneurysm, without rupture; I48.91 Unspecified atrial fibrillation; Z79.01 Long term (current) use of anticoagulants; N40.0 Benign prostatic hyperplasia without lower urinary tract symptoms; I25.10 Atherosclerotic heart disease of native coronary artery without angina pectoris; Z95.828 Presence of other vascular implants and grafts; E78.5 Hyperlipidemia, unspecified; I11.0 Hypertensive heart disease with heart failure; I50.9 Heart failure, unspecified; Z95.820 Peripheral vascular angioplasty status with implants and grafts; Q53.9 Undescended testicle, unspecified; F17.220 Nicotine dependence, chewing tobacco, uncomplicated; F10.10 Alcohol abuse, uncomplicated; R10.9 Unspecified abdominal pain; M17.0 Bilateral primary osteoarthritis of knee; R07.9 Chest pain, unspecified; K21.9 Gastro-esophageal reflux disease without esophagitis; Z99.3 Dependence on wheelchair; R00.0 Tachycardia, unspecified; Z79.891 Long term (current) use of opiate analgesic; Z79.82 Long term (current) use of aspirin; I25.2 Old myocardial infarction; I44.0 Atrioventricular block, first degree; K59.00 Constipation, unspecified; R31.29 Other microscopic hematuria; I87.2 Venous insufficiency (chronic) (peripheral); S72.001D Fracture of unspecified part of neck of right femur, subsequent encounter for closed fracture with routine healing; X58.XXXD Exposure to other specified factors, subsequent encounter
CPT/HCPCS: 12345; 36415; 51702; 51798; 72131; 73502; 73562; 74174; 80048; 80053; 81001; 83735; 84484; 85025; 87086; 87426; 93005; 97110; 97116; 97162; 97166; 97530; 97535; 99281; C1776; J0690; J1170; J2370; J2405; J2704; J3010; J3490; Q9967

== ENCOUNTER → 2020-04-23 11:15 | Outpatient (BNVA) | payer MEDICARE, SELFPAY | PROVIDERS: PCP Family Medicine; Visit Provider Orthopaedic Surgery | DX: Z47.89 Encounter for other orthopedic aftercare (principal); Z96.642 Presence of left artificial hip joint; S72.001D Fracture of unspecified part of neck of right femur, subsequent encounter for closed fracture with routine healing; X58.XXXD Exposure to other specified factors, subsequent encounter | CPT/HCPCS: 73502 ==

== ENCOUNTER 2020-08-31 10:26 | Emergency (ER) | payer MEDICARE, SELFPAY ==
[2020-08-31 10:30] VITALS: BP 120/88; PULSE 119; RESP 22; O2SAT 96; BMI 25.8
[2020-08-31 10:37] VITALS: PULSE 122
--- NOTE | 2020-08-31 10:38 | W.ED.EXTPRO ---
HPI - Extremity Problem General: Chief complaint: Extremity Problem,Nontraumatic Stated complaint: KNEE/ LEG PAIN/ INTERMITTENT CHEST PAIN Time Seen by Provider: 08/31/20 10:38 History of Present Illness: HPI Narrative: Patient comes in today for complaints of right lower extremity redness and swelling. Patient reports symptoms to the right lower leg for the last 3 to 4 days. Patient has to use a walker and wheelchair at home for mobility. Patient also complains of some increased shortness of breath, chest discomfort, and abdominal discomfort. Patient appears chronically ill. Right lower extremity does have noticeable swelling and redness. Patient has a history of COPD, DVT in the lower extremities, osteoarthritis of the knee, peripheral vascular disease, BPH, chronic anticoagulation, hyperlipidemia, abdominal aortic aneurysm, and CHF. MD Complaint: extremity pain and extremity swelling Onset (ago): day(s) Pain Consistency: intermittent Location: right and lower extremity Quality: dull Relieving factors: nothing Exacerbating factors: weight bearing Associated symptoms: Reports chest pain and short of breath Review of Systems General: Reports: 10 or more systems reviewed and unremarkable except in HPI and below Card: Reports: chest pain Musc: Reports: other (Right lower leg redness and swelling.) [facility] ED PFSH: Medical History (Updated 08/31/20 @ 14:08 by ROBYN Paulino) Abdominal aortic aneurysm Infrarenal, 4.1 x 4.3 cm in 06/2019 BPH (benign prostatic hyperplasia) CAD (coronary artery disease) history of AR but details unknown Chronic edema DVT of lower extremity, bilateral With history of IVC filter and on Xarelto History of frostbite BLE HLD (hyperlipidemia) Hypertension Peripheral vascular disease With RLE stent and several angioplasty Undescended testes Surgical History History of exploratory laparotomy History of hernia repair History of orthopedic surgery Right leg after femur fracture S/P insertion of IVC (inferior vena caval) filter S/P peripheral artery angioplasty with stent placement Right superficial femoral artery Status post laparoscopic cholecystectomy For porcelain gallbladder and acute cholecystitis Family History Mother Diabetes Father Cancer prostate Social History Smoking and tobacco status: current every day smoker smokeless tobacco Smokeless tobacco user: snus Smokeless tobacco details: box per day Alcohol intake: current Alcohol type: hard liquor Lives independently: Yes Household members: none Marital status: Current occupational status: retired Physical Exam Const: COMMON NORMALS: no acute distress and patient oriented x3 GENERAL APPEARANCE: cooperative HENMT: COMMON NORMALS: normocephalic and Normal external nose present HEAD & SCALP: normal to inspection and normocephalic NOSE: Normal external nose present MOUTH: Normal oral and palatal mucosa present Eye: GENERAL EYE: appearance normal, both eyes and all related structures Neck/C-Spine: COMMON NORMALS: full ROM Lymph: LYMPHATIC: no lymphadenopathy noted Chest: COMMONS NORMALS: normal inspection of the chest Resp: COMMON NORMALS: normal respiratory effort EFFORT & INSPECTION: Yes able to speak in complete sentences AUSCULTATION: diminished lung sounds Cardio: COMMON NORMALS: regular rate and regular rhythm RATE: regular rate RHYTHM: regular rhythm GI: COMMON NORMALS: non-tender Back/Pelvis: COMMON NORMALS: thoracic and lumbar spine normal to inspection Extremity: NARRATIVE EXTREMITY EXAM: Redness and swelling to the right lower extremity. Patient has good range of motion of the knee. Swelling extends down into the foot. Neuro: COMMON NORMALS: patient oriented x3 and moves all extremities Psych: COMMON NORMALS: mental status grossly normal and cooperative Skin: COMMON NORMALS: no rashes or lesions noted GENERAL SKIN EXAM: no rashes or lesions noted Course ED course: 1400, reviewed CT scan with patient. No pulmonary embolism was noted. Discussed abnormalities to the liver and to his pancreas which may suggest a metastatic disease/cancer. Also discussed that the pancreas looked a little inflamed and may suggest some mild pancreatitis. I asked patient if he was able to eat and drink and he said that he was. I offered to admit patient to the hospital for concerns of pancreatitis but he refused at this time. Patient wants to follow-up with the [facility] and his primary care for further evaluation and treatment at this time. We will start patient on medication for his blood clot in the right leg. Vital Signs: Vital signs: Vital Signs Pulse Rate 122 H 08/31/20 10:37 Respiratory Rate 20 H 08/31/20 11:43 Blood Pressure 120/88 08/31/20 10:30 Pulse Oximetry 96 08/31/20 11:43 MDM - Extremity (Nontraumatic) MDM Narrative: Medical decision making narrative: Patient presents today with concerns of swelling and pain to right lower leg. On exam patient has some significant right lower redness and swelling. Pulses were intact. Respirations were even patient reported some increased shortness of breath along with some mid abdominal discomfort. Differential diagnosis includes not limited to ACS, pancreatitis, PE, DVT. Laboratory values noted elevation of D-dimer, negative troponin at the 2-hour, lipase was normal. Some elevation in liver enzymes ALT AST and alk phos was noted. Right lower extremity was positive for DVT. CT scan noted no PE but did note some abnormalities to the pancreas and liver suggesting metastatic disease, or focal pancreatitis. I reviewed the labs and x-rays with patient with recommendations for treatment with medications for pain and nausea as needed. I also recommended patient be treated with a anticoagulant Eliquis for his swelling and redness in his right lower extremity. I offered to admit patient to the hospital for further evaluation and treatment but he refused at this time. Patient reports that he has been eating and drinking without difficulty and feels more comfortable at home. Patient does understand that he needs to follow-up regarding to the abnormal on his CT scan. Lab Data: Labs: Lab Results 08/31/20 08/31/20 08/31/20 Range/Units 11:36 11:36 11:36 WBC 5.3 (4.0-10.0) 10^3/ uL RBC 5.02 (4.1-5.3) 10^6/u L Hgb 13.9 (11.7-16.6) g/dL Hct 43.0 (42.0-52.0) % MCV 85.7 (80-94) fL MCH 27.7 L (28.0-34.0) pg MCHC 32.3 (30.0-36.0) g/dL RDW 15.2 H (12.1-15.1) % Plt Count 169 (130-400) 10^3/c mm MPV 11.4 H (7.4-10.4) fL Neut % (Auto) 64.0 % Lymph % (Auto) 24.0 % [place] % (Auto) 8.0 % Eos % (Auto) 3.4 % Baso % (Auto) 0.4 % Neut # (Auto) 3.36 (1.8-7.7) 10^3/u L Lymph # (Auto) 1.3 (0.8-4.8) 10^3/u L [place] # (Auto) 0.4 (0.2-0.9) 10^3/u L Eos # (Auto) 0.2 (0.0-0.8) 10^3/u L Baso # (Auto) 0.0 (0.0-0.1) 10^3/u L Nucleated RBC % (a uto) 0 % Nucleated RBCs # 0.0 /100WBC PT 14.50 (12.1-14.9) SECO NDS INR 1.10 (0.8-1.2) APTT 26.2 (23.9-36.7) SECO NDS D-Dimer 10.79 H (0-0.59) ug/mIFE U Sodium 141 (136-145) mmol/L Potassium 3.8 (3.5-5.1) mmol/L Chloride 100 (98-107) mmol/L Carbon Dioxide 28 (22-29) mmol/L Anion Gap 16.8 (5-19) BUN 12 (8-23) mg/dL Creatinine 0.7 (0.7-1.2) mg/dL GFR Calculation Not Reportable Glucose 95 (65-115) mg/dL Calculated Osmolal ity 292 (285-295) mOsm/k g Lactate (0.5-2.2) mmol/L Calcium 8.6 (8.5-10.5) mg/dL Total Bilirubin 1.1 (0.15-1.2) mg/dL AST 99 H (0-40) U/L ALT 87 H (0-41) U/L Alkaline Phosphata se 267 H (40-130) IU/L Troponin T Baselin e (0-15) ng/L Troponin T 120 [place] (0-15) ng/L Delta Troponin T (0-10) ABS# NT-Pro-B Natriuret Pep 578 H (0-125) pg/mL Total Protein 6.8 (6.6-8.7) g/dL Albumin 4.3 (3.5-5.2) g/dL Globulin 2.5 (1.3-4.6) g/dL Lipase (13-60) U/L Urine Color Urine Appearance Urine pH Ur Specific Gravit y Urine Protein Urine Glucose (UA) Urine Ketones Urine Blood Urine Nitrate Urine Bilirubin Prot Sulfosalicyli c Acd Urine Urobilinogen Ur Leukocyte Kelle ase Urine RBC Urine WBC Ur Squamous Epith Cells Ur Transition Epit h Cell Ur Renal Epithelia l Cell Calcium Oxalate Cr ystal Uric Acid Crystals Triple Phos Dotty ls Other Crystals Amorphous Sediment Urine Bacteria Hyaline Casts Fine Granular Cast s Coarse Granular Ca sts RBC Casts Other Casts Urine Mucus Urine Trichomonas Urine Yeast Urine Sperm Ur Oval Fat Bodies 08/31/20 08/31/20 08/31/20 Range/Units 11:36 11:36 11:36 WBC (4.0-10.0) 10^3/ uL RBC (4.1-5.3) 10^6/u L Hgb (11.7-16.6) g/dL Hct (42.0-52.0) % MCV (80-94) fL MCH (28.0-34.0) pg MCHC (30.0-36.0) g/dL RDW (12.1-15.1) % Plt Count (130-400) 10^3/c mm MPV (7.4-10.4) fL Neut % (Auto) % Lymph % (Auto) % [place] % (Auto) % Eos % (Auto) % Baso % (Auto) % Neut # (Auto) (1.8-7.7) 10^3/u L Lymph # (Auto) (0.8-4.8) 10^3/u L [place] # (Auto) (0.2-0.9) 10^3/u L Eos # (Auto) (0.0-0.8) 10^3/u L Baso # (Auto) (0.0-0.1) 10^3/u L Nucleated RBC % (a uto) % Nucleated RBCs # /100WBC PT (12.1-14.9) SECO NDS INR (0.8-1.2) APTT (23.9-36.7) SECO NDS D-Dimer (0-0.59) ug/mIFE U Sodium (136-145) mmol/L Potassium (3.5-5.1) mmol/L Chloride (98-107) mmol/L Carbon Dioxide (22-29) mmol/L Anion Gap (5-19) BUN (8-23) mg/dL Creatinine (0.7-1.2) mg/dL GFR Calculation Glucose (65-115) mg/dL Calculated Osmolal ity (285-295) mOsm/k g Lactate 1.5 (0.5-2.2) mmol/L Calcium (8.5-10.5) mg/dL Total Bilirubin (0.15-1.2) mg/dL AST (0-40) U/L ALT (0-41) U/L Alkaline Phosphata se (40-130) IU/L Troponin T Baselin e 16 H (0-15) ng/L Troponin T 120 [place] (0-15) ng/L Delta Troponin T (0-10) ABS# NT-Pro-B Natriuret Pep (0-125) pg/mL Total Protein (6.6-8.7) g/dL Albumin (3.5-5.2) g/dL Globulin (1.3-4.6) g/dL Lipase 41 (13-60) U/L Urine Color Urine Appearance Urine pH Ur Specific Gravit y Urine Protein Urine Glucose (UA) Urine Ketones Urine Blood Urine Nitrate Urine Bilirubin Prot Sulfosalicyli c Acd Urine Urobilinogen Ur Leukocyte Kelle ase Urine RBC Urine WBC Ur Squamous Epith Cells Ur Transition Epit h Cell Ur Renal Epithelia l Cell Calcium Oxalate Cr ystal Uric Acid Crystals Triple Phos Dotty ls Other Crystals Amorphous Sediment Urine Bacteria Hyaline Casts Fine Granular Cast s Coarse Granular Ca sts RBC Casts Other Casts Urine Mucus Urine Trichomonas Urine Yeast Urine Sperm Ur Oval Fat Bodies 08/31/20 08/31/20 08/31/20 Range/Units 12:20 12:20 13:36 WBC (4.0-10.0) 10^3/ uL RBC (4.1-5.3) 10^6/u L Hgb (11.7-16.6) g/dL Hct (42.0-52.0) % MCV (80-94) fL MCH (28.0-34.0) pg MCHC (30.0-36.0) g/dL RDW (12.1-15.1) % Plt Count (130-400) 10^3/c mm MPV (7.4-10.4) fL Neut % (Auto) % Lymph % (Auto) % [place] % (Auto) % Eos % (Auto) % Baso % (Auto) % Neut # (Auto) (1.8-7.7) 10^3/u L Lymph # (Auto) (0.8-4.8) 10^3/u L [place] # (Auto) (0.2-0.9) 10^3/u L Eos # (Auto) (0.0-0.8) 10^3/u L Baso # (Auto) (0.0-0.1) 10^3/u L Nucleated RBC % (a uto) % Nucleated RBCs # /100WBC PT (12.1-14.9) SECO NDS INR (0.8-1.2) APTT (23.9-36.7) SECO NDS D-Dimer (0-0.59) ug/mIFE U Sodium (136-145) mmol/L Potassium (3.5-5.1) mmol/L Chloride (98-107) mmol/L Carbon Dioxide (22-29) mmol/L Anion Gap (5-19) BUN (8-23) mg/dL Creatinine (0.7-1.2) mg/dL GFR Calculation Glucose (65-115) mg/dL Calculated Osmolal ity (285-295) mOsm/k g Lactate (0.5-2.2) mmol/L Calcium (8.5-10.5) mg/dL Total Bilirubin (0.15-1.2) mg/dL AST (0-40) U/L ALT (0-41) U/L Alkaline Phosphata se (40-130) IU/L Troponin T Baselin e (0-15) ng/L Troponin T 120 [address] [place] 14.82 (0-15) ng/L Delta Troponin T -1.18 L (0-10) ABS# NT-Pro-B Natriuret Pep (0-125) pg/mL Total Protein (6.6-8.7) g/dL Albumin (3.5-5.2) g/dL Globulin (1.3-4.6) g/dL Lipase (13-60) U/L Urine Color Cancelled Yellow Urine Appearance Cancelled Clear Urine pH Cancelled 5 Ur Specific Gravit y Cancelled 1.025 Urine Protein Cancelled Neg Urine Glucose (UA) Cancelled Norm Urine Ketones Cancelled Negative Urine Blood Cancelled Neg Urine Nitrate Cancelled Negative Urine Bilirubin Cancelled Neg Prot Sulfosalicyli c Acd Cancelled Urine Urobilinogen Cancelled Norm Ur Leukocyte Kelle ase Cancelled Negative Urine RBC Cancelled Urine WBC Cancelled Ur Squamous Epith Cells Cancelled Ur Transition Epit h Cell Cancelled Ur Renal Epithelia l Cell Cancelled Calcium Oxalate Cr ystal Cancelled Uric Acid Crystals Cancelled Triple Phos Dotty ls Cancelled Other Crystals Cancelled Amorphous Sediment Cancelled Urine Bacteria Cancelled Hyaline Casts Cancelled Fine Granular Cast s Cancelled Coarse Granular Ca sts Cancelled RBC Casts Cancelled Other Casts Cancelled Urine Mucus Cancelled Urine Trichomonas Cancelled Urine Yeast Cancelled Urine Sperm Cancelled Ur Oval Fat Bodies Cancelled EKG Data^: EKG 1: Attestation: I personally reviewed and interpreted this EKG as follows: (EKG shows atrial flutter with rapid ventricular response of [address] elevation or ectopy otherwise is noted. No prior EKG is available immediately to review. EKG also notes an inferior and anteroseptal AR which is suggestive of being cold.) Discharge Plan Discharge Patient Disposition: Home Clinical Impression: Deep vein thrombosis of lower extremity Qualifiers: Affected thrombotic vein of extremity: unspecified vein of extremity Chronicity: acute Laterality: right Qualified Code(s): I82.401 - Acute embolism and thrombosis of unspecified deep veins of right lower extremity Pancreatitis Qualifiers: Chronicity: acute Pancreatitis type: unspecified pancreatitis type Acute pancreatitis complication: no infection or necrosis Qualified Code(s): K85.90 - Acute pancreatitis without necrosis or infection, unspecified Condition: Stable Prescriptions: New [place] DVT-PE Treat 30D Start 5 mg (74 tabs) tablets,dose pack See Rx Instructions .ROUTE .COMPLEX Qty: 74 RF: 0 hydrocodone-acetaminophen 5-325 mg tablet 1 tab PO Q6H PRN (Reason: pain) Qty: 14 RF: 0 ondansetron HCl 4 mg tablet 4 mg PO Q8H 3 Days Qty: 9 RF: 0 No Action losartan 50 mg Tablet 25 mg PO DAILY@1700 RF: 0 atorvastatin 40 mg Tablet 20 mg PO DAILY@1700 RF: 0 aspirin 81 mg Tablet,Delayed Release (Dr/Ec) 81 mg PO DAILY@1700 RF: 0 tamsulosin 0.4 mg Capsule 0.4 mg PO DAILY@1700 RF: 0 cholecalciferol (vitamin D3) [Vitamin D3] 25 mcg (1,000 unit) Tablet 25 mcg PO DAILY@1700 RF: 0 furosemide 40 mg tablet 40 mg PO DAILY@1700 RF: 0 Discharge Orders: Discharge ED (Routine); Ordered 08/31/20 Ordered By: Kevon Montiel Referrals: Elke Duran MD [Primary Care Provider] - Discharge Diet: Usual diet Discharge Activity: Increase activity as tolerated Patient Instructions: Deep Venous Thrombosis (ED), Opioid Safety Activity Restrictions/Additional Instructions: Home and rest. Elevate right leg. Take medications as directed. Drink plenty of water with medication. Follow-up with primary care in 2 to 3 days for recheck. Return to the emergency department for worsening symptoms or new concerns. Coding Level of Care Code ED Bottle Caser for Enzo Fwgustabo Exam Comprehensive
--- NOTE | 2020-08-31 10:43 | XR_ITS ---
WS: [id number] Exam: XR chest 1V portable [id number] Date/Time of Exam: 08/31/2020 10:43 AM Reason For Exam: dyspnea Comparison 10/19/2019. The lungs are clear and fully expanded. Normal cardiomediastinal silhouette for technique. No pleural effusions. Regional bony structures appear normal. Surgical clips in the right neck. XR/XR chest 1V portable [id number] IMPRESSION: 1. No acute cardiopulmonary finding.
--- NOTE | 2020-08-31 10:43 | USCV_ITS ---
Hao Esteban Age: 75 Gender: M : 1945 Exam Date: 08/31/2020 10:57 Ordering Phys: Kevon Montiel Technologist: GALA [place] [facility] [place]ication: SWELLING PROCEDURES: Venous duplex imaging was performed in only the right lower extremity. The following venous structures were evaluated: common femoral vein, profunda vein, proximal portion of the greater saphenous vein, superficial femoral vein, and the popliteal vein. In addition, the posterior tibial and peroneal trunk were evaluated. FINDINGS: Evidence of acute occlusive deep vein thrombosis in the right superficial femoral vein through the peroneal vein with abnormal flow dynamics. The right common femoral vein is adequately visualized with no evidence of deep vein thrombosis. Informed nurse in ER CONCLUSIONS Acute right lower extremity deep venous thrombosis. Patient nurse notified _after completion of the exam. Dr. Keisha Prado DO (Electronically Signed) Final Date: 31 Aug 2020 12:23 S
--- NOTE | 2020-08-31 10:45 | ECG_ITS ---
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 Measurements Intervals [place] Rate: 112 P: HI: QRS: -39 QRSD: 108 T: 62 QT: 319 QTc: 436 Interpretive Statements Sinus tachycardia LOW QRS VOLTAGE [QRS DEFLECTION < 0.5/1.0 mV IN LIMB/CHEST LEADS] INFERIOR MYOCARDIAL INFARCTION [40+ ms Q WAVE AND/OR ST/T ABNORMALITY IN II/aVF], PROBABLY OLD ANTEROSEPTAL MYOCARDIAL INFARCTION [40+ ms Q WAVE IN V1-V4], PROBABLY OLD Compared to ECG 04/06/2020 14:57:22 Sinus rhythm no longer present First degree AV block no longer present T-wave abnormality no longer present Possible ischemia no longer present Myocardial infarct finding still present Electronically Signed On 09-01-2020 17:30:51 CDT by Sergey Chaves M.D. [email or web address]/store/[id number]
--- NOTE | 2020-08-31 11:07 | CT_ITS ---
WS: [id number] CTA CHEST WITH CT ABDOMEN AND PELVIS. HISTORY: DVT, dyspnea and abdominal pain. TECHNIQUE: CT angiogram is performed through the chest. Additional imaging is performed through the a bdomen and pelvis with IV contrast. Sagittal and coronal reformats have been submitted. MIP imaging also reviewed. All CT scans at [facility] use at least one of these dose optimization tech niques: automated exposure control; mA and/or kV adjustment per patient size (includes targeted exams where dose is matched to clinical indication); or iterative reconstruction. Contrast: Omnipaque 350; 95 cc IV. DLP: 1499.28 mGy.cm COMPARISON: 04/01/2020 Chest CTA: Normal size pulmonary artery. No DVT. Mild atherosclerosis aorta with no aneurysm. Chronic emphysema. No pneumonia, pulmonary mass or nodule. No pericardial or pleural effusion or pneumothora x. Heart is normal size with no RIGHT heart strain. No adenopathy. Abdomen CT: Numerous low-attenuation masses throughout the liver. The largest in the central liver me asures 2.6 x 2.1 cm. There is also intrahepatic duct dilatation. Common bile duct is dilated. Ill-def ined cystic mass in the pancreatic head extending into the body and probably involving the distal com mon bile duct. Pancreatic mass measures 3.4 x 2.2 cm and may extend into the common bile duct. There is a small nodule soft tissue enhancement in the distal common bile duct. No significant dilatation o f the pancreatic duct. There is mild inflammation surrounding the pancreas. Spleen is normal size. No adrenal mass. Negative RIGHT kidney. Cystic mass associated with the LEFT kidney measuring 3.7 x 3.5 cm. No obstruction. Atherosclerotic changes throughout the aorta. Infrarenal abdominal aortic aneury sm with a maximum diameter of 4.6 cm. Asymmetric thrombus within the aorta with a patent lumen measur ing up to 1.8 cm. No ascites or significant adenopathy. Suspect there may be a small lymph node adjacent to the pancrea tic mass. No GI tract obstruction. Numerous diverticula in the sigmoid colon. The appendix is normal. Pelvic CT: Well-distended urinary bladder. No free fluid in the pelvis. Portions of the pelvis and pr ostate gland are obscured by artifact from the prosthesis in the LEFT hip. No osteoblastic or osteolytic bone disease. CT/CT angio chest w abd pel w con IMPRESSION: 1. No pulmonary embolism. 2. Pancreatic head/body mass with associated adjacent inflammation measures 3. 4 x 2.2 cm. Differential includes pancreatic neoplasm or acute focal pancreatit is. Multiple lesions in the liver suspicious for metastatic disease. 3. Intrahepatic and extra hepatic bile duct dilatation. Favor nodule in the di stal common bile duct may be associated with the pancreatic lesion causing the ductal obstruction. Common bile duct measures 10 mm. 4. Abdominal aortic aneurysm with a maximum diameter 4.6 cm. No change since 06/02/2019. 5. Sigmoid diverticulosis without acute diverticulitis. 6. IVC filter. 7. Prior cholecystectomy.
[2020-08-31 11:43] VITALS: RESP 20; O2SAT 96
[2020-08-31] MEDS: morphine 4 mg/mL SDV 1 mL 2 MG IVP (11:43)
[2020-08-31] MEDS: ondansetron 2 mg/ML SDV 2 mL 4 MG IVP (11:43)
[2020-08-31 11:55] LABS: Basophils % 0.4 %; Eosinophils # 0.2 10^3/uL (0.0-0.8); Eosinophils % 3.4 %; Hemoglobin 13.9 g/dL (11.7-16.6); Lymphocytes # 1.3 10^3/uL (0.8-4.8); Mean Corpuscular HGB Conc 32.3 g/dL (30.0-36.0); Mean Corpuscular Hemoglobin 27.7 pg (28.0-34.0); Mean Corpuscular Volume 85.7 fL (80-94); Mean Platelet Volume 11.4 fL (7.4-10.4); Monocytes # 0.4 10^3/uL (0.2-0.9); Neutrophils # 3.36 10^3/uL (1.8-7.7); Nucleated Red Blood Cells % 0 %; Platelet Count 169 10^3/cmm (130-400); Red Blood Count 5.02 10^6/uL (4.1-5.3); Red Cell Distribution Width 15.2 % (12.1-15.1); White Blood Count 5.3 10^3/uL (4.0-10.0)
[2020-08-31 12:12] LABS: Partial Thromboplastin Time 26.2 SECONDS (23.9-36.7)
[2020-08-31 12:20] LABS: Lactate (Lactic Acid level) 1.5 mmol/L (0.5-2.2)
[2020-08-31 12:21] LABS: D Dimer 10.79 ug/mIFEU (0-0.59)
[2020-08-31 12:36] LABS: Alanine Aminotransferase 87 U/L (0-41); Albumin Level 4.3 g/dL (3.5-5.2); Alkaline Phosphatase 267 IU/L (40-130); Anion Gap 16.8 (5-19); Aspartate Amino Transferase 99 U/L (0-40); Blood Urea Nitrogen 12 mg/dL (8-23); Calcium 8.6 mg/dL (8.5-10.5); Carbon Dioxide 28 mmol/L (22-29); Chloride 100 mmol/L (98-107); Globulin 2.5 g/dL (1.3-4.6); Glucose 95 mg/dL (65-115); NT Pro B Type Natriuretic Pept 578 pg/mL (0-125); Osmolality Calculated 292 mOsm/kg (285-295); Potassium 3.8 mmol/L (3.5-5.1); Sodium 141 mmol/L (136-145); Total Bilirubin 1.1 mg/dL (0.15-1.2); Total Protein 6.8 g/dL (6.6-8.7)
[2020-08-31 13:13] LABS: Troponin(5th) Baseline 16 ng/L (0-15)
[2020-08-31] MEDS: iohexol 350 mg/mL 100 mL Btl IV (13:14)
--- NOTE | 2020-08-31 13:25 | ECG_ITS ---
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 Measurements Intervals [place] Rate: 106 P: 207 MD: 141 QRS: -9 QRSD: 113 T: 51 QT: 361 QTc: 479 Interpretive Statements SINUS TACHYCARDIA ANTEROSEPTAL MYOCARDIAL INFARCTION , OF INDETERMINATE AGE [40+ ms Q WAVE IN V1-V4] Compared to ECG 08/31/2020 11:21:48 Atrial flutter no longer present Myocardial infarct finding still present Electronically Signed On 09-01-2020 17:42:34 CDT by Sergey Chaves M.D. [email or web address] [facility] hospital.[email or web address]/store/OM/[id number]
[2020-08-31 13:27] LABS: Add Urine Microscopic? NO; Bilirubin Urine Neg (Negative); Blood Urine Neg (Negative); Glucose Urine UA Norm (Normal); Ketones Urine Negative (Negative); Leukocyte Esterase Urine Negative (Negative); Nitrate Urine Negative (Negative); Protein Urine Neg (Negative); Specific Gravity, Urine 1.025 (1.005-1.030); Urine Appearance Clear (CLEAR); Urine Color Yellow (Yellow); Urobilinogen Urine Norm (Negative); pH Urine 5 (5-7)
[2020-08-31 13:29] LABS: Charge for UA Resulting for Rev
[2020-08-31 14:23] LABS: Troponin 5 2HR 14.82 ng/L (0-15)
[2020-08-31 14:26] LABS: Troponin 5 2HR Delta -1.18 ABS# (0-10)
[2020-08-31] MEDS: apixaban 5 mg Tablet 10 MG PO (14:27)
[2020-08-31 14:29] VITALS: BP 93/69; PULSE 116; O2SAT 92
[2020-08-31 14:29] LABS: Lipase 41 U/L (13-60)
== END 2020-08-31 14:40 | disposition home or self-care (01) ==
PROVIDERS: Emergency Provider Nurse Practitioner Family; PCP Family Medicine
DX: I82.401 Acute embolism and thrombosis of unspecified deep veins of right lower extremity (principal); K85.90 Acute pancreatitis without necrosis or infection, unspecified; Z79.82 Long term (current) use of aspirin; I25.10 Atherosclerotic heart disease of native coronary artery without angina pectoris; E78.5 Hyperlipidemia, unspecified; F17.220 Nicotine dependence, chewing tobacco, uncomplicated
CPT/HCPCS: 36415; 71045; 71275; 74177; 80053; 81003; 83605; 83690; 83880; 84484; 85025; 85378; 85610; 85730; 87040; 93005; 93971; 96374; 96375; 99284; J2270; J2405; Q9967

== ENCOUNTER 2020-09-27 13:26 | Inpatient (IN) | payer MEDICARE, SELFPAY ==
[2020-09-27 13:27] VITALS: BP 123/86; PULSE 96; RESP 18; TEMP 36.6; O2SAT 95; BMI 25.1
[2020-09-27 13:31] VITALS: BP 123/86; PULSE 89; O2SAT 96
--- NOTE | 2020-09-27 13:52 | USCV_ITS ---
Hao Esteban Age: 75 Gender: M : 1945 Exam Date: 09/27/2020 14:37 Ordering Phys: Minerva Grijalva Technologist: Franci Dhaliwal [place] [facility] [place] Indication: RLE PAIN AND FOOT DISCOLORATION Risk Factors: Previous Vascular Surgery: RIGHT LEFT Waveform Velocity (cm/s) Velocity (cm/s) Waveform Triphasic 64.0 Iliac Prox Triphasic Iliac Mid 66.9 Triphasic 82.3 Iliac Distal Triphasic 104.3 BAR WELDER Triphasic 89.3 SFA Prox Triphasic 97.0 SFA Mid Triphasic 86.3 SFA Dist Biphasic 31.5 POP Triphasic 86.2 INSPECTOR HOT FORGINGS Triphasic DPA FINDINGS UNABLE TO OBTAIN SALLY DUE TO PT HAVING A DVT Mild diffuse plaques on the iliac and femoral arteries on the right side Normal Doppler flow velocities and Doppler waveforms. CONCLUSIONS No significant arterial obstruction, based on the above findings. Mild diffuse plaques in the iliac and femoral artery on the right side. No SALLY was performed due to technical issues Dr Simon Flores MD FACC (Electronically Signed) Final Date: 27 September 2020 17:21 S
--- NOTE | 2020-09-27 13:53 | ED_ITS ---
Documented by User: LINDA Cardoso 09/28/20 07:07 HPI - Extremity Problem General: Chief complaint: Extremity Problem,Nontraumatic Stated complaint: FOOT, LEG PAIN Time Seen by Provider: 09/27/20 13:31 Source: patient and family Mode of arrival: wheelchair Limitations: no limitations History of Present Illness: HPI Narrative: Patient is a 75-year-old male who presents to ED today for evaluation of right foot pain and color changes. Patient was seen here approximately a month ago and diagnosed with a DVT to his right lower extremity. He was placed on Eliquis. He also underwent CTA imaging of his chest abdomen/pelvis which showed a possible pancreatic mass with metastasis to the liver. He was to recommended follow-up as an outpatient. F amily member in the room states that over the past 2 days patient has been extremely uncomfortable regarding his right foot. She has began noticing black areas to the toes into the dorsal aspect. He had known PVD but has never had color changes like this. She states he isn't eating well. He lives alone and states she doesn't feel like he is caring for himself well. He reports taking his Eliquis as prescribed but family member doubts the truthfulness of this. Of note-patient mentioned he does not want treatment for the probable pancreatic/liver cancer. PMH significant for: atrial fib, AAA, hyperlipidemia, history of bilateral LE DVTs with IVC filter (current known DVT to R LE on Eliquis), CAD, L hip arthoplasty, and PVD. MD Complaint: extremity pain and extremity swelling Onset (ago): day(s) Pain Consistency: constant Location: right and lower extremity Quality: burning and sharp Radiation: none Relieving factors: nothing Exacerbating factors: weight bearing, walking and palpation Associated symptoms: Reports no associated symptoms; Deny chest pain or fever(s) Review of Systems Const: Denies: fever(s), chills, body aches, fatigue or malaise Eyes: Denies: change in vision or blurry vision Card: Reports: leg pain with exertion and acrocyanosis (R foot); Denies: chest pain, palpitations, lightheadedness, syncope, pre-syncope, dyspnea on exertion or orthopnea Resp: Denies: dyspnea GI: Denies: abdominal pain (family member states he has been complaining of this), nausea, vomiting or change in stool character Musc: Reports: extremity pain and extremity swelling Skin/Breast: Reports: new lesions (R foot) Neuro: Reports: sensory changes; Denies: dizziness PFSH ED PFSH: Medical History (Updated 09/27/20 @ 23:47 by Kylie Marinelli MD) Abdominal aortic aneurysm Infrarenal, 4.1 x 4.3 cm in 06/2019 BPH (benign prostatic hyperplasia) CAD (coronary artery disease) history of [place] but details unknown Chronic edema DVT of lower extremity, bilateral With history of IVC filter and on Xarelto History of frostbite BLE HLD (hyperlipidemia) Hypertension Peripheral vascular disease With RLE stent and several angioplasty Undescended testes Surgical History History of exploratory laparotomy History of hernia repair History of orthopedic surgery Right leg after femur fracture S/P insertion of IVC (inferior vena caval) filter S/P peripheral artery angioplasty with stent placement Right superficial femoral artery Status post laparoscopic cholecystectomy For porcelain gallbladder and acute cholecystitis Family History Mother Diabetes Father Cancer prostate Social History Smoking and tobacco status: current every day smoker smokeless tobacco Smokeless tobacco user: snus Smokeless tobacco details: box per day Alcohol intake: current Alcohol type: hard liquor Lives independently: Yes Household members: none Marital status: Current occupational status: retired Physical Exam Const: COMMON NORMALS: no acute distress, patient oriented x3, no limitations and alert GENERAL APPEARANCE: cooperative ORIENTATION/CONSCIOUSNESS: Yes awake, Yes oriented to person, Yes oriented to place and Yes oriented to time Resp: COMMON NORMALS: normal respiratory effort and clear to auscultation bilaterally AUSCULTATION: clear to auscultation bilaterally Cardio: COMMON NORMALS: regular rate and regular rhythm RATE: regular rate RHYTHM: regular rhythm GI: COMMON NORMALS: Normal to inspection, nondistended, normoactive bowel sounds present, Soft to palpation, non-tender, No hepatosplenomegaly present and no masses PALPATION: Yes Soft to palpation and Yes No hepatosplenomegaly present Extremity: NARRATIVE EXTREMITY EXAM: calf circumference R>L; reports pain to R calf; he has significant redness throughout R foot and is very tender to the touch; DP/PT pulses are not appreciated; he has areas of black to distal toes and dorsal foot Neuro: COMMON NORMALS: patient oriented x3 SENSORIUM/ORIENTATION: Yes alert, Yes oriented to person, Yes oriented to place and Yes oriented to time Course ED course: Spoke to Dr. Spring about starting patient on Lovenox given his platelet count of 59,000. He recommended holding off until we get results of CTA run off Consultations: Consultation #1: Dr. Hayes-recommends CTA abdominal aorta with run-off; if normal he could follow up as an outpatient; recommended switching patient to Xarelto Vital Signs: Vital signs: Vital Signs Temperature 98 F 09/28/20 02:58 Pulse Rate 74 09/28/20 05:33 Respiratory Rate 20 H 09/28/20 02:58 Blood Pressure 113/77 09/28/20 02:58 Pulse Oximetry 91 09/28/20 02:58 MDM - Extremity (Nontraumatic) MDM Narrative: Medical decision making narrative: Care will be transferred to Landon Banks PA-C pending CTA aorta with run off. Lovenox/Heparin on hold now due to pts thrombocytopenia. Plan will be to discuss best course of anti-coagulation with hospitalist. Lab Data: Labs: Lab Results 09/27/20 09/27/20 09/27/20 Range/Units 14:12 14:12 14:12 WBC 7.1 (4.0-10.0) 10^3/ uL RBC 5.11 (4.1-5.3) 10^6/u L Hgb 14.2 (11.7-16.6) g/dL Hct 44.0 (42.0-52.0) % MCV 86.1 (80-94) fL MCH 27.8 L (28.0-34.0) pg MCHC 32.3 (30.0-36.0) g/dL RDW 15.8 H (12.1-15.1) % Plt Count 59 L (130-400) 10^3/c mm MPV 12.3 H (7.4-10.4) fL Neut % (Auto) 77.1 % Lymph % (Auto) 12.3 % [place] % (Auto) 8.8 % Eos % (Auto) 1.3 % Baso % (Auto) 0.1 % Neut # (Auto) 5.50 (1.8-7.7) 10^3/u L Lymph # (Auto) 0.9 (0.8-4.8) 10^3/u L [place] # (Auto) 0.6 (0.2-0.9) 10^3/u L Eos # (Auto) 0.1 (0.0-0.8) 10^3/u L Baso # (Auto) 0.0 (0.0-0.1) 10^3/u L Nucleated RBC % (a uto) 0 % Nucleated RBCs # 0.0 /100WBC PT 17.70 H (12.1-14.9) SECO NDS INR 1.42 H (0.8-1.2) APTT 30.9 (23.9-36.7) SECO NDS Sodium 141 (136-145) mmol/L Potassium 3.7 (3.5-5.1) mmol/L Chloride 97 L (98-107) mmol/L Carbon Dioxide 30 H (22-29) mmol/L Anion Gap 17.7 (5-19) BUN 17 (8-23) mg/dL Creatinine 0.9 (0.7-1.2) mg/dL GFR Calculation Not Reportable Glucose 109 (65-115) mg/dL Calculated Osmolal ity 294 (285-295) mOsm/k g Calcium 9.0 (8.5-10.5) mg/dL Total Bilirubin 1.6 H (0.15-1.2) mg/dL AST 31 (0-40) U/L ALT 45 H (0-41) U/L Alkaline Phosphata se 355 H (40-130) IU/L Total Protein 7.7 (6.6-8.7) g/dL Albumin 3.8 (3.5-5.2) g/dL Globulin 3.9 (1.3-4.6) g/dL Lipase (13-60) U/L 09/27/20 09/27/20 Range/Units 14:12 22:16 WBC 6.8 (4.0-10.0) 10^3/ uL RBC 4.86 (4.1-5.3) 10^6/u L Hgb 13.6 (11.7-16.6) g/dL Hct 41.8 L (42.0-52.0) % MCV 86.0 (80-94) fL MCH 28.0 (28.0-34.0) pg MCHC 32.5 (30.0-36.0) g/dL RDW 15.8 H (12.1-15.1) % Plt Count 66 L (130-400) 10^3/c mm MPV 13.4 H (7.4-10.4) fL Neut % (Auto) 71.3 % Lymph % (Auto) 16.9 % [place] % (Auto) 8.7 % Eos % (Auto) 2.2 % Baso % (Auto) 0.3 % Neut # (Auto) 4.86 (1.8-7.7) 10^3/u L Lymph # (Auto) 1.2 (0.8-4.8) 10^3/u L [place] # (Auto) 0.6 (0.2-0.9) 10^3/u L Eos # (Auto) 0.2 (0.0-0.8) 10^3/u L Baso # (Auto) 0.0 (0.0-0.1) 10^3/u L Nucleated RBC % (a uto) 0 % Nucleated RBCs # 0.0 /100WBC PT (12.1-14.9) SECO NDS INR (0.8-1.2) APTT (23.9-36.7) SECO NDS Sodium (136-145) mmol/L Potassium (3.5-5.1) mmol/L Chloride (98-107) mmol/L Carbon Dioxide (22-29) mmol/L Anion Gap (5-19) BUN (8-23) mg/dL Creatinine (0.7-1.2) mg/dL GFR Calculation Glucose (65-115) mg/dL Calculated Osmolal ity (285-295) mOsm/k g Calcium (8.5-10.5) mg/dL Total Bilirubin (0.15-1.2) mg/dL AST (0-40) U/L ALT (0-41) U/L Alkaline Phosphata se (40-130) IU/L Total Protein (6.6-8.7) g/dL Albumin (3.5-5.2) g/dL Globulin (1.3-4.6) g/dL Lipase 22 (13-60) U/L Imaging Data^: US R LE arterial : My impression: Per US-no acute arterial occlusion noted US R LE venous: Radiologist's impression: [email or web address], [place] [email or web address] ReportSigned Patient: Prakash Esteban RUnit #: [id number]: 1945cct#:[id number]/Sex: 75 / MADM Date: 09/27/20Loc: ERRoom/Bed:Attending Dr: Ordering Provider/Ordering MD: Minerva Grijalva Date of Service: 09/27/20 Procedure(s): [place] [address] Accession Number(s): [id number] Report Number: [id number] Prakash Esteban Age: 75 Gender: M : 1945 Exam Date: 09/27/2020 14:22 Ordering Phys: Minerva Grijalva Technologist: Franci Dhaliwal Exam Location: [facility] [place] Indication: RLE PAIN, H/O DVT ON BLOOD THINNERS HISTORY: Lower extremity swelling. Lower extremity pain. PROCEDURES: Venous duplex imaging was performed in only the right lower extremity. The following venous structures were evaluated: common femoral vein, profunda vein, proximal portion of the greater saphenous vein, superficial femoral vein, and the popliteal vein. In addition, the posterior tibial and peroneal trunk were evaluated. Serial compression, augmentation maneuvers, and spectral Doppler flow evaluation were performed. FINDINGS: Occlusive , contimuous DVT SEEN IN RLE FROM RIGHT ILIAC, GROCERY MANAGER, GSVT FROM JX TO ANKLE, PROFUNDA, SFV PROX-DIST, POP V, PTV, AND PERN V CONCLUSIONS Acute right lower extremity deep venous thrombosis. Dr. Keisha Prado DO (Electronically Signed) Final Date: 27 September 2020 15:06 S CTA chest/abdomen/pelvis: Radiologist's impression: [email or web address] [address] [place] [address] CT Scan Report Signed with Addenda Patient: Prakash Esteban Unit #: [id number] : 1945 Age/Sex: 75 / M ADM Date: 09/27/20 Loc: ER Room/Bed: Attending Dr: Ordering Provider/Ordering MD: Minerva Grijalva Date of Service: 09/27/20 Procedure(s): CT angio chest abdomen pelvis Accession Number(s): [id number] Report Number: [id number] ADDENDUM WS: [id number] Addendum. Addendum Dictated By: Keisha Prado DO Addendum Signed By: Keisha Prado DO Signed Date/Time: 09/27/20 1 619 Addendum Cosigned By: ADDENDUM CT/CT angio chest abdomen pelvis IMPRESSION: #5 Nonocclusive RIGHT common femoral VEIN DVT. Addendum Dictated By: Keisha Prado DO Addendum Signed By: Keisha Prado DO Signed Date/Time: 09/27/20 1 622 Addendum Cosigned By: WS: [id number] CTA CHEST, abdomen and pelvis. HISTORY: Abdominal pain. TECHNIQUE: CT angiogram is performed through the chest, abdomen and pelvis. Sagittal and coronal reformats have been submitted. MIP imaging also reviewed. All CT scans at [facility] use at least one of these dose optimization techniques: automated exposure control; mA and/or kV adjustment per patient size (includes targeted exams where dose is matched to clinical indication); or iterative reconstruction. Contrast: Omnipaque 350; 95 cc IV. DLP: 2191.26 mGy.cm COMPARISON: 08/31/2020 Chest CTA: Good opacification of the pulmonary arteries. No pulmonary embolism. Normal-sized thoracic aorta. Mild atherosclerosis of aorta. Lungs are clear. No pneumonia or nodule or effusion. No mediastinal or hilar adenopathy. There is a small hiatal hernia. Abdomen and pelvis CT angiogram: Patient has a known large abdominal aortic aneurysm. Maximum transverse diameter of the infrarenal aorta is 4.6 cm which is similar to the prior study. There is a large amount of circumferential thrombus with which is asymmetric. Smallest diameter of the enhancing lumen is 1.7 cm. Tortuous iliac arteries but they are patent. Confluent areas of decreased attenuation throughout the liver. Highly suspicious for metastatic disease. These findings were described on the prior study of 08/31/2020 and not as well visualized on the CT angiogram. There is a bile duct dilatation centrally. Soft tissue mass involving the head and uncinate of pancreas is again identified and probably partially obstructing the common bile duct. There is encasement of several small perforating branches surrounding the pancreas. Mass is probably not increased in size. No adrenal mass. There are small lymph nodes around the celiac axis and SMA. Ovoid lymph node at the GE junction and the retrocrural fat. Stable LEFT renal cyst. No GI tract obstruction. Diverticular disease but no acute diverticulitis. No GI tract obstruction. There is an IVC filter present. Enlarged RIGHT femoral artery with a filling defect consistent with known DVT described today. Hardware in each hip. CT/CT angio chest abdomen pelvis IMPRESSION: 1. No pulmonary embolism. 2. Infrarenal abdominal aortic aneurysm is stable with a maximum diameter of 4.6 cm. 3. Known metastatic lesions with bile duct dilatation involving the liver. Confluent sites very suspicious for metastatic disease. 4. Known lobulated mass involving the pancreatic head and uncinate process with adjacent small lymph nodes. Favor pancreatic carcinoma. 5. Nonocclusive RIGHT common femoral artery DVT. 6. IVC filter in good position. 7. Prior cholecystectomy. Dictated By: Keisha Prado DO Signed By: Keisha Prado DO Signed Date/Time: 09/27/20 1544 DD/ 1530 Discharge Plan Discharge Patient Disposition: Placed in Observation Admit Provider: Kylie Marinelli Clinical Impression: Deep vein thrombosis of lower extremity Sign Out Sign Out Data: Patient Sign Out occurred on 09/27/20 at 17:14. Patient's care was discussed, and care was transferred from to LINDA Rock. Coding Level of Care Code ED In Classroom Tutor for Chg Fwd Exam Expanded Problem Focused Documented by User: LINDA Rock 09/28/20 02:00 HPI - Extremity Problem General: Chief complaint: Extremity Problem,Nontraumatic Stated complaint: FOOT, LEG PAIN Time Seen by Provider: 09/27/20 13:31 PFSH ED PFSH: Medical History (Updated 09/27/20 @ 23:47 by Kylie Marinelli MD) Abdominal aortic aneurysm Infrarenal, 4.1 x 4.3 cm in 06/2019 BPH (benign prostatic hyperplasia) CAD (coronary artery disease) history of [place] but details unknown Chronic edema DVT of lower extremity, bilateral With history of IVC filter and on Xarelto History of frostbite BLE HLD (hyperlipidemia) Hypertension Peripheral vascular disease With RLE stent and several angioplasty Undescended testes Surgical History History of exploratory laparotomy History of hernia repair History of orthopedic surgery Right leg after femur fracture S/P insertion of IVC (inferior vena caval) filter S/P peripheral artery angioplasty with stent placement Right superficial femoral artery Status post laparoscopic cholecystectomy For porcelain gallbladder and acute cholecystitis Family History Mother Diabetes Father Cancer prostate Social History Smoking and tobacco status: current every day smoker smokeless tobacco Smokeless tobacco user: snus Smokeless tobacco details: box per day Alcohol intake: current Alcohol type: hard liquor Lives independently: Yes Household members: none Marital status: Current occupational status: retired Course Vital Signs: Vital signs: Vital Signs Temperature 98 F 09/28/20 02:58 Pulse Rate 74 09/28/20 05:33 Respiratory Rate 20 H 09/28/20 02:58 Blood Pressure 113/77 09/28/20 02:58 Pulse Oximetry 91 09/28/20 02:58 MDM - Extremity (Nontraumatic) Lab Data: Labs: Lab Results 09/27/20 09/27/20 09/27/20 Range/Units 14:12 14:12 14:12 WBC 7.1 (4.0-10.0) 10^3/ uL RBC 5.11 (4.1-5.3) 10^6/u L Hgb 14.2 (11.7-16.6) g/dL Hct 44.0 (42.0-52.0) % MCV 86.1 (80-94) fL MCH 27.8 L (28.0-34.0) pg MCHC 32.3 (30.0-36.0) g/dL RDW 15.8 H (12.1-15.1) % Plt Count 59 L (130-400) 10^3/c mm MPV 12.3 H (7.4-10.4) fL Neut % (Auto) 77.1 % Lymph % (Auto) 12.3 % [place] % (Auto) 8.8 % Eos % (Auto) 1.3 % Baso % (Auto) 0.1 % Neut # (Auto) 5.50 (1.8-7.7) 10^3/u L Lymph # (Auto) 0.9 (0.8-4.8) 10^3/u L [place] # (Auto) 0.6 (0.2-0.9) 10^3/u L Eos # (Auto) 0.1 (0.0-0.8) 10^3/u L Baso # (Auto) 0.0 (0.0-0.1) 10^3/u L Nucleated RBC % (a uto) 0 % Nucleated RBCs # 0.0 /100WBC PT 17.70 H (12.1-14.9) SECO NDS INR 1.42 H (0.8-1.2) APTT 30.9 (23.9-36.7) SECO NDS Sodium 141 (136-145) mmol/L Potassium 3.7 (3.5-5.1) mmol/L Chloride 97 L (98-107) mmol/L Carbon Dioxide 30 H (22-29) mmol/L Anion Gap 17.7 (5-19) BUN 17 (8-23) mg/dL Creatinine 0.9 (0.7-1.2) mg/dL GFR Calculation Not Reportable Glucose 109 (65-115) mg/dL Calculated Osmolal ity 294 (285-295) mOsm/k g Calcium 9.0 (8.5-10.5) mg/dL Total Bilirubin 1.6 H (0.15-1.2) mg/dL AST 31 (0-40) U/L ALT 45 H (0-41) U/L Alkaline Phosphata se 355 H (40-130) IU/L Total Protein 7.7 (6.6-8.7) g/dL Albumin 3.8 (3.5-5.2) g/dL Globulin 3.9 (1.3-4.6) g/dL Lipase (13-60) U/L 09/27/20 09/27/20 Range/Units 14:12 22:16 WBC 6.8 (4.0-10.0) 10^3/ uL RBC 4.86 (4.1-5.3) 10^6/u L Hgb 13.6 (11.7-16.6) g/dL Hct 41.8 L (42.0-52.0) % MCV 86.0 (80-94) fL MCH 28.0 (28.0-34.0) pg MCHC 32.5 (30.0-36.0) g/dL RDW 15.8 H (12.1-15.1) % Plt Count 66 L (130-400) 10^3/c mm MPV 13.4 H (7.4-10.4) fL Neut % (Auto) 71.3 % Lymph % (Auto) 16.9 % [place] % (Auto) 8.7 % Eos % (Auto) 2.2 % Baso % (Auto) 0.3 % Neut # (Auto) 4.86 (1.8-7.7) 10^3/u L Lymph # (Auto) 1.2 (0.8-4.8) 10^3/u L [place] # (Auto) 0.6 (0.2-0.9) 10^3/u L Eos # (Auto) 0.2 (0.0-0.8) 10^3/u L Baso # (Auto) 0.0 (0.0-0.1) 10^3/u L Nucleated RBC % (a uto) 0 % Nucleated RBCs # 0.0 /100WBC PT (12.1-14.9) SECO NDS INR (0.8-1.2) APTT (23.9-36.7) SECO NDS Sodium (136-145) mmol/L Potassium (3.5-5.1) mmol/L Chloride (98-107) mmol/L Carbon Dioxide (22-29) mmol/L Anion Gap (5-19) BUN (8-23) mg/dL Creatinine (0.7-1.2) mg/dL GFR Calculation Glucose (65-115) mg/dL Calculated Osmolal ity (285-295) mOsm/k g Calcium (8.5-10.5) mg/dL Total Bilirubin (0.15-1.2) mg/dL AST (0-40) U/L ALT (0-41) U/L Alkaline Phosphata se (40-130) IU/L Total Protein (6.6-8.7) g/dL Albumin (3.5-5.2) g/dL Globulin (1.3-4.6) g/dL Lipase 22 (13-60) U/L Imaging Data^: Other CT: Attestation: I personally reviewed and interpreted this imaging study as follows: Radiologist's impression: [facility] Final Radiology Report Call: [phone] assistance Online chat: [email or web address] Name: PRAKASH ESTEBAN Age: 75Years M Date: 09/27/2020 SSN: [id number] : 1945 Study: CTA ABD/AORTA & BILAT LWR EXTREM RUN OFF Requesting Physician: Minerva Grijalva Images: [id number] Add?l Studies: Provided Clinical History: runoff bilateral LEs; eval for blood supply to R LE Procedure Accession CTDI Vol (mGy) DLP (mGycm) CTA ABD/AORTA & BILAT LWR EXTREM RUN OFF [id number] A 3687.78 Page 1 of 3 PROCEDURE INFORMATION: Exam: CTA Angiogram of the Abdominal Aorta and Bilateral Lower Extremities (Run- off) With IV Contrast Exam date and time: 09/27/2020 3:34 PM Age: 75 years old Clinical indication: Foot pain; Right; Prior surgery; Surgery type: Ivc filter, RT femur, left hip; Patient HX: Prior CT scan done today with contrast; Additional info: Runoff bilateral les; Eval for blood supply to R le TECHNIQUE: Imaging protocol: CT angiogram of the abdominal aorta, pelvis and bilateral lower extremities with IV iodinated contrast. 3D rendering (Not supervised by radiologist): MIP and/or 3D reconstructed images were created by the technologist. Total images: 1485 Radiation optimization: All CT scans at this facility use at least one of these dose optimization techniques: automated exposure control; mA and/or kV adjustment per patient size (includes targeted exams where dose is matched to clinical indication); or iterative reconstruction. Contrast material: OMNI 350; Contrast volume: 95 ml; Contrast route: INTRAVENOUS (IV); COMPARISON: CT angio chest abdomen pelvis 09/27/2020 3:08 PM RADIATION DOSE METRICS: Total DLP (mGy-cm): 1807.78 FINDINGS: PRAKASH ESTEBAN Final Radiology Report Page 2 of 3 Aorta: Again note of the infrarenal fusiform abdominal aortic aneurysm maximum AP diameter 42 mm and transverse diameter 46 mm. The aneurysm measures 55 mm in length. Large amount of intramural thrombus. Narrowest contrast filled true lumen measures 21 mm x 16 mm. No visible intimal flap or dissection. Moderate arterial sclerotic disease. Celiac trunk and mesenteric arteries: No occlusion or significant stenosis. Renal arteries: No occlusion or significant stenosis. Right iliac arteries: No occlusion or significant stenosis. Right femoral/popliteal arteries: Patent right superficial femoral arterial stent. Right infrapopliteal arteries: Two vessel runoff to the right ankle via the anterior and posterior tibial arteries. Peroneal artery cannot be followed below the trifurcation. Contrast is seen within the right dorsal pedal artery. Left iliac arteries: No occlusion or significant stenosis. Left femoral/popliteal arteries: No occlusion or significant stenosis. Left infrapopliteal arteries: Three-vessel runoff into the left ankle but with multiple short segments high-grade stenotic foci of the anterior tibial artery resulting in faint opacification. There is faint contrast opacification of the left dorsal pedal artery. Left posterior tibial artery can be followed clearly to the ankle. Peroneal artery remains patent. Other arteries: Coronary artery disease. Inferior vena cava: IVC filter. Other veins: Evidence of occlusive deep venous thrombosis of the right common femoral vein distally. Suspected occlusion of the right greater saphenous vein. Lungs: Limited assessment of the lung bases fails to reveal evidence for active cardiopulmonary process. Mediastinum: Hiatal hernia. Liver: Heterogenous appearance to the hepatic parenchyma with concern for metastatic disease the largest area of involvement dome of the right hepatic lobe anterior segment dimensions approximately 36 mm x 24 mm. Suspected more generalized involving the medial segment left hepatic lobe. Also suspected involvement near the shahana hepatis lateral segment left hepatic lobe. Gallbladder and bile ducts: Status post cholecystectomy. Moderate intra and extrahepatic biliary ectasia with the common bile duct measuring upwards of 18 mm. No visible choledocholithiasis. Suspected obstruction secondary to the pancreatic head and uncinate tumor mass. Pancreas: Again note of the pancreatic head and uncinate process tumor mass p reviously described on the examination of 09/27/2020 at 1519 HRS. Spleen: Spleen unremarkable as can be assessed during the arterial phase. Adrenals: Adrenal glands unremarkable. Kidneys and ureters: No hydronephrosis or perinephric fluid. Again note of simple renal cortical cysts left kidney the largest inferior pole measuring 34 mm in diameter. Stomach and bowel: Diverticulosis coli, primarily the sigmoid colon, without evidence for acute diverticulitis. Nonobstructive bowel pattern. No visible significant adynamic or reactive ileus. Appendix: The appendix is visualized and appears noninflamed. Bladder: Urinary bladder grossly unremarkable. No gross filling defect. Reproductive: Prostate hypertrophy. Intraperitoneal space: No visible pneumoperitoneum or intraperitoneal ascites. Lymph nodes: Marginally prominent retrocrural lymph nodes clinical significance indeterminate. Few marginally prominent retroperitoneal periaortic/pericaval lymph nodes. PRAKASH ESTEBAN Final Radiology Report CONFIDENTIALITY STATEMENT This report is intended only for use by the referring physician, and only in accordance with law. If you received this in error, call [phone]. Page 3 of 3 Bones/joints: Left total hip prosthesis. Right femoral compression screw and intramedullary brittney fixation. No visible acute osseous abnormality. Antecedent appearing mild sup erior endplate deformity of L2. No visible osteolytic or osteoblastic destructive process. Soft tissues: Small right inguinal hernia containing fat only. IMPRESSION: 1. Two vessel runoff to the right ankle via the anterior and posterior tibial arteries. Peroneal artery cannot be followed below the trifurcation. Contrast is seen within the right dorsal pedal artery. 2. Three-vessel runoff into the left ankle but with multiple short segments high-grade stenotic foci of the anterior tibial artery resulting in faint opacification. There is faint contrast opacification of the left dorsal pedal artery. Left posterior tibial artery can be followed clearly to the ankle. Peroneal artery remains patent. 3. Again note of the infrarenal fusiform abdominal aortic aneurysm maximum AP diameter 42 mm and transverse diameter 46 mm. The aneurysm measures 55 mm in length. 4. Again note of the pancreatic head and uncinate process neoplasm with metastasis to the liver. 5. Moderate intra and extrahepatic biliary ectasia as detailed in text above. 6. Evidence of occlusive deep venous thrombosis of the right common femoral vein distally. Suspected occlusion of the right greater saphenous vein. 7. Marginally prominent retrocrural and retroperitoneal lymph nodes. 8. Other nonurgent, nonemergent, chronic, postoperative, and age related findings as detailed in text above. Thank you for allowing us to participate in the care of your patient. Dictated and Authenticated by: Soren Duffy DO 09/27/2020 7:43 PM Central Time ([place] & [place]) Discharge Plan Discharge Patient Disposition: Placed in Observation Admit Provider: Kylie Marinelli Clinical Impression: Deep vein thrombosis of lower extremity Sign Out Sign Out Data: Patient Sign Out occurred on 09/27/20 at 17:14. Patient's care was discussed, and care was transferred from to [facility]. Coding Level of Care Code ED In Classroom Tutor for Chg Fwd Exam Expanded Problem Focused Documented by User: Yao Seals MD 09/27/20 22:08 HPI - Extremity Problem General: Chief complaint: Extremity Problem,Nontraumatic Stated complaint: FOOT, LEG PAIN Time Seen by Provider: 09/27/20 13:31 PFSH ED PFSH: Medical History (Updated 09/27/20 @ 23:47 by Kylie Marinelli MD) Abdominal aortic aneurysm Infrarenal, 4.1 x 4.3 cm in 06/2019 BPH (benign prostatic hyperplasia) CAD (coronary artery disease) history of [place] but details unknown Chronic edema DVT of lower extremity, bilateral With history of IVC filter and on Xarelto History of frostbite BLE HLD (hyperlipidemia) Hypertension Peripheral vascular disease With RLE stent and several angioplasty Undescended testes Surgical History History of exploratory laparotomy History of hernia repair History of orthopedic surgery Right leg after femur fracture S/P insertion of IVC (inferior vena caval) filter S/P peripheral artery angioplasty with stent placement Right superficial femoral artery Status post laparoscopic cholecystectomy For porcelain gallbladder and acute cholecystitis Family History Mother Diabetes Father Cancer prostate Social History Smoking and tobacco status: current every day smoker smokeless tobacco Smokeless tobacco user: snus Smokeless tobacco details: box per day Alcohol intake: current Alcohol type: hard liquor Lives independently: Yes Household members: none Marital status: Current occupational status: retired Course Vital Signs: Vital signs: Vital Signs Temperature 98 F 09/28/20 02:58 Pulse Rate 74 09/28/20 05:33 Respiratory Rate 20 H 09/28/20 02:58 Blood Pressure 113/77 09/28/20 02:58 Pulse Oximetry 91 09/28/20 02:58 MDM - Extremity (Nontraumatic) MDM Narrative: Medical decision making narrative: Bozena: I took over around 8 PM from Mr. Banks. The patient complains of right lower extremity pain and has worsening DVT. Questionable compliance with his Eliquis at home and he has metastatic pancreatic cancer chronically which she does not want biopsy and wants to be on hospice. I saw him and he does have a DVT which is worse and on his the dorsum of his right foot he has a dark red spot which is tender which she says is the focus of his pain. Possible this is a local ischemic change. CT abdominal aortic runoff is negative for acute stenosis. Discussed with Dr. Hayes who recommended anticoagulation with oral regimen given his low platelets of 59. Discussed with Dr. Marinelli who accepts for observation. He will discussed with Dr. Hayes future intervention. Dr. Lopez did not recommend angiogram at this time as the CTA with aorta runoff did not show any acute stenoses. Lab Data: Labs: Lab Results 09/27/20 09/27/20 09/27/20 Range/Units 14:12 14:12 14:12 WBC 7.1 (4.0-10.0) 10^3/ uL RBC 5.11 (4.1-5.3) 10^6/u L Hgb 14.2 (11.7-16.6) g/dL Hct 44.0 (42.0-52.0) % MCV 86.1 (80-94) fL MCH 27.8 L (28.0-34.0) pg MCHC 32.3 (30.0-36.0) g/dL RDW 15.8 H (12.1-15.1) % Plt Count 59 L (130-400) 10^3/c mm MPV 12.3 H (7.4-10.4) fL Neut % (Auto) 77.1 % Lymph % (Auto) 12.3 % [place] % (Auto) 8.8 % Eos % (Auto) 1.3 % Baso % (Auto) 0.1 % Neut # (Auto) 5.50 (1.8-7.7) 10^3/u L Lymph # (Auto) 0.9 (0.8-4.8) 10^3/u L [place] # (Auto) 0.6 (0.2-0.9) 10^3/u L Eos # (Auto) 0.1 (0.0-0.8) 10^3/u L Baso # (Auto) 0.0 (0.0-0.1) 10^3/u L Nucleated RBC % (a uto) 0 % Nucleated RBCs # 0.0 /100WBC PT 17.70 H (12.1-14.9) SECO NDS INR 1.42 H (0.8-1.2) APTT 30.9 (23.9-36.7) SECO NDS Sodium 141 (136-145) mmol/L Potassium 3.7 (3.5-5.1) mmol/L Chloride 97 L (98-107) mmol/L Carbon Dioxide 30 H (22-29) mmol/L Anion Gap 17.7 (5-19) BUN 17 (8-23) mg/dL Creatinine 0.9 (0.7-1.2) mg/dL GFR Calculation Not Reportable Glucose 109 (65-115) mg/dL Calculated Osmolal ity 294 (285-295) mOsm/k g Calcium 9.0 (8.5-10.5) mg/dL Total Bilirubin 1.6 H (0.15-1.2) mg/dL AST 31 (0-40) U/L ALT 45 H (0-41) U/L Alkaline Phosphata se 355 H (40-130) IU/L Total Protein 7.7 (6.6-8.7) g/dL Albumin 3.8 (3.5-5.2) g/dL Globulin 3.9 (1.3-4.6) g/dL Lipase (13-60) U/L 09/27/20 09/27/20 Range/Units 14:12 22:16 WBC 6.8 (4.0-10.0) 10^3/ uL RBC 4.86 (4.1-5.3) 10^6/u L Hgb 13.6 (11.7-16.6) g/dL Hct 41.8 L (42.0-52.0) % MCV 86.0 (80-94) fL MCH 28.0 (28.0-34.0) pg MCHC 32.5 (30.0-36.0) g/dL RDW 15.8 H (12.1-15.1) % Plt Count 66 L (130-400) 10^3/c mm MPV 13.4 H (7.4-10.4) fL Neut % (Auto) 71.3 % Lymph % (Auto) 16.9 % [place] % (Auto) 8.7 % Eos % (Auto) 2.2 % Baso % (Auto) 0.3 % Neut # (Auto) 4.86 (1.8-7.7) 10^3/u L Lymph # (Auto) 1.2 (0.8-4.8) 10^3/u L [place] # (Auto) 0.6 (0.2-0.9) 10^3/u L Eos # (Auto) 0.2 (0.0-0.8) 10^3/u L Baso # (Auto) 0.0 (0.0-0.1) 10^3/u L Nucleated RBC % (a uto) 0 % Nucleated RBCs # 0.0 /100WBC PT (12.1-14.9) SECO NDS INR (0.8-1.2) APTT (23.9-36.7) SECO NDS Sodium (136-145) mmol/L Potassium (3.5-5.1) mmol/L Chloride (98-107) mmol/L Carbon Dioxide (22-29) mmol/L Anion Gap (5-19) BUN (8-23) mg/dL Creatinine (0.7-1.2) mg/dL GFR Calculation Glucose (65-115) mg/dL Calculated Osmolal ity (285-295) mOsm/k g Calcium (8.5-10.5) mg/dL Total Bilirubin (0.15-1.2) mg/dL AST (0-40) U/L ALT (0-41) U/L Alkaline Phosphata se (40-130) IU/L Total Protein (6.6-8.7) g/dL Albumin (3.5-5.2) g/dL Globulin (1.3-4.6) g/dL Lipase 22 (13-60) U/L Discharge Plan Discharge Patient Disposition: Placed in Observation Admit Provider: Kylie Marinelli Clinical Impression: Deep vein thrombosis of lower extremity Sign Out Sign Out Data: Patient Sign Out occurred on 09/27/20 at 17:14. Patient's care was discussed, and care was transferred from to [facility]. Coding Level of Care Code ED In Classroom Tutor for Patriciag Fwd Exam Expanded Problem Focused
[2020-09-27 14:17] LABS: Basophils % 0.1 %; Eosinophils # 0.1 10^3/uL (0.0-0.8); Eosinophils % 1.3 %; Hemoglobin 14.2 g/dL (11.7-16.6); Lymphocytes # 0.9 10^3/uL (0.8-4.8); Lymphocytes % 12.3 %; Mean Corpuscular HGB Conc 32.3 g/dL (30.0-36.0); Mean Corpuscular Hemoglobin 27.8 pg (28.0-34.0); Mean Corpuscular Volume 86.1 fL (80-94); Mean Platelet Volume 12.3 fL (7.4-10.4); Monocytes # 0.6 10^3/uL (0.2-0.9); Monocytes % 8.8 %; Neutrophils % 77.1 %; Nucleated Red Blood Cells % 0 %; Platelet Count 59 10^3/cmm (130-400); Red Blood Count 5.11 10^6/uL (4.1-5.3); Red Cell Distribution Width 15.8 % (12.1-15.1); White Blood Count 7.1 10^3/uL (4.0-10.0)
--- NOTE | 2020-09-27 14:44 | CT_ITS ---
WS: [id number] CTA CHEST, abdomen and pelvis. HISTORY: Abdominal pain. TECHNIQUE: CT angiogram is performed through the chest, abdomen and pelvis. Sagittal and coronal ref ormats have been submitted. MIP imaging also reviewed. All CT scans at [facility] use at least one of these dose optimization techniques: automated exposure control; mA and/or kV adjustment per patient size (includes targeted exams where dose is matched to clinical indication); or iterative reconstruction. Contrast: Omnipaque 350; 95 cc IV. DLP: 2191.26 mGy.cm COMPARISON: 08/31/2020 Chest CTA: Good opacification of the pulmonary arteries. No pulmonary embolism. Normal-sized thoracic aorta. Mild atherosclerosis of aorta. Lungs are clear. No pneumonia or nodule or effusion. No medias tinal or hilar adenopathy. There is a small hiatal hernia. Abdomen and pelvis CT angiogram: Patient has a known large abdominal aortic aneurysm. Maximum transve rse diameter of the infrarenal aorta is 4.6 cm which is similar to the prior study. There is a large amount of circumferential thrombus with which is asymmetric. Smallest diameter of the enhancing lumen is 1.7 cm. Tortuous iliac arteries but they are patent. Confluent areas of decreased attenuation throughout the liver. Highly suspicious for metastatic disea se. These findings were described on the prior study of 08/31/2020 and not as well visualized on the C T angiogram. There is a bile duct dilatation centrally. Soft tissue mass involving the head and uncin ate of pancreas is again identified and probably partially obstructing the common bile duct. There is encasement of several small perforating branches surrounding the pancreas. Mass is probably not incr eased in size. No adrenal mass. There are small lymph nodes around the celiac axis and SMA. Ovoid lym ph node at the GE junction and the retrocrural fat. Stable LEFT renal cyst. No GI tract obstruction. Diverticular disease but no acute diverticulitis. No GI tract obstruction. There is an IVC filter pre sent. Enlarged RIGHT femoral artery with a filling defect consistent with known DVT described today. Hardware in each hip. CT/CT angio chest abdomen pelvis IMPRESSION: 1. No pulmonary embolism. 2. Infrarenal abdominal aortic aneurysm is stable with a maximum diameter of 4 .6 cm. 3. Known metastatic lesions with bile duct dilatation involving the liver. Con fluent sites very suspicious for metastatic disease. 4. Known lobulated mass involving the pancreatic head and uncinate process wit h adjacent small lymph nodes. Favor pancreatic carcinoma. 5. Nonocclusive RIGHT common femoral artery DVT. 6. IVC filter in good position. 7. Prior cholecystectomy.
[2020-09-27 14:45] LABS: INR 1.42 (0.8-1.2)
[2020-09-27 14:46] LABS: Partial Thromboplastin Time 30.9 SECONDS (23.9-36.7)
[2020-09-27 14:52] LABS: Alanine Aminotransferase 45 U/L (0-41); Albumin Level 3.8 g/dL (3.5-5.2); Alkaline Phosphatase 355 IU/L (40-130); Aspartate Amino Transferase 31 U/L (0-40); Blood Urea Nitrogen 17 mg/dL (8-23); Carbon Dioxide 30 mmol/L (22-29); Chloride 97 mmol/L (98-107); Globulin 3.9 g/dL (1.3-4.6); Glucose 109 mg/dL (65-115); Osmolality Calculated 294 mOsm/kg (285-295); Sodium 141 mmol/L (136-145); Total Bilirubin 1.6 mg/dL (0.15-1.2); Total Protein 7.7 g/dL (6.6-8.7)
[2020-09-27 14:54] LABS: Anion Gap 17.7 (5-19); Potassium 3.7 mmol/L (3.5-5.1)
[2020-09-27 15:03] VITALS: RESP 20; O2SAT 96
[2020-09-27] MEDS: ondansetron 2 mg/ML SDV 2 mL 4 MG IVP (15:03)
[2020-09-27] MEDS: morphine 4 mg/mL SDV 1 mL IVP (15:03)
[2020-09-27] MEDS: iohexol 350 mg/mL 100 mL Btl IV ×2 (15:21→17:17)
[2020-09-27 15:32] LABS: Lipase 22 U/L (13-60)
--- NOTE | 2020-09-27 15:34 | CTR_ITS ---
PROCEDURE INFORMATION: Exam: CTA Angiogram of the Abdominal Aorta and Bilateral Lower Extremities (Run-off) With IV Contrast Exam date and time: 09/27/2020 3:34 PM Age: 75 years old Clinical indication: Foot pain; Right; Prior surgery; Surgery type: Ivc filter, RT femur, left hip; Patient HX: Prior CT scan done today with contrast; Additional info: Runoff bilateral les; Eval for blood supply to R le TECHNIQUE: Imaging protocol: CT angiogram of the abdominal aorta, pelvis and bilateral lower extremities with IV iodinated contrast. 3D rendering (Not supervised by radiologist): MIP and/or 3D reconstructed images were created by the technologist. Total images: 1485 Radiation optimization: All CT scans at this facility use at least one of these dose optimization techniques: automated exposure control; mA and/or kV adjustment per patient size (includes targeted exams where dose is matched to clinical indication); or iterative reconstruction. Contrast material: OMNI 350; Contrast volume: 95 ml; Contrast route: INTRAVENOUS (IV); COMPARISON: CT angio chest abdomen pelvis 09/27/2020 3:08 PM RADIATION DOSE METRICS: Total DLP (mGy-cm): 1807.78 FINDINGS: Aorta: Again note of the infrarenal fusiform abdominal aortic aneurysm maximum AP diameter 42 mm and transverse diameter 46 mm. The aneurysm measures 55 mm in length. Large amount of intramural thrombus. Narrowest contrast filled true lumen measures 21 mm x 16 mm. No visible intimal flap or dissection. Moderate arterial sclerotic disease. Celiac trunk and mesenteric arteries: No occlusion or significant stenosis. Renal arteries: No occlusion or significant stenosis. Right iliac arteries: No occlusion or significant stenosis. Right femoral/popliteal arteries: Patent right superficial femoral arterial stent. Right infrapopliteal arteries: Two vessel runoff to the right ankle via the anterior and posterior tibial arteries. Peroneal artery cannot be followed below the trifurcation. Contrast is seen within the right dorsal pedal artery. Left iliac arteries: No occlusion or significant stenosis. Left femoral/popliteal arteries: No occlusion or significant stenosis. Left infrapopliteal arteries: Three-vessel runoff into the left ankle but with multiple short segments high-grade stenotic foci of the anterior tibial artery resulting in faint opacification. There is faint contrast opacification of the left dorsal pedal artery. Left posterior tibial artery can be followed clearly to the ankle. Peroneal artery remains patent. Other arteries: Coronary artery disease. Inferior vena cava: IVC filter. Other veins: Evidence of occlusive deep venous thrombosis of the right common femoral vein distally. Suspected occlusion of the right greater saphenous vein. Lungs: Limited assessment of the lung bases fails to reveal evidence for active cardiopulmonary process. Mediastinum: Hiatal hernia. Liver: Heterogenous appearance to the hepatic parenchyma with concern for metastatic disease the largest area of involvement dome of the right hepatic lobe anterior segment dimensions approximately 36 mm x 24 mm. Suspected more generalized involving the medial segment left hepatic lobe. Also suspected involvement near the shahana hepatis lateral segment left hepatic lobe. Gallbladder and bile ducts: Status post cholecystectomy. Moderate intra and extrahepatic biliary ectasia with the common bile duct measuring upwards of 18 mm. No visible choledocholithiasis. Suspected obstruction secondary to the pancreatic head and uncinate tumor mass. Pancreas: Again note of the pancreatic head and uncinate process tumor mass previously described on the examination of 09/27/2020 at 1519 HRS. Spleen: Spleen unremarkable as can be assessed during the arterial phase. Adrenals: Adrenal glands unremarkable. Kidneys and ureters: No hydronephrosis or perinephric fluid. Again note of simple renal cortical cysts left kidney the largest inferior pole measuring 34 mm in diameter. Stomach and bowel: Diverticulosis coli, primarily the sigmoid colon, without evidence for acute diverticulitis. Nonobstructive bowel pattern. No visible significant adynamic or reactive ileus. Appendix: The appendix is visualized and appears noninflamed. Bladder: Urinary bladder grossly unremarkable. No gross filling defect. Reproductive: Prostate hypertrophy. Intraperitoneal space: No visible pneumoperitoneum or intraperitoneal ascites. Lymph nodes: Marginally prominent retrocrural lymph nodes clinical significance indeterminate. Few marginally prominent retroperitoneal periaortic/pericaval lymph nodes. Bones/joints: Left total hip prosthesis. Right femoral compression screw and intramedullary brittney fixation. No visible acute osseous abnormality. Antecedent appearing mild superior endplate deformity of L2. No visible osteolytic or osteoblastic destructive process. Soft tissues: Small right inguinal hernia containing fat only. CT/CT angio abd aorta runof 01282 IMPRESSION: 1. Two vessel runoff to the right ankle via the anterior and posterior tibial arteries. Peroneal artery cannot be followed below the trifurcation. Contrast is seen within the right dorsal pedal artery. 2. Three-vessel runoff into the left ankle but with multiple short segments high-grade stenotic foci of the anterior tibial artery resulting in faint opacification. There is faint contrast opacification of the left dorsal pedal artery. Left posterior tibial artery can be followed clearly to the ankle. Peroneal artery remains patent. 3. Again note of the infrarenal fusiform abdominal aortic aneurysm maximum AP diameter 42 mm and transverse diameter 46 mm. The aneurysm measures 55 mm in length. 4. Again note of the pancreatic head and uncinate process neoplasm with metastasis to the liver. 5. Moderate intra and extrahepatic biliary ectasia as detailed in text above. 6. Evidence of occlusive deep venous thrombosis of the right common femoral vein distally. Suspected occlusion of the right greater saphenous vein. 7. Marginally prominent retrocrural and retroperitoneal lymph nodes. 8. Other nonurgent, nonemergent, chronic, postoperative, and age related findings as detailed in text above. Radiation Dose CTDIVOL = (mGy): DLP = 1807.78 (mGy-cm)
[2020-09-27] MEDS: sodium chloride 0.9% 1,000 ML 999 ML IV (16:20)
[2020-09-27 16:25] VITALS: BP 112/65; PULSE 83; O2SAT 94
--- NOTE | 2020-09-27 16:54 | ECG_ITS ---
[facility] Test Date: 2020-09-27 Pat Name: Hao Esteban Department: Room: Gender: Male Radiology Scheduler: : 1945 Requested By: Minerva Grijalva Order Number: [id number] Kaleigh MD: Simon Flores M.D. Measurements Intervals [place] Rate: 77 P: -85 [place]: 223 QRS: 7 QRSD: 106 T: 47 QT: 411 QTc: 466 Interpretive Statements ECTOPIC ATRIAL RHYTHM WITH FIRST DEGREE AV BLOCK WITH OCCASIONAL SUPRAVENTRICULAR PREMATURE COMPLEXES LOW QRS VOLTAGE IN EXTREMITY LEADS [QRS DEFLECTION < 0.5 mV IN LIMB LEADS] SEPTAL MYOCARDIAL INFARCTION [40+ ms Q WAVE IN V1/V2], PROBABLY OLD Compared to ECG 08/31/2020 13:21:36 Ectopic atrial rhythm now present First degree AV block now present Low QRS voltage now present Sinus tachycardia no longer present Myocardial infarct finding still present Electronically Signed On 09-27-2020 19:00:12 CDT by Simon Flores M.D. [id number]
[2020-09-27 20:18] VITALS: BP 107/71; PULSE 81; RESP 17; O2SAT 97
[2020-09-27 20:57] VITALS: BP 101/73; PULSE 95; RESP 17; O2SAT 92
--- NOTE | 2020-09-27 21:57 | P.HP_ITS ---
Providers/Chief Complaint Chief Complaint: FOOT, LEG PAIN History of Present Illness Hao Esteban is a 75 year old male who carries significant past medical history of bilateral lower extremity DVT, status post IVC filter placement, pancreatic cancer(patient refused to pursue treatment), abdominal aortic aneurysm, atrial fibrillation, peripheral vascular disease, recently was diagnosed with right leg DVT, takes Eliquis(previously was on Xarelto for A. fib) presenting today with chief complaint of abdominal pain Patient is stating that for last few days he has been constipated, he is denying any nausea, vomiting, no chest pain shortness of breath however for last few days he started experiencing abdominal pain which she is describing as low intensity nagging sensation in right and left lower quadrants, he is leading a sedentary lifestyle because of his lower extremity pain. He is using wheelchair for ambulation. He lives alone and there is no other family member who is in touch with him. He has a sister but not sure where she resides. There is a friend who takes care of him and checks on him occasionally. Patient is stating that in last 2 to 3 days he started noticing darker spots on his right foot which are extremely tender. He is compliant with his medication including Eliquis. He is a very large is metastatic pancreatic cancer and does not want to pursue any treatment. Laboratory work-up revealed normal white count and hemoglobin however noticed thrombocytopenia which is new as compared to previous CBC that was done a month ago Venous Doppler revealed right leg DVT Dr. Lopez was called from the ER who recommended CTA with runoff of lower extremity, IMPRESSION: 1. No pulmonary embolism. 2. Infrarenal abdominal aortic aneurysm is stable with a maximum diameter of 4.6 cm. 3. Known metastatic lesions with bile duct dilatation involving the liver. Confluent sites very suspicious for metastatic disease. 4. Known lobulated mass involving the pancreatic head and uncinate process with adjacent small lymph nodes. Favor pancreatic carcinoma. 5. occlusive RIGHT common femoral artery DVT. 6. IVC filter in good position. 7. Prior cholecystectomy. CT/CT angio abd aorta runof 47865 IMPRESSION: 1. Two vessel runoff to the right ankle via the anterior and posterior tibial arteries. Peroneal artery cannot be followed below the trifurcation. Contrast is seen within the right dorsal pedal artery. 2. Three-vessel runoff into the left ankle but with multiple short segments high-grade stenotic foci of the anterior tibial artery resulting in faint opacification. There is faint contrast opacification of the left dorsal pedal artery. Left posterior tibial artery can be followed clearly to the ankle. Peroneal artery remains patent. 3. Again note of the infrarenal fusiform abdominal aortic aneurysm maximum AP diameter 42 mm and transverse diameter 46 mm. The aneurysm measures 55 mm in length. 4. Again note of the pancreatic head and uncinate process neoplasm with metastasis to the liver. 5. Moderate intra and extrahepatic biliary ectasia as detailed in text above. 6. Evidence of occlusive deep venous thrombosis of the right common femoral vein distally. Suspected occlusion of the right greater saphenous vein. 7. Marginally prominent retrocrural and retroperitoneal lymph nodes Review of Systems Const: Reports: body aches and fatigue; Denies: fever(s) Eyes: Denies: change in vision ENMT: Denies: throat pain Card: Denies: chest pain Resp: Denies: dyspnea GI: Reports: abdominal pain and constipation; Denies: nausea or vomiting : Denies: flank pain Musc: Reports: muscle cramps; Denies: neck pain Skin/Breast: Reports: rash, erythema, skin pain, skin tenderness, skin swelling, new lesions and changing lesions Neuro: Denies: headache(s) Psych: Denies: anxiety Endo: Denies: polyuria Sergio/Lymph: Denies: easy bruising All/Imm: Denies: urticaria Medications/Allergies Home Medications Medication Instructions Recorded Confirmed Last Taken Type aspirin 81 mg PO DAILY@1700 06/14/19 09/27/20 09/26/20 History atorvastatin 20 mg PO DAILY@169906/14/19 09/27/20 09/26/20 History cholecalciferol (vitamin D3) 25 mcg PO DAILY@17006/14/19 09/27/20 09/26/20 History [Vitamin D3] losartan 25 mg PO DAILY@1700 06/14/19 09/27/20 09/26/20 History tamsulosin 0.4 mg PO DAILY@169906/14/19 09/27/20 09/26/20 History furosemide 40 mg PO DAILY@0 03/31/20 09/27/20 09/26/20 History apixaban [Eliquis DVT-PE Treat 30D See Rx Instructions .ROUTE 08/31/20 09/27/20 09/26/20 Rx Start] .COMPLEX #74 ea hydrocodone-acetaminophen 1 tab PO Q6H PRN #14 tab 08/31/20 09/27/20 Unknown Rx Allergies Allergy/AdvReac Type Severity Reaction Status Date / Time No Known Allergies Allergy Verified 04/23/20 10:50 PFSH Acute PFSH: Medical History (Updated 09/27/20 @ 23:47 by Kylie Marinelli MD) Abdominal aortic aneurysm Infrarenal, 4.1 x 4.3 cm in 06/2019 BPH (benign prostatic hyperplasia) CAD (coronary artery disease) history of IA but details unknown Chronic edema DVT of lower extremity, bilateral With history of IVC filter and on Xarelto History of frostbite BLE HLD (hyperlipidemia) Hypertension Peripheral vascular disease With RLE stent and several angioplasty Undescended testes Surgical History History of exploratory laparotomy History of hernia repair History of orthopedic surgery Right leg after femur fracture S/P insertion of IVC (inferior vena caval) filter S/P peripheral artery angioplasty with stent placement Right superficial femoral artery Status post laparoscopic cholecystectomy For porcelain gallbladder and acute cholecystitis Family History Mother Diabetes Father Cancer prostate Social History Smoking and tobacco status: current every day smoker smokeless tobacco Smokeless tobacco user: snus Smokeless tobacco details: box per day Alcohol intake: current Alcohol type: hard liquor Lives independently: Yes Household members: none Marital status: Current occupational status: retired Vitals/I&O/Wt Last Vital Signs Temp 97.8 F 09/27/20 13:27 Pulse 95 09/27/20 20:57 Resp 17 09/27/20 20:57 BP 101/73 09/27/20 20:57 Pulse Ox 92 09/27/20 20:57 09/27/20 09/27/20 09/27/20 06:59 14:59 22:59 Intake Total 1000 / 1000 Balance 1000 / 1000 Weight last 48 hrs Weight 81.647 kg Physical Exam Narrative: EXAM NARRATIVE: elderly male who was in semi-Carey position without any active discomfort no active chest pain or shortness of breath Awake alert oriented x3 GCS 15 No active neurological deficit EOMI, PERRLA S1, S2 variable No active signs of overt heart failure Abdomen distended, obviously obesity, mild tenderness on deep palpation in midepigastric and right lower quadrant, hyperactive bowel sounds Prominent veins of right leg with edema, tender to touch, ischemic ulcers on his toes, weak pulses of bilateral lower extremities, no active cellulitis Right leg swollen as compared to left No acute respiratory distress bilateral breath sound without audible stridor or wheezing Appropriate mood and affect Data : 09/27/20 22:16 09/27/20 14:12 A&P Assessment and plan (1) Migratory thrombophlebitis: Status: Acute (2) Recurrent acute deep vein thrombosis (DVT) of right lower extremity: Status: Acute (3) Pancreatic cancer: Status: Acute (4) Thrombocytopenia: Status: Acute (5) Ischemic ulcer: Status: Acute Additional A&P Information Pancreatic cancer with metastases This most likely is the cause abdominal pain and constipation 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 patient developed DVT despite being on anti Xa inhibitor(previously patient was on Xarelto which was switched to Eliquis when he developed DVT, now presenting with ischemic ulcers) I would start argatroban for ischemic ulcers of right foot, avoid heparin or Lovenox HIT panel sent Bowel regimen for constipation No active bleeding patient is hemodynamically stable High D-dimer consistent with malignancy Patient does have history of peripheral vascular disease with prior right leg angioplasty, however at this point in time patient does not want to pursue any aggressive interventions agreeable with argatroban medical management Goals of care: DNR/DNI Cardiac diet DVT prophylaxis: Currently on argatroban with concern of HIT Attestations Medical Necessity Statement*: Anticipating stay in the hospital cross more than 2 midnights for ischemic ulcer management, pancreatic cancer with metastases Time Spent in Patient Care: 30mins Coding Level of Care Code Acute Instrumentation Engineering Technician for Enzo Shi Diagnoses Migratory thrombophlebitis I82.1 Recurrent acute deep vein thrombosis (DVT) of right lower extremity I82.401 Pancreatic cancer C25.9 Thrombocytopenia D69.6 Ischemic ulcer L98.499
[2020-09-27 22:31] LABS: Basophils % 0.3 %; Eosinophils # 0.2 10^3/uL (0.0-0.8); Eosinophils % 2.2 %; Hematocrit 41.8 % (42.0-52.0); Hemoglobin 13.6 g/dL (11.7-16.6); Lymphocytes # 1.2 10^3/uL (0.8-4.8); Lymphocytes % 16.9 %; Mean Corpuscular HGB Conc 32.5 g/dL (30.0-36.0); Mean Platelet Volume 13.4 fL (7.4-10.4); Monocytes # 0.6 10^3/uL (0.2-0.9); Monocytes % 8.7 %; Neutrophils # 4.86 10^3/uL (1.8-7.7); Neutrophils % 71.3 %; Nucleated Red Blood Cells % 0 %; Platelet Count 66 10^3/cmm (130-400); Red Blood Count 4.86 10^6/uL (4.1-5.3); Red Cell Distribution Width 15.8 % (12.1-15.1); White Blood Count 6.8 10^3/uL (4.0-10.0)
[2020-09-28] VITALS (17 sets, daily range): BP systolic 100–130; BP diastolic 66–87; PULSE 72–97; RESP 12–26; TEMP 36.5–37.1; O2SAT 91–96
--- NOTE | 2020-09-28 01:19 | PC.NURSE ---
Moved patient from ER room 9 to ER room 4
[2020-09-28] MEDS: argatroban 250 MG in sodium chloride 0.9% 250 ML IV ×2 (01:37→09:15)
--- NOTE | 2020-09-28 02:26 | PC.NURSE ---
Clarified instructions with Dr Marinelli in relation to argatroban drip. Received telephone order to follow current protocol which was printed and placed in patient's chart.
--- NOTE | 2020-09-28 03:11 | PC.NURSE ---
Received patient from ED via stretcher. Transferred patient to bed x3 assist. Patient tolerated fair. Patient skin exptremely sensitive to touch. BLE dark brown/black from shins to ankles. Patient has chronic history of DVT. Patient reports feeling tired. Has been in ED since yesterday afternoon. Patient is currently on argatroban drip for DVT running at 2.5ml/hr.
[2020-09-28 05:03] LABS: Basophils % 0.2 %; Eosinophils # 0.2 10^3/uL (0.0-0.8); Eosinophils % 2.7 %; Hematocrit 39.7 % (42.0-52.0); Hemoglobin 12.8 g/dL (11.7-16.6); Lymphocytes # 0.8 10^3/uL (0.8-4.8); Lymphocytes % 14.3 %; Mean Corpuscular HGB Conc 32.2 g/dL (30.0-36.0); Mean Corpuscular Hemoglobin 27.9 pg (28.0-34.0); Mean Corpuscular Volume 86.5 fL (80-94); Mean Platelet Volume 12.4 fL (7.4-10.4); Monocytes # 0.6 10^3/uL (0.2-0.9); Monocytes % 10.4 %; Neutrophils # 4.22 10^3/uL (1.8-7.7); Neutrophils % 71.9 %; Nucleated Red Blood Cells % 0 %; Platelet Count 63 10^3/cmm (130-400); Red Blood Count 4.59 10^6/uL (4.1-5.3); Red Cell Distribution Width 15.8 % (12.1-15.1); White Blood Count 5.9 10^3/uL (4.0-10.0)
[2020-09-28 05:29] LABS: Anion Gap 15.1 (5-19); Blood Urea Nitrogen 15 mg/dL (8-23); Calcium 8.8 mg/dL (8.5-10.5); Carbon Dioxide 30 mmol/L (22-29); Chloride 97 mmol/L (98-107); Glucose 100 mg/dL (65-115); Osmolality Calculated 289 mOsm/kg (285-295); Partial Thromboplastin Time 86.6 SECONDS (23.9-36.7); Potassium 3.1 mmol/L (3.5-5.1); Sodium 139 mmol/L (136-145)
--- NOTE | 2020-09-28 05:52 | PC.NURSE ---
Addendum entered by Verito Lockwood RN 09/28/20 05:55: new lab for PTT draw ordered for 0750. Protocol PTT every 2 hours after any change in rate. Original Note: PTT 86.6. Decreased argatroban drip to 2ml/hr (0.4mcg/kg/min) as per protocol.
[2020-09-28] MEDS: sennosides-docusate Tablet 1 TAB PO ×2 (08:27→17:56)
[2020-09-28] MEDS: morphine 4 mg/mL SDV 1 mL 2 MG IVP ×4 (08:27→23:32)
[2020-09-28 08:54] LABS: Partial Thromboplastin Time 79.9 SECONDS (23.9-36.7)
--- NOTE | 2020-09-28 09:59 | PC.CHAP ---
Pastoral Care Encounter/Spiritual Assessment Type of Contact [] Declined casing fluid tender visit [] Patient/Family/Request visit [] Outpatient visit [] Follow-up visit [] Physician referral [] Code/Alert [x] Routine visit [] Staff referral [] Actively dying [] Patient sleeping [] Family support [] [] Out of room [] Palliative care [] [] Receiving care in room [] Pre-surgical visit [] Trauma [] Long length of stay [] ICU visit [] Other: Relational/Emotional Strength [] Patient feels connected with others/family/visitors/staff [] Distress [] Loneliness/isolation [] Abandonment Spirituality of Patient [] Person of Jocelyn [] Attends Yazidi of their Jocelyn [] Believes in Prayer [] Reads Bible or Congregation materials [] There are Spiritual issues to be addressed Vice President Of News Interventions [x] Prayer [] Active listening [] Non-anxious presence [] Spiritual/emotional support [] Crisis/trauma care [] Spiritual counseling [] Bereavement support [] Provided bereavement packet [] Provided Bible/devotional materials [] Provided toy/stuffed animal, coloring book to patient or family member [] Provided Communion [] Anointing/[place] [] Salvation [x] Completed spiritual assessment [] Other: Impact on Illness or Injury [] Angry [] Fearful [] Anxious [] Often cries [] Exhaustion [] Unable to work [] Unable to attend adventism [] Unable to walk/stand [] Unable to read [] Unable to drive [] Unable to eat/drink [] Unable to sleep [] Unable to be with family [] Patient intubated [] Other: Summary patient resting well Time spent with patient 5 min
[2020-09-28 11:47] LABS: Partial Thromboplastin Time 73.7 SECONDS (23.9-36.7)
--- NOTE | 2020-09-28 13:14 | PM.PN ---
Subjective Subjective: Interval history: 75-year-old wheelchair-bound with past medical history of hypertension, dyslipidemia, benign prostatic hyperplasia, iron deficiency anemia, AAAMeasuring 4.6 cm, pancreatic mass with metastatic lesions in liver, atrial fibrillation currently on bilateral lower extremity DVT status post IVC filter, peripheral vascular disease, chronic anticoagulation with Xarelto who presented to the hospital with abdominal pain in addition to right lower extremity swelling/pain.Patient was apparently having discoloration of his right foot as well. Upon arrival to emergency roomHis initial laboratory workup showed a WBC of 6.8, hemoglobin of 13.6, hematocrit of 41.8 and a platelet count of 66. This was a drop from 169 in August of 2020. INR 1.42. Sodium 141, potassium 3.7, chloride 97, bicarb 30, BUN 17 and creatinine of 0.9. Total bilirubin of 1.6, AST of 31, ALT of 45 and alkaline phosphatase of 355. Imaging studies in emergency room included a lower extremity arterial duplex bilaterally which showedNo significant arterial occlusion with mild diffuse plaques in iliac and femoral artery on the right side Inability perform SALLY.CT order with runoff was then performed which showed. Two vessel runoff to the right ankle via anterior and posterior tibial arteries with inability to follow perineal artery below the trifurcation , contrast was seen within the right dorsal pedal artery. 3 vessel runoff into the left ankle with multiple short segments of high-grade stenotic foci of the anterior tibial artery resulting in faint opacification. Again noted to have evidence of occlusive DVT of the right common femoral vein distally. Also suspected to have in occlusion of the right greater saphenous vein. 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 He was started on agatroban which was to continue pending HITab labs. 09/28/20 Patient was complaining of back pain as well as right lower extremity pain. No chest pain or dyspnea. No fever, chills, nausea or vomiting. Medications: Reviewed: Yes Vitals/I&O/Wt Last Vital Signs Temp 97.9 F 09/28/20 12:58 Pulse 96 09/28/20 12:58 Resp 26 H 09/28/20 12:58 BP 127/80 09/28/20 12:58 Pulse Ox 94 09/28/20 08:27 09/27/20 09/28/20 09/28/20 22:59 06:59 14:59 Intake Total 1000 / 1000 130.5 / 1130.5 231.958 / 231.958 Balance 1000 / 1000 130.5 / 1130.5 231.958 / 231.958 Weight last 48 hrs Weight 82.508 kg Weight 81.647 kg Physical Exam Narrative: EXAM NARRATIVE: General :Awake, alert, chronically ill appearing HEENT: Grossly unremarkable CVS: Tachycardia Chest: Decrease Breath sounds bases bilaterally Abd: Soft, NT,ND Ext : Edema R>L, weak peripheral pulses Data : 09/28/20 04:46 09/28/20 04:46 A&P Assessment and plan (1) Recurrent acute deep vein thrombosis (DVT) of right lower extremity: Status: Acute (2) Pancreatic cancer: Status: Acute (3) Thrombocytopenia: Status: Acute (4) Ischemic ulcer: Status: Acute Additional A&P Information Right lower extremity DVT failed Eliquis Noted to be acute per imaging Started on agatroban HITab sent Complex management given suspected malignancy Will likely have to consider coumadin bridge Monitor Hgb and plts Peripheral arterial disease CTA aorta runoff - noted in HPI Aspirin/statin/IV agatroban Additional medical History Pancreatic mass with hepatic metastatic lesion Hypertension Hyperlipidemia DVT ppx Prognosis: Poor, may need to discuss hospice consult Attestations Medical Necessity Statement*: continue hospitalization for managment of acute dvt on IV agatroban Time Spent in Patient Care: Greater than 35 minutes (>than 50% of time spent in counselling and/or direct pt care on unit). Coding Level of Care Code Acute Boiler Helper for Enzo Shi Diagnoses Recurrent acute deep vein thrombosis (DVT) of right lower extremity I82.401 Pancreatic cancer C25.9 Thrombocytopenia D69.6 Ischemic ulcer L98.499
--- NOTE | 2020-09-28 13:53 | PC.NURSE ---
Dr Mckenna called regarding morphine admin orders. discussion was had with physician about order and doctor said to proceed.
--- NOTE | 2020-09-28 14:15 | PC.NURSE ---
pt complaining of feet pain. repositioned and reassured. linens changed at this time.
--- NOTE | 2020-09-28 14:16 | PC.NURSE ---
pt yelling about pain in feet at this time. position change and reassurance given.
[2020-09-28] MEDS: potassium chloride ER 20 mEq Tablet 40 MEQ PO (16:12)
[2020-09-28] MEDS: FUROsemide 40 mg Tablet PO (16:13)
[2020-09-28] MEDS: losartan 50 mg Tablet 25 MG PO (16:13)
[2020-09-28] MEDS: tamsulosin 0.4 mg Capsule PO (16:13)
--- NOTE | 2020-09-28 17:43 | PC.NURSE ---
flushes used with pain medicare specialist
--- NOTE | 2020-09-28 17:44 | PC.NURSE ---
all 'not mets' are based on pt confusion. ex. pain sensations in different places such as bottoms of feet. fixed with position change and reassurance.
--- NOTE | 2020-09-28 17:46 | PC.NURSE ---
pt sleeping at this time
[2020-09-28] MEDS: polyethylene glycol 3350 Pkt 17 gm PO (17:56)
[2020-09-28] MEDS: TRAMadol 50 mg Tablet PO (23:32)
[2020-09-29] VITALS (14 sets, daily range): BP systolic 106–127; BP diastolic 73–85; PULSE 75–102; RESP 15–23; TEMP 36.4–37; O2SAT 91–94
[2020-09-29] MEDS: morphine 4 mg/mL SDV 1 mL 2 MG IVP ×5 (03:17→23:22)
[2020-09-29] MEDS: ondansetron 2 mg/ML SDV 2 mL 4 MG IVP (04:16)
[2020-09-29 04:27] LABS: Partial Thromboplastin Time 58.7 SECONDS (23.9-36.7)
[2020-09-29] MEDS: sennosides-docusate Tablet 1 TAB PO ×2 (08:29→17:49)
[2020-09-29] MEDS: polyethylene glycol 3350 Pkt 17 gm PO (08:29)
[2020-09-29] MEDS: TRAMadol 50 mg Tablet PO (08:34)
--- NOTE | 2020-09-29 08:44 | PC.NURSE ---
patient reports abdomen pain abdomen is tight and tender to palpation notified Dr wilcox of patient reports telephone instructions to obtain cbc and bmp
[2020-09-29 09:01] LABS: Eosinophils # 0.1 10^3/uL (0.0-0.8); Eosinophils % 1.9 %; Hematocrit 38.7 % (42.0-52.0); Hemoglobin 12.3 g/dL (11.7-16.6); Lymphocytes # 1.1 10^3/uL (0.8-4.8); Lymphocytes % 15.8 %; Mean Corpuscular HGB Conc 31.8 g/dL (30.0-36.0); Mean Corpuscular Hemoglobin 27.4 pg (28.0-34.0); Mean Corpuscular Volume 86.2 fL (80-94); Mean Platelet Volume 12.1 fL (7.4-10.4); Monocytes # 0.6 10^3/uL (0.2-0.9); Monocytes % 8.9 %; Neutrophils # 4.98 10^3/uL (1.8-7.7); Neutrophils % 72.7 %; Nucleated Red Blood Cells % 0 %; Platelet Count 76 10^3/cmm (130-400); Red Blood Count 4.49 10^6/uL (4.1-5.3); Red Cell Distribution Width 15.9 % (12.1-15.1); White Blood Count 6.9 10^3/uL (4.0-10.0)
--- NOTE | 2020-09-29 09:08 | PC.NURSE ---
patient rates pain 0/10 at this time however outward s/s of pain noted patient moans and grimaces
[2020-09-29 09:14] LABS: Anion Gap 15.4 (5-19); Blood Urea Nitrogen 16 mg/dL (8-23); Calcium 8.6 mg/dL (8.5-10.5); Carbon Dioxide 27 mmol/L (22-29); Chloride 100 mmol/L (98-107); Glucose 99 mg/dL (65-115); Osmolality Calculated 289 mOsm/kg (285-295); Potassium 3.4 mmol/L (3.5-5.1); Sodium 139 mmol/L (136-145)
--- NOTE | 2020-09-29 09:55 | PC.CHAP ---
Pastoral Care Encounter/Spiritual Assessment Type of Contact [] Declined patient appointment coordinator visit [] Patient/Family/Request visit [] Outpatient visit [] Follow-up visit [] Physician referral [] Code/Alert [x] Routine visit [] Staff referral [] Actively dying [] Patient sleeping [] Family support [] [] Out of room [] Palliative care [] [] Receiving care in room [] Pre-surgical visit [] Trauma [] Long length of stay [] ICU visit [] Other: Relational/Emotional Strength [] Patient feels connected with others/family/visitors/staff [] Distress [] Loneliness/isolation [] Abandonment Spirituality of Patient [] Person of Jocelyn [] Attends Restorationist of their Jocelyn [] Believes in Prayer [] Reads Bible or Yarsanism materials [] There are Spiritual issues to be addressed Flatbed Press Operator Interventions [x] Prayer [x] Active listening [x] Non-anxious presence [x] Spiritual/emotional support [] Crisis/trauma care [] Spiritual counseling [] Bereavement support [] Provided bereavement packet [] Provided Bible/devotional materials [] Provided toy/stuffed animal, coloring book to patient or family member [] Provided Communion [] Anointing/[place] [] Salvation [x] Completed spiritual assessment [] Other: Impact on Illness or Injury [] Angry [] Fearful [] Anxious [] Often cries [] Exhaustion [] Unable to work [] Unable to attend islam [] Unable to walk/stand [] Unable to read [] Unable to drive [] Unable to eat/drink [] Unable to sleep [] Unable to be with family [] Patient intubated [] Other: Summary patient in a lot of pain... also having difficultly breathing Time spent with patient 10 min
--- NOTE | 2020-09-29 10:40 | PC.NURSE ---
Dr Mckenna in room rounding verbal instruction to change morphine prn order for any pain
--- NOTE | 2020-09-29 10:58 | PC.NURSE ---
Dr. Mckenna discussed hospice with patient This nurse educated patient about hospice and care going forward Patient verbalized understanding and was agreeable to plan, Allie OT in room at time of discussion and witness verbal agreement of patient
--- NOTE | 2020-09-29 13:24 | P.PN_ITS ---
Subjective Subjective: Interval history: 75-year-old wheelchair-bound with past medical history of hypertension, dyslipidemia, benign prostatic hyperplasia, iron deficiency anemia, AAAMeasuring 4.6 cm, pancreatic mass with metastatic lesions in liver, atrial fibrillation currently on bilateral lower extremity DVT status post IVC filter, peripheral vascular disease, chronic anticoagulation with Xarelto who presented to the hospital with abdominal pain in addition to right lower extremity swelling/pain.Patient was apparently having discoloration of his right foot as well. Upon arrival to emergency roomHis initial laboratory workup showed a WBC of 6.8, hemoglobin of 13.6, hematocrit of 41.8 and a platelet count of 66. This was a drop from 169 in August of 2020. INR 1.42. Sodium 141, pota ssium 3.7, chloride 97, bicarb 30, BUN 17 and creatinine of 0.9. Total bilirubin of 1.6, AST of 31, ALT of 45 and alkaline phosphatase of 355. Imaging studies in emergency room included a lower extremity arterial duplex bilaterally which showedNo significant arterial occlusion with mild diffuse p laques in iliac and femoral artery on the right side Inability perform SALLY.CT order with runoff was then performed which showed. Two vessel runoff to the right ankle via anterior and posterior tibial arteries with inability to follow perineal artery below the trifurcation , contrast was seen within the right dorsal pedal artery. 3 vessel runoff into the left ankle with multiple short segments of high-grade stenotic foci of the anterior tibial artery resulting in faint opacification. Again noted to have evidence of occlusive DVT of the right common femoral vein distally. Also suspected to have in occlusion of the right greater saphenous vein. 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 He was started on agatroban which was to continue pending HITab labs. 09/28/20 Patient was complaining of back pain as well as right lower extremity pain. No chest pain or dyspnea. No fever, chills, nausea or vomiting. 09/29/20 Paitnet was quite uncomfortable overnight with abdominal pain. Discussed overall unfortunate for prognosis with patient. He was recommending more pain medication. Again refused any workup of pancreatic mass. patient was agreeable to hospice consult. Medications: Reviewed: Yes Vitals/I&O/Wt Last Vital Signs Temp 97.6 F 09/29/20 12:00 Pulse 102 H 09/29/20 12:00 Resp 15 09/29/20 12:00 BP 106/75 09/29/20 12:00 Pulse Ox 94 09/29/20 12:00 09/28/20 09/29/20 09/29/20 22:59 06:59 14:59 Intake Total 707.933 / 939.891 100 / 1039.891 320 / 320 Output Total 100 / 100 10 / 110 Balance 607.933 / 839.891 90 / 929.891 320 / 320 Weight last 48 hrs Weight 82.508 kg Weight 81.647 kg Physical Exam Narrative: EXAM NARRATIVE: General :Awake, alert, chronically ill appearing HEENT: Grossly unremarkable CVS: Tachycardia Chest: Decrease Breath sounds bases bilaterally Abd: Soft, NT,ND Ext : Edema R>L, weak peripheral pulses Data : 09/29/20 03:55 09/29/20 03:55 A&P Assessment and plan (1) Recurrent acute deep vein thrombosis (DVT) of right lower extremity: Status: Acute (2) Pancreatic cancer: Status: Acute (3) Thrombocytopenia: Status: Acute (4) Ischemic ulcer: Status: Acute Additional A&P Information Right lower extremity DVT failed Eliquis Noted to be acute per imaging Started on agatroban HITab sent Complex management given suspected malignancy Will likely have to consider coumadin bridge Monitor Hgb and plts Peripheral arterial disease CTA aorta runoff - noted in HPI Aspirin/statin/IV agatroban Abdominal pain likely due to pancreatic mass with hepatic meds Pain control Hospice consult Additional medical History Hypertension Hyperlipidemia DVT ppx Prognosis: Consult placed for Hospice Attestations Medical Necessity Statement*: will require further hospitalization for management of DVT onIV anticoagulation andPancreatic mass awaiting hospice consult Time Spent in Patient Care: Greater than 35 minutes (>than 50% of time spent in counselling and/or direct pt care on unit) . Coding Level of Care Code Acute Extra Hand for Enzo Fwgustabo Diagnoses Recurrent acute deep vein thrombosis (DVT) of right lower extremity I82.401 Pancreatic cancer C25.9 Thrombocytopenia D69.6 Ischemic ulcer L98.499
[2020-09-29] MEDS: FUROsemide 40 mg Tablet PO (16:20)
[2020-09-29] MEDS: tamsulosin 0.4 mg Capsule PO (16:20)
[2020-09-29] MEDS: losartan 50 mg Tablet 25 MG PO (16:25)
--- NOTE | 2020-09-29 16:27 | PC.NUTR ---
Nutrition assessment completed d/t MST score of 3. Recommend Ensure Plus TID to provide additional kcal/protein. Pt willing to try in strawberry flavor. This RD also encouraged pt to drink fluids to promote bowel movement, as he reported little fluid intake. Also recommend consideration of liberalizing diet to Regular to increase palatability given poor po intakes at this time. See RD assessment for further details.
--- NOTE | 2020-09-29 17:14 | PC.PT ---
PT note;, PT evaluation on hold awaiting results of hospice consult; will follow
[2020-09-30] VITALS (9 sets, daily range): BP systolic 105–138; BP diastolic 63–83; PULSE 85–115; RESP 18–25; O2SAT 91–95
[2020-09-30] MEDS: morphine 4 mg/mL SDV 1 mL 2 MG IVP ×3 (03:20→15:42)
[2020-09-30 04:18] LABS: Partial Thromboplastin Time 61.5 SECONDS (23.9-36.7)
[2020-09-30] MEDS: HYDROmorphone 1 mg/mL INJ 1 mL IVP (05:45)
[2020-09-30] MEDS: polyethylene glycol 3350 Pkt 17 gm PO (08:28)
[2020-09-30] MEDS: sennosides-docusate Tablet 1 TAB PO (08:29)
--- NOTE | 2020-09-30 11:46 | PC.OT ---
PER DISCUSSION WITH DOCTOR, PATIENT TRANSFERRING TO HOSPICE CARE; DISCHARGE OT/PT ORDERS.
--- NOTE | 2020-09-30 12:08 | PC.RESP ---
SMOKING CESSATION INFORMATION SENT TO PATIENT.
--- NOTE | 2020-09-30 13:08 | PC.PT ---
Patient going to hospice care; discharge physical therapy evaluation order
--- NOTE | 2020-09-30 13:47 | PM.DCS ---
Discharge Providers Date of Admission: 09/27/20 23:56 Date of Discharge: September 30, 2020 Attending Provider at Admission: Kylie Marinelli MD Attending Provider at Discharge: Jarrett Mckenna Diagnoses at Discharge Discharge Diagnosis (1) Recurrent acute deep vein thrombosis (DVT) of right lower extremity: Status: Acute (2) Pancreatic cancer: Status: Acute (3) Thrombocytopenia: Status: Acute (4) Ischemic ulcer: Status: Acute Reason for Visit Reason for Visit: FOOT, LEG PAIN Hospital Course Hospital Course 75-year-old wheelchair-bound with past medical history of hypertension, dyslipidemia, benign prostatic hyperplasia, iron deficiency anemia, AAAMeasuring 4.6 cm, pancreatic mass with metastatic lesions in liver, atrial fibrillation currently on bilateral lower extremity DVT status post IVC filter, peripheral vascular disease, chronic anticoagulation with Xarelto who presented to the hospital with abdominal pain in addition to right lower extremity swelling/pain.Patient was apparently having discoloration of his right foot as well. Upon arrival to emergency roomHis initial laboratory workup showed a WBC of 6.8, hemoglobin of 13.6, hematocrit of 41.8 and a platelet count of 66. This was a drop from 169 in August of 2020. INR 1.42. Sodium 141, potassium 3.7, chloride 97, bicarb 30, BUN 17 and creatinine of 0.9. Total bilirubin of 1.6, AST of 31, ALT of 45 and alkaline phosphatase of 355. Imaging studies in emergency room included a lower extremity arterial duplex bilaterally which showedNo significant arterial occlusion with mild diffuse plaques in iliac and femoral artery on the right side Inability perform SALLY.CT order with runoff was then performed which showed. Two vessel runoff to the right ankle via anterior and posterior tibial arteries with inability to follow perineal artery below the trifurcation , contrast was seen within the right dorsal pedal artery. 3 vessel runoff into the left ankle with multiple short segments of high-grade stenotic foci of the anterior tibial artery resulting in faint opacification. Again noted to have evidence of occlusive DVT of the right common femoral vein distally. Also suspected to have in occlusion of the right greater saphenous vein. 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 He was started on agatroban which was to continue pending HITab labs. Paitnet was quite uncomfortable overnight with abdominal pain. Discussed overall unfortunate for prognosis with patient. He was requesting more pain medication. Again refused any workup of pancreatic mass. Progressevly declined. Increasingly confused, weak as well as noting to have aspiration. Discussed with patients daughter as well who confirmed that patient had expressed desire to be hospice/comfort care and would not want any intervention at this point. Hospice was consulted. Discharged to home on hospice care. Physical Exam Narrative: EXAM NARRATIVE: General :Awake, alert, chronically ill appearing HEENT: Grossly unremarkable CVS: Tachycardia Chest: Decrease Breath sounds bases bilaterally Abd: Soft, NT,ND Ext : Edema R>L, weak peripheral pulses Urinary Catheter Management^: Treviño: Cath Placed During This Visit: yes Urinary Catheter Date of Insertion: 09/30/20 Urinary Catheter Time of Insertion: 12:11 Discharge Data Data Completed and Pending: Completed Studies During Hospitalization Category Date Time Status CT angio abd aort a runof 13794 Urge nt Cat Scan 09/27/20 15:[address] angio chest ab domen pelvis Urgen t Cat Scan 09/27/20 14:44 [place] [address] Urge nt Ultrasound 09/27/20 13:52 [place] [address] Urgent Ultrasound 09/27/20 13:52 Completed Pending at discharge Category Date Time Status Heparin Induced T hrombocytopen Rout ine Lab 09/28/20 04:46 Received PTT [Partial Thro mboplastin Time] T imed Lab 10/01/20 04:00 Ordered Labs from last 24 hours 09/30/20 03:54 APTT 61.5 H Vitals: Last Vital Signs Temp 97.8 F 09/29/20 20:00 Pulse 88 09/30/20 07:23 Resp 21 H 09/30/20 12:30 BP 105/63 09/30/20 07:23 Pulse Ox 91 09/30/20 07:23 Discharge Plan Discharge Patient Disposition: Hospice - Home Condition: Serious Prescriptions: New morphine concentrate 100 mg/5 mL (20 mg/mL) solution 5 mg PO Q6H PRN (Reason: pain) Qty: 30 RF: 0 Lorazepam Intensol 2 mg/mL concentrate 1 mg PO Q12H PRN (Reason: Pain ) Qty: 30 RF: 0 hyoscyamine sulfate 0.125 mg/mL drops 1 ml PO Q4H PRN (Reason: secretions) Qty: 30 RF: 0 Continued aspirin 81 mg Tablet,Delayed Release (Dr/Ec) 81 mg PO DAILY@1700 RF: 0 tamsulosin 0.4 mg Capsule 0.4 mg PO DAILY@1700 RF: 0 Eliquis DVT-PE Treat 30D Start 5 mg (74 tabs) tablets,dose pack See Rx Instructions .ROUTE .COMPLEX Qty: 74 RF: 0 Discontinued losartan 50 mg Tablet 25 mg PO DAILY@1700 RF: 0 atorvastatin 40 mg Tablet 20 mg PO DAILY@1700 RF: 0 cholecalciferol (vitamin D3) [Vitamin D3] 25 mcg (1,000 unit) Tablet 25 mcg PO DAILY@1700 RF: 0 furosemide 40 mg tablet 40 mg PO DAILY@1700 RF: 0 hydrocodone-acetaminophen 5-325 mg tablet 1 tab PO Q6H PRN (Reason: pain) Qty: 14 RF: 0 Discharge Orders: Discharge Order (Routine); Ordered 09/30/20 Ordered By: Jarrett Mckenna Discharge Diet: As Directed Discharge Activity: Bedrest Patient Instructions: Lorazepam (By mouth), Hyoscyamine (By mouth), Morphine, Slow Release (By mouth) Discharge Attestations Time Spent in Discharge Care*: greater than 30 min Specific Discharge Activities: educating patient, educating and/or supporting family/caregiver, discussing with pcp/other providers, discussing with mattress spring encaser/social workers/dc planners, documenting/other paperwork and evaluating patient/reviewing data Status at Discharge: Cognitive status at discharge: moderately impaired cognition, Behavioral status at discharge: cooperative, Functional status at discharge: bed bound Overall status at discharge: patient is not back to baseline Quality Metrics Clinical Quality Measures During this hospital stay, did patient experience: None Coding Level of Care Code Acute g FW DC note Diagnoses Recurrent acute deep vein thrombosis (DVT) of right lower extremity I82.401 Pancreatic cancer C25.9 Thrombocytopenia D69.6 Ischemic ulcer L98.499
--- NOTE | 2020-09-30 16:12 | DCPLANNER ---
Pg 2 of IM updated and reviewed with pt's daughters, no questions, copy provided.
[2020-10-02 16:12] LABS: Heparin Induced Platelet AB NEGATIVE (NEGATIVE); Patient O.D 0.013
[2020-10-06 23:36] LABS: UFH High Dose, 100 IU/ML 0 % release; UFH Low Dose, 0.1 IU/ML 0 % release; UFH Low Dose, 0.5 IU/ML 0 % release; UFH SRA Result NEGATIVE (NEGATIVE)
== END 2020-09-30 18:20 | disposition hospice, home (50) | DRG 300 ==
LOC: ER 22:08 → CSU 09-28 04:34
PROVIDERS: Physician Assistant; Admitting Provider Internal Medicine; Emergency Provider Family Medicine; Visit Provider Hospitalist
DX: I82.411 Acute embolism and thrombosis of right femoral vein (principal); C25.9 Malignant neoplasm of pancreas, unspecified; C78.7 Secondary malignant neoplasm of liver and intrahepatic bile duct; I82.811 Embolism and thrombosis of superficial veins of right lower extremity; Z95.828 Presence of other vascular implants and grafts; I71.4 Abdominal aortic aneurysm, without rupture; I48.91 Unspecified atrial fibrillation; I73.9 Peripheral vascular disease, unspecified; Z95.820 Peripheral vascular angioplasty status with implants and grafts; K59.09 Other constipation; D69.6 Thrombocytopenia, unspecified; N40.0 Benign prostatic hyperplasia without lower urinary tract symptoms; I25.10 Atherosclerotic heart disease of native coronary artery without angina pectoris; E78.5 Hyperlipidemia, unspecified; I10 Essential (primary) hypertension; Q53.9 Undescended testicle, unspecified; F17.220 Nicotine dependence, chewing tobacco, uncomplicated; F10.10 Alcohol abuse, uncomplicated; I82.1 Thrombophlebitis migrans; D50.9 Iron deficiency anemia, unspecified; Z66 Do not resuscitate; G89.3 Neoplasm related pain (acute) (chronic); L98.499 Non-pressure chronic ulcer of skin of other sites with unspecified severity
CPT/HCPCS: 36415; 51702; 51798; 71275; 74174; 75635; 80048; 80053; 83690; 85025; 85610; 85730; 93005; 93926; 93971; 96361; 96365; 96375; 97167; 97530; 99285; G0378; J0883; J1170; J2270; J2405; J7030; J7050; Q9967